=== PATIENT | female | born 1945 ===

== ENCOUNTER → 2019-11-27 09:50 | Outpatient (REF) | payer MEDICARE, SELFPAY ==
--- NOTE | 2019-11-27 09:46 | NM_ITS ---
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 COMPARISON: The previous bone scan dated 06/05/2018 is available for comparison. No recent radiographs are available for comparison. CT scan of the chest dated 10/04/2016 is available for comparison. TECHNIQUE: Multiple gamma scintillation camera images of the whole body were performed 2.75 hours following the intravenous administration of 26.0 mCi Tc-99m MDP. FINDINGS: In the head, there is somewhat heterogeneous activity with some prominence in the frontal skull bilaterally which may be due to hyperostosis frontalis interna but is not entirely typical of the latter. In the thoracic cage and upper extremities, there is mildly increased activity acromioclavicular and sternoclavicular joints bilaterally and at the costochondral junction of the left first rib. Faint foci of increased activity are present in the left anterolateral rib cage, likely involving the fifth through seventh ribs and there is also faint focus of increased activity in the anterolateral aspect of the right ninth rib, these abnormalities best visualized in the anterior oblique spot views. There is a small focus of mildly increased activity in the posterior aspect of the right sixth rib. In the spine, a mild thoracolumbar scoliosis is present with lumbar convexity to the right. There is mildly to moderately increased activity in multiple vertebra in the mid and lower thoracic spine predominantly in the costovertebral junctions on the left at T7-T9 and on the right at T10 and T11. There is also mildly increased activity in the spinous process of L4 and faintly in the lateral margins of L5. In the pelvis, there is mildly increased activity in the acetabula bilaterally there is a small faint focus of increased activity in the region of the coccyx, well visualized only on the posterior oblique views. An additional focus of increased activity is present in the superior aspect of the left ischium. In the lower extremities, there is a small focus of mildly increased activity in the lateral cortex of the midshaft of the left femur. Is also mildly increased activity in the lesser trochanteric region on the right. In addition there is a mild cortical prominence laterally in the midshaft of the right femur. There is diffusely increased activity in both knees, of moderate intensity involving the patellar and medial compartments and there are diffuse mild to moderate abnormalities in the ankles bilaterally and the proximal feet bilaterally. No other definite bony abnormalities are noted. The urinary bladder and faint visualization of both kidneys are noted. Compared to the previous bone scan dated 06/05/2018, the appearance is similar. The abnormality in the posterior aspect of the right sixth rib is new but the remainder the scan does not appear significantly changed. The CT scan dated 10/04/2016 is the most recent available tomographic imaging for comparison. This shows prominent degenerative changes in the visualized spine which would account for bone scan abnormalities present on the current and prior study. No posterior right sixth rib abnormalities present on that CT scan. IMPRESSION: 1. There is a new abnormality in the posterior aspect of the right sixth rib which is nonspecific and could be metastatic in etiology or due to a healing rib fracture. This might be better characterized with plain radiographs of this rib, if clinically indicated. 2. A small stable abnormality in the lateral cortex of the left femoral midshaft is nonspecific, and could be due to a small chronic fracture at this site, but a metastasis cannot be ruled out. This could be further characterized with radiographs, if clinically indicated. 3. Heterogeneity in the skull is nonspecific and could be due to hyperostosis, but metastatic disease cannot be ruled out. MRI of the head performed without and with intravenous contrast would better characterize these nonspecific findings. 4. Multiple additional stable abnormalities are noted as described above, and these are likely predominantly arthritic or traumatic in etiology. Bone scan abnormalities are noted as described above and these are likely predominantly degenerative or arthritic in etiology.
== END ==
LOC: HO.NUCMED 09:50
PROVIDERS: PCP Internal Medicine; Visit Provider Internal Medicine Medical Oncology
DX: C50.919 Malignant neoplasm of unspecified site of unspecified female breast (principal); C79.51 Secondary malignant neoplasm of bone; Z79.811 Long term (current) use of aromatase inhibitors
CPT/HCPCS: 78306; A9503

== ENCOUNTER → 2020-01-01 13:58 | Outpatient (BNVA) | payer MEDICARE, SELFPAY | PROVIDERS: PCP Internal Medicine; Referring Provider Internal Medicine; Visit Provider Internal Medicine | DX: G47.33 Obstructive sleep apnea (adult) (pediatric) (principal); G47.34 Idiopathic sleep related nonobstructive alveolar hypoventilation | CPT/HCPCS: 99212 ==

== ENCOUNTER → 2020-01-28 09:53 | Outpatient (BNV) | payer MEDICARE, SELFPAY | PROVIDERS: PCP Internal Medicine; Visit Provider Internal Medicine Medical Oncology | DX: C50.911 Malignant neoplasm of unspecified site of right female breast (principal); C79.51 Secondary malignant neoplasm of bone; Z79.811 Long term (current) use of aromatase inhibitors | CPT/HCPCS: 99213; 99214 ==

== ENCOUNTER 2020-01-28 13:47 | Outpatient (REF) | payer MEDICARE, SELFPAY ==
--- NOTE | 2020-01-28 13:48 | XR_ITS ---
EXAMINATION: LEFT FEMUR X-RAY CLINICAL INFORMATION: Follow-up lesion on bone scan COMPARISON: Previous bone scan most recent November 2019 TECHNIQUE: 2 views of the left femur FINDINGS: There is focal cortical thickening along the lateral mid shaft of the left femur corresponding to increased uptake on bone scan. No acute fracture or dislocation is seen. There are degenerative changes at the hip joint and knee joint. Soft tissues are unremarkable. XR/XR ribs RT min 3V w CXR1V IMPRESSION: Focal cortical thickening of the lateral mid shaft of the left femur corresponding to area of increased uptake on bone scan. No bone lesion seen. EXAMINATION: Chest and right rib x-rays CLINICAL INFORMATION: Follow-up uptake on bone scan COMPARISON: Previous bone scan most recent November 2019 and chest x-ray most recent June 2016 TECHNIQUE: One view of the chest and 3 views of the right ribs FINDINGS: The cardiac silhouette is enlarged but stable. Hilar and mediastinal contours are unremarkable. The lungs are clear. There is no pleural effusion or pneumothorax. There are surgical clips in the right axilla. There are degenerative changes of the thoracic spine and scoliosis. No rib fracture or bone lesion is seen. IMPRESSION: No evidence for acute disease in the chest. Scoliosis and degenerative changes of the thoracic spine. No right rib fracture or bone lesion is seen.
--- NOTE | 2020-01-28 13:48 | XR_ITS ---
EXAMINATION: LEFT FEMUR X-RAY CLINICAL INFORMATION: Follow-up lesion on bone scan COMPARISON: Previous bone scan most recent November 2019 TECHNIQUE: 2 views of the left femur FINDINGS: There is focal cortical thickening along the lateral mid shaft of the left femur corresponding to increased uptake on bone scan. No acute fracture or dislocation is seen. There are degenerative changes at the hip joint and knee joint. Soft tissues are unremarkable. XR/XR femur LT 2V IMPRESSION: Focal cortical thickening of the lateral mid shaft of the left femur corresponding to area of increased uptake on bone scan. No bone lesion seen. EXAMINATION: Chest and right rib x-rays CLINICAL INFORMATION: Follow-up uptake on bone scan COMPARISON: Previous bone scan most recent November 2019 and chest x-ray most recent June 2016 TECHNIQUE: One view of the chest and 3 views of the right ribs FINDINGS: The cardiac silhouette is enlarged but stable. Hilar and mediastinal contours are unremarkable. The lungs are clear. There is no pleural effusion or pneumothorax. There are surgical clips in the right axilla. There are degenerative changes of the thoracic spine and scoliosis. No rib fracture or bone lesion is seen. IMPRESSION: No evidence for acute disease in the chest. Scoliosis and degenerative changes of the thoracic spine. No right rib fracture or bone lesion is seen.
== END 2020-01-28 13:48 | disposition home or self-care (01) ==
LOC: HO.XRAY 13:47
PROVIDERS: Visit Provider Internal Medicine Medical Oncology
DX: M89.9 Disorder of bone, unspecified (principal); S22.31XA Fracture of one rib, right side, initial encounter for closed fracture; X58.XXXA Exposure to other specified factors, initial encounter; Y93.9 Activity, unspecified; Y92.9 Unspecified place or not applicable; Y99.9 Unspecified external cause status; C50.919 Malignant neoplasm of unspecified site of unspecified female breast; C79.31 Secondary malignant neoplasm of brain
CPT/HCPCS: 71101; 73552

== ENCOUNTER 2020-02-05 10:12 | Outpatient (REF) | payer MEDICARE, SELFPAY | END 2020-02-05 10:13 | disposition home or self-care (01) | LOC: HO.LAB 10:12 | PROVIDERS: Visit Provider Internal Medicine | DX: Z20.828 Contact with and (suspected) exposure to other viral communicable diseases (principal) | CPT/HCPCS: C9803; U0003 ==

== ENCOUNTER 2020-02-19 12:54 | Outpatient (REF) | payer MEDICARE, SELFPAY ==
--- NOTE | 2020-02-19 12:56 | MR_ITS ---
EXAMINATION: MRI OF THE BRAIN WITH AND WITHOUT IV CONTRAST INDICATION: Follow-up abnormal bone scan. COMPARISON: Bone scan 11/27/2019. Brain MRI 11/12/2013. TECHNIQUE: Multiplanar multisequence MR imaging of the brain was obtained without and following the administration of 7.5 mL of Gadavist without complication. FINDINGS: There is a stable well-circumscribed enhancing lesion within the left frontal bone just anterior to the left coronal suture measuring 0.8 cm when correlated with 11/12/2013 brain MRI. This lesion has chronically exhibited increased bone scan uptake. No definite additional discrete enhancing lesions are identified within the skull to correlate with the recent bone scan findings. There is mild chronic microangiopathy. There is no hydrocephalus, extra-axial surface collection, or herniation. The major flow voids at the skull base are preserved. There is no acute infarct on diffusion-weighted imaging. There is no intracranial hemorrhage on the gradient recalled echo acquisition. 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 The cerebellar tonsils are normally positioned. The cerebellum and brainstem are normal. The craniocervical junction is normal. A few ethmoid air cells are opacified bilaterally and there is mild mucosal thickening within the left frontal sinus. MR/MR head/brain wo/w con IMPRESSION: - There is a stable well-circumscribed enhancing lesion within the left frontal bone just anterior to the left coronal suture measuring 0.8 cm when correlated with 11/12/2013 brain MRI favoring a benign etiology or an inactive treated lesion. This lesion has chronically exhibited increased bone scan uptake. No definite additional discrete enhancing lesions are identified within the skull to correlate with the recent bone scan findings. - No pathologic enhancement intracranially.
== END 2020-02-19 12:55 | disposition home or self-care (01) ==
LOC: HO.MRI 12:54
PROVIDERS: Visit Provider Internal Medicine Medical Oncology
DX: C79.31 Secondary malignant neoplasm of brain (principal)
CPT/HCPCS: 70553; A9585

== ENCOUNTER → 2020-03-09 11:37 | Outpatient (BNVA) | payer MEDICARE, SELFPAY | PROVIDERS: PCP Internal Medicine; Visit Provider Internal Medicine | DX: G47.33 Obstructive sleep apnea (adult) (pediatric) (principal); J45.909 Unspecified asthma, uncomplicated | CPT/HCPCS: 99212 ==

== ENCOUNTER → 2020-03-13 11:13 | Outpatient (BNVA) | payer MEDICARE, SELFPAY | PROVIDERS: PCP Internal Medicine; Visit Provider Nurse Practitioner | DX: Z13.89 Encounter for screening for other disorder (principal) | CPT/HCPCS: Q3014 ==

== ENCOUNTER 2020-03-20 14:26 | Outpatient (REF) | payer MEDICARE, SELFPAY ==
--- NOTE | 2020-03-20 14:33 | XR_ITS ---
EXAMINATION: XR CHEST CLINICAL INFORMATION: Dorsalgia COMPARISON: Right rib radiographs from 01/28/2020 TECHNIQUE: 2 views of the chest were obtained. FINDINGS: There is no focal consolidation. There is no pneumothorax. The trachea is midline. Cardiomediastinal silhouette is enlarged. There is no pleural effusion. The aorta is tortuous. There is S-shaped curvature of the thoracolumbar spine with multilevel degenerative changes of the thoracic spine. Soft tissues are unremarkable. Radiopaque surgical clips are noted projecting over the right lateral breast. XR/XR chest 2V IMPRESSION: No acute cardiopulmonary process.
== END 2020-03-20 14:27 | disposition home or self-care (01) ==
LOC: HO.XRAY 14:26
PROVIDERS: PCP Internal Medicine; Visit Provider Nurse Practitioner Family
DX: M54.9 Dorsalgia, unspecified (principal)
CPT/HCPCS: 71046

== ENCOUNTER 2020-03-26 09:41 | Outpatient (REF) | payer MEDICARE, SELFPAY ==
[2020-03-26 10:54] LABS: MANUAL DIFF FLAG NO
[2020-03-26 11:00] LABS: Basophils Absolute Auto 0.1 X10*3/uL (0.0-0.2); Basophils Percent Auto 0.8 % (0-2); Eosinophils Absolute Auto 0.2 X10*3/uL (0.0-0.4); Eosinophils Percent Auto 3.6 % (0-4); Hematocrit 40.1 % (37-47); Hemoglobin 13.1 g/dl (12.0-16.0); Imm Gran Abs Auto 0.02 X10*3/uL (0.00-0.03); Imm Gran Pct Auto 0.3 % (0.0-0.4); Lymphocytes Absolute Auto 2.8 X10*3/uL (1.2-4.9); Lymphocytes Percent Auto 41.8 % (20-40); Mean Corpuscular HGB Conc 32.7 g/dl (31.0-35.0); Mean Corpuscular Hemoglobin 30.4 pg (27.0-33.0); Mean Platelet Volume 9.3 fL (9.4-12.3); Monocytes Absolute Auto 0.5 X10*3/uL (0.1-1.2); Monocytes Percent Auto 7.1 % (2-11); Neutrophils Absolute Auto 3.1 X10*3/uL (2.0-8.3); Neutrophils Percent Auto 46.4 % (45-73); Platelet Count 265 X10*3/uL (160-400); Red Blood Count 4.31 X10*6/uL (4.20-5.50); Red Cell Distribution Width 12.8 % (11.0-16.0); White Blood Count 6.7 X10*3/uL (4.8-10.8)
[2020-03-26 11:34] LABS: Alanine Aminotransferase 23 U/L (0-31); Albumin Level 4.2 g/dL (3.5-5.0); Alkaline Phosphatase 67 U/L (39-117); Anion Gap 12 (12-20); Aspartate Amino Transferase 22 U/L (5-31); Bilirubin Total 0.4 mg/dL (0.0-1.0); Blood Urea Nitrogen 17 mg/dL (9-16); Calcium 9.2 mg/dL (8.4-10.2); Carbon Dioxide 28 mmol/L (22-29); Chloride 103 mmol/L (96-108); Cholesterol 170 mg/dL; Estimated Glomerular Filt Rate 55; Glucose Fasting 90 mg/dL (60-99); HDL Cholesterol 46 mg/dL; LDL Cholesterol Calculated 104 mg/dl; Potassium 4.1 mmol/L (3.3-5.1); Sodium 139 mmol/L (135-145); Total Protein 7.4 g/dL (6.5-8.0); Triglycerides 102 mg/dL
== END 2020-03-26 09:42 | disposition home or self-care (01) ==
LOC: HO.LAB 09:41
PROVIDERS: Absent Provider Nurse Practitioner Family; PCP Internal Medicine; Visit Provider Internal Medicine
DX: I10 Essential (primary) hypertension (principal); E78.5 Hyperlipidemia, unspecified; M54.9 Dorsalgia, unspecified
CPT/HCPCS: 36415; 80053; 80061; 85025

== ENCOUNTER 2020-04-14 14:52 | Outpatient (REF) | payer MEDICARE, SELFPAY ==
--- NOTE | ~2020-04-14 | MM_ITS ---
EXAMINATION: MM SCREENING DIGITAL BREAST TOMOSYNTHESIS, BILATERAL CLINICAL INFORMATION: Screening. Asymptomatic. Right breast cancer 2006. COMPARISON: Mammography: 02/21/2019, 02/15/2018, 03/08/2017, 02/10/2017 TECHNIQUE: Digital breast tomosynthesis is performed in both the craniocaudal and mediolateral oblique views along with computer-aided detection (CAD). Synthesized 2D images are generated from the tomosynthesis. Additional right exaggerated CC view is provided. FINDINGS: There are scattered areas of fibroglandular density (ACR BI-RADS breast composition Category b). The left breast is unremarkable. There is no developing density or interval mass or architectural abnormality. There are no abnormal calcifications. Left axillary node stable. The right breast has post therapy changes with stable scarring and mild reduced breast size. There is no interval mass or architectural abnormality. There are vascular and round and rim calcifications again seen. Some increased calcifications are present in the central anterior right breast, possibly dystrophic or vascular on tomography. Patient will be recalled for additional imaging. MM/MM tomosynthesis screening BI IMPRESSION: 1. Right: Increased calcifications central anterior breast, possibly dystrophic or vascular tomography. 2. Left: No mammographic evidence of malignancy. ASSESSMENT: BI-RADS 0: Incomplete - Need Additional Imaging Evaluation RECOMMENDATION: 1. Additional views of the right breast (magnification CC, magnification ML). 2. Radiology department staff will contact the patient for additional imaging. This patient's information was entered into a reminder system with a target due date for their next mammogram.
== END 2020-04-14 14:53 | disposition home or self-care (01) ==
LOC: HO.MAMMO 14:52
PROVIDERS: PCP Internal Medicine; Visit Provider Internal Medicine
DX: Z12.31 Encounter for screening mammogram for malignant neoplasm of breast (principal)
CPT/HCPCS: 77063; 77067

== ENCOUNTER 2020-04-20 09:51 | Outpatient (REF) | payer MEDICARE, SELFPAY ==
--- NOTE | ~2020-04-20 | MM_ITS ---
EXAMINATION: MM DIAGNOSTIC DIGITAL MAMMOGRAPHY, RIGHT CLINICAL INFORMATION: Recall from screening for increased calcifications central anterior breast. Prior history right breast cancer 2005. COMPARISON: Mammography: 04/14/2020, 02/21/2019, 02/15/2018 TECHNIQUE: Digital mammography is performed in the following views: Magnification CC, magnification rolled CC x2, magnification ML x2. FINDINGS: There are scattered areas of fibroglandular density (ACR BI-RADS breast composition Category b). The additional views show grouped calcifications in the anterior central breast, close to calcified vasculature but not definitively related to vascular calcifications. They may be early dystrophic. Given the prior history right breast cancer, attempted stereotactic sampling is suggested. Results are discussed with the patient and her daughter at time of visit, using an intermediate manager. Attempted stereotactic sampling is discussed. It was noted that time of stereotactic sampling, calcifications could appear vascular and sampling ordered. MM/MM added views RT IMPRESSION: New indeterminate calcifications anterior central right breast, possibly early dystrophic or vascular. Given prior history right breast cancer, attempt at stereotactic sampling Is suggested. ASSESSMENT: BI-RADS 4: Suspicious (subcategory 4A: Low suspicion for malignancy) RECOMMENDATION: Stereotactic biopsy right anterior breast calcifications. This patient's information was entered into a reminder system with a target due date for their next mammogram.
== END 2020-04-20 09:52 | disposition home or self-care (01) ==
LOC: HO.MAMMO 09:51
PROVIDERS: Visit Provider Internal Medicine
DX: R92.1 Mammographic calcification found on diagnostic imaging of breast (principal)
CPT/HCPCS: 77065

== ENCOUNTER 2020-04-28 09:16 | Outpatient (REF) | payer MEDICARE, SELFPAY ==
--- NOTE | ~2020-04-28 | MM_ITS ---
EXAMINATION: STEREOTACTIC TOMOSYNTHESIS-GUIDED VACUUM-ASSISTED BREAST BIOPSY, RIGHT SPECIMEN RADIOGRAPH, RIGHT POST PROCEDURE DIGITAL MAMMOGRAM, RIGHT CLINICAL INFORMATION: New calcifications anterior central right breast, possibly early dystrophic or vascular. Remote history right breast cancer 2005. COMPARISON: Mammography 04/20/2020, 04/14/2020, 02/21/2019. TECHNIQUE/PROCEDURE: Informed consent was obtained from the patient after discussion of the benefits, risks, and alternatives to biopsy today. Patient appeared to understand. Gave opportunity for questions. Patient signed consent form. Hospital provided actuary manager assisted for consent and throughout the procedure. BIOPSY TABLE: [place] Biopsy System. LESION: Calcifications central anterior right breast. LOCAL ANESTHESIA: 5 mL 1% lidocaine; 15 mL 1% lidocaine with epinephrine. DERMATOTOMY: Single skin jessy dermatotomy performed. NEEDLE: [employer] 9-gauge vacuum assisted core biopsy device. APPROACH: lateral medial. TARGETING: Digital breast tomosynthesis used for targeting. CORES: 9. CLIP: [employer] T-shaped marker. SPECIMEN RADIOGRAPH: Specimen radiograph is taken in separate room using digital mammography. The index calcifications are in the excised cores. There are numerous punctate and some coarser calcifications in the cores. There are also some tram track vascular calcification in the cores, not segregated. POST PROCEDURE UNILATERAL DIGITAL MAMMOGRAM: The post biopsy mammogram is performed in separate room using separate digital mammography equipment from the biopsy procedure. CC and ML views are obtained. There are scattered areas of fibroglandular density (breast composition category: b). The clip marker is in position. The calcifications are decreased at the biopsy site. No significant hematoma appreciated. The patient tolerated the procedure well. No immediate complications. Home instructions reviewed with the patient. Final pathology results are pending. MM/MM stereotactic biopsy RT IMPRESSION: 1. Digital tomosynthesis-guided core biopsy right breast with clip placement. 2. Specimen radiograph taken and post procedure mammogram. There is satisfactory positioning of the biopsy clip. 3. Final pathology results pending. An addendum report will be issued.
== END 2020-04-28 09:17 | disposition home or self-care (01) ==
LOC: HO.MAMMO 09:16
PROVIDERS: Visit Provider Surgery
DX: R92.8 Other abnormal and inconclusive findings on diagnostic imaging of breast (principal); R92.0 Mammographic microcalcification found on diagnostic imaging of breast; C79.51 Secondary malignant neoplasm of bone; Z79.899 Other long term (current) drug therapy; Z85.3 Personal history of malignant neoplasm of breast; Z92.3 Personal history of irradiation; Z92.21 Personal history of antineoplastic chemotherapy
CPT/HCPCS: 19081; 88305; 88341; 88342; 99202; A4648

== ENCOUNTER 2020-04-30 10:28 | Emergency (ER) | payer MEDICARE, SELFPAY ==
--- NOTE | ~2020-04-30 | CT_ITS ---
EXAMINATION: CT HEAD WITHOUT CONTRAST CLINICAL INFORMATION: Headache. History of metastatic disease COMPARISON: MRI 02/19/2020 TECHNIQUE: Contiguous axial imaging was performed from the skull base to vertex without intravenous administration of contrast. This CT examination was performed using dose optimization techniques as appropriate, variously including the following: *Automated exposure control *Adjustment of mA and/or kV according to patient size (this includes techniques or standardized protocols for targeted exams where dose is matched to indication/reason for exam; i.e. extremities or head) *Use of iterative reconstruction technique DLP: 659 mGy-cm FINDINGS: There is no evidence of acute intracranial hemorrhage or territorial infarction. No abnormal mass effect or midline shift is seen. Rizvi to white matter differentiation is well preserved. No extra-axial fluid collections are identified. The ventricles are normal in size. There is no abnormal attenuation within the brain parenchyma. The osseous structures and soft tissues are normal. The mastoid air cells and visualized portions of the paranasal sinuses are well aerated. CT/CT head/brain wo con IMPRESSION: No acute intracranial pathology.
[2020-04-30 12:11] VITALS: BP 150/64; PULSE 68; RESP 18; TEMP 36.5; O2SAT 95; BMI 31.4
[2020-04-30 12:21] LABS: MANUAL DIFF FLAG NO
[2020-04-30 12:23] LABS: Basophils Percent Auto 0.4 % (0-2); Eosinophils Percent Auto 0.3 % (0-4); Hematocrit 39.9 % (37-47); Hemoglobin 13.3 g/dl (12.0-16.0); Imm Gran Abs Auto 0.03 X10*3/uL (0.00-0.03); Imm Gran Pct Auto 0.3 % (0.0-0.4); Lymphocytes Absolute Auto 1.3 X10*3/uL (1.2-4.9); Lymphocytes Percent Auto 11.9 % (20-40); Mean Corpuscular HGB Conc 33.3 g/dl (31.0-35.0); Mean Corpuscular Hemoglobin 30.9 pg (27.0-33.0); Mean Corpuscular Volume 92.8 fL (80-98); Mean Platelet Volume 8.9 fL (9.4-12.3); Monocytes Absolute Auto 0.4 X10*3/uL (0.1-1.2); Monocytes Percent Auto 3.7 % (2-11); Neutrophils Absolute Auto 9.1 X10*3/uL (2.0-8.3); Neutrophils Percent Auto 83.4 % (45-73); Platelet Count 252 X10*3/uL (160-400); Red Cell Distribution Width 12.6 % (11.0-16.0); White Blood Count 10.9 X10*3/uL (4.8-10.8)
[2020-04-30 12:33] LABS: Glucose Urine UA NEG (NEG); Leukocyte Esterase Urine NEG (NEG); Nitrite Urine NEG (NEG); Urine Blood NEG (NEG); Urine Ketones NEG (NEG); Urine Protein 1+ MG/DL (NEG-TRACE)
[2020-04-30 12:41] LABS: Appearance Urine CLEAR; Color Urine YELLOW
[2020-04-30 12:52] LABS: Anion Gap 11 (12-20); Blood Urea Nitrogen 19 mg/dL (9-16); Calcium 9.7 mg/dL (8.4-10.2); Carbon Dioxide 28 mmol/L (22-29); Chloride 103 mmol/L (96-108); Creatinine Clr Calc Pharmacy 58.8; Estimated Glomerular Filt Rate 60; Glucose Random 172 mg/dL (60-115); Potassium 4.4 mmol/L (3.3-5.1); Sodium 138 mmol/L (135-145)
[2020-04-30 12:53] LABS: Mucus Urine 2+ /LPF; RBC Urine 0-2 /HPF (0); Squamous Epithelial Cell Urine 1+ /LPF; WBC Urine 0-2 /HPF (0-4)
--- NOTE | 2020-04-30 15:25 | PC.NURSE ---
Patient awake and alert. Skin pwd, resp even and non labored, speaking in full, clear sentences. c/o 09/29 headache to top of head extending down to right neck since yesterday. pt w/ brain tumor per family. neuros intact. nausea earlier today, resolved at this time. NSR via tele. Neuros intact. awaiting initial provider bibi
[2020-04-30 15:31] VITALS: BP 159/77; PULSE 76; RESP 28; O2SAT 97
--- NOTE | 2020-04-30 16:48 | ED_ITS ---
HPI - Headache General Chief Complaint: Headache Stated Complaint: head pain,no inj Time Seen by Provider: 04/30/20 16:35 Source: patient, family (Daughter) and staff interpreter Mode of arrival: ambulatory Limitations: no limitations History of Present Illness HPI Narrative: 74-year-old female with history of breast cancer with metastases, presented with a right-sided headache for 2 days, no neck stiffness, no fever, n o chills, no nausea, no vomiting. Patient stated that she had this headache in the past and was relieved by given morphine in the emergency department. Patient is been treated for breast cancer, patient also just had right breast biopsy awaiting pathology results. Related Data Home Medications Medication Instructions Recorded Confirmed acetaminophen 500 mg tablet 500 mg PO Q6H 01/01/20 04/28/20 amlodipine 5 mg tablet 5 mg PO DAILY 01/01/20 04/28/20 aspirin 81 mg tablet,delayed 81 mg PO DAILY 01/01/20 04/28/20 release calcium carbonate 600 mg (1,500 1 tab PO BID 01/01/20 04/28/20 mg)-vitamin D3 400 unit tablet escitalopram oxalate 5 mg tablet 5 mg PO DAILY 01/01/20 04/28/20 zoledronic acid 4 mg/5 mL 4 mg IV 01/01/20 04/28/20 intravenous solution Previous Rx's Medication Instructions Recorded exemestane [Aromasin] 25 mg PO DAILY #90 tab 01/28/20 carbamide peroxide 6.5 % ear drops 5 drp OTIC (EARS) DAILY 4 Days #15 03/20/20 ml cyclobenzaprine 10 mg tablet 10 mg PO BEDTIME PRN 30 Days #30 03/20/20 tab pantoprazole 40 mg tablet,delayed 40 mg PO BEDTIME #30 tab 03/26/20 release metoprolol tartrate 50 mg tablet 50 mg PO BID #180 tab 04/07/20 Allergies Allergy/AdvReac Type Severity Reaction Status Date / Time No Known Allergies Allergy Verified 03/13/20 11:14 [No Known Allergies*] Review of Systems Review of Systems: All other systems are reviewed and are negative Constitutional: Reports as per HPI and Reports no additional constitutional complaints Eyes: Reports as per HPI and Reports no additional eye complaints Reports system reviewed and no additional complaints, except as documented Cardiovascular: Reports as per HPI and Reports no additional cardiovascular complaints Respiratory: Reports as per HPI and Reports no additional respiratory complaints Gastrointestinal: Reports as per HPI and Reports no additional gastrointestinal complaints Genitourinary: Reports no additional female genitourinary complaints Musculoskeletal: Reports no additional musculoskeletal complaints Skin/Breast: Reports system reviewed and no additional complaints, except as docu Psychiatric: Reports no additional psychiatric complaints Endocrine: Reports no additional endocrine complaints Hematologic/Lymphatic: Reports no additional hematologic/lymphatic complaints Allergic/Immunologic: Reports no additional allergic/immunologic complaints Reports system reviewed and no additional complaints, except as documented and Reports Abnormal speech present [facility] Past Medical History Medical History Abnormal mammogram Asthma Breast cancer metastasized to bone Brittle asthma Glaucoma HTN (hypertension) Nocturnal hypoxemia TAT[place] (obstructive sleep apnea) Osteoarthritis Osteoporosis Upper back pain on right side Surgical History H/O excision of dermoid cyst H/O excision of mass H/O lumpectomy History of tubal ligation Hx of colonoscopy Family History Family History Father Hypertension Hyperlipidemia Diabetes mellitus Mother Hypertension Hyperlipidemia Cervical cancer Sister Breast cancer Hypertension Social History Social History Alcohol intake: current Alcohol intake frequency: does not drink Smoking Status: Never smoker Advance Directives: Yes Advance Directives on File: Yes Advance Directives Date on File: 11/27/19 Physical Exam Vital Signs: Vital Signs: Last Vital Signs Temp 97.7 F 04/30/20 12:11 Pulse 78 04/30/20 18:59 Resp 16 04/30/20 18:59 BP 159/77 H 04/30/20 18:59 Pulse Ox 95 04/30/20 18:59 Body Mass Index 31.4 Vital signs have been reviewed as appeared to be correct. Blood pressure normal. Heart rate normal. Respiration rate: Tachypneic. Temperature normal. Oxygen saturation normal. Appearance: Alert. Oriented X3. No acute distress. Head: Normal external exam. Normocephalic. Atraumatic. No Chao signs noted. No raccoon eyes noted Eyes: PERRLA. EOMI. Conjunctiva and sclera normal. Eyelids normal. ENT: TM's Normal. Pharynx normal. Uvula midline. Moist mucous membranes. No trismus noted. No drooling noted. No muffled voice noted. Neck: Normal inspection. Neck supple. FROM. No adenopathy. Thyroid Normal. No meningeal signs. No neck mass noted. CVS: Normal heart rate and rhythm. Heart sound normal. No murmurs noted. Pulses normal throughout. Respiratory: No respiratory distress. Painless inspiration. Breath sounds normal. No wheezes/rales/rhonchi noted. Chest nontender. No accessory muscle usage noted or decreased air movement noted. Abdomen: Soft and nontender. Bowel sounds normal in all 4 quadrants. No distention noted. No organomegaly noted. No visible injury noted. Back: No CVA tenderness. Full range of motion noted. Skin: Skin warm and dry. Normal skin color. Normal skin turgor. No rashes/lesions/lacerations noted. Extremities: No lower extremity edema. Extremities exhibit normal range of motion. Extremities nontender. Neuro: Oriented X 3. No motor deficit. No sensory deficit. Reflexes normal. Course Course Course Narrative: Assessment and plan. 74-year-old female came in with headache for 2 days, patient had a history of metastatic breast cancer, CT showed no neoplasm growth in the brain. No bleed, patient feels better, repeat neuro exam is unremarkable. Patient has an appointment tomorrow with Dr. Seo who just preformed right breast biopsy. Patient appears stable to be discharged with family. MDM - Headache Lab Data Attestation: I reviewed the patient's lab results. Result diagrams: 04/30/20 12:16 04/30/20 12:16 Labs: Lab Results 04/30/20 04/30/20 04/30/20 Range/Units 12:16 12:16 12:25 WBC 10.9 H (4.8-10.8) X10*3/uL RBC 4.30 (4.20-5.50) X10*6/uL Hgb 13.3 (12.0-16.0) g/dl Hct 39.9 (37-47) % MCV 92.8 (80-98) fL MCH 30.9 (27.0-33.0) pg MCHC 33.3 (31.0-35.0) g/dl RDW 12.6 (11.0-16.0) % Plt Count 252 (160-400) X10*3/uL MPV 8.9 L (9.4-12.3) fL Immature Gran % (Auto) 0.3 (0.0-0.4) % Neut % (Auto) 83.4 H (45-73) % Lymph % (Auto) 11.9 L (20-40) % Sutton % (Auto) 3.7 (2-11) % Eos % (Auto) 0.3 (0-4) % Baso % (Auto) 0.4 (0-2) % Lymph # (Auto) 1.3 (1.2-4.9) X10*3/uL Sutton # (Auto) 0.4 (0.1-1.2) X10*3/uL Eos # (Auto) 0.0 (0.0-0.4) X10*3/uL Baso # (Auto) 0.0 (0.0-0.2) X10*3/uL Abs Immat Gran (auto) 0.03 (0.00-0.03) X10*3/uL Absolute Neuts (auto) 9.1 H (2.0-8.3) X10*3/uL Absolute Nucleated RBC 0.000 (0.0-0.012) X10*3/uL Nucleated RBC % (auto) 0.0 (0.0-0.2) /100WBC Sodium 138 (135-145) mmol/L Potassium 4.4 (3.3-5.1) mmol/L Chloride 103 (96-108) mmol/L Carbon Dioxide 28 (22-29) mmol/L Anion Gap 11 L (12-20) BUN 19 H (9-16) mg/dL Creatinine 0.92 (0.5-1.4) mg/dL Estim Creat Clear Calc 58.8 Estimated GFR 60 Random Glucose 172 H (60-115) mg/dL Calcium 9.7 (8.4-10.2) mg/dL Urine Color YELLOW Urine Appearance CLEAR Urine pH 6.0 (5.0-8.0) Ur Specific [place] 1.020 (1.005-1.025) Urine Protein 1+ H (NEG-TRACE) MG/DL Urine Glucose (UA) NEG (NEG) MG/DL Urine Ketones NEG (NEG) MG/DL Urine Blood NEG (NEG) Urine Nitrite NEG (NEG) Ur Leukocyte Esterase NEG (NEG) Urine RBC 0-2 (0) /HPF Urine WBC 0-2 (0-4) /HPF Ur Squamous Epith Cells 1+ /LPF Urine Bacteria NONE /LPF Urine Mucus 2+ /LPF Imaging Data CT scan - head: Radiologist's impression: No acute intracranial pathology. Discharge Plan Discharge Clinical Impression: Headache Qualifiers: Headache type: unspecified Headache chronicity pattern: chronic headache Intractability: not intractable Qualified Code(s): R51.9 - Headache, unspecified Patient Disposition: Home, Self-Care Instructions: Acute Headache (ED) Prescriptions: No Action pantoprazole 40 mg tablet,delayed release (DR/EC) 40 mg PO BEDTIME Qty: 30 RF: 6 metoprolol tartrate 50 mg tablet 50 mg PO BID Qty: 180 RF: 3 exemestane [Aromasin] 25 mg Tablet 25 mg PO DAILY Qty: 90 RF: 6 cyclobenzaprine 10 mg tablet 10 mg PO BEDTIME PRN (Reason: muscle spasm) 30 Days Qty: 30 RF: 0 carbamide peroxide [Debrox] 6.5 % drops 5 drp otic (ears) DAILY 4 Days Qty: 15 RF: 0 amlodipine 5 mg tablet 5 mg PO DAILY RF: 0 aspirin 81 mg tablet,delayed release (DR/EC) 81 mg PO DAILY RF: 0 zoledronic acid 4 mg/5 mL solution 4 mg IV RF: 0 calcium carbonate-vitamin D3 600 mg(1,500mg) -400 unit tablet 1 tab PO BID RF: 0 acetaminophen 500 mg tablet 500 mg PO Q6H RF: 0 escitalopram oxalate 5 mg tablet 5 mg PO DAILY RF: 0 Referrals: Dao Seo MD [Physician] - 1 day Magdalena Cleary MD [Primary Care Provider] - 2 days
[2020-04-30 17:04] VITALS: BP 136/67; PULSE 74; RESP 26; O2SAT 97
[2020-04-30] MEDS: 0.9 % Sodium Chloride 1,000 ML 999 ML IVCONT (17:08)
[2020-04-30] MEDS: Morphine Sulfate 2 MG/ML CARTRIDGE 1 MG IVPUSH (17:08)
[2020-04-30 18:59] VITALS: BP 159/77; PULSE 78; RESP 16; O2SAT 95
== END 2020-04-30 20:16 | disposition home or self-care (01) ==
PROVIDERS: Emergency Provider Emergency Medicine; PCP Internal Medicine
DX: R51.9 Headache, unspecified (principal); Z85.3 Personal history of malignant neoplasm of breast; Z85.830 Personal history of malignant neoplasm of bone; Z79.82 Long term (current) use of aspirin; Z79.899 Other long term (current) drug therapy; I10 Essential (primary) hypertension
CPT/HCPCS: 36415; 70450; 80048; 81001; 85025; 96361; 96374; 99284; 99285; J2270

== ENCOUNTER → 2020-05-01 11:08 | Outpatient (BNVA) | payer MEDICARE, SELFPAY | PROVIDERS: PCP Internal Medicine; Visit Provider Surgery | DX: R92.8 Other abnormal and inconclusive findings on diagnostic imaging of breast (principal) | CPT/HCPCS: 99212 ==

== ENCOUNTER → 2020-05-04 10:48 | Outpatient (BNVA) | payer MEDICARE, SELFPAY | PROVIDERS: PCP Internal Medicine; Visit Provider Internal Medicine | DX: J45.909 Unspecified asthma, uncomplicated (principal); G47.33 Obstructive sleep apnea (adult) (pediatric); Z99.89 Dependence on other enabling machines and devices | CPT/HCPCS: 99212 ==

== ENCOUNTER 2020-07-03 09:02 | Outpatient (REF) | payer MEDICARE, SELFPAY ==
[2020-07-03 10:53] LABS: Alanine Aminotransferase 24 U/L (0-31); Alkaline Phosphatase 74 U/L (39-117); Anion Gap 10 (12-20); Aspartate Amino Transferase 22 U/L (5-31); Bilirubin Total 0.5 mg/dL (0.0-1.0); Blood Urea Nitrogen 13 mg/dL (9-16); Calcium 9.8 mg/dL (8.4-10.2); Carbon Dioxide 32 mmol/L (22-29); Chloride 105 mmol/L (96-108); Estimated Glomerular Filt Rate 57; Glucose Fasting 110 mg/dL (60-99); Potassium 3.9 mmol/L (3.3-5.1); Sodium 143 mmol/L (135-145); Total Protein 7.3 g/dL (6.5-8.0)
== END 2020-07-03 09:03 | disposition home or self-care (01) ==
LOC: HO.LAB 09:02
PROVIDERS: PCP Internal Medicine; Visit Provider Internal Medicine
DX: I10 Essential (primary) hypertension (principal)
CPT/HCPCS: 36415; 80053

== ENCOUNTER → 2020-09-03 11:19 | Outpatient (BNVA) | payer MEDICARE, SELFPAY | PROVIDERS: PCP Internal Medicine; Referring Provider Internal Medicine; Visit Provider Nurse Practitioner | DX: K21.9 Gastro-esophageal reflux disease without esophagitis (principal); R14.0 Abdominal distension (gaseous); C50.919 Malignant neoplasm of unspecified site of unspecified female breast; C79.51 Secondary malignant neoplasm of bone | CPT/HCPCS: Q3014 ==

== ENCOUNTER 2020-09-22 14:45 | Outpatient (REF) | payer MEDICARE, SELFPAY ==
--- NOTE | ~2020-09-22 | MM_ITS ---
EXAMINATION: MM DIAGNOSTIC DIGITAL BREAST TOMOSYNTHESIS, RIGHT CLINICAL INFORMATION: Remote history right breast cancer 2006. Reestablish new baseline status post benign right stereotactic biopsy 04/28/2020 (benign breast parenchyma with dense fibrosis sclerosis, scattered chronic inflammation, and coarse calcifications. Negative for atypical hyperplasia and carcinoma). COMPARISON: Mammography: 04/28/2020, 04/20/2020, 04/14/2020, 02/21/2019 TECHNIQUE: Digital breast tomosynthesis is performed in both the craniocaudal and mediolateral oblique views along with computer-aided detection (CAD). Synthesized 2D images are generated from the tomosynthesis. Additional magnification CC and magnification ML views are obtained. FINDINGS: There are scattered areas of fibroglandular density (ACR BI-RADS breast composition Category b). There is old scarring consistent with the remote right breast surgery. Surgical clips again seen right axilla. The recent stereotactic biopsy clip marker is again noted with some adjacent remaining calcifications. There are other scattered vascular and ductal secretory and some round and rim calcifications in the right breast. Results are provided to the patient at time of visit by the technologist. MM/MM tomosynthesis diagnostic RT IMPRESSION: Post therapy changes right breast. No mammographic evidence of malignancy. ASSESSMENT: BI-RADS 2: Benign RECOMMENDATION: Routine annual mammography screening. This patient's information was entered into a reminder system with a target due date for their next mammogram.
== END 2020-09-22 14:46 | disposition home or self-care (01) ==
LOC: HO.MAMMO 14:45
PROVIDERS: Visit Provider Surgery
DX: R92.1 Mammographic calcification found on diagnostic imaging of breast (principal)
CPT/HCPCS: 77061; 77065

== ENCOUNTER → 2020-11-09 11:27 | Outpatient (BNVA) | payer MEDICARE, SELFPAY | PROVIDERS: PCP Internal Medicine; Visit Provider Internal Medicine | DX: J45.909 Unspecified asthma, uncomplicated (principal); G47.33 Obstructive sleep apnea (adult) (pediatric); G47.34 Idiopathic sleep related nonobstructive alveolar hypoventilation; E66.9 Obesity, unspecified; I10 Essential (primary) hypertension; M81.0 Age-related osteoporosis without current pathological fracture; Z99.89 Dependence on other enabling machines and devices; Z79.899 Other long term (current) drug therapy | CPT/HCPCS: 99212 ==

== ENCOUNTER 2021-03-04 09:32 | Outpatient (REF) | payer MEDICARE, SELFPAY ==
[2021-03-04 11:04] LABS: Alanine Aminotransferase 27 U/L (0-31); Albumin Level 4.1 g/dL (3.5-5.0); Alkaline Phosphatase 76 U/L (39-117); Anion Gap 11 (12-20); Aspartate Amino Transferase 23 U/L (5-31); Bilirubin Total 0.7 mg/dL (0.0-1.0); Blood Urea Nitrogen 13 mg/dL (9-16); Calcium 9.8 mg/dL (8.4-10.2); Carbon Dioxide 30 mmol/L (22-29); Chloride 105 mmol/L (96-108); Estimated Glomerular Filt Rate 60; Glucose Fasting 101 mg/dL (60-99); Sodium 142 mmol/L (135-145); Total Protein 7.5 g/dL (6.5-8.0)
== END 2021-03-04 09:33 | disposition home or self-care (01) ==
LOC: HO.LAB 09:32
PROVIDERS: PCP Internal Medicine; Visit Provider Internal Medicine
DX: I10 Essential (primary) hypertension (principal)
CPT/HCPCS: 36415; 80053

== ENCOUNTER → 2021-03-19 09:47 | Outpatient (BNVA) | payer MEDICARE, SELFPAY | PROVIDERS: PCP Internal Medicine; Referring Provider Internal Medicine; Visit Provider Nurse Practitioner | DX: K21.9 Gastro-esophageal reflux disease without esophagitis (principal); R14.0 Abdominal distension (gaseous) | CPT/HCPCS: 99212 ==

== ENCOUNTER 2021-03-19 10:36 | Outpatient (REF) | payer MEDICARE, SELFPAY ==
[2021-03-19 10:49] LABS: Binax Internal Control QC Valid; Binax Now Covid-19 Ag Negative (Negative)
== END 2021-03-19 10:37 | disposition home or self-care (01) ==
LOC: HO.LAB 10:36
PROVIDERS: PCP Internal Medicine; Visit Provider Internal Medicine
DX: Z13.89 Encounter for screening for other disorder (principal)

== ENCOUNTER 2021-04-20 10:05 | Outpatient (REF) | payer MEDICARE, SELFPAY ==
--- NOTE | ~2021-04-20 | MM_ITS ---
EXAMINATION: MM SCREENING DIGITAL BREAST TOMOSYNTHESIS, BILATERAL CLINICAL INFORMATION: Due for yearly. Right breast cancer status post lumpectomy, 2006. Benign right stereotactic biopsy 04/28/2020 (dense fibrosis/200 sclerosis, scattered chronic inflammation, and coarse calcifications). COMPARISON: Mammography: 09/22/2020, 04/28/2020, 04/20/2020, 04/14/2020, 02/21/2019, 02/15/2018 TECHNIQUE: Digital breast tomosynthesis is performed in both the craniocaudal and mediolateral oblique views along with computer-aided detection (CAD). Synthesized 2D images are generated from the tomosynthesis. FINDINGS: There are scattered areas of fibroglandular density (ACR BI-RADS breast composition Category b). Post therapy changes on the right is similar to prior studies. There is reduced breast size and minor scarring. There is a biopsy clip marker anterior central 9:00 right breast. Neither breast shows interval mass or developing density or architectural abnormality. There are scattered bilateral round, rim, vascular, and some ductal secretory calcifications. No significant changes from prior studies. MM/MM tomosynthesis screening BI IMPRESSION: No mammographic evidence of malignancy. ASSESSMENT: BI-RADS 2: Benign RECOMMENDATION: Routine annual mammography screening. This patient's information was entered into a reminder system with a target due date for their next mammogram.
== END 2021-04-20 10:06 | disposition home or self-care (01) ==
LOC: HO.MAMMO 10:05
PROVIDERS: PCP Internal Medicine; Visit Provider Internal Medicine
DX: Z12.31 Encounter for screening mammogram for malignant neoplasm of breast (principal)
CPT/HCPCS: 77063; 77067

== ENCOUNTER → 2021-05-12 10:53 | Outpatient (BNVA) | payer MEDICARE, SELFPAY | PROVIDERS: PCP Internal Medicine; Visit Provider Internal Medicine | DX: J45.909 Unspecified asthma, uncomplicated (principal); G47.33 Obstructive sleep apnea (adult) (pediatric) | CPT/HCPCS: Q3014 ==

== ENCOUNTER → 2021-09-07 10:47 | Outpatient (REF) | payer OTHER, SELFPAY ==
--- NOTE | ~2021-09-07 | NM_ITS ---
EXAMINATION: NM BONE SCAN OF THE WHOLE BODY CLINICAL INFORMATION: 76-year-old female with history of right-sided breast cancer diagnosed in 2006, presented with pain involving the head, neck, back, and left knee. COMPARISON: Whole-body bone scan done on 11/27/2019. TECHNIQUE: Multiple gamma scintillation camera images of the whole body were performed 2.75 hours following the intravenous administration of 26 mCi Tc-99m MDP. The radiotracer was injected through left antecubital superficial vein without complications. 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 In the thoracic cage and upper extremities, persistent stable mild linear increased radiotracer activity is noted involving the posterior medial paraspinal region of the right sixth rib, unchanged since most recent prior study dated 11/27/2019, given the long-term stability, consistent with benign pathology. In the spine, moderate thoracolumbar scoliosis and adjacent [id number] abnormal increased radiotracer activities are noted predominantly involving the lower thoracic spine, most consistent with degenerative changes, appears similar to prior study dated 11/27/2019. In the lumbar region, new focal increased radiotracer activity is present involving L4 on the left, not fully characterized. Differential diagnostic consideration would include degenerative spondylosis versus subtle evolving metastatic disease. In the pelvis, no discrete focal abnormal activity is present, unchanged. In the lower extremities, previously documented small focal moderately intense abnormal radiotracer activity along the lateral anterior aspect of the diaphysis of the left femur appear stable, most consistent with benign pathology. Mild increased radiotracer activities are present around both knees and both ankle, most consistent with degenerative changes. No other definite bony abnormalities are noted. The urinary bladder and faint visualization of both kidneys are noted. NM/NM bone scan whole body IMPRESSION: 1. Compared to most recent prior study dated 11/27/2019, interval development of small focal increased radiotracer activity is present at the L4 vertebral body level to the left of the midline, nonspecific in appearance, may represent degenerative changes or early subtle evolving metastasis. Further differentiation cannot be made based on this imaging appearance alone. Alternative imaging modality including CT scan or preferably MRI with intravenous contrast may be considered for further clarification, if clinically appropriate. 2. No other significant interval change or no new significant abnormalities since the prior whole-body bone scan dated 11/27/2019.
== END ==
LOC: HO.NUCMED 10:47
PROVIDERS: PCP Internal Medicine; Visit Provider Internal Medicine Medical Oncology
DX: C50.919 Malignant neoplasm of unspecified site of unspecified female breast (principal); C79.51 Secondary malignant neoplasm of bone
CPT/HCPCS: 78306; A9503

== ENCOUNTER → 2021-09-16 09:43 | Outpatient (BNVA) | payer OTHER, SELFPAY | PROVIDERS: PCP Internal Medicine; Referring Provider Internal Medicine; Visit Provider Nurse Practitioner | DX: K21.9 Gastro-esophageal reflux disease without esophagitis (principal); R14.0 Abdominal distension (gaseous); Z79.899 Other long term (current) drug therapy | CPT/HCPCS: 99212 ==

== ENCOUNTER → 2021-11-10 09:57 | Outpatient (BNVA) | payer OTHER, SELFPAY | PROVIDERS: PCP Internal Medicine; Visit Provider Internal Medicine | DX: G47.33 Obstructive sleep apnea (adult) (pediatric) (principal); J45.909 Unspecified asthma, uncomplicated; E66.9 Obesity, unspecified; Z68.31 Body mass index [BMI] 31.0-31.9, adult | CPT/HCPCS: 99212 ==

== ENCOUNTER 2021-11-15 09:44 | Outpatient (REF) | payer OTHER, SELFPAY ==
[2021-11-15 09:57] LABS: MANUAL DIFF FLAG NO
[2021-11-15 10:57] LABS: Basophils Absolute Auto 0.1 X10*3/uL (0.0-0.2); Basophils Percent Auto 0.8 % (0-2); Eosinophils Absolute Auto 0.3 X10*3/uL (0.0-0.4); Eosinophils Percent Auto 4.1 % (0-4); Hematocrit 42.4 % (37.0-47.0); Hemoglobin 13.6 g/dl (12.0-16.0); Imm Gran Abs Auto 0.01 X10*3/uL (0.00-0.03); Imm Gran Pct Auto 0.2 % (0.0-0.4); Lymphocytes Absolute Auto 2.7 X10*3/uL (1.2-4.9); Lymphocytes Percent Auto 41.6 % (20-40); Mean Corpuscular HGB Conc 32.1 g/dl (31.0-35.0); Mean Corpuscular Hemoglobin 29.8 pg (27.0-33.0); Mean Corpuscular Volume 92.8 fL (80.0-98.0); Mean Platelet Volume 9.7 fL (9.4-12.3); Monocytes Absolute Auto 0.4 X10*3/uL (0.1-1.2); Monocytes Percent Auto 6.1 % (2-11); Neutrophils Absolute Auto 3.1 x10*3/uL (2.0-8.3); Neutrophils Percent Auto 47.2 % (45-73); Platelet Count 230 X10*3/uL (160-400); Red Blood Count 4.57 X10*6/uL (4.20-5.50); Red Cell Distribution Width 13.2 % (11.0-16.0); White Blood Count 6.6 X10*3/uL (4.8-10.8)
[2021-11-15 11:26] LABS: Alanine Aminotransferase 28 U/L (0-31); Albumin Level 4.3 g/dL (3.5-5.0); Alkaline Phosphatase 63 U/L (39-117); Anion Gap 14 (12-20); Aspartate Amino Transferase 23 U/L (5-31); Bilirubin Total 0.6 mg/dL (0.0-1.0); Blood Urea Nitrogen 17 mg/dL (9-16); Calcium 9.8 mg/dL (8.4-10.2); Carbon Dioxide 27 mmol/L (22-29); Chloride 105 mmol/L (96-108); Cholesterol 178 mg/dL; Estimated Glomerular Filt Rate 52; Glucose Fasting 108 mg/dL (60-99); HDL Cholesterol 42 mg/dL; LDL Cholesterol Calculated 117 mg/dl; Potassium 4.4 mmol/L (3.3-5.1); Sodium 142 mmol/L (135-145); Total Protein 7.4 g/dL (6.5-8.0); Triglycerides 97 mg/dL
[2021-11-15 11:39] LABS: Thyroid Stimulating Hormone 0.96 uIU/mL (0.32-4.0)
[2021-11-15 12:01] LABS: Folate 17.9 ng/mL (> or = 4.0); Vitamin B12 428 pg/mL (200-900)
[2021-11-17 09:41] LABS: CA 27.29 26 U/mL (<38)
== END 2021-11-15 09:45 | disposition home or self-care (01) ==
LOC: HO.LAB 09:44
PROVIDERS: Internal Medicine Medical Oncology; PCP Internal Medicine; Visit Provider Internal Medicine
DX: C50.919 Malignant neoplasm of unspecified site of unspecified female breast (principal); C79.51 Secondary malignant neoplasm of bone; E66.9 Obesity, unspecified; R73.02 Impaired glucose tolerance (oral); R41.3 Other amnesia
CPT/HCPCS: 36415; 80053; 80061; 82607; 82746; 84443; 85025; 86300

== ENCOUNTER 2022-01-07 11:33 | Outpatient (REF) | payer OTHER, SELFPAY ==
[2022-01-08 15:02] LABS: BV Int Neg Control Negative (Negative); BV Int Pos Control Positive (Positive)
== END 2022-01-07 11:34 | disposition home or self-care (01) ==
LOC: HO.LNP 11:33
PROVIDERS: Visit Provider Advanced Practice Midwife
DX: N89.8 Other specified noninflammatory disorders of vagina (principal); N81.4 Uterovaginal prolapse, unspecified; N90.7 Vulvar cyst; R10.2 Pelvic and perineal pain
CPT/HCPCS: 87480; 87510; 87660; 99212

== ENCOUNTER 2022-01-19 09:49 | Outpatient (REF) | payer OTHER, SELFPAY ==
[2022-01-19 12:17] LABS: Influenza A PCR POSITIVE (Negative); Influenza B PCR NEGATIVE (Negative); Resp Syncy Virus RNA Qual PCR NEGATIVE (Negative); SARS COV2 PCR INHOUSE NEGATIVE (Negative)
== END 2022-01-19 09:50 | disposition home or self-care (01) ==
LOC: HO.LNP 09:49
PROVIDERS: Visit Provider Nurse Practitioner Family
DX: Z20.822 Contact with and (suspected) exposure to COVID-19 (principal); R05.9 Cough, unspecified; R52 Pain, unspecified
CPT/HCPCS: 0241U

== ENCOUNTER 2022-01-31 10:24 | Outpatient (REF) | payer OTHER, SELFPAY ==
--- NOTE | ~2022-01-31 | MR_ITS ---
EXAMINATION: MR LUMBAR SPINE WITHOUT AND WITH CONTRAST CLINICAL INFORMATION: Follow-up L4 lesion on bone scan. COMPARISON: Bone scan 09/07/2021. TECHNIQUE: MRI of the lumbar spine was obtained using routine sequences with and without contrast. Intravenous contrast: Gadavist 7.5 mL FINDINGS: VERTEBRAL BODIES AND PARASPINAL STRUCTURES: There is a mild dextroscoliosis in the mid lumbar spine. There is multilevel loss of intervertebral disc signal consistent with disc desiccation. There is mild narrowing of intervertebral disc height at L4-L5. There are mild degenerative endplate contour changes at multiple levels, with predominantly fatty endplate signal at T12-L1, L4-L5 and L5-S1. There are mild edematous endplate signal changes and L1-L2 and L5-S1. There is a focus of increased T1 and T2 signal in the left body of L4 which has low STIR signal, and suppresses out on the fat-suppressed images, which is consistent with a lipid rich hemangioma. This likely corresponds to the findings on the prior bone scan; there is no abnormal osseous enhancement in this region or elsewhere in. Vertebral body heights are maintained and no fractures are demonstrated. Overall, marrow signal is homogenous. The visualized retroperitoneal and pelvic structures are unremarkable. CONUS MEDULLARIS AND CAUDA EQUINA: Normal, terminating at the level of L1-L2. The lower thoracic spinal cord has normal signal with no abnormal enhancement. The cauda equina nerve roots and filum terminale are normal. SPINAL LEVELS: L1-L2: The facet joints appear normal. There is a small left-sided disc protrusion with mild narrowing of the left subarticular recess. There is no central stenosis. There are inferior foraminal disc protrusions bilaterally without definite nerve root impingement. L2-L3: There is mild bilateral facet arthropathy. There is a posterior disc protrusion extending into the neural foramina bilaterally, and far laterally on the right with impingement on the extraforaminal right L2 nerve root. There is mild narrowing of the bilateral subarticular recesses, with mild central stenosis. L3-L4: There is moderate bilateral facet arthropathy with ligamenta flava operative. There is a posterior disc protrusion which flattens the ventral thecal sac, predominantly on the left with narrowing of the subarticular recesses. There are bilateral foraminal disc protrusions more prominent on the left with impingement on the exiting left L3 nerve root. There is mild to moderate central stenosis. L4-L5: There is moderate bilateral facet arthropathy with left greater than right ligamentum flavum hypertrophy. There is posterior disc protrusion which extends into the neural foramina bilaterally, more prominent on the left but there is no definite impingement on the exiting L4 nerve roots. There is mild narrowing of the subarticular recesses and there is mild central stenosis. L5-S1: There is moderate bilateral facet arthropathy. There is a broad-based posterior disc protrusion with mild flattening of the ventral thecal sac. The protrusion extends into the neural foramina bilaterally, more prominently on the right and there is impingement on the exiting right L5 nerve root. There is also mild impingement on traversing right S1 nerve root. There is no central stenosis. MR/MR lumbar spine wo/w con IMPRESSION: 1. The findings on the bone scan are consistent with a hemangioma in the body of L4. There is no abnormal osseous enhancement. 2. At L2-L3 there is a posterior disc protrusion extending far laterally on the right with impingement on the extraforaminal right L2 nerve root. There is mild central stenosis. 3. At L3-L4 there is facet arthropathy and there is a posterior disc protrusion. There are bilateral foraminal disc protrusions, more prominent on the left with impingement on the exiting left L3 nerve root. There is mild to moderate central stenosis. 4. At L5-S1 there is facet arthropathy and there is a broad-based posterior disc protrusion extending into the neural foramina, more prominent on the right with impingement on the exiting right L5 nerve root. There is also mild impingement on the traversing right S1 nerve root. There is no central stenosis.
== END 2022-01-31 10:25 | disposition home or self-care (01) ==
LOC: HO.MRI 10:24
PROVIDERS: Visit Provider Internal Medicine Medical Oncology
DX: C50.919 Malignant neoplasm of unspecified site of unspecified female breast (principal); C79.51 Secondary malignant neoplasm of bone
CPT/HCPCS: 72158; A9585

== ENCOUNTER → 2022-03-17 10:41 | Outpatient (BNVA) | payer OTHER, SELFPAY | PROVIDERS: PCP Internal Medicine; Visit Provider Nurse Practitioner | DX: K21.9 Gastro-esophageal reflux disease without esophagitis (principal); R14.0 Abdominal distension (gaseous) | CPT/HCPCS: 99212 ==

== ENCOUNTER 2022-05-04 10:16 | Outpatient (REF) | payer OTHER, SELFPAY ==
--- NOTE | ~2022-05-04 | MM_ITS ---
EXAMINATION: MM SCREENING DIGITAL BREAST TOMOSYNTHESIS, BILATERAL CLINICAL INFORMATION: Screening. Asymptomatic. Remote right breast cancer post lumpectomy, 2005. Benign right stereotactic biopsy 2020 (dense fibrosis sclerosis, scattered chronic inflammation, and coarse calcifications. Negative for atypical hyperplasia and carcinoma). Family history breast cancer, sister. COMPARISON: Prior mammography exams, most recent 04/20/2021. TECHNIQUE: Digital breast tomosynthesis is performed in both the craniocaudal and mediolateral oblique views along with computer-aided detection (CAD). Synthesized 2D images are generated from the tomosynthesis. FINDINGS: There are scattered areas of fibroglandular density (ACR BI-RADS breast composition Category b). Parenchymal pattern is similar to prior studies. There are no significant masses, abnormal calcifications, or other abnormalities. Again, there are post therapy changes on the right with reduced breast size and stable scarring and right axillary clips. There is biopsy clip marker anterior 9:00 right breast. No significant changes in right breast calcifications. Lesser calcifications on left, unremarkable as well. No significant changes. MM/MM tomosynthesis screening BI IMPRESSION: No mammographic evidence of malignancy. ASSESSMENT: BI-RADS 2: Benign RECOMMENDATION: Routine annual mammography screening. This patient's information was entered into a reminder system with a target due date for their next mammogram.
== END 2022-05-04 10:17 | disposition home or self-care (01) ==
LOC: HO.MAMMO 10:16
PROVIDERS: Visit Provider Internal Medicine
DX: Z12.31 Encounter for screening mammogram for malignant neoplasm of breast (principal)
CPT/HCPCS: 77063; 77067

== ENCOUNTER → 2022-05-19 10:41 | Outpatient (BNVA) | payer OTHER, SELFPAY | PROVIDERS: PCP Internal Medicine; Visit Provider Internal Medicine | DX: J45.909 Unspecified asthma, uncomplicated (principal); G47.33 Obstructive sleep apnea (adult) (pediatric); E66.9 Obesity, unspecified; Z68.31 Body mass index [BMI] 31.0-31.9, adult | CPT/HCPCS: 99212 ==

== ENCOUNTER → 2022-06-29 09:33 | Outpatient (REF) | payer OTHER, SELFPAY ==
--- NOTE | ~2022-06-29 | NM_ITS ---
EXAMINATION: NM BONE SCAN OF THE WHOLE BODY CLINICAL INFORMATION: Right-sided female breast cancer diagnosed in 2006. Follow-up on bone metastases. COMPARISON: The previous bone scan dated 09/07/2021 is available for comparison. Radiographs of the left femur and right ribs dated 01/28/2020 are available for comparison. TECHNIQUE: Multiple gamma scintillation camera images of the whole body were performed 3.25 hours following the intravenous administration of 26 mCi Tc-99m MDP. FINDINGS: In the head, no significant abnormalities are present. In the thoracic cage and upper extremities, there is mildly increased activity in the glenohumeral articulation of the right shoulder. There are several foci of mildly to moderately increased activity present in the posterior ribs, most prominently in the posterior medial aspect of the right first rib less intense foci of increased activity in the posterior aspects of the left seventh and ninth ribs. New rib lesions at 3 discrete sites are noted as described above and are suspicious for metastases. There is a mild subtle increase in activity somewhat diffusely in the anterolateral aspect of the right lower rib cage. In the spine, a thoracolumbar scoliosis is present with lumbar convexity to the right. There are no suspicious foci of increased activity present in the spine. In the pelvis, no significant abnormalities are present. In the lower extremities, a moderately intense focus of increased activity is present in the midshaft of the left femur extending to the lateral cortex. There is mildly to moderately increased activity in the patellar and medial compartments of the right knee and in the patellar compartment of the left knee. Foci of mildly increased activity are present in the posterior calcanei at the insertions of the Achilles tendons and likely due to an enthesopathy. No other definite bony abnormalities are noted. The urinary bladder and faint visualization of both kidneys are noted. Compared to the previous bone scan dated 09/07/2021, all of the rib abnormalities are new. Mild abnormalities in the right side of L2 and the left side of L4 are not definitely visualized on the current study. The remainder the scan is not significantly changed. Radiographs of the left femur dated 11/28/2019 show cortical thickening laterally in the midshaft of the corresponds to the focal bone scan abnormality on the current and prior bone scans. ID/ID bone scan whole body IMPRESSION: 1. 3 new rib lesions are present and are nonspecific but are suspicious for metastatic disease. Healing fractures might also be responsible for this appearance. These may be further characterized with plain radiographs of the described ribs, but it is common for bone scan abnormalities in the ribs to not be visualized on plain radiographs. 2. A few additional mild nonspecific abnormalities are noted as described above and these are all likely arthritic or traumatic in etiology. None of these abnormalities is strongly suspicious for metastatic disease.
== END ==
LOC: HO.NUCMED 09:33
PROVIDERS: PCP Internal Medicine; Visit Provider Internal Medicine Medical Oncology
DX: C50.919 Malignant neoplasm of unspecified site of unspecified female breast (principal); C79.51 Secondary malignant neoplasm of bone
CPT/HCPCS: 78306; A9503

== ENCOUNTER 2022-07-10 17:02 | Inpatient (IN) | payer OTHER, SELFPAY ==
--- NOTE | ~2022-07-10 | XR_ITS ---
EXAMINATION: XR PELVIS AND LEFT HIP XR FEMUR, LEFT CLINICAL INDICATION: Status post fall COMPARISON: 01/28/2020 TECHNIQUE: AP pelvis and 2 views of the left hip. 2 views of the left femur. FINDINGS: Alignment across the hips is anatomic. There is slight narrowing of the joint space along the bilateral acetabular spurring. There is a predominantly transverse fracture of the mid shaft left femur with varus angulation as well as posterior displacement of the distal fragment by nearly one shaft width. Alignment across the knee appears grossly maintained though is suboptimally assessed on these views. XR/XR femur LT 2V IMPRESSION: Displaced, angulated fracture of the mid shaft of the left femur.
--- NOTE | ~2022-07-10 | XR_ITS ---
EXAMINATION: XR KNEE, LEFT CLINICAL INFORMATION: Fall COMPARISON: Left femur radiographs from the same day TECHNIQUE: Two views of the left knee. FINDINGS: Alignment across the knee appears anatomic on these views. There is moderate joint space narrowing of the medial compartment. Mild patellofemoral narrowing is also suspected. No acute fracture is seen at the knee. There is patellar spurring at the insertion of the quadriceps tendon. Possible small joint effusion. XR/XR knee LT 2V IMPRESSION: No acute findings identified. Degenerative changes of the knee.
--- NOTE | ~2022-07-10 | FL_ITS ---
EXAMINATION: XR FLUOROSCOPY WITH IMAGES CLINICAL INFORMATION: Left femur fracture COMPARISON: Previous x-ray 07/10/2022 TECHNIQUE: Fluoroscopy Supervised By: Dr. Silas Butler. Fluoroscopy Time: 2.3 minutes. Cumulative Dose: 41 mGy. DAP: 0.7 Gycm2. Images: 6. FINDINGS: Images demonstrate an intramedullary gabriela and 2 proximal and 2 distal fixating the femoral shaft fracture with improved alignment. FL/FL guidance in OR IMPRESSION: Fluoroscopy guidance for ORIF of left femoral shaft fracture.
--- NOTE | ~2022-07-10 | XR_ITS ---
EXAMINATION: XR CHEST CLINICAL INFORMATION: Preop COMPARISON: 03/20/2020 TECHNIQUE: Frontal view of the chest was obtained. FINDINGS: Somewhat limited evaluation due to lordotic positioning. Lung volumes are symmetric. No focal consolidation is seen. No evidence of pneumothorax, significant pleural effusion, or overt pulmonary edema. Cardiac silhouette is enlarged. Right axillary clips are noted. Degenerative changes are noted in the spine. XR/XR chest 1V IMPRESSION: No acute pulmonary findings. Enlarged cardiac silhouette.
--- NOTE | ~2022-07-10 | XR_ITS ---
EXAMINATION: XR PELVIS AND LEFT HIP XR FEMUR, LEFT CLINICAL INDICATION: Status post fall COMPARISON: 01/28/2020 TECHNIQUE: AP pelvis and 2 views of the left hip. 2 views of the left femur. FINDINGS: Alignment across the hips is anatomic. There is slight narrowing of the joint space along the bilateral acetabular spurring. There is a predominantly transverse fracture of the mid shaft left femur with varus angulation as well as posterior displacement of the distal fragment by nearly one shaft width. Alignment across the knee appears grossly maintained though is suboptimally assessed on these views. XR/XR hip LT w PEL1V IMPRESSION: Displaced, angulated fracture of the mid shaft of the left femur.
--- NOTE | ~2022-07-10 | CT_ITS ---
EXAMINATION: CT HEAD WITHOUT CONTRAST CLINICAL INFORMATION: Fall. COMPARISON: CT head from 04/30/2020. TECHNIQUE: Contiguous axial imaging was performed from the skull base to vertex without intravenous administration of contrast. This CT examination was performed using dose optimization techniques as appropriate, variously including the following: *Automated exposure control. *Adjustment of mA and/or kV according to patient size (this includes techniques or standardized protocols for targeted exams where dose is matched to indication/reason for exam; i.e. extremities or head). *Use of iterative reconstruction technique. DLP: 700 mGy-cm FINDINGS: There is no evidence of acute intracranial hemorrhage or edematous territorial infarction. Rizvi-white matter differentiation is preserved. A few foci of hypoattenuation in the periventricular and deep white matter are consistent with mild microangiopathy. Proportional prominence of the ventricles and sulcal spaces without evidence of obstructive hydrocephalus. No abnormal mass effect or midline shift. No extra-axial fluid collections. No acute soft tissue or osseous abnormalities. Mild mucosal thickening of the paranasal sinuses. The mastoid air cells and middle ear cavities are clear. CT/CT head/brain wo IV con IMPRESSION: 1. No evidence of acute intracranial hemorrhage or edematous territorial infarction. 2. Mild underlying microangiopathy and generalized cerebral volume loss.
[2022-07-10 17:04] VITALS: BP 152/64; BP 158/82; PULSE 62; PULSE 66; TEMP 37.1; O2SAT 92; O2SAT 96; BMI 28.3
--- NOTE | 2022-07-10 17:44 | ED.FALL ---
HPI - Fall General Chief Complaint: Fall Stated Complaint: LLE PAIN S/P TRIP/FALL PER EMS Time Seen by Provider: 07/10/22 17:38 Source: patient Mode of arrival: EMS Limitations: no limitations History of Present Illness HPI Narrative: Patient was outside doing gardening tried to get up tripped over center fell backward landed on her left hip complaining of pain in the left hip with swelling no head injury no loss of consciousness patient walks with a walker Related Data Home Medications Medication Instructions Recorded Confirmed latanoprost 0.005 % eye drops 1 drp ophthalmic-Right BEDTIME 09/16/21 05/30/22 Previous Rx's Medication Instructions Recorded cyclobenzaprine 10 mg tablet 10 mg PO BEDTIME PRN muscle spasm 03/20/20 30 days #30 tabs acetaminophen 500 mg tablet 500 mg PO Q6H 30 days #120 tabs 05/10/21 aspirin 81 mg tablet,delayed 81 mg PO DAILY 90 days #90 tabs 08/25/21 release calcium carbonate 600 mg-vitamin 1 tab PO BID 2 months #120 tabs 11/08/21 D3 10 mcg (400 unit) tablet benzonatate 100 mg capsule 100 mg PO BID PRN cough 7 days #14 01/19/22 caps simethicone 180 mg capsule 180 mg PO QID 30 days #120 caps 03/17/22 amlodipine 10 mg tablet 10 mg PO DAILY 90 days #90 tabs 03/29/22 metoprolol tartrate 50 mg tablet 50 mg PO BID #180 tabs 04/04/22 pantoprazole 40 mg tablet,delayed 40 mg PO BEDTIME #30 tabs 05/09/22 release exemestane 25 mg tablet (Aromasin) 25 mg PO DAILY #90 tabs 05/24/22 incontinence pad, liner, disp #90 ea 06/02/22 menthol 0.1 % lotion (Eucerin Itch 1 ea topical DAILY 30 days #250 mL 06/02/22 Relief) Allergies Allergy/AdvReac Type Severity Reaction Status Date / Time No Known Allergies Allergy Verified 07/10/22 23:54 [No Known Allergies*] Review of Systems Review of Systems: Yes all other systems are reviewed and are negative PMFSH Past Medical History Medical History Abnormal mammogram Asthma Breast cancer metastasized to bone COVID-19 Glaucoma Hand pain HTN (hypertension) Impaired glucose tolerance Memory loss Mild recurrent major depression Nocturnal hypoxemia Obesity (BMI 30-39.9) TATIANA (obstructive sleep apnea) Osteoarthritis Osteoporosis Upper back pain on right side Surgical History H/O excision of dermoid cyst H/O excision of mass H/O lumpectomy History of esophagogastroduodenoscopy (EGD) History of tubal ligation Hx of colonoscopy Family History Family History Father Hypertension Hyperlipidemia Diabetes mellitus Mother Hypertension Hyperlipidemia Cervical cancer Sister Breast cancer Hypertension Social History Social History Household Members: Family Housing: House Are you a primary vehicle care specialist to a significant other at home: No Do you presently have visiting nurse or other home services: No (daughter BOX PERSON) Alcohol intake: never Patient Tobacco Use Status: Never used Tobacco e-Cigarette/Vaping Use: Never Used Second Hand Smoke Exposure: No Advance Directives Date on File: 09/21/21 service: No Current occupational status: disabled Cognitive needs: Yes Hearing needs: No Vision needs: Yes Physical Exam Vital Signs: Vital Signs: Last Vital Signs Temp 97.7 F 07/10/22 23:51 Pulse 75 07/10/22 23:51 Resp 18 07/10/22 23:51 BP 139/71 07/10/22 23:51 Pulse Ox 96 07/10/22 23:51 O2 Del Method Room Air 07/10/22 23:51 BMI result Body Mass Index 28.3 Appearance: Alert. Oriented X3. No acute distress. Eyes: PERRLA, No Nystagmus ENT: Pharynx normal. Oral Mucosa moist AT NC Neck: Normal inspection. Neck supple. No midline tenderness CVS: Normal heart rate and rhythm. Pulses normal. Respiratory: No respiratory distress. Equal air entry bilateral, no wheezing/rales/rhonchi Abdomen: Soft and nontender. Bowel sounds are present, no mass palpable, no CVA tenderness Skin: Skin warm and dry. Normal skin color. Normal skin turgor. Extremities: No lower extremity edema. No calf tenderness left mid femur swelling and tenderness Neuro: Oriented X 3. No motor deficit. No sensory deficit.No cerebellar signs , cranial nerves II-XII intact Medications Administered Generic Name Dose Route Start Last Admin Trade Name Bradley PRN Reason Stop Dose Admin Sodium Chloride 3 ml 07/11/22 00:00 07/10/22 23:57 0.9 % Sodium Chloride Flush 3 Ml Syringe IVFLUSH 3 ml QSHIFT MARIAM Administration Discontinued Medications Generic Name Dose Route Start Last Admin Trade Name Bradley PRN Reason Stop Dose Admin Sodium Chloride 1,000 mls @ 999 mls/hr 07/10/22 17:45 07/10/22 19:16 Ns IV 07/10/22 18:45 Infused .Q1H1M ONE Infusion Morphine Sulfate 4 mg 07/10/22 17:45 07/10/22 17:57 Morphine Sulfate 4 Mg/Ml Cartridge IVPUSH 07/10/22 17:46 4 mg ONCE ONE Administration Protocol Morphine Sulfate 4 mg 07/10/22 18:59 07/10/22 19:47 Morphine Sulfate 4 Mg/Ml Cartridge IVPUSH 07/10/22 19:00 4 mg ONCE ONE Administration Protocol Ondansetron HCl 4 mg 07/10/22 17:46 07/10/22 17:57 Ondansetron Hcl 4 Mg/2 Ml Vial IVPUSH 07/10/22 17:47 4 mg ONCE ONE Administration Medical Decision Making Medical Decision Making [facility] Narrative: Patient status post mechanical fall left femur midshaft fracture. Case discussed with admit to medical service NPO after midnight plan for surgery in a.m. Consult Healthcare Provider Management of the patient was discussed with: Hospitalist Lab Data [facility] Lab Attestation statement: I reviewed the patient's lab results. 07/10/22 17:53 07/10/22 17:53 Labs: Lab Results 07/10/22 07/10/22 07/10/22 Range/Units 17:53 17:53 17:53 WBC 7.4 (4.8-10.8) X10*3/uL RBC 3.93 L (4.20-5.50) X10*6/uL Hgb 12.6 (12.0-16.0) g/dl Hct 36.5 L (37.0-47.0) % MCV 92.9 (80.0-98.0) fL MCH 32.1 (27.0-33.0) pg MCHC 34.5 (31.0-35.0) g/dl RDW 13.2 (11.0-16.0) % Plt Count 227 (160-400) X10*3/uL MPV 9.1 L (9.4-12.3) fL Immature Gran % (Auto) 0.3 (0.0-0.4) % Neut % (Auto) 50.3 (45-73) % Lymph % (Auto) 38.0 (20-40) % Kleberg % (Auto) 5.9 (2-11) % Eos % (Auto) 5.0 H (0-4) % Baso % (Auto) 0.5 (0-2) % Lymph # (Auto) 2.8 (1.2-4.9) X10*3/uL Kleberg # (Auto) 0.4 (0.1-1.2) X10*3/uL Eos # (Auto) 0.4 (0.0-0.4) X10*3/uL Baso # (Auto) 0.0 (0.0-0.2) X10*3/uL Abs Immat Gran (auto) 0.02 (0.00-0.03) X10*3/uL Absolute Neuts (auto) 3.7 (2.0-8.3) x10*3/uL Absolute Nucleated RBC 0.000 (0.0-0.012) X10*3/uL Nucleated RBC % (auto) 0.0 (0.0-0.2) /100WBC PT 12.7 (10.0-13.1) SEC INR 1.1 (0.9-1.1) Sodium 142 (135-145) mmol/L Potassium 3.9 D (3.3-5.1) mmol/L Chloride 108 (96-108) mmol/L Carbon Dioxide 27 (22-29) mmol/L Anion Gap 11 L (12-20) BUN 15 (9-16) mg/dL Creatinine 0.90 (0.5-1.4) mg/dL Estim Creat Clear Calc 46.8 Estimated GFR > 60 Random Glucose 145 H (60-115) mg/dL Calcium 9.5 (8.4-10.2) mg/dL Magnesium 1.9 (1.6-2.6) mg/dL Total Bilirubin 0.4 (0.0-1.0) mg/dL AST 22 (5-31) U/L ALT 25 (0-31) U/L Alkaline Phosphatase 61 (39-117) U/L Troponin I High Sens (<3.5-17.0) ng/L Total Protein 6.8 (6.5-8.0) g/dL Albumin 3.9 (3.5-5.0) g/dL Blood Type Antibody Screen 07/10/22 07/10/22 Range/Units 17:53 19:59 WBC (4.8-10.8) X10*3/uL RBC (4.20-5.50) X10*6/uL Hgb (12.0-16.0) g/dl Hct (37.0-47.0) % MCV (80.0-98.0) fL MCH (27.0-33.0) pg MCHC (31.0-35.0) g/dl RDW (11.0-16.0) % Plt Count (160-400) X10*3/uL MPV (9.4-12.3) fL Immature Gran % (Auto) (0.0-0.4) % Neut % (Auto) (45-73) % Lymph % (Auto) (20-40) % Kleberg % (Auto) (2-11) % Eos % (Auto) (0-4) % Baso % (Auto) (0-2) % Lymph # (Auto) (1.2-4.9) X10*3/uL Kleberg # (Auto) (0.1-1.2) X10*3/uL Eos # (Auto) (0.0-0.4) X10*3/uL Baso # (Auto) (0.0-0.2) X10*3/uL Abs Immat Gran (auto) (0.00-0.03) X10*3/uL Absolute Neuts (auto) (2.0-8.3) x10*3/uL Absolute Nucleated RBC (0.0-0.012) X10*3/uL Nucleated RBC % (auto) (0.0-0.2) /100WBC PT (10.0-13.1) SEC INR (0.9-1.1) Sodium (135-145) mmol/L Potassium (3.3-5.1) mmol/L Chloride (96-108) mmol/L Carbon Dioxide (22-29) mmol/L Anion Gap (12-20) BUN (9-16) mg/dL Creatinine (0.5-1.4) mg/dL Estim Creat Clear Calc Estimated GFR Random Glucose (60-115) mg/dL Calcium (8.4-10.2) mg/dL Magnesium (1.6-2.6) mg/dL Total Bilirubin (0.0-1.0) mg/dL AST (5-31) U/L ALT (0-31) U/L Alkaline Phosphatase (39-117) U/L Troponin I High Sens 3.0 (<3.5-17.0) ng/L Total Protein (6.5-8.0) g/dL Albumin (3.5-5.0) g/dL Blood Type A Positive Antibody Screen NEGATIVE Radiology Impression Discussion of test interpretation with radiology: I have reviewed the radiologist's reading. Radiologist Impression: [place] [id number] XRay Report Signed Patient: Alysia Morse V MR#: [id number] : 1945 Acct:[id number] Age/Sex: 77 / F ADM Date: 07/10/22 Loc: .ED Attending Dr: Ordering Physician: Emmanuel Murphy MD Date of Service: 07/10/22 Procedure(s): XR femur LT 2V Accession Number(s): [id number] cc: Emmanuel Murphy MD~ EXAMINATION: XR PELVIS AND LEFT HIP XR FEMUR, LEFT CLINICAL INDICATION: Status post fall COMPARISON: 01/28/2020 TECHNIQUE: AP pelvis and 2 views of the left hip. 2 views of the left femur. FINDINGS: Alignment across the hips is anatomic. There is slight narrowing of the joint space along the bilateral acetabular spurring. There is a predominantly transverse fracture of the mid shaft left femur with varus angulation as well as posterior displacement of the distal fragment by nearly one shaft width. Alignment across the knee appears grossly maintained though is suboptimally assessed on these views. XR/XR femur LT 2V IMPRESSION: Displaced, angulated fracture of the mid shaft of the left femur. ? Discharge Plan Discharge Clinical Impression: Left femoral shaft fracture Patient Disposition: Admitted As Inpatient Interventions: Admission Worksheet (ED) Last Done: 07/10/22 23:20 Discharge Date/Time: 07/10/22 23:21
--- NOTE | 2022-07-10 17:45 | ECG_ITS ---
Test Reason : FALL Blood Pressure : / mmHG Vent. Rate : 067 BPM Atrial Rate : 067 BPM P-R Int : 174 ms QRS Dur : 090 ms QT Int : 430 ms P-R-T Axes : 061 061 038 degrees QTc Int : 454 ms Normal sinus rhythm Nonspecific T wave abnormality Abnormal ECG When compared to the previous EKG of 05 oct 2016, Nonspecific ST and T wave abnormality present Referred By: Emmanuel Murphy Electronically Signed By:RICHIE URIARTE
--- NOTE | 2022-07-10 17:51 | PC.NURSE ---
iv inserted and labs drawn. pt family reports that pt left hip usually is higher than right side
[2022-07-10] MEDS: ondansetron HCL 4 MG/2 ML VIAL IVPUSH (17:57)
[2022-07-10] MEDS: Morphine Sulfate 4 MG/ML CARTRIDGE IVPUSH ×2 (17:57→19:47)
[2022-07-10] MEDS: 0.9 % Sodium Chloride 1,000 ML 999 ML IV (17:57)
[2022-07-10 17:59] LABS: MANUAL DIFF FLAG NO
[2022-07-10 18:02] LABS: Basophils Percent Auto 0.5 % (0-2); Eosinophils Absolute Auto 0.4 X10*3/uL (0.0-0.4); Hematocrit 36.5 % (37.0-47.0); Hemoglobin 12.6 g/dl (12.0-16.0); Imm Gran Abs Auto 0.02 X10*3/uL (0.00-0.03); Imm Gran Pct Auto 0.3 % (0.0-0.4); Lymphocytes Absolute Auto 2.8 X10*3/uL (1.2-4.9); Mean Corpuscular HGB Conc 34.5 g/dl (31.0-35.0); Mean Corpuscular Hemoglobin 32.1 pg (27.0-33.0); Mean Corpuscular Volume 92.9 fL (80.0-98.0); Mean Platelet Volume 9.1 fL (9.4-12.3); Monocytes Absolute Auto 0.4 X10*3/uL (0.1-1.2); Monocytes Percent Auto 5.9 % (2-11); Neutrophils Absolute Auto 3.7 x10*3/uL (2.0-8.3); Neutrophils Percent Auto 50.3 % (45-73); Platelet Count 227 X10*3/uL (160-400); Red Blood Count 3.93 X10*6/uL (4.20-5.50); Red Cell Distribution Width 13.2 % (11.0-16.0); White Blood Count 7.4 X10*3/uL (4.8-10.8)
[2022-07-10 18:08] LABS: INTERNATIONAL NORM RATIO 1.1 (0.9-1.1); Prothrombin Time 12.7 SEC (10.0-13.1)
[2022-07-10 18:26] LABS: Alanine Aminotransferase 25 U/L (0-31); Albumin Level 3.9 g/dL (3.5-5.0); Alkaline Phosphatase 61 U/L (39-117); Anion Gap 11 (12-20); Aspartate Amino Transferase 22 U/L (5-31); Bilirubin Total 0.4 mg/dL (0.0-1.0); Blood Urea Nitrogen 15 mg/dL (9-16); Calcium 9.5 mg/dL (8.4-10.2); Carbon Dioxide 27 mmol/L (22-29); Chloride 108 mmol/L (96-108); Creatinine Clr Calc Pharmacy 46.8; Estimated Glomerular Filt Rate > 60; Glucose Random 145 mg/dL (60-115); Magnesium 1.9 mg/dL (1.6-2.6); Potassium 3.9 mmol/L (3.3-5.1); Sodium 142 mmol/L (135-145); Total Protein 6.8 g/dL (6.5-8.0)
--- NOTE | 2022-07-10 18:42 | PC.NURSE ---
outside gardening, tripped over sandals, fell backward, unsure if head strike fall unwitnessed. no loc. on asprin.
[2022-07-10 18:46] VITALS: BP 138/61; PULSE 64; RESP 16; TEMP 36.9; O2SAT 95
--- NOTE | 2022-07-10 18:47 | MHC.EDTECH ---
PATIENT EKG TAKEN AND WAS READ BY PROVIDER ,VITALS SIGN TAKEN ,PT DAUGHTER AND GRAND DAUGHTER AT BEDSIDE .
[2022-07-10 19:42] VITALS: BP 127/52; PULSE 61; RESP 16; TEMP 37.1; O2SAT 95
--- NOTE | 2022-07-10 19:50 | PC.NURSE ---
pt awaiting admission assessment, family at bedside, medicated for pain per order. pt on purewik
--- NOTE | 2022-07-10 20:01 | MHC.EDTECH ---
PATIENT TYPE AND SCREEN DRAWN AND SENT TO LAB .
--- NOTE | 2022-07-10 21:04 | P.HPHOSP_ITS ---
History of Present Illness Date of Service: 07/10/22 Chief Complaint: fall 77-year-old female past medical history of breast cancer metastasized to bone, GERD, asthma, HTN, TATIANA on CPAP presents to the hospital after having a fall. Patient is Greek-speaking, history is obtained with the help of her daughter at bedside. Patient was gardening, she got up to move, tripped over her sandals, and had a fall backwards. She denies loss of consciousness, no head injury, no head trauma, no dizziness, no headache, no change in vision, denies any chest pain prior or after, denies any palpitations, reports has been well and no acute health changes. She denies any abdominal pain nausea or vomiting, no diarrhea constipation, no urinary symptoms and no lower extremity edema. On arrival to the ED patient hemodynamically stable with no significant abnormal vitals labs reviewed unremarkable Imaging showed displaced angulated fracture of the midshaft of the left femur orthopedics surgery consulted and they will see patient in a.m. for surgical intervention Review of Systems Review of Systems: Yes all other systems are reviewed and are negative PMFSH Medical History Abnormal mammogram Asthma Breast cancer metastasized to bone COVID-19 Glaucoma Hand pain HTN (hypertension) Impaired glucose tolerance Memory loss Mild recurrent major depression Nocturnal hypoxemia Obesity (BMI 30-39.9) TATIANA (obstructive sleep apnea) Osteoarthritis Osteoporosis Upper back pain on right side Family History Father Hypertension Hyperlipidemia Diabetes mellitus Mother Hypertension Hyperlipidemia Cervical cancer Sister Breast cancer Hypertension Surgical History H/O excision of dermoid cyst H/O excision of mass H/O lumpectomy History of esophagogastroduodenoscopy (EGD) History of tubal ligation Hx of colonoscopy Social History Household Members: Children Housing: House Are you a primary care analyst to a significant other at home: No Do you presently have visiting nurse or other home services: No Alcohol intake: never Patient Tobacco Use Status: Never used Tobacco e-Cigarette/Vaping Use: Never Used Second Hand Smoke Exposure: No Advance Directives: Yes Advance Directives on File: Yes Advance Directives Date on File: 09/21/21 service: No Current occupational status: disabled Cognitive needs: Yes Hearing needs: No Vision needs: Yes Meds Allergies Allergy/AdvReac Type Severity Reaction Status Date / Time No Known Allergies Allergy Verified 05/30/22 10:49 [No Known Allergies*] Active Medications: Current Medications Acetaminophen (Acetaminophen 325 Mg Tablet) 650 mg PO Q6H PRN PRN Reason: Pain, Mild (Pain Scale 1-3) Docusate Sodium (Docusate Sodium 100 Mg Capsule) 100 mg PO DAILY PRN PRN Reason: Constipation Morphine Sulfate (Morphine Sulfate 4 Mg/Ml Cartridge) 4 mg IVPUSH Q4H PRN; Protocol PRN Reason: Pain, Severe (Pain Scale 7-10) Ondansetron HCl (Ondansetron Hcl 4 Mg/2 Ml Vial) 4 mg IVPUSH Q8H PRN PRN Reason: Nausea and Vomiting Pharmacy Consult (Consult Rx Perform Med Rec) 1 each MISCELLANE ONCE PRN PRN Reason: Consult order Sodium Chloride (0.9 % Sodium Chloride Flush 3 Ml Syringe) 3 ml IVFLUSH [facility] Home Medications Medication Instructions Recorded Confirmed Last Taken Type latanoprost 0.005 % eye drops 1 drp ophthalmic-Right BEDTIME 09/16/21 05/30/22 Unknown History Physical Exam Vital Signs and Narrative: Vital Signs: Last Vital Signs Temp 98.8 F 07/10/22 19:42 Pulse 61 07/10/22 19:42 Resp 16 07/10/22 19:42 BP 127/52 L 07/10/22 19:42 Pulse Ox 95 07/10/22 19:42 O2 Del Method Room Air 07/10/22 19:42 BMI result Body Mass Index 28.3 Const: General: cooperative and no acute distress Orientation/consciousness: patient oriented x3 Eyes: General: appearance normal, both eyes and all related structures Pupils: Equal, round and reactive pupils present Resp: Effort & Inspection: normal respiratory effort Auscultation: clear to auscultation bilaterally Cardio: Rate: regular rate Rhythm: regular rhythm GI: Palpation (GI): Soft to palpation Auscultation: normal bowel sounds Skin: General skin exam: no rashes or lesions noted Neuro: General: patient oriented x3 Cranial nerves: Yes Equal, round and reactive pupils present Cognition (Neuro): normal cognition Extrem: General: Yes normal to inspection and Yes no pedal edema Results Labs 07/10/22 17:53 07/10/22 17:53 Labs: Laboratory Results - last 24 hr 07/10/22 07/10/22 07/10/22 17:53 17:53 17:53 MCV 92.9 MCH 32.1 MCHC 34.5 RDW 13.2 Plt Count 227 MPV 9.1 L Immature Gran % (Auto) 0.3 Neut % (Auto) 50.3 Lymph % (Auto) 38.0 Evangeline % (Auto) 5.9 Eos % (Auto) 5.0 H Baso % (Auto) 0.5 Lymph # (Auto) 2.8 Evangeline # (Auto) 0.4 Eos # (Auto) 0.4 Baso # (Auto) 0.0 Abs Immat Gran (auto) 0.02 Absolute Neuts (auto) 3.7 Absolute Nucleated RBC 0.000 Nucleated RBC % (auto) 0.0 PT 12.7 INR 1.1 Anion Gap 11 L Estim Creat Clear Calc 46.8 Estimated GFR > 60 Random Glucose 145 H Calcium 9.5 Magnesium 1.9 Total Bilirubin 0.4 AST 22 ALT 25 Alkaline Phosphatase 61 Troponin I High Sens Total Protein 6.8 Albumin 3.9 Blood Type Antibody Screen 07/10/22 07/10/22 17:53 19:59 MCV MCH MCHC RDW Plt Count MPV Immature Gran % (Auto) Neut % (Auto) Lymph % (Auto) Evangeline % (Auto) Eos % (Auto) Baso % (Auto) Lymph # (Auto) Evangeline # (Auto) Eos # (Auto) Baso # (Auto) Abs Immat Gran (auto) Absolute Neuts (auto) Absolute Nucleated RBC Nucleated RBC % (auto) PT INR Anion Gap Estim Creat Clear Calc Estimated GFR Random Glucose Calcium Magnesium Total Bilirubin AST ALT Alkaline Phosphatase Troponin I High Sens 3.0 Total Protein Albumin Blood Type A Positive Antibody Screen NEGATIVE Imaging Radiologist's Impressions: Impressions Chest X-Ray 07/10/22 18:30 IMPRESSION: No acute pulmonary findings. Enlarged cardiac silhouette. Femur X-Ray 07/10/22 18:30 IMPRESSION: Displaced, angulated fracture of the mid shaft of the left femur. Hip/Pelvis X-Ray 07/10/22 18:30 IMPRESSION: Displaced, angulated fracture of the mid shaft of the left femur. Head CT 07/10/22 18:34 IMPRESSION: 1. No evidence of acute intracranial hemorrhage or edematous territorial infarction. 2. Mild underlying microangiopathy and generalized cerebral volume loss. Assessment and Plan (1) Left femoral shaft fracture: Status: Acute Plan 77-year-old female with past medical history of breast cancer with metastasis to the bone presents to the hospital after having a fall and fracturing her femur # left femoral shaft fracture - secondary to mechanical fall - orthopedics consult, will keep NPO for surgical intervention in a.m. - pain control - PT OT prior to discharge # TATIANA - CPAP at bedtime # hypertension - stable - will continue home antihypertensives DVT prophylaxis: SCDs given patient's need for surgical intervention for femoral shaft fracture sofia villatoro will require minimum 2 nights inpatient hospital stay for further management and monitor Time Spent With Patient Time: Total time managing care of this patient today ____ minutes. Quality Stroke Does the patient have a stroke diagnosis?: No VTE Prior VTE?: No VTE Risk Level:: Surgical - very high VTE Device Contraindication: N/A - Device Ordered VTE Drug Contraindication: Treatment Not Indicated
[2022-07-10 21:25] VITALS: BP 129/61; PULSE 70; RESP 16; TEMP 36.6; O2SAT 95
--- NOTE | 2022-07-10 21:45 | PC.NURSE ---
pt resting, daughter at bedside.
[2022-07-10 23:51] VITALS: BP 139/71; PULSE 75; RESP 18; TEMP 36.5; O2SAT 96
--- NOTE | 2022-07-10 23:51 | PC.NURSE ---
patients daughter overnight stay approved by the nursing engineering design supervisor.
[2022-07-10] MEDS: 0.9 % Sodium Chloride Flush 3 ML SYRINGE IVFLUSH (23:57)
[2022-07-11] VITALS (11 sets, daily range): BP systolic 139–161; BP diastolic 62–77; PULSE 71–95; RESP 16–23; TEMP 36.3–37.1; O2SAT 92–98
[2022-07-11 06:24] LABS: MANUAL DIFF FLAG NO
[2022-07-11 06:27] LABS: Basophils Percent Auto 0.3 % (0-2); Eosinophils Percent Auto 0.3 % (0-4); Hematocrit 33.4 % (37.0-47.0); Hemoglobin 11.1 g/dl (12.0-16.0); Imm Gran Abs Auto 0.02 X10*3/uL (0.00-0.03); Imm Gran Pct Auto 0.2 % (0.0-0.4); Lymphocytes Absolute Auto 2.3 X10*3/uL (1.2-4.9); Lymphocytes Percent Auto 25.8 % (20-40); Mean Corpuscular HGB Conc 33.2 g/dl (31.0-35.0); Mean Corpuscular Hemoglobin 31.1 pg (27.0-33.0); Mean Corpuscular Volume 93.6 fL (80.0-98.0); Mean Platelet Volume 9.3 fL (9.4-12.3); Monocytes Absolute Auto 0.7 X10*3/uL (0.1-1.2); Monocytes Percent Auto 7.2 % (2-11); Neutrophils Absolute Auto 5.9 x10*3/uL (2.0-8.3); Neutrophils Percent Auto 66.2 % (45-73); Platelet Count 206 X10*3/uL (160-400); Red Blood Count 3.57 X10*6/uL (4.20-5.50); Red Cell Distribution Width 13.3 % (11.0-16.0)
[2022-07-11 06:39] LABS: Anion Gap 9 (12-20); Blood Urea Nitrogen 14 mg/dL (9-16); Calcium 8.8 mg/dL (8.4-10.2); Carbon Dioxide 27 mmol/L (22-29); Chloride 110 mmol/L (96-108); Creatinine Clr Calc Pharmacy 53.4; Estimated Glomerular Filt Rate > 60; Glucose Random 155 mg/dL (60-115); Potassium 3.9 mmol/L (3.3-5.1); Sodium 142 mmol/L (135-145)
--- NOTE | 2022-07-11 08:04 | PHA.MEDREC ---
Pharmacy Consult ? Medication Reconciliation Pharmacy has completed the medication reconciliation.
--- NOTE | 2022-07-11 08:20 | P.CONOP_ITS ---
History of Present Illness HPI Consult date: 07/11/22 Chief complaint: femoral fracture Narrative: 77 yo female admitted to the medical service s/p fall onto the left side resulting in a femoral shaft fracture. Her daughter, Mallory, is at bedside with her translating ( declined journeyman pipefitter). She states she was outside gardening when she fell backwards and landed on the left side. She was unable to get up and ambulate. She was brought to the ED via EMS. Xrays were significant for left femur midshaft fx. Orthopedics was consulted for further recommendations/ surgical planning. Her daughter states she lives at home with her and she occassionaly uses a cane or a walker. She does have Breast Ca with bony METS. She is on two medications, one pill form and one injection . Review of Systems Review of Systems: per hpi [facility] Past Medical History Medical History Abnormal mammogram Asthma Breast cancer metastasized to bone COVID-19 Glaucoma Hand pain HTN (hypertension) Impaired glucose tolerance Memory loss Mild recurrent major depression Nocturnal hypoxemia Obesity (BMI 30-39.9) TATIANA (obstructive sleep apnea) Osteoarthritis Osteoporosis Upper back pain on right side Family History Family History Father Hypertension Hyperlipidemia Diabetes mellitus Mother Hypertension Hyperlipidemia Cervical cancer Sister Breast cancer Hypertension Surgical History Surgical History H/O excision of dermoid cyst H/O excision of mass H/O lumpectomy History of esophagogastroduodenoscopy (EGD) History of tubal ligation Hx of colonoscopy Social History Social History Household Members: Family Housing: House Are you a primary pharmacy customer care specialist to a significant other at home: No Do you presently have visiting nurse or other home services: No (daughter BUSINESS SYSTEMS ANALYST) Alcohol intake: never Patient Tobacco Use Status: Never used Tobacco e-Cigarette/Vaping Use: Never Used Second Hand Smoke Exposure: No Advance Directives Date on File: 09/21/21 service: No Current occupational status: disabled Cognitive needs: Yes Hearing needs: No Vision needs: Yes Meds Allergies Allergy/AdvReac Type Severity Reaction Status Date / Time No Known Allergies Allergy Verified 07/10/22 23:54 [No Known Allergies*] Active Medications: Current Medications Acetaminophen (Acetaminophen 325 Mg Tablet) 650 mg PO Q6H PRN PRN Reason: Pain, Mild (Pain Scale 1-3) Docusate Sodium (Docusate Sodium 100 Mg Capsule) 100 mg PO DAILY PRN PRN Reason: Constipation Morphine Sulfate (Morphine Sulfate 4 Mg/Ml Cartridge) 4 mg IVPUSH Q4H PRN; Protocol PRN Reason: Pain, Severe (Pain Scale 7-10) Ondansetron HCl (Ondansetron Hcl 4 Mg/2 Ml Vial) 4 mg IVPUSH Q8H PRN PRN Reason: Nausea and Vomiting Pharmacy Consult (Consult Rx Perform Med Rec) 1 each MISCELLANE ONCE PRN PRN Reason: Consult order Sodium Chloride (0.9 % Sodium Chloride Flush 3 Ml Syringe) [facility] Last Admin: 07/10/22 23:57 Dose: 3 ml Home Medications Medication Instructions Recorded Confirmed Last Taken Type latanoprost 0.005 % eye drops 1 drp ophthalmic-Right BEDTIME 09/16/21 07/11/22 Unknown History Physical Exam Vital Signs: Vital Signs: Last Vital Signs Temp 98.8 F 07/11/22 07:45 Pulse 75 07/11/22 07:45 Resp 20 07/11/22 07:45 BP 161/77 H 07/11/22 07:45 Pulse Ox 92 07/11/22 07:45 O2 Del Method Room Air 07/11/22 07:45 BMI result Body Mass Index 28.3 Const: General: cooperative, healthy appearing, comfortable, no acute distress, well developed and alert Orientation/consciousness: patient oriented x3 HEENT: Head: Yes normal to inspection, Yes normocephalic and Yes atraumatic Eyes: General: appearance normal, both eyes and all related structures Neck: Neck: Yes normal visual inspection and Yes no lymphadenopathy Resp: Effort & Inspection: normal respiratory effort and able to speak in complete sentences Cardio: Rate: regular rate Peripheral pulses: Peripheral pulses 2+ throughout GI: Inspection: Yes normal to inspection Palpation (GI): Soft to palpation Skin: General skin exam: no rashes or lesions noted Neuro: General: patient oriented x3 Extrem: Other: Left hip normal to inspection. No open wounds. Tenderness along the mid thigh. She is resting with her left leg externally rotated and knee flexed. She is able to plantar and dorsi flex. NVI. Psych: Appearance: grossly normal Mental Status: mental status grossly normal Results Labs 07/11/22 05:43 07/11/22 05:43 Labs: Abnormal lab results 07/10/22 07/10/22 07/11/22 Range/Units 17:53 17:53 05:43 RBC 3.93 L 3.57 L (4.20-5.50) X10*6/uL Hgb 11.1 L (12.0-16.0) g/dl Hct 36.5 L 33.4 L (37.0-47.0) % MPV 9.1 L 9.3 L (9.4-12.3) fL Eos % (Auto) 5.0 H (0-4) % Chloride (96-108) mmol/L Anion Gap 11 L (12-20) Random Glucose 145 H (60-115) mg/dL 07/11/22 Range/Units 05:43 RBC (4.20-5.50) X10*6/uL Hgb (12.0-16.0) g/dl Hct (37.0-47.0) % MPV (9.4-12.3) fL Eos % (Auto) (0-4) % Chloride 110 H (96-108) mmol/L Anion Gap 9 L (12-20) Random Glucose 155 H (60-115) mg/dL H & H 07/10/22 07/11/22 Range/Units 17:53 05:43 Hgb 12.6 11.1 L (12.0-16.0) g/dl Hct 36.5 L 33.4 L (37.0-47.0) % Coagulation 07/10/22 Range/Units 17:53 INR 1.1 (0.9-1.1) All other labs normal. Assessment and Plan (1) Left femoral shaft fracture: Status: Acute Plan I discussed the case with Dr Butler and explained the extent of the injury to the patient and her daughter and options available which include surgical intervention. I explained the procedure in detail along with the length of recovery and rehab course. I explained the risk, benefits and alternatives. Risk including, but not limited to infection, blood clots, bleeding, non union or malunion and nerve/tissue damage to surrounding areas. I answered all their questions and with their understanding they have consented to move forward with Operative Fixation of the left femur. The patient will be T&S, med clearance obtained and NPO after midnight. Time Spent With Patient Time: Total time managing care of this patient today ____ minutes. Procedures Date of Service Date of Service: 07/11/22
[2022-07-11] MEDS: ceFAZolin Sodium/Dextrose,Iso 2 GM/50 ML PIGGYBACK IV (08:30)
[2022-07-11] MEDS: 0.9 % Sodium Chloride Flush 3 ML SYRINGE IVFLUSH ×2 (10:15→20:08)
--- NOTE | 2022-07-11 10:42 | P.PNIM_ITS ---
Subjective Subjective Date of Service: 07/11/22 Review of Systems Follow-up fall, femoral neck fracture Resting comfortably in bed, mild pain Physical Exam Vital Signs: Vital Signs: Last Vital Signs Temp 98.8 F 07/11/22 07:45 Pulse 75 07/11/22 07:45 Resp 20 07/11/22 07:45 BP 161/77 H 07/11/22 07:45 Pulse Ox 92 07/11/22 07:45 O2 Del Method Room Air 07/11/22 07:45 BMI result Body Mass Index 28.3 Appearing in no acute distress lung sounds are clear to auscultation heart regular rate rhythm, clear S1, S2 positive bowel sounds, abdomen is soft, nontender neuro patient is alert x3, no focal deficits Objective Data Active Medications Acetaminophen (Acetaminophen 325 Mg Tablet) 650 mg PO Q6H PRN PRN Reason: Pain, Mild (Pain Scale 1-3) Docusate Sodium (Docusate Sodium 100 Mg Capsule) 100 mg PO DAILY PRN PRN Reason: Constipation Morphine Sulfate (Morphine Sulfate 4 Mg/Ml Cartridge) 4 mg IVPUSH Q4H PRN; Protocol PRN Reason: Pain, Severe (Pain Scale 7-10) Ondansetron HCl (Ondansetron Hcl 4 Mg/2 Ml Vial) 4 mg IVPUSH Q8H PRN PRN Reason: Nausea and Vomiting Pharmacy Consult (Consult Rx Perform Med Rec) 1 each MISCELLANE ONCE PRN PRN Reason: Consult order Sodium Chloride (0.9 % Sodium Chloride Flush 3 Ml Syringe) [facility] Last Admin: 07/11/22 10:15 Dose: 3 ml Documented By: BARB Labs 07/11/22 05:43 07/11/22 05:43 Labs: Laboratory Results - last 24 hr 07/10/22 07/10/22 07/10/22 17:53 17:53 17:53 MCV 92.9 MCH 32.1 MCHC 34.5 RDW 13.2 Plt Count 227 MPV 9.1 L Immature Gran % (Auto) 0.3 Neut % (Auto) 50.3 Lymph % (Auto) 38.0 [place] % (Auto) 5.9 Eos % (Auto) 5.0 H Baso % (Auto) 0.5 Lymph # (Auto) 2.8 [place] # (Auto) 0.4 Eos # (Auto) 0.4 Baso # (Auto) 0.0 Abs Immat Gran (auto) 0.02 Absolute Neuts (auto) 3.7 Absolute Nucleated RBC 0.000 Nucleated RBC % (auto) 0.0 PT 12.7 INR 1.1 Anion Gap 11 L Estim Creat Clear Calc 46.8 Estimated GFR > 60 Random Glucose 145 H Calcium 9.5 Magnesium 1.9 Total Bilirubin 0.4 AST 22 ALT 25 Alkaline Phosphatase 61 Troponin I High Sens Total Protein 6.8 Albumin 3.9 Blood Type Antibody Screen 07/10/22 07/10/22 07/11/22 17:53 19:59 05:43 MCV 93.6 MCH 31.1 MCHC 33.2 RDW 13.3 Plt Count 206 MPV 9.3 L Immature Gran % (Auto) 0.2 Neut % (Auto) 66.2 Lymph % (Auto) 25.8 [place] % (Auto) 7.2 Eos % (Auto) 0.3 Baso % (Auto) 0.3 Lymph # (Auto) 2.3 [place] # (Auto) 0.7 Eos # (Auto) 0.0 Baso # (Auto) 0.0 Abs Immat Gran (auto) 0.02 Absolute Neuts (auto) 5.9 Absolute Nucleated RBC 0.000 Nucleated RBC % (auto) 0.0 PT INR Anion Gap Estim Creat Clear Calc Estimated GFR Random Glucose Calcium Magnesium Total Bilirubin AST ALT Alkaline Phosphatase Troponin I High Sens 3.0 Total Protein Albumin Blood Type A Positive Antibody Screen NEGATIVE 07/11/22 05:43 MCV MCH MCHC RDW Plt Count MPV Immature Gran % (Auto) Neut % (Auto) Lymph % (Auto) [place] % (Auto) Eos % (Auto) Baso % (Auto) Lymph # (Auto) [place] # (Auto) Eos # (Auto) Baso # (Auto) Abs Immat Gran (auto) Absolute Neuts (auto) Absolute Nucleated RBC Nucleated RBC % (auto) PT INR Anion Gap 9 L Estim Creat Clear Calc 53.4 Estimated GFR > 60 Random Glucose 155 H Calcium 8.8 D Magnesium Total Bilirubin AST ALT Alkaline Phosphatase Troponin I High Sens Total Protein Albumin Blood Type Antibody Screen Assessment and Plan (1) Left femoral shaft fracture: Status: Acute Plan 77-year-old female with past medical history of breast cancer with metastasis to the bone presents to the hospital after having a fall and fracturing her femur Left femoral shaft fracture secondary to mechanical fall orthopedics consult >plan for surgical repair pain control PT/OT prior to discharge TATIANA CPAP at bedtime hypertension stable will continue home antihypertensives Attending Dr. Selby DVT prophylaxis: SCDs ? continued hospital stay for further management and tx of femoral neck fx Time Spent With Patient Time: Total time managing care of this patient today ____ minutes. Quality Stroke Does the patient have a stroke diagnosis?: No VTE Prior VTE?: No VTE Risk Level:: Surgical - very high VTE Device Contraindication: N/A - Device Ordered VTE Drug Contraindication: Treatment Not Indicated
[2022-07-11] MEDS: Acetaminophen 325 MG TABLET 650 MG PO ×2 (10:53→20:06)
--- NOTE | 2022-07-11 13:15 | MHC.CM.PN ---
Addendum entered by Sklyar Aviles RN 07/11/22 13:24: [facility] DOES NOT HAVE A [facility] SPEAKING THERAPIST, BUT THEY DO HAVE GROUP WORK PROGRAM DIRECTOR. FAMILY REQUESTED THAT P.T. BE ABLE TO SPEAK [facility] REFERRAL PLACED TO [facility] GIVERS TO REQUEST Original Note: PATIENT LIVES WITH DAUGHTERS/HCP AGENT. DAUGHTER, SIMONE, IS PATIENT'S CARTON CATCHER CURRICULUM AND INSTRUCTION DIRECTOR. PATIENT USES CPAP @ NIGHT, CANE, AND A WALKER FAMILY IS INVOLVED IN DAILY LIFE FAMILY (IN ROOM AND SPOKEN WITH PER PATIENT AGREEMENT), WANTS TO TAKE PATIENT HOMNE AT DISCHARGE AND IS AGREEABLE TO [facility] REFERRAL FOR SERVICES. REFERRAL PLACED. CASE MANAGEMENT FOLLOWING. IMM 07/12 NOT IN CHART YET. T/W UNABLE TO LOCATE CHART PLAN IS TO PLACE IMM IN MEDICAL RECORDS BIN ON UNIT. PLAN IS FOR O.R. TODAY
--- NOTE | 2022-07-11 13:41 | P.CONAN_ITS ---
[facility] Active Problems Active Problems: All Active Problems (Updated 07/10/22 @ 22:51 by Emmanuel Murphy MD) Left femoral shaft fracture (Acute) Urinary incontinence (Acute) Eczema (Acute) Edema of both feet (Acute) Pelvic pain in female (Acute) Sebaceous cyst of labia (Acute) Cystocele with prolapse (Acute) Vaginal pruritus (Acute) Bone metastases (Acute) Breast cancer metastasized to bone (Acute) Breast cancer metastasized to bone (Acute) Memory loss (Acute) COVID-19 (Acute) Mild recurrent major depression (Acute) Hand pain (Acute) Obesity (BMI 30-39.9) (Acute) Impaired glucose tolerance (Acute) Tubular adenoma of colon (Acute) Breast cancer metastasized to bone (Acute) Abnormal mammogram of right breast (Acute) Abnormal mammogram (Acute) Upper back pain on right side (Acute) Abdominal bloating (Acute) GERD (gastroesophageal reflux disease) (Acute) Asthma (Acute) HTN (hypertension) (Acute) Nocturnal hypoxemia (Acute) TATIANA (obstructive sleep apnea) (Acute) Past Medical History Medical History Abnormal mammogram Asthma Breast cancer metastasized to bone COVID-19 Glaucoma Hand pain HTN (hypertension) Impaired glucose tolerance Memory loss Mild recurrent major depression Nocturnal hypoxemia Obesity (BMI 30-39.9) TATIANA (obstructive sleep apnea) Osteoarthritis Osteoporosis Upper back pain on right side Family History Family History Father Hypertension Hyperlipidemia Diabetes mellitus Mother Hypertension Hyperlipidemia Cervical cancer Sister Breast cancer Hypertension Surgical History Surgical History H/O excision of dermoid cyst H/O excision of mass H/O lumpectomy History of esophagogastroduodenoscopy (EGD) History of tubal ligation Hx of colonoscopy History of Problems with Anesthesia: No Social History Social History Household Members: Family Housing: House Are you a primary adult daycare coordinator to a significant other at home: No Do you presently have visiting nurse or other home services: No (daughter NAIL POLISH BRUSH MACHINE FEEDER) Alcohol intake: never Patient Tobacco Use Status: Never used Tobacco e-Cigarette/Vaping Use: Never Used Second Hand Smoke Exposure: No Advance Directives Date on File: 09/21/21 service: No Current occupational status: disabled Cognitive needs: Yes Hearing needs: No Vision needs: Yes Meds Allergies Allergy/AdvReac Type Severity Reaction Status Date / Time No Known Allergies Allergy Verified 07/10/22 23:54 [No Known Allergies*] Active Medications: Current Medications Acetaminophen (Acetaminophen 325 Mg Tablet) 650 mg PO Q6H PRN PRN Reason: Pain, Mild (Pain Scale 1-3) Last Admin: 07/11/22 10:53 Dose: 650 mg Amlodipine Besylate (Amlodipine Besylate 10 Mg Tablet) 10 mg PO DAILY [facility]; Protocol Docusate Sodium (Docusate Sodium 100 Mg Capsule) 100 mg PO DAILY PRN PRN Reason: Constipation Latanoprost (Latanoprost 0.005 % Ophth Gisele 2.5 Ml Drops) 1 drop EYE-RIGHT BEDTIME [facility] Metoprolol Tartrate (Metoprolol Tartrate 50 Mg Tablet) 50 mg PO BID MARIAM; Protocol Morphine Sulfate (Morphine Sulfate 4 Mg/Ml Cartridge) 4 mg IVPUSH Q4H PRN; Protocol PRN Reason: Pain, Severe (Pain Scale 7-10) Omeprazole (Omeprazole 20 Mg Capsule.Dr) 20 mg PO BEDTIME MARIAM Ondansetron HCl (Ondansetron Hcl 4 Mg/2 Ml Vial) 4 mg IVPUSH Q8H PRN PRN Reason: Nausea and Vomiting Pharmacy Consult (Consult Rx Perform Med Rec) 1 each MISCELLANE ONCE PRN PRN Reason: Consult order Simethicone (Simethicone 80 Mg Tab.Chew) 160 mg PO QID PRN PRN Reason: bloating Sodium Chloride (0.9 % Sodium Chloride Flush 3 Ml Syringe) 3 ml IVFLUSH QSHIFT [facility] Last Admin: 07/11/22 10:15 Dose: 3 ml Home Medications Medication Instructions Recorded Confirmed Last Taken Type latanoprost 0.005 % eye drops 1 drp ophthalmic-Right BEDTIME 09/16/21 07/11/22 Unknown History Exam Exam Date and Time: July 11, 2022 1341 Height,Weight and Vital Signs: Height 5 ft 1 in Weight 68 kg Last Vital Signs Temp 98.7 F 07/11/22 12:00 Pulse 73 07/11/22 12:00 Resp 20 07/11/22 12:00 BP 156/74 H 07/11/22 12:00 Pulse Ox 96 07/11/22 12:00 O2 Del Method Room Air 07/11/22 12:00 Pertinent Lab Results Pertinent Lab Results: Laboratory Tests 07/10/22 07/10/22 07/10/22 17:53 17:53 17:53 WBC 7.4 RBC 3.93 L Hgb 12.6 Hct 36.5 L MCV 92.9 MCH 32.1 MCHC 34.5 RDW 13.2 Plt Count 227 MPV 9.1 L Immature Gran % (Auto) 0.3 Neut % (Auto) 50.3 Lymph % (Auto) 38.0 [place] % (Auto) 5.9 Eos % (Auto) 5.0 H Baso % (Auto) 0.5 Lymph # (Auto) 2.8 [place] # (Auto) 0.4 Eos # (Auto) 0.4 Baso # (Auto) 0.0 Abs Immat Gran (auto) 0.02 Absolute Neuts (auto) 3.7 Absolute Nucleated RBC 0.000 Nucleated RBC % (auto) 0.0 PT 12.7 INR 1.1 Sodium 142 Potassium 3.9 D Chloride 108 Carbon Dioxide 27 Anion Gap 11 L BUN 15 Creatinine 0.90 Estim Creat Clear Calc 46.8 Estimated GFR > 60 Random Glucose 145 H Calcium 9.5 Magnesium 1.9 Total Bilirubin 0.4 AST 22 ALT 25 Alkaline Phosphatase 61 Troponin I High Sens Total Protein 6.8 Albumin 3.9 Blood Type Antibody Screen 07/10/22 07/10/22 07/11/22 17:53 19:59 05:43 WBC 9.0 RBC 3.57 L Hgb 11.1 L Hct 33.4 L MCV 93.6 MCH 31.1 MCHC 33.2 RDW 13.3 Plt Count 206 MPV 9.3 L Immature Gran % (Auto) 0.2 Neut % (Auto) 66.2 Lymph % (Auto) 25.8 [place] % (Auto) 7.2 Eos % (Auto) 0.3 Baso % (Auto) 0.3 Lymph # (Auto) 2.3 [place] # (Auto) 0.7 Eos # (Auto) 0.0 Baso # (Auto) 0.0 Abs Immat Gran (auto) 0.02 Absolute Neuts (auto) 5.9 Absolute Nucleated RBC 0.000 Nucleated RBC % (auto) 0.0 PT INR Sodium Potassium Chloride Carbon Dioxide Anion Gap BUN Creatinine Estim Creat Clear Calc Estimated GFR Random Glucose Calcium Magnesium Total Bilirubin AST ALT Alkaline Phosphatase Troponin I High Sens 3.0 Total Protein Albumin Blood Type A Positive Antibody Screen NEGATIVE 07/11/22 05:43 WBC RBC Hgb Hct MCV MCH MCHC RDW Plt Count MPV Immature Gran % (Auto) Neut % (Auto) Lymph % (Auto) [place] % (Auto) Eos % (Auto) Baso % (Auto) Lymph # (Auto) [place] # (Auto) Eos # (Auto) Baso # (Auto) Abs Immat Gran (auto) Absolute Neuts (auto) Absolute Nucleated RBC Nucleated RBC % (auto) PT INR Sodium 142 Potassium 3.9 Chloride 110 H Carbon Dioxide 27 Anion Gap 9 L BUN 14 Creatinine 0.79 Estim Creat Clear Calc 53.4 Estimated GFR > 60 Random Glucose 155 H Calcium 8.8 D Magnesium Total Bilirubin AST ALT Alkaline Phosphatase Troponin I High Sens Total Protein Albumin Blood Type Antibody Screen Airway Mallampati Class: II TM Dist: >3cm Neck ROM: Full Denture: Upper and Lower Loose/Missing/Broken Teeth: Yes, Upper and Lower Heart: RRR Lungs: CTA Assessment and Plan Assessment Anesthesia Assessment: Anesthesia Plan Discussed and Chart Reviewed Final Anesthetic Review History of Problems with Anesthesia: No NPO: Yes ASA Class: III Final Preanesthetic Review: Meds/Allgs Chart Reviewed, Consent Obtained/Reviewed and Anes Risks/Benef Reviewed Patient Risk: Intermediate Procedure Risk: Low Anesthetic Plan Anesthetic Plan: GA Disposition: Standard PACU
--- NOTE | 2022-07-11 14:24 | PC.NURSE ---
Dr. Butler gave author verbal order for Cefazolin 2 gm IV into OR. aware that Cefazolin 2 gm preop given on floor at 0904.
--- NOTE | 2022-07-11 14:26 | PC.NURSE ---
cheri was at bedside to ask questions of dr. wahl.
--- NOTE | 2022-07-11 16:06 | PM.OP ---
Brief Operative Note Date of Service: 07/11/22 Pre-op diagnosis: left femur fracture Post-op diagnosis: same Procedure: Left femoral nail Implants: [id number] femoral nail with 2 proximal and 2 distal interlocking screws Surgeon: Silas Butler MD Anesthesia: GETA and local Was an Pupil Personnel Services Director used for this Procedure?: No Estimated blood loss (mL): 75 IV fluids (mL): 800 Pathology: none sent Condition: stable Disposition: PACU
[2022-07-11] MEDS: Metoprolol Tartrate 50 MG TABLET PO (20:06)
[2022-07-11] MEDS: Omeprazole 20 MG CAPSULE.DR PO (20:06)
[2022-07-11] MEDS: Latanoprost 0.005 % Ophth Sol 2.5 ML DROPS 1 DROP EYE-RIGHT (20:22)
[2022-07-12 06:34] LABS: Anion Gap 10 (12-20); Blood Urea Nitrogen 18 mg/dL (9-16); Calcium 8.2 mg/dL (8.4-10.2); Carbon Dioxide 25 mmol/L (22-29); Chloride 111 mmol/L (96-108); Estimated Glomerular Filt Rate 55; Glucose Random 160 mg/dL (60-115); Potassium 4.5 mmol/L (3.3-5.1); Sodium 141 mmol/L (135-145)
--- NOTE | 2022-07-12 07:42 | PM.PNORT ---
Subjective Subjective Date of Service: 07/12/22 Interval history: POD 1 s/p IMN Left femur no overnght events resting in bed no concerns Physical Exam Vital Signs: Vital Signs: Last Vital Signs Temp 98.3 F 07/11/22 20:04 Pulse 95 07/11/22 20:04 Resp 16 07/11/22 22:50 BP 143/68 H 07/11/22 20:04 Pulse Ox 95 07/11/22 20:04 O2 Del Method Nasal Cannula 07/11/22 20:04 O2 Flow Rate 2 07/11/22 20:04 BMI result Body Mass Index 28.3 Const: General: cooperative, healthy appearing and no acute distress Resp: Effort & Inspection: normal respiratory effort and able to speak in complete sentences Cardio: Rate: regular rate Peripheral pulses: Peripheral pulses 2+ throughout GI: Palpation (GI): Soft to palpation Skin: General skin exam: no rashes or lesions noted Extrem: Other: left femur incision c/d/i, slight blood staining. No erythema. Mild swelling, NVI. Procedures Date of Service Date of Service: 07/12/22 Progress Note: A&P Assessment and plan (1) Left femoral shaft fracture: Status: Acute Assessment and Plan: pain mgmnt begin PT/OT wbat lovenox bid for dvt ppx dispo pending PT and med clearance Time Spent With Patient Time: Total time managing care of this patient today ____ minutes. Quality Stroke Does the patient have a stroke diagnosis?: No VTE Prior VTE?: No VTE Risk Level:: Surgical - very high VTE Device Contraindication: N/A - Device Ordered VTE Drug Contraindication: Treatment Not Indicated
[2022-07-12 08:11] VITALS: BP 139/67; PULSE 70; RESP 18; TEMP 36.4; O2SAT 95
[2022-07-12] MEDS: Enoxaparin Sodium 30 MG/0.3 ML SYRINGE SUBCUT ×2 (08:24→20:22)
[2022-07-12] MEDS: Docusate Sodium 100 MG CAPSULE PO (08:25)
[2022-07-12] MEDS: amLODIPine Besylate 10 MG TABLET PO (08:25)
[2022-07-12] MEDS: Acetaminophen 325 MG TABLET 650 MG PO ×2 (08:25→21:26)
[2022-07-12] MEDS: 0.9 % Sodium Chloride Flush 3 ML SYRINGE IVFLUSH ×3 (08:25→20:22)
[2022-07-12] MEDS: Metoprolol Tartrate 50 MG TABLET PO ×2 (08:25→20:22)
--- NOTE | 2022-07-12 10:21 | HO.PM.IMPN ---
Subjective Subjective Date of Service: 07/12/22 Review of Systems Follow-up fall, femoral neck fracture Resting comfortably in bed, mild pain Physical Exam Vital Signs: Vital Signs: Last Vital Signs Temp 97.5 F 07/12/22 08:11 Pulse 70 07/12/22 08:11 Resp 18 07/12/22 08:11 BP 139/67 07/12/22 08:11 Pulse Ox 95 07/12/22 08:11 O2 Del Method Room Air 07/12/22 08:11 O2 Flow Rate 2 07/11/22 20:04 BMI result Body Mass Index 28.3 Appearing in no acute distress lung sounds are clear to auscultation heart regular rate rhythm, clear S1, S2 positive bowel sounds, abdomen is soft, nontender neuro patient is alert x3, no focal deficits Left hip dressing with some blood staining Objective Data Active Medications Acetaminophen (Acetaminophen 325 Mg Tablet) 650 mg PO Q6H PRN PRN Reason: Pain, Mild (Pain Scale 1-3) Last Admin: 07/12/22 08:25 Dose: 650 mg Documented By: COTEMA Amlodipine Besylate (Amlodipine Besylate 10 Mg Tablet) 10 mg PO DAILY [facility]; Protocol Last Admin: 07/12/22 08:25 Dose: 10 mg Documented By: COTEMA Docusate Sodium (Docusate Sodium 100 Mg Capsule) 100 mg PO DAILY PRN PRN Reason: Constipation Last Admin: 07/12/22 08:25 Dose: 100 mg Documented By: COTEMA Enoxaparin Sodium (Enoxaparin Sodium 30 Mg/0.3 Ml Syringe) 30 mg SUBCUT Q12H [facility] Last Admin: 07/12/22 08:24 Dose: 30 mg Documented By: COTEMA Latanoprost (Latanoprost 0.005 % Ophth Gisele 2.5 Ml Drops) 1 drop EYE-RIGHT BEDTIME [facility] Last Admin: 07/11/22 20:22 Dose: 1 drop Documented By: PRAVEEN Metoprolol Tartrate (Metoprolol Tartrate 50 Mg Tablet) 50 mg PO BID [facility]; Protocol Last Admin: 07/12/22 08:25 Dose: 50 mg Documented By: COTEMA Morphine Sulfate (Morphine Sulfate 4 Mg/Ml Cartridge) 4 mg IVPUSH Q4H PRN; Protocol PRN Reason: Pain, Severe (Pain Scale 7-10) Non-Formulary Medication (Exemestane [Aromasin]) 25 mg PO DAILY [facility] Omeprazole (Omeprazole 20 Mg Dereje.) 20 mg PO BEDTIME [facility] Last Admin: 07/11/22 20:06 Dose: 20 mg Documented By: PRAVEEN Ondansetron HCl (Ondansetron Hcl 4 Mg/2 Ml Vial) 4 mg IVPUSH Q8H PRN PRN Reason: Nausea and Vomiting Pharmacy Consult (Consult Rx Perform Med Rec) 1 each MISCELLANE ONCE PRN PRN Reason: Consult order Simethicone (Simethicone 80 Mg Tab.Chew) 160 mg PO QID PRN PRN Reason: bloating Sodium Chloride (0.9 % Sodium Chloride Flush 3 Ml Syringe) 3 ml IVFLUSH QSHIFT [facility] Last Admin: 07/12/22 08:25 Dose: 3 ml Documented By: DELMEREMA Labs 07/11/22 05:43 07/12/22 05:52 Labs: Laboratory Results - last 24 hr 07/12/22 05:52 Anion Gap 10 L Estim Creat Clear Calc 43.0 Estimated GFR 55 Random Glucose 160 H Calcium 8.2 L D Assessment and Plan (1) Left femoral shaft fracture: Status: Acute Plan 77-year-old female with past medical history of breast cancer with metastasis to the bone presents to the hospital after having a fall and fracturing her femur Left femoral shaft fracture secondary to mechanical fall s/p Left hip nailing orthopedics following pain control PT/OT, plan for home with family when medically cleared TATIANA CPAP at bedtime hypertension stable will continue home antihypertensives Attending Dr. Selby DVT prophylaxis: SCDs ? continued hospital stay for further management and tx of femoral neck fx Time Spent With Patient Time: Total time managing care of this patient today ____ minutes. Quality Stroke Does the patient have a stroke diagnosis?: No VTE Prior VTE?: No VTE Risk Level:: Surgical - very high VTE Device Contraindication: N/A - Device Ordered VTE Drug Contraindication: Treatment Not Indicated
--- NOTE | 2022-07-12 10:39 | PC.NURSE ---
pt silva removed 07/12/21 at 0830. pt tolerated well. Pt due to void at 1430. pt voided at 0930 in the bathroom. will continue to monitor urine output.
--- NOTE | 2022-07-12 12:20 | MHC.CM.PN ---
PLAN IS HOME MONDAY WITH NEW [facility] ([facility] [employer] [facility] AVAILABLE)
[2022-07-12 15:56] VITALS: BP 131/63; PULSE 72; RESP 18; TEMP 37.1; O2SAT 95
--- NOTE | 2022-07-12 16:38 | HO.POSTANES ---
Post Anesthesia Evaluation Post Anesthesia Evaluation Date of Service: 07/12/22 Vital Signs: Vital Signs Temp Pulse Resp BP Pulse Ox O2 Del Method 07/12/22 15:56 98.7 F 72 18 131/63 95 Room Air 07/12/22 08:11 97.5 F 70 18 139/67 95 Room Air Anesthesia: General Mental Status: Awake Pain Control: Satisfactory Nausea/Vomiting: None Hydration: Adequate Anesthesia-Related Issues: No Anes. Related Issues
[2022-07-12 20:00] VITALS: BP 131/63; PULSE 72; RESP 18; TEMP 37.1; O2SAT 95
[2022-07-12] MEDS: Omeprazole 20 MG CAPSULE.DR PO (20:21)
[2022-07-12] MEDS: Latanoprost 0.005 % Ophth Sol 2.5 ML DROPS 1 DROP EYE-RIGHT (20:30)
[2022-07-12 22:37] VITALS: RESP 18
[2022-07-13 04:00] VITALS: BP 144/66; PULSE 74; RESP 16; TEMP 37.4; O2SAT 92
[2022-07-13] MEDS: Acetaminophen 325 MG TABLET 650 MG PO ×2 (04:53→22:04)
[2022-07-13 07:17] VITALS: BP 130/60; PULSE 71; RESP 16; TEMP 36.9; O2SAT 95
--- NOTE | 2022-07-13 07:48 | PM.PNORT ---
Subjective Subjective Date of Service: 07/13/22 Interval history: POD 2 s/p Lt hip IM Nail. No overnight events. Pain is managed. No additional complaints. Resting in bed comfortably. Physical Exam Vital Signs: Vital Signs: Last Vital Signs Temp 98.5 F 07/13/22 07:17 Pulse 71 07/13/22 07:17 Resp 16 07/13/22 07:17 BP 130/60 07/13/22 07:17 Pulse Ox 95 07/13/22 07:17 O2 Del Method Room Air 07/13/22 07:17 O2 Flow Rate 2 07/11/22 20:04 BMI result Body Mass Index 28.3 Const: General: cooperative, healthy appearing and no acute distress Resp: Effort & Inspection: normal respiratory effort and able to speak in complete sentences Cardio: Rate: regular rate Peripheral pulses: Peripheral pulses 2+ throughout GI: Palpation (GI): Soft to palpation Skin: Lesions: no lesions Rashes: no rashes Extrem: Other: Left hip dressings c/d/i. NVI. Procedures Date of Service Date of Service: 07/13/22 Progress Note: A&P Assessment and plan (1) Left femoral shaft fracture: Status: Acute Plan Continue pain mgmnt Continue Lovenox BID for dvt ppx hx of breast cancer with mets Continue PT for Lt hip IM Nail - WBAT Dispo planning-Pending PT eval, pain mgmnt Time Spent With Patient Time: Total time managing care of this patient today ____ minutes. Quality Stroke Does the patient have a stroke diagnosis?: No VTE Prior VTE?: No VTE Risk Level:: Surgical - very high VTE Device Contraindication: N/A - Device Ordered VTE Drug Contraindication: Treatment Not Indicated
[2022-07-13 08:07] LABS: Hematocrit 30.8 % (37.0-47.0)
[2022-07-13] MEDS: Enoxaparin Sodium 30 MG/0.3 ML SYRINGE SUBCUT ×2 (09:22→22:03)
[2022-07-13] MEDS: amLODIPine Besylate 10 MG TABLET PO (09:22)
[2022-07-13] MEDS: Metoprolol Tartrate 50 MG TABLET PO ×2 (09:23→22:04)
[2022-07-13] MEDS: 0.9 % Sodium Chloride Flush 3 ML SYRINGE IVFLUSH ×3 (09:23→23:57)
--- NOTE | 2022-07-13 12:49 | MHC.CM.PN ---
PAIN STILL BEING MONITORED AND MANAGED. POTENTIAL PLAN IS MONDAY HOME WITH NEW [facility] FAMILY TO TRANSPORT
[2022-07-13 15:27] VITALS: BP 144/65; PULSE 81; RESP 18; TEMP 36; O2SAT 97
[2022-07-13 19:05] VITALS: BP 149/67; PULSE 83; RESP 18; TEMP 37.2; O2SAT 93
[2022-07-13] MEDS: Omeprazole 20 MG CAPSULE.DR PO (22:03)
[2022-07-13] MEDS: Latanoprost 0.005 % Ophth Sol 2.5 ML DROPS 1 DROP EYE-RIGHT (22:03)
[2022-07-13 22:30] VITALS: PULSE 83; RESP 28; O2SAT 93
[2022-07-14 00:04] VITALS: RESP 24
[2022-07-14 04:00] VITALS: BP 125/58; PULSE 70; RESP 17; TEMP 36.4; O2SAT 92
[2022-07-14 07:07] VITALS: BP 127/60; PULSE 78; RESP 16; TEMP 37.1; O2SAT 96
--- NOTE | 2022-07-14 08:51 | PM.PNORT ---
Subjective Subjective Date of Service: 07/14/22 Interval history: POD 3 s/p Lt hip IM Nail. No overnight events. Pain is managed. No additional complaints. Resting in bed comfortably. Physical Exam Vital Signs: Vital Signs: Last Vital Signs Temp 98.8 F 07/14/22 07:07 Pulse 78 07/14/22 07:07 Resp 16 07/14/22 07:07 BP 127/60 07/14/22 07:07 Pulse Ox 96 07/14/22 07:07 O2 Del Method Room Air 07/14/22 07:07 O2 Flow Rate 2 07/11/22 20:04 BMI result Body Mass Index 28.3 Const: General: cooperative, healthy appearing and no acute distress Resp: Effort & Inspection: normal respiratory effort and able to speak in complete sentences Cardio: Rate: regular rate Peripheral pulses: Peripheral pulses 2+ throughout GI: Palpation (GI): Soft to palpation Skin: Lesions: no lesions Rashes: no rashes Extrem: Other: incision clean dry and intact. Cynthia intact. No erythema or effusion. Calf supple nontender. Neurovascularly intact. Procedures Date of Service Date of Service: 07/14/22 Progress Note: A&P Assessment and plan (1) Left femoral shaft fracture: Status: Acute Plan Continue pain mgmnt Continue Lovenox BID for dvt ppx hx of breast cancer with mets Continue PT for Lt hip IM Nail - WBAT Dispo planning-cleared from ortho stand point f/u with ortho in 2 weeks Time Spent With Patient Time: Total time managing care of this patient today ____ minutes. Quality Stroke Does the patient have a stroke diagnosis?: No VTE Prior VTE?: No VTE Risk Level:: Surgical - very high VTE Device Contraindication: N/A - Device Ordered VTE Drug Contraindication: Treatment Not Indicated
[2022-07-14] MEDS: amLODIPine Besylate 10 MG TABLET PO (08:52)
[2022-07-14] MEDS: Metoprolol Tartrate 50 MG TABLET PO (08:53)
[2022-07-14] MEDS: Enoxaparin Sodium 30 MG/0.3 ML SYRINGE SUBCUT (08:55)
[2022-07-14] MEDS: 0.9 % Sodium Chloride Flush 3 ML SYRINGE IVFLUSH (09:03)
--- NOTE | 2022-07-14 09:43 | MHC.CM.PN ---
Addendum entered by Skylar Aviles RN 07/14/22 12:01: PATIENT IS DC HOME THIS AFTERNOON. FAMILY AGREES WITH DC PLAN. [facility] MADE AWARE AND REMINDED THAT IF THERE ARE NO [facility] SPEAKING P.T., THEN [facility] WILL BE NEEDED. IMM 07/14 IN CHART Original Note: PLAN IS DC HOME TODAY WITH NEW [facility] FAMILY IN ROOM TO TRANSPORT. IMM TO BE COMPLETED AND PLACED IN CHART OR IN MEDICAL RECORD BIN ON UNIT CM TO UPDATE THIS NOTE WITH FINAL PLAN
--- NOTE | 2022-07-14 11:24 | P.DS_ITS ---
DS: Providers Provider Date of Service: 07/14/22 Date of admission: 07/10/22 20:56 Date of discharge: 07/14/22 Primary care physician: Magdalena Braxton MD Consults: 07/10/22 20:58 Consult to Orthopedics Routine Consulting Provider: [facility] Reason for consultation: fem fracture Has provider been notified: Yes DS: Diagnosis Discharge Diagnosis (1) Left femoral shaft fracture: Status: Acute (2) Breast cancer metastasized to bone: Status: Acute (3) HTN (hypertension): Status: Acute (4) TATIANA (obstructive sleep apnea): Status: Acute DS: Summary Hospital Course Hospital Course: 77-year-old female past medical history of breast cancer? metastasized to bone, GERD, asthma, HTN, TATIANA on CPAP presents to the hospital after having a fall.? Patient is [place]-speaking,? history is obtained with the help of her daughter at bedside.? Patient was gardening, she got up to move,? tripped over her sandals, and had a fall backwards. ? She denies loss of consciousness, no head injury, no head trauma, no dizziness, no headache, no change in vision, denies any chest pain prior or after, denies any palpitations, reports has been well and no acute health changes.? She denies any abdominal pain nausea or vomiting, no diarrhea constipa tion, no urinary symptoms and no lower extremity edema.? On arrival to the ED patient hemodynamically stable with? no significant abnormal vitals:?labs reviewed unremarkable Imaging showed displaced angulated fracture of the midshaft of the left femur Hospital Course Patient admitted to general medical floor and pain control was managed with opiates. She was seen in consultation by Orthopedics and on 07/11/2022 underwent ORIF of left hip. Her postoperative period was unremarkable. Given her history of metastatic breast cancer she will need Lovenox q.12 hours for 6 weeks. Her granddaughter who is a [employer] has been instructed and is comfortable with the procedure. She will be discharged to home with home PT and follow-up with Orthopedics in 2 weeks Time Spent with Patient Time attestation: Total time managing care of this patient today ____ minutes. Discharge coordination time: Greater than 30 minutes Quality: Safe Use of Opioids Does Pt have an Active Cancer Diagnosis on the Problem List?: No Quality: Stroke Does the patient have a stroke diagnosis?: No Physical Exam Vital Signs: Vital Signs: Last Vital Signs Temp 98.8 F 07/14/22 07:07 Pulse 78 07/14/22 07:07 Resp 16 07/14/22 07:07 BP 127/60 07/14/22 07:07 Pulse Ox 96 07/14/22 07:07 O2 Del Method Room Air 07/14/22 07:07 O2 Flow Rate 2 07/11/22 20:04 BMI result Body Mass Index 28.3 Const: Other: Awake alert oriented x3 no acute distress Resp: Other: Clear to auscultation bilaterally no rales rhonchi or wheezes Cardio: Other: No S4; positive S1-S2; no S3 murmurs rubs or gallops Extrem: Other: No edema bilateral Discharge Plan Discharge Anticipated Discharge Date/Time: 07/14/22 11:14 Patient Disposition: Home Health Service Discharge Diagnosis: Left femoral neck fracture Referrals: Rodrick DO [Outside] - 1 Week Kandace Roach PA-C [Physician Safety Instruction Police Officer] - 2 Weeks (07/25/22 09:45 [facility] Kandace Roach PA-C) Magdalena Cleary MD [Primary Care Provider] - 1 Week Discharge Medications: New enoxaparin [Lovenox] 30 mg/0.3 mL syringe 30 mg subcut Q12H Qty: 25.2 0RF Continued acetaminophen 500 mg tablet 500 mg PO Q6H 30 Days Qty: 120 5RF Hold Instructions: Doctor's Order aspirin 81 mg tablet,delayed release (DR/EC) 81 mg PO DAILY 90 Days Qty: 90 3RF calcium carbonate-vitamin D3 600 mg-10 mcg (400 unit) tablet 1 tab PO BID 60 Days Qty: 120 6RF metoprolol tartrate 50 mg tablet 50 mg PO BID Qty: 180 3RF pantoprazole 40 mg tablet,delayed release (DR/EC) 40 mg PO BEDTIME Qty: 30 6RF exemestane [Aromasin] 25 mg Tablet 25 mg PO DAILY Qty: 90 6RF Rx Instructions: must administer after a meal amlodipine 10 mg tablet 10 mg PO DAILY 90 Days Qty: 90 1RF latanoprost 0.005 % drops 1 drp ophthalmic-Right BEDTIME simethicone 180 mg capsule 180 mg PO QID 30 Days Qty: 120 6RF Rx Instructions: after meals No Action (DME) incontinence pad, liner, disp Pad See Rx Instructions .Route Qty: 90 2RF Rx Instructions: use 3 times a day Discharge Orders: Discharge Order (Routine); Ordered 07/14/22 Ordered By: Malik Ellison Diet: Advance to usual diet Activity on Discharge: As tolerated Stand Alone Forms: Patient Portal Discharge page Activity Restrictions/Additional Instructions: Gait training, strengthening, ADLs Continue Lovenox for dvt ppx x6 weeks Keep dressing clean,dry and intact-no showering or tub baths Follow up with Orthopedics in 2 weeks Care Plan Goals: Lovenox 30 mg (1 syringe) subcutaneous every 12 hours for 6 weeks Health Concerns: Resume all other pre-hospital meds Plan of Treatment: Follow-up with orthopedics in 2 weeks and primary care within the month Assessment: See discharge summary
--- NOTE | 2022-07-14 11:49 | P.F2F_ITS ---
Service Date Service Date: 07/14/22 Encounter Date of encounter: 07/14/22 Encounter: inpatient admission Reasons for Services Signs and symptoms assessed: S/P ORIF left hip.Painful ambulation Reason for physical therapy: home safety and mobility, therapeutic exercises and gait/transfer training Homebound: Leaving the home is medically contraindicated at this time without the asist of a device and/or another person due th the listed conditions above and below. Reason homebound: unsteady gait / fall risk, leg weakness and unable to drive Certification: Based on the above findings, I certify that this patient is confined to the home and needs intermittent shelter care, physical therapy and/or speech therapy, or continues to need occupational therapy. The patient is under my care, and I have initiated the establishment of the plan of care. The patient will be followed by a physician who will periodically review the plan of care. Time Spent With Patient Time: Total time managing care of this patient today ____ minutes.
--- NOTE | 2022-07-20 12:22 | P.OP_ITS ---
Operative Note Operative Note Date of Service: 07/11/22 Narrative: Date of Service: 07/11/22 Pre-op diagnosis: left femur fracture Post-op diagnosis: same Procedure: Left femoral nail Implants: [id number] femoral nail with 2 proximal and 2 distal interlocking screws Surgeon: Silas Butler MD Anesthesia: GETA and local Was an Company Dancer used for this Procedure?: No Estimated blood loss (mL): 75 IV fluids (mL): 800 Pathology: none sent Condition: stable Disposition: PACU Procedure in detail: Patient was brought to the operating room and prepped and draped in standard sterile fashion. Time-out was called to identify proper site procedure proper surgeon and IV antibiotics per weight were administered. She was positioned on the fracture table and a traction and slight internal rotation were performed and biplanar fluoroscopy confirmed initial fracture reduction. I then made a stab incision proximal to the greater trochanter in using a guidewire made a entry point in the piriformis and placed a guidewire into the femoral metadiaphysis. I was able to span the fracture and reduce the fracture with a combination of traction and rotation. I over-reamed with 15 mm reamer prior to placing my ball-tip guidewire down distally in the femur and measured my length. I selected a 18x834 nail and reamed up to a 15. I then placed a the nail. I then turned my attention to the distal aspect and , using perfect pilot station technique, placed 2 distal interlocking screws using standard AO technique. Once I was satisfied with these I turned my attention to the proximal aspect of the nail. I placed a trachaneteric screw from proximal to distal and lateral to medial. I then placed a lateral to medial screw using the guide. I selected a locking screw and drilled and measured and placed the screw. the screw was difficult to insert and when I tried to remove it the head stripped. This left ~ 5 mm excess screw laterally. THis was below the ITB and cutting the screw head would have required an extensive dissection and significant morbidity. I could not palpate the screw through the skin. I felt that it was not warranted to try to use a bias cutter helper to remove the screw. the construct was stable. I then removed all extraneous instrumentation.Final biplanar radiographs were taken. I was satisfied with the position of the hardware and the fracture reduction. I think copiously irrigated closed with absorbable sutures jennie and injected 30 mL of into the area of the incisions. Traction was let down patient was placed in sterile dressing awakened from anesthesia brought to recovery room stable condition there were no known complications.
== END 2022-07-14 14:37 | disposition home health service (06) | DRG 481 ==
LOC: HO.ED 17:38 → HO.EDOVER 21:17 → HO.S3 22:22
PROVIDERS: Nurse Practitioner Acute Care; Orthopaedic Surgery; Physician Assistant; Admitting Provider Internal Medicine; Emergency Provider Internal Medicine; PCP Internal Medicine; Visit Provider Hospitalist
PROC: 0QS734Z Reposition Left Upper Femur with Internal Fixation Device, Percutaneous Approach (ICD-10-PCS; principal; 2022-07-11 14:30)
DX: S72.322A Displaced transverse fracture of shaft of left femur, initial encounter for closed fracture (principal); C79.51 Secondary malignant neoplasm of bone; F33.9 Major depressive disorder, recurrent, unspecified; C50.919 Malignant neoplasm of unspecified site of unspecified female breast; I10 Essential (primary) hypertension; W19.XXXA Unspecified fall, initial encounter; G47.33 Obstructive sleep apnea (adult) (pediatric); Z79.82 Long term (current) use of aspirin; Z79.899 Other long term (current) drug therapy
CPT/HCPCS: 36415; 70450; 71045; 73502; 73552; 73560; 80048; 80053; 83735; 84484; 85014; 85018; 85025; 85610; 86850; 86900; 86901; 93005; 94660; 97116; 97162; 97166; 97530; 99285; C1713; C1758; C1769; J0690; J1100; J1650; J1885; J2270; J2405; J2795; J3010

== ENCOUNTER 2022-07-19 09:06 | Outpatient (REF) | payer OTHER, SELFPAY ==
[2022-07-19 10:40] LABS: Alanine Aminotransferase 93 U/L (0-31); Albumin Level 3.4 g/dL (3.5-5.0); Alkaline Phosphatase 79 U/L (39-117); Anion Gap 14 (12-20); Aspartate Amino Transferase 48 U/L (5-31); Blood Urea Nitrogen 18 mg/dL (9-16); Calcium 9.4 mg/dL (8.4-10.2); Carbon Dioxide 28 mmol/L (22-29); Chloride 103 mmol/L (96-108); Cholesterol 166 mg/dL; Estimated Glomerular Filt Rate > 60; Glucose Fasting 113 mg/dL (60-99); HDL Cholesterol 36 mg/dL; LDL Cholesterol Calculated 107 mg/dl; Potassium 4.8 mmol/L (3.3-5.1); Sodium 140 mmol/L (135-145); Total Protein 6.4 g/dL (6.5-8.0); Triglycerides 118 mg/dL
[2022-07-19 10:59] LABS: Vitamin D 25-OH Total 35.7 ng/mL (>30)
== END 2022-07-19 09:07 | disposition home or self-care (01) ==
LOC: HO.LAB 09:06
PROVIDERS: PCP Internal Medicine; Visit Provider Internal Medicine
DX: E55.9 Vitamin D deficiency, unspecified (principal); I10 Essential (primary) hypertension; E78.5 Hyperlipidemia, unspecified
CPT/HCPCS: 36415; 80053; 80061; 82306

== ENCOUNTER 2022-07-25 07:10 | Outpatient (REF) | payer OTHER, SELFPAY ==
--- NOTE | ~2022-07-25 | XR_ITS ---
EXAMINATION: XR HIP, LEFT XR FEMUR, LEFT CLINICAL INFORMATION: Pain. COMPARISON: 07/10/2022 TECHNIQUE: AP and lateral views of the left femur and AP pelvis with 2 views of the left hip. FINDINGS: AP film of the pelvis does not demonstrate any evidence of acute fracture or diastasis. Hip joint spaces are maintained with collar spurring being present. There is some spurring and sclerosis of the inferior thirds of the sacroiliac joints. There is degenerative disc disease present at the L4-L5 and L5-S1 levels. There is a region of diminished density seen without bony destruction about the inferior pubic ramus adjacent to the ischium but which is stable compared to study of 02/27/2017. There is again noted to be stable prominent medial cortex thickening about the proximal right femur. AP and lateral views of the left femur again demonstrate a long medullary gabriela transfixing a mid femoral transverse fracture with 2 fixation screws proximally and 2 fixation screws distally. There is mild medial angulation of the distal fracture fragment without change. Some periosteal new bone formation is seen about the fracture site with fracture line still being evident. There is no evidence of acute fracture or dislocation of the left hip. Left hip joint space is maintained. Collar spurring is present. XR/XR hip LT w PEL1V IMPRESSION: Stable appearance of long left femoral intramedullary gabriela for fixation of mid femoral transverse fracture. Mild periosteal new bone formation. No evidence of acute fracture or dislocation of the left hip. Stable bony cortical thickening about the medial aspect of the proximal right femur.
--- NOTE | ~2022-07-25 | XR_ITS ---
EXAMINATION: XR HIP, LEFT XR FEMUR, LEFT CLINICAL INFORMATION: Pain. COMPARISON: 07/10/2022 TECHNIQUE: AP and lateral views of the left femur and AP pelvis with 2 views of the left hip. FINDINGS: AP film of the pelvis does not demonstrate any evidence of acute fracture or diastasis. Hip joint spaces are maintained with collar spurring being present. There is some spurring and sclerosis of the inferior thirds of the sacroiliac joints. There is degenerative disc disease present at the L4-L5 and L5-S1 levels. There is a region of diminished density seen without bony destruction about the inferior pubic ramus adjacent to the ischium but which is stable compared to study of 02/27/2017. There is again noted to be stable prominent medial cortex thickening about the proximal right femur. AP and lateral views of the left femur again demonstrate a long medullary gabriela transfixing a mid femoral transverse fracture with 2 fixation screws proximally and 2 fixation screws distally. There is mild medial angulation of the distal fracture fragment without change. Some periosteal new bone formation is seen about the fracture site with fracture line still being evident. There is no evidence of acute fracture or dislocation of the left hip. Left hip joint space is maintained. Collar spurring is present. XR/XR femur LT 2V IMPRESSION: Stable appearance of long left femoral intramedullary gabriela for fixation of mid femoral transverse fracture. Mild periosteal new bone formation. No evidence of acute fracture or dislocation of the left hip. Stable bony cortical thickening about the medial aspect of the proximal right femur.
== END 2022-07-25 07:11 | disposition home or self-care (01) ==
LOC: HO.HOSX 07:10
PROVIDERS: Visit Provider Physician Assistant
DX: S72.302D Unspecified fracture of shaft of left femur, subsequent encounter for closed fracture with routine healing (principal); M25.552 Pain in left hip
CPT/HCPCS: 73502; 73552; 99212

== ENCOUNTER 2022-08-25 10:56 | Outpatient (REF) | payer OTHER, SELFPAY ==
--- NOTE | ~2022-08-25 | XR_ITS ---
EXAMINATION: XR FEMUR, LEFT CLINICAL INFORMATION: Leg pain. COMPARISON: Radiographs of the left femur done on 07/25/2022. TECHNIQUE: AP and lateral views of the left femur were obtained. FINDINGS: Interval healing callus formation is noted at the site of the minimally displaced transverse fracture at the midshaft of the left femur. Intramedullary gabriela and the cortical screws are intact. Moderate osteoarthrosis and periarticular osteopenia at the left knee. Soft tissues are unremarkable. Moderate diffuse osteopenia. XR/XR femur LT 2V IMPRESSION: Interval healing callus formation at the site of the previously documented transverse fracture involving the mid shaft of the left femur with intact hardware. Moderate degenerative osteoarthrosis of the left knee.
== END 2022-08-25 10:57 | disposition home or self-care (01) ==
LOC: HO.HOSX 10:56
PROVIDERS: Visit Provider Physician Assistant
DX: S72.302D Unspecified fracture of shaft of left femur, subsequent encounter for closed fracture with routine healing (principal)
CPT/HCPCS: 20610; 73552; J1040

== ENCOUNTER 2022-09-05 12:00 | Outpatient (REF) | payer OTHER, SELFPAY ==
--- NOTE | ~2022-09-05 | XR_ITS ---
EXAMINATION: XR RIBS, BILATERAL CLINICAL INFORMATION: Pain status post fall COMPARISON: None available. TECHNIQUE: 3 views of the bilateral ribs were obtained. FINDINGS: Lungs are clear. No consolidation, pneumothorax, or pleural effusion. The cardiomediastinal silhouette and pulmonary vasculature are normal. Clips right axilla. S-shaped scoliosis of moderate severity. Changes of chronic rotator cuff tear left shoulder suspected. Osseous structures are unremarkable. Ribs are intact. No fractures are identified. XR/XR ribs BI min 4V w CXR1V IMPRESSION: No definite displaced rib fracture. Clips right axilla noted incidentally. S-shaped scoliosis.
== END 2022-09-05 12:01 | disposition home or self-care (01) ==
LOC: HO.XRAY 12:00
PROVIDERS: Visit Provider Internal Medicine Medical Oncology
DX: M89.9 Disorder of bone, unspecified (principal)
CPT/HCPCS: 71111

== ENCOUNTER 2022-09-13 09:51 | Outpatient (AMB) | payer OTHER, SELFPAY ==
[2022-09-13 09:54] VITALS: BP 128/59; PULSE 56; BMI 30.3
--- NOTE | 2022-09-13 09:54 | MHC.OFFVIS ---
Intake Vital Signs 09/13/22 09:54 Height 5 ft 1 in Weight 160 lb 7.944 oz BMI 30.3 BP 128/59 L Blood Pressure Location Lt brachial Position Sitting Pulse 56 Intake Visit Reasons: 6 month Fu Intake Note: Alysia presents in the office as a 6 month follow up for GERD. CC: Patient reports occasional gas. She states medications has been helping and she is doing good now. Denies any new GI symptoms today. 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 Qualified Code(s):?K21.9 - Gastro-esophageal reflux disease without esophagitis ?Plan: Lebanese # Dtr translates per pt request She continues to do extremely well on her pantoprazole and her simethicone.? She is not having any trouble with her bowels and remains satisfied with her GI regimen.? She has no other new medical problems to report at this time.? Again, she will be due to reconsider colonoscopy next year we will discuss this (especially considering her age) when it becomes closer to the actual time it is due.? Return office visit in 6 months (2) Abdominal bloating: ?Code(s): R14.0 - Abdominal distension (gaseous) ? ? ? Medications: Refilled pantoprazole 40 mg? PO BEDTIME 30 tabs 6RF ? ? simethicone ?? aft er meals 180 mg? PO QID 30 days 120 caps 6RF A TODAY'S VISIT Lebanese # Zahra, G[place] She appears to be due for colonoscopy screening this year her last was in [address] Stuart. We discuss colonoscopy vx Cologuard as she is reluctant to drink the laxative. She opts for Cologuard She continues to do well on her pantoprazole and simethicone. ROV 6 weeks. PFS Medical History Abnormal mammogram Asthma Breast cancer metastasized to bone COVID-19 Glaucoma Hand pain HTN (hypertension) Impaired glucose tolerance Memory loss Mild recurrent major depression Nocturnal hypoxemia Obesity (BMI 30-39.9) TATIANA (obstructive sleep apnea) Osteoarthritis Osteoporosis Upper back pain on right side Surgical History H/O excision of dermoid cyst H/O excision of mass H/O lumpectomy History of esophagogastroduodenoscopy (EGD) History of tubal ligation Hx of colonoscopy S/P ORIF (open reduction internal fixation) fracture Family History Father Hypertension Hyperlipidemia Diabetes mellitus Mother Hypertension Hyperlipidemia Cervical cancer Sister Breast cancer Hypertension Social History Household Members: Family Housing: House Are you a primary youth care specialist to a significant other at home: No Do you presently have visiting nurse or other home services: No (daughter COGNOS LEAD) Alcohol intake: never Patient Tobacco Use Status: Never used Tobacco e-Cigarette/Vaping Use: Never Used Second Hand Smoke Exposure: No Advance Directives Date on File: 09/21/21 service: No Current occupational status: disabled Cognitive needs: Yes Hearing needs: No Vision needs: Yes Review of Systems Const Denies fatigue, Denies fever(s), Denies night sweats, Denies poor appetite and Denies weight loss ENT Reports Normal hearing present, Denies dental pain, Denies dysphagia, Denies hearing loss, Denies mouth pain, Denies odynophagia, Denies throat swelling, Denies tongue swelling and Reports other (Dentition adequate) Card Reports no additional complaints Resp Reports no additional complaints GI Denies abdominal pain, Denies melena, Reports bloating, Denies hematochezia, Denies constipation, Denies GI cramping, Denies dysphagia, Denies excessive flatus, Denies early satiety, Reports heartburn, Denies diarrhea, Denies nausea, Denies odynophagia, Denies vomiting and Denies hematemesis Musc Reports abnormal gait and Reports myalgias Skin/Breast Denies pruritus, Denies lesions, Denies rash and Denies jaundice Neuro Reports Normal hearing present, Denies Abnormal speech present and Reports abnormal gait Endo Denies fatigue Aller/Immun Denies throat swelling and Denies tongue swelling Physical Exam Vital Signs: Last Vital Signs Pulse 56 09/13/22 09:54 BP 128/59 L 09/13/22 09:54 BMI result Body Mass Index 30.3 Const General: cooperative, no acute distress, well developed and well groomed Nutritional Appearance: well nourished and overweight Orientation/consciousness: oriented to person, oriented to place and oriented to time Limitations: language barrier and ambulation with walker HEENT Head: Yes normocephalic and Yes atraumatic Eyes General: appearance normal, both eyes and all related structures Pupils: Equal, round and reactive pupils present Neck Neck: Yes normal visual inspection and Yes no lymphadenopathy Thyroid: Thyroid normal Resp Effort & Inspection: normal respiratory effort and able to speak in complete sentences Auscultation: clear to auscultation bilaterally Cardio Rate: regular rate Rhythm: regular rhythm Heart sounds: Normal, physiologic split S2 sound present Peripheral pulses: radial pulses present and posterior tibial pulses present GI Inspection: No distended, No Abdominal panniculus present and Yes obesity Palpation (GI): Soft to palpation, nontender, no guarding, not rigid and No hepatosplenomegaly present Percussion: Yes normal to percussion Auscultation: normal bowel sounds Rectal Exam - Female: deferred Skin General skin exam: no rashes or lesions noted, turgor normal, skin not dry, no jaundice, No spider nevi and no striae Rashes: no rashes Nails: normal Neuro General: oriented to person, oriented to place and oriented to time Cranial nerves: Yes Equal, round and reactive pupils present and Yes Normal hearing present Speech: No Abnormal speech present Extrem General: Yes normal to inspection, No clubbing, No cyanosis and No edema Psych Appearance: grossly normal and well kempt Mental Status: mental status grossly normal Speech and movement: Normal speech and movement present Affect: normal affect Attitude: cooperative Thought process: Normal thought process present and not confabulating Thought content: Normal thought content present Insight: Limited insight present (Psych) Judgement: Limited judgement present (Psych) Assessment & Plan Assessment & Plan (1) GERD (gastroesophageal reflux disease): Code(s): K21.9 - Gastro-esophageal reflux disease without esophagitis Qualifiers: Esophagitis presence: esophagitis presence not specified Qualified Code(s): K21.9 - Gastro-esophageal reflux disease without esophagitis Plan: Lebanese # Zahra, Gorge She appears to be due for colonoscopy screening this year her last was in [address] Stuart. We discuss colonoscopy vx Cologuard as she is reluctant to drink the laxative. She opts for Cologuard She continues to do well on her pantoprazole and simethicone. ROV 6 weeks. (2) Abdominal bloating: Code(s): R14.0 - Abdominal distension (gaseous) (3) Upper back pain on right side: Code(s): M54.9 - Dorsalgia, unspecified Medications: Discontinued exemestane must administer after a meal 25 mg PO DAILY 90 tabs 6RF Coding Level of Care Code Est Pt Level 3 (26985) Diagnoses GERD (gastroesophageal reflux disease) K21.9 Esophagitis presence: esophagitis presence not specified Abdominal bloating R14.0 Upper back pain on right side M54.9
== END 2022-09-13 10:20 | disposition home or self-care (01) ==
PROVIDERS: Visit Provider Nurse Practitioner
DX: K21.9 Gastro-esophageal reflux disease without esophagitis (principal); R14.0 Abdominal distension (gaseous); M54.9 Dorsalgia, unspecified
CPT/HCPCS: 99213

== ENCOUNTER → 2022-09-13 09:51 | Outpatient (BNVA) | payer OTHER, SELFPAY | PROVIDERS: Visit Provider Nurse Practitioner | DX: K21.9 Gastro-esophageal reflux disease without esophagitis (principal); R14.0 Abdominal distension (gaseous); M54.9 Dorsalgia, unspecified | CPT/HCPCS: 99212 ==

== ENCOUNTER 2022-09-14 09:32 | Outpatient (REF) | payer OTHER, SELFPAY ==
--- NOTE | ~2022-09-14 | US_ITS ---
EXAMINATION: US COMPLETE ABDOMEN WITH LIVER ELASTOGRAPHY CLINICAL INFORMATION: Elevated liver enzymes COMPARISON: None available. TECHNIQUE: Real-time imaging of the abdominal viscera. Noninvasive ultrasound liver fibrosis assessment is performed using Rogelio ElastPQ point quantification shear wave elastography (2D-SWE) with a C5-2 MHz transducer. Multiple elastography samples are obtained. FINDINGS: PANCREAS: Normal. ABDOMINAL AORTA: The proximal, and mid aortic segments are normal in caliber. Distal abdominal aorta not well visualized. INFERIOR VENA CAVA: Visualized portions are normal. LIVER: The liver demonstrates normal size, and contour. No focal lesion or intrahepatic biliary duct dilatation. The right lobe measures 11 cm in length. The left lobe measures 10 cm in length. Portal flow is normal/hepatopedal Shear wave liver elastography median stiffness is 1.6 m/s (reference: normal median stiffness is 1.3 m/s or less). IQR/median stiffness to assess sampling precision is 0.05 (reference: good quality data set is IQR/median stiffness of 0.15 or less). GALLBLADDER: Normal. The gallbladder is physiologically distended without evidence of stones, sludge, polyps, wall thickening or pericholecystic fluid. COMMON BILE DUCT: Normal in caliber measuring 0.3 cm in diameter. RIGHT KIDNEY: Normal. No hydronephrosis. No renal calculi or focal parenchymal lesions. The kidney measures 9 cm in maximum dimension. LEFT KIDNEY: Normal. No hydronephrosis. No renal calculi or focal parenchymal lesions. The kidney measures 10.5 cm in maximum dimension. SPLEEN: Normal. The spleen measures 6.5 cm in maximum dimension. FREE FLUID: None. US/US abdomen comp w elastography IMPRESSION: 1. Impression: Limited visualization of the distal abdominal aorta otherwise unremarkable exam. 2. Liver elastography: Adequate liver sampling. In the absence of other known clinical signs, rules out compensated advanced chronic liver disease. REFERENCE: Society of Radiologists in Ultrasound Liver Stiffness Thresholds (2020): LIVER STIFFNESS THRESHOLDS: *Liver Stiffness equal or less than 1.3 m/s: High probability of being normal. *Liver Stiffness less than 1.7 m/s: In the absence of other known clinical signs, rules out compensated advanced chronic liver disease. *Liver Stiffness 1.7-2.1 m/s: Suggestive of compensated advanced chronic liver disease but need further test for confirmation. *Liver Stiffness over 2.1 m/s: Rules in compensated advanced chronic liver disease. *Liver Stiffness over 2.4 m/s: Suggestive of clinically significant portal hypertension. QUALITY OF DATA SET: *IQR/Median value equal or less than 0.15 implies a quality data set. *IQR/Median value over 0.15 implies a poor quality data set. SIGNIFICANT CHANGE FROM PRIOR EXAM: Significant change if liver stiffness measurement is 10% or greater from prior exam. OTHER CONSIDERATIONS: The stage of liver fibrosis may be overestimated in the setting of acute hepatitis, liver inflammation, elevated liver function tests, hepatic vascular congestion, obstructive cholestasis, non-fasting state, and infiltrative diseases such as amyloidosis and lymphoma. In some patients with NAFLD, the liver stiffness thresholds for compensated advanced chronic liver disease may be lower. In causes other than viral hepatitis and NAFLD, liver stiffness thresholds are not well established.
[2022-09-14 10:18] LABS: MANUAL DIFF FLAG NO
[2022-09-14 10:25] LABS: Basophils Absolute Auto 0.1 X10*3/uL (0.0-0.2); Basophils Percent Auto 0.9 % (0-2); Eosinophils Absolute Auto 0.3 X10*3/uL (0.0-0.4); Eosinophils Percent Auto 3.3 % (0-4); Hematocrit 40.4 % (37.0-47.0); Hemoglobin 12.7 g/dl (12.0-16.0); Imm Gran Abs Auto 0.02 X10*3/uL (0.00-0.03); Imm Gran Pct Auto 0.2 % (0.0-0.4); Lymphocytes Absolute Auto 2.5 X10*3/uL (1.2-4.9); Lymphocytes Percent Auto 30.8 % (20-40); Mean Corpuscular HGB Conc 31.4 g/dl (31.0-35.0); Mean Corpuscular Hemoglobin 28.9 pg (27.0-33.0); Mean Corpuscular Volume 91.8 fL (80.0-98.0); Mean Platelet Volume 8.9 fL (9.4-12.3); Monocytes Absolute Auto 0.5 X10*3/uL (0.1-1.2); Monocytes Percent Auto 5.7 % (2-11); Neutrophils Absolute Auto 4.8 x10*3/uL (2.0-8.3); Neutrophils Percent Auto 59.1 % (45-73); Platelet Count 250 X10*3/uL (160-400); Red Cell Distribution Width 14.6 % (11.0-16.0); White Blood Count 8.2 X10*3/uL (4.8-10.8)
[2022-09-14 11:23] LABS: Alanine Aminotransferase 26 U/L (0-31); Albumin Level 4.1 g/dL (3.5-5.0); Alkaline Phosphatase 89 U/L (39-117); Anion Gap 7 (12-20); Aspartate Amino Transferase 17 U/L (5-31); Bilirubin Total 0.4 mg/dL (0.0-1.0); Blood Urea Nitrogen 13 mg/dL (9-16); Calcium 9.2 mg/dL (8.4-10.2); Carbon Dioxide 31 mmol/L (22-29); Chloride 105 mmol/L (96-108); Estimated Glomerular Filt Rate > 60; Glucose Fasting 85 mg/dL (60-99); Glucose Random 85 mg/dL (60-115); Sodium 139 mmol/L (135-145); Total Protein 7.5 g/dL (6.5-8.0)
[2022-09-16 09:08] LABS: CA 27.29 34 U/mL (<38)
== END 2022-09-14 09:33 | disposition home or self-care (01) ==
LOC: HO.US 09:32
PROVIDERS: Internal Medicine Medical Oncology; PCP Internal Medicine; Visit Provider Internal Medicine
DX: R74.01 Elevation of levels of liver transaminase levels (principal); C50.919 Malignant neoplasm of unspecified site of unspecified female breast; C79.51 Secondary malignant neoplasm of bone; I10 Essential (primary) hypertension
CPT/HCPCS: 36415; 76705; 76981; 80053; 85025; 86300

== ENCOUNTER 2022-09-20 11:33 | Outpatient (REF) | payer OTHER, SELFPAY ==
--- NOTE | ~2022-09-20 | PE_ITS ---
EXAMINATION: Fluorine-18 FDG PET/CT Scan CLINICAL INDICATION: Subsequent treatment management. 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 PROCEDURE: 70 minutes following the intravenous administration of 16.3 mCi of fluorine 18 FDG, images from the base of the skull to the mid thighs were obtained using a combined PET/CT scanner with CT scan based attenuation correction. No intravenous contrast was administered. Transverse, coronal, sagittal, and volume reconstruction projections were obtained. The patient's blood glucose as determined by a finger stick, was 84 mg/dl immediately prior to injection. The radiotracer was injected intravenously through the left antecubital superficial vein, without any complications. Total CT exam dose-length product 484.64 mGy-cm * These CT images were obtained using dose optimization techniques as appropriate, variously including the following: Automated exposure control * Adjustment of mA and/or kV according to patient size (this includes techniques or standardized protocols for targeted exams where dose is matched to indication/reason for exam; i.e. extremities or head) * Use of iterative reconstruction technique COMPARISON: Whole-body bone scan done on 06/29/2022. FINDINGS: NECK AND VISUALIZED HEAD: Remarkable for focal areas of hypermetabolism on either side of the midline near the floor of the anterior nares without any CT correlate with SUV max of 11.7 on the right and 11.0 on the left (32/267). Mild FDG avidity is noted in the region of the tonsillar fossa bilaterally with SUV max of 4.9 on the right and 5.2 on the left (33/267). There are no hypermetabolic, FDG avid cervical lymphadenopathy present. The thyroid gland appears to be enlarged and slightly heterogeneous without evidence of any focal FDG avid lesion or nodule. THORAX: There are no suspicious FDG avid lung nodule and/or mass. Localized cystic change is noted at left upper lobe of the lung (202/698), may represent bullous disease. There are no FDG avid mediastinal, hilar, axillary or internal mammary lymphadenopathy or pleural or pericardial effusion. Postsurgical changes are noted within the right breast and right axilla. There are no FDG avid disease identified on either breast. ABDOMEN AND PELVIS: No FDG avid focal liver, splenic or adrenal disease. The gallbladder, biliary tree and the pancreas appear unremarkable. Note is however made of subtle nonspecific stranding around the tail of the pancreas, evaluation is limited on this noncontrast nondiagnostic images. Please correlate clinically. Small focal FDG avidity is noted within the pylorus along the lesser curvature of the stomach with SUV max of 5.2 (137/267), for which direct visualization/endoscopy is recommended. Focal FDG avidity involving the proximal ascending colon with SUV max of 5.5 (153/267) is also noted. Direct visualization/colonoscopy is recommended as well, if not recently performed for further clarification. Moderate size sliding hiatal hernia is present. The small and large bowel loops are decompressed. Note is made of at least one subcentimeter non-FDG avid left common iliac lymph node within the retroperitoneum (398/698), of indeterminate etiology. MUSCULOSKELETAL: Postsurgical changes of intramedullary gabriela is noted at the site of the fracture involving the mid diaphysis of the left femur with increase FDG avidity at the site of the cortical screw and overlying the greater trochanter of the left femur, all of them are most consistent with postsurgical changes. Note is made of extensive callus formation at the fracture site associated with increased FDG avidity, consistent with healing fracture. No other additional sites of FDG avid osseous disease to suspect metastasis. Specifically, no FDG avid disease to suspect metastasis is identified involving bilateral ribs as was suspected on prior bone scan. Multilevel degenerative spondylosis related changes are present. Subtle focal area of sclerosis along the superior endplate of L4 without any FDG avidity (384/698) may represent a bone island or healed sclerotic metastasis. 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 Mild calcific atherosclerotic disease of the abdominal aorta and both common iliac arteries without evidence of any aneurysm formation. SUV max OF MEDIASTINAL BLOOD POOL: 2.9 SUV max OF LIVER: 3.3 THE SITE(S) OF MOST INTENSE FDG AVIDITY AND SUV MAX: At the floor of the anterior nares on either side of the midline without any CT correlate with SUV max of 11.7 on the right and 11.0 on the left. PET/PET CT fusion skull to thigh IMPRESSION: 1. Healing fracture and postsurgical changes are present involving the left femur. 2. No other definite FDG avid osseous disease identified. Specifically, previous bone scan detected bilateral rib abnormalities do not show any concordant FDG avidity. 3. No evidence of any focal FDG abnormality to suspect soft tissue metastasis. 4. Incidental note is however made of focal abnormal increased FDG avidity involving the pylorus of the stomach and proximal ascending colon, for which direct visualization/endoscopy is recommended, if not recently performed for further clarification. In addition, intense focal FDG avidity is noted at the floor of the anterior nasal either side of the midline without any CT correlate, for which clinical correlation and direct visualization is recommended as well. 5. 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
== END 2022-09-20 11:34 | disposition home or self-care (01) ==
LOC: HO.PET 11:33
PROVIDERS: PCP Internal Medicine; Visit Provider Internal Medicine Medical Oncology
DX: Z13.89 Encounter for screening for other disorder (principal)

== ENCOUNTER 2022-09-26 15:00 | Outpatient (RCR) | payer OTHER, SELFPAY ==
--- NOTE | 2022-09-07 14:57 | MHC.PT.EP ---
[facility] [place] Office [place] [facility] [place] Office [address] Genaro Zhu [address] [phone] F: [phone] F: [phone] F: [phone] F: [phone] Physical Therapy Plan of Care Date of Evaluation: Date of Surgery: 07/11/22 Diagnosis: s/p L femur IMN 07/11 (RL) Assessment: pt is a 77 y/o female presenting to physical therapy w/ referring diagnosis of S72,302A unspecified fracture of shaft of left femur, initial encounter for closed fracture; M17.12 unilateral primary osteoarthritis, left knee; w/ special instructions s/p IMN left femur 07/11/22--wbat, strengthening. Impairments include pain, decreased range of motion, decreased strength, impaired functional mobility, impaired postural awareness, and altered ambulation mechanics. pt is a good candidate for skilled PT due to age, potential remediation of impairments, typical disease/condition progression and prognosis, comorbidities, and motivation. pt would benefit from skilled PT intervention to provide a tailored strengthening and stretching exercise program, functional training, gait training, postural re-training, neuromuscular re-education, modalities as needed for pain, equipment safety demonstration. Frequency and Duration: The patient will be seen 2x/wk for 3 wks Short Term Goals: pt will be I w/ HEP to promote self-management of post-operative status. pt will improve L hip flexion to 5/5 to promote ease in stair navigation. Senior Product Consultant Goals: pt will report a statistically significant improvement in self-reported outcome measure, LEFI, to promote return to PLOF. Treatment Plan: Modalities to reduce pain, spasms and effusion. Manual therapy to restore motion and function. Therapeutic exercise to improve strength and flexibility. Neuromuscular re-education for posture and balance. Therapeutic activities to return to functional activities of daily living. Electronically signed by: Giselle Redmond PT, DPT Please sign and return to therapist. Thank you for your referral.
--- NOTE | 2022-10-05 13:53 | MHC.PT.DC ---
[facility] [place] Office [place] Office [place] Office [address] Genaro Zhu [address] [phone] F: [phone] F: [phone] F: [phone] F: [phone] Physical Therapy Discharge Report Diagnosis: s/p L femur IMN 07/11 (RL) Date of Surgery: 07/11/22 Date of Evaluation: 09/07/22 Date of Discharge: 10/05/22 Treatments to Date: 5 Cancellations to Date: 2 No Shows to Date: 0 Discharge Status: Improved Function Discharge Summary: The patient cancelled her last scheduled appointment and has not called to reschedule in a week. She overall has minimal pain and is able to function within her home. She has nearly constant supervision between her two daughters. She is discharged from this physical therapy plan of care at this time. Electronically signed by: Giselle Redmond PT, DPT Please sign and return to therapist. Thank you for your referral.
== END 2022-10-05 13:53 | disposition home or self-care (01) ==
LOC: HO.PT 15:00
PROVIDERS: PCP Internal Medicine; Visit Provider Physician Assistant
DX: S72.302D Unspecified fracture of shaft of left femur, subsequent encounter for closed fracture with routine healing (principal); M17.12 Unilateral primary osteoarthritis, left knee
CPT/HCPCS: 97110; 97112; 97116; 97162

== ENCOUNTER 2022-10-06 06:41 | Outpatient (REF) | payer OTHER, SELFPAY ==
--- NOTE | ~2022-10-06 | XR_ITS ---
EXAMINATION: XR FEMUR, LEFT CLINICAL INFORMATION: Fracture COMPARISON: Previous x-ray most recent August 2022 TECHNIQUE: AP and lateral views of the left femur were obtained. FINDINGS: Intramedullary gabriela and screws transfixing the left mid femoral shaft fracture. Orthopedic hardware is intact. Fracture line still seen. There is periosteal reaction adjacent to the fracture suggestive of evidence of healing. This is slightly increased from August. Alignment is unchanged. Arthritis at the left hip and knee joints. Soft tissues are unremarkable. XR/XR femur LT 2V IMPRESSION: ORIF of left femoral shaft fracture. Fracture line still seen. Periosteal reaction suggestive of evidence of healing.
== END 2022-10-06 06:42 | disposition home or self-care (01) ==
LOC: HO.HOSX 06:41
PROVIDERS: Visit Provider Physician Assistant
DX: S72.302D Unspecified fracture of shaft of left femur, subsequent encounter for closed fracture with routine healing (principal)
CPT/HCPCS: 73552

== ENCOUNTER 2022-10-06 14:14 | Outpatient (AMB) | payer OTHER, SELFPAY ==
--- NOTE | 2022-10-06 15:13 | MHC.OFFVIS ---
Intake Vital Signs 10/06/22 15:18 Height 5 ft 1 in Weight 160 lb BMI 30.2 Intake Visit Reasons: Postop-IMN left femur-w/Xrays dos 07/11/22 Intake Note: Alysia is a 77 year old female who presents today using a walker for a post operative left femur IMN, 07/11/22. States she is doing well and has completed P.T. Allergies No Known Allergies [No Known Allergies*] Allergy (Verified 10/06/22 15:17) HPI Postop-IMN left femur-w/Xrays dos 07/11/22 HPI Details 77-year-old female who returns to the office today in a walker for post-op left femur IMN, 07/11/22. She denies any pain and is doing well overall. She states she is completed with her physical therapy. She has no concerns today. [facility] Medical History Abnormal mammogram Asthma Breast cancer metastasized to bone COVID-19 Glaucoma Hand pain HTN (hypertension) Impaired glucose tolerance Memory loss Mild recurrent major depression Nocturnal hypoxemia Obesity (BMI 30-39.9) TATIANA (obstructive sleep apnea) Osteoarthritis Osteoporosis Upper back pain on right side Surgical History H/O excision of dermoid cyst H/O excision of mass H/O lumpectomy History of esophagogastroduodenoscopy (EGD) History of tubal ligation Hx of colonoscopy S/P ORIF (open reduction internal fixation) fracture Family History Father Hypertension Hyperlipidemia Diabetes mellitus Mother Hypertension Hyperlipidemia Cervical cancer Sister Breast cancer Hypertension Social History Household Members: Family Housing: House Are you a primary care navigator to a significant other at home: No Do you presently have visiting nurse or other home services: No (daughter CONCRETE BOOM OPERATOR) Alcohol intake: never Patient Tobacco Use Status: Never used Tobacco e-Cigarette/Vaping Use: Never Used Second Hand Smoke Exposure: No Advance Directives Date on File: 09/21/21 service: No Current occupational status: disabled Cognitive needs: Yes Hearing needs: No Vision needs: Yes Review of Systems Const All systems reviewed & are unremarkable except as noted in HPI and below Physical Exam Vital Signs: BMI result Body Mass Index 30.2 Extrem Other: Left femur: Incision well healed. No redness or ecchymosis. She does have good ROM of hip without pain.No pain with ROM of left knee, mild tenderness to palpation along medial and lateral joint line. Calf supple, nontender. NVI. Results Reviewed Results Reviewed: Xrays were obtained in the office today and personally reviewed by me of the left femur show intact IMN with callus formation and stable fracture Assessment & Plan Assessment & Plan (1) Left femoral shaft fracture: Code(s): S72.302A - Unspecified fracture of shaft of left femur, initial encounter for closed fracture Plan She will continue working with physical therapy and she can increase activity as tolerated. I would like to see her back in 8 weeks for a final check and we can also inject her left knee at that point if she continues to have discomfort, otherwise she will see me back as needed for the left knee. Orders: Orders XR femur LT 2V Today M79.606 - Pain in leg, unspecified Medications: Discontinued exemestane must administer after a meal 25 mg PO DAILY 90 tabs 6RF Patient Instructions: Scribed for Kandace Roach PA-C, by Corona Stewart medical collector, on 10/06/2022 at 2:45 PM EST. Kandace Sanchez PA-C, have personally reviewed and agree with the information entered by the scribe. Coding Level of Care Code Global (17252) Diagnoses Left femoral shaft fracture S72.302A
[2022-10-06 15:18] VITALS: BMI 30.2
== END 2022-10-06 15:37 | disposition home or self-care (01) ==
PROVIDERS: PCP Internal Medicine; Visit Provider Physician Assistant
DX: S72.302A Unspecified fracture of shaft of left femur, initial encounter for closed fracture (principal)
CPT/HCPCS: 99024

== ENCOUNTER 2022-10-11 10:36 | Outpatient (AMB) | payer OTHER, SELFPAY ==
[2022-10-11 10:55] VITALS: BP 136/60; PULSE 58; TEMP 35.8; O2SAT 95; BMI 30.3
--- NOTE | 2022-10-11 10:55 | AM.OFFWIN_ITS ---
Intake Vital Signs 10/11/22 10:55 Height 5 ft 1 in Weight 160 lb 8 oz BMI 30.3 BP 136/60 Blood Pressure Location Lt brachial Position Sitting Pulse 58 Pulse Source Pulse Oximeter Temp 96.5 F L Temp Source Temporal Artery Scan Pulse Oximetry (%) 95 Oxygen Delivery Method Room Air Intake Visit Reasons: EP, Left eye stye Intake Note: Pt is here c/o having a stye in her left eye for the past three days. Pt states it is very painful and itchy. Patient Tobacco Use Status: Never used Tobacco Allergies No Known Allergies [No Known Allergies*] Allergy (Verified 10/11/22 10:56) HPI EP, Left eye stye HPI Details Patient presents today with a stye on her left lower lid which started about 3 days ago. It has become increasingly red and itchy over the last few days. No vision changes or eye pain. PENDING SALE TO [facility] Medical History Abnormal mammogram Asthma Breast cancer metastasized to bone COVID-19 Glaucoma Hand pain HTN (hypertension) Impaired glucose tolerance Memory loss Mild recurrent major depression Nocturnal hypoxemia Obesity (BMI 30-39.9) TATIANA (obstructive sleep apnea) Osteoarthritis Osteoporosis Upper back pain on right side Surgical History H/O excision of dermoid cyst H/O excision of mass H/O lumpectomy History of esophagogastroduodenoscopy (EGD) History of tubal ligation Hx of colonoscopy S/P ORIF (open reduction internal fixation) fracture Family History Father Hypertension Hyperlipidemia Diabetes mellitus Mother Hypertension Hyperlipidemia Cervical cancer Sister Breast cancer Hypertension Social History Household Members: Family Housing: House Are you a primary home health care worker to a significant other at home: No Do you presently have visiting nurse or other home services: No (daughter MONITORING SPECIALIST) Alcohol intake: never Patient Tobacco Use Status: Never used Tobacco e-Cigarette/Vaping Use: Never Used Second Hand Smoke Exposure: No Advance Directives Date on File: 09/21/21 service: No Current occupational status: disabled Cognitive needs: Yes Hearing needs: No Vision needs: Yes Review of Systems Const All systems reviewed & are unremarkable except as noted in HPI and below Physical Exam Vital Signs: Last Vital Signs Temp 96.5 F L 10/11/22 10:55 Pulse 58 10/11/22 10:55 BP 136/60 10/11/22 10:55 Pulse Ox 95 10/11/22 10:55 Oxygen Delivery Method Room Air 10/11/22 10:55 BMI result Body Mass Index 30.3 Const General: cooperative, healthy appearing and no acute distress Eyes Eyelids: Yes eyelid abnormality (stye left lower lid, erythematous) Conjunctivae: conjunctivae normal Sclerae: sclerae normal Corneas: corneas normal Pupils: Equal, round and reactive pupils present Direct Ophthalmoscopy: normal light reflex and no photophobia Neck Neck: Yes no lymphadenopathy Resp Effort & Inspection: normal respiratory effort and able to speak in complete sentences Neuro Cranial nerves: Yes Equal, round and reactive pupils present Psych Appearance: grossly normal Mental Status: mental status grossly normal Speech and movement: Normal speech and movement present Assessment & Plan Assessment & Plan (1) Hordeolum externum of left lower eyelid: Code(s): H00.015 - Hordeolum externum left lower eyelid Plan: Advised she apply warm compresses multiple times a day, and keep area clean, reviewed adequate hand hygiene. Due to pain and erythema, I will start patient on an antibiotic ointment to apply to area. Discussed that if symptoms worsen, or do not improve with conservative measures, she should return to the clinic for further evaluation. She and daughter present at visit agree to plan. Medications: New erythromycin Apply 0.5 inch to lower lid of left eye twice a day for 5 days 1 appl ophthalmic (eye) BID 3.5 grams 1RF 5 days H00.015 - Hordeolum externum left lower eyelid Discontinued exemestane must administer after a meal 25 mg PO DAILY 90 tabs 6RF Coding Level of Care Code Est Pt Level 3 (99769) Diagnoses Hordeolum externum of left lower eyelid H00.015
== END 2022-10-11 11:32 | disposition home or self-care (01) ==
PROVIDERS: PCP Internal Medicine; Visit Provider Nurse Practitioner Family
DX: H00.015 Hordeolum externum left lower eyelid (principal)
CPT/HCPCS: 99213

== ENCOUNTER 2022-10-13 09:03 | Outpatient (AMB) | payer OTHER, SELFPAY ==
--- NOTE | 2022-10-13 09:06 | MHC.OFFVIS ---
Intake Vital Signs 10/13/22 09:12 Height 5 ft 1 in Weight 160 lb 0.889 oz BMI 30.2 BP 142/68 H Blood Pressure Location Lt brachial Position Sitting Pulse 54 Intake Visit Reasons: 6 week follow up Intake Note: Alysia presents in the office as a 6 month follow up for GERD and to discuss colonoscopy. CC: Patient reports that Dr. Cormier advised patient to have EGD/colonoscopy. Patient states that she never received the cologuard kit but per Dr. Cormier Pt should have colonoscopy and EGD instead. Patient reports occasional abdominal pain. Denies any new GI symptoms today. 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 Qualified Code(s):?K21.9 - Gastro-esophageal reflux disease without esophagitis ?Plan: [place] # [place], [place] She appears to be due for colonoscopy screening this year her last was in [address] Stuart. We discuss colonoscopy vx Cologuard as she is reluctant to drink the laxative. She opts for Cologuard She continues to do well on her pantoprazole and simethicone. ROV 6 weeks. (2) Abdominal bloating: ?Code(s): R14.0 - Abdominal distension (gaseous) (3) Upper back pain on right side: ?Code(s): M54.9 - Dorsalgia, unspecified ? ? ? Medications: Discontinued exemestane ?? must administer after a meal 25 mg? PO DAILY 90 tabs 6RF ? ? CORRESPONDENCE On 10/05/22 @ 10:49 Lia Fisher Wrote To Lai,May Patient will be coming 10/13/22, she never received the cologuard kit so it was not done. Also, I spoke w/her daughter and she stated that the patient recently saw Dr. Cormier who suggested her to have EGD/[facility] done. t On 10/04/22 @ 14:01 MingMay Wrote To Lia Fisher I want to see her sooner if possible, r/t a PET scan, but I also need you to get me her Cologuard results. On 10/03/22 @ 15:58 Skylar Nath Wrote To Ming patient called to discuss her cologaurd testing, she can be reached at home number rhonda On 09/22/22 @ 09:58 Lia Fisher Wrote To Ming Pt scheduled for 11/01/22, would you like to see Pt before 10/21? Please advise. On 09/22/22 @ 09:46 Gay Salvador Wrote To [facility] patient had PET scan one 09/20/22. seen Dr May 09/13, Dr cormier would like patient to follow up for endoscopy due to pet scan results? pet scan 09/22/22? IMPRESSION: 1. Healing fracture and postsurgical changes are present involving the left femur. 2. No other definite FDG avid osseous disease identified. Specifically, previous bone scan detected bilateral rib abnormalities do not show any concordant FDG avidity. 3. No evidence of any focal FDG abnormality to suspect soft tissue metastasis. 4. Incidental note is however made of focal abnormal increased FDG avidity involving the pylorus of the stomach and proximal ascending colon, for which direct visualization/endoscopy is recommended, if not recently performed for further clarification. In addition, intense focal FDG avidity is noted at the floor of the anterior nasal either side of the midline without any CT correlate, for which clinical TODAY'S VISIT [place] #[place]alia Live She is here with her dtr who is supportive. She continues to do well on her GI medications. She continues on her pantoprazole and simethicone with good control of her GERD. I advise them of Dr. Cormier's concern regarding the PET findings and her recommendation that we do an EGD/colonoscopy. They are agreeable to this, despite that we were trying to spare her additional stresses with her age. There are no prior problems with anesthesia or sedation. Mild asthma, TATIANA no cardiac problems. No ID problems. Had a TA in 2019. Return office visit after her colonoscopy and in 6 months for her chronic care. [facility] Medical History Abnormal mammogram Asthma Breast cancer metastasized to bone COVID-19 Glaucoma Hand pain HTN (hypertension) Impaired glucose tolerance Memory loss Mild recurrent major depression Nocturnal hypoxemia Obesity (BMI 30-39.9) TATIANA (obstructive sleep apnea) Osteoarthritis Osteoporosis Upper back pain on right side Surgical History H/O excision of dermoid cyst H/O excision of mass H/O lumpectomy History of esophagogastroduodenoscopy (EGD) History of tubal ligation Hx of colonoscopy S/P ORIF (open reduction internal fixation) fracture Family History Father Hypertension Hyperlipidemia Diabetes mellitus Mother Hypertension Hyperlipidemia Cervical cancer Sister Breast cancer Hypertension Social History Household Members: Family Housing: House Are you a primary medicare biller to a significant other at home: No Do you presently have visiting nurse or other home services: No (daughter BIOCHEMICAL ENGINEER) Alcohol intake: never Patient Tobacco Use Status: Never used Tobacco e-Cigarette/Vaping Use: Never Used Second Hand Smoke Exposure: No Advance Directives Date on File: 09/21/21 service: No Current occupational status: disabled Cognitive needs: Yes Hearing needs: No Vision needs: Yes Review of Systems Const Denies fatigue, Denies fever(s), Denies night sweats, Denies poor appetite and Denies weight loss Eyes Details: glasses Reports requires corrective lenses ENT Reports Normal hearing present, Denies dental pain, Denies dysphagia, Denies hearing loss, Denies mouth pain, Denies odynophagia, Denies throat swelling, Denies tongue swelling and Reports other (Dentition adequate) Card Reports no additional complaints Resp Reports no additional complaints GI Denies abdominal pain, Denies melena, Denies bloating, Denies hematochezia, Denies constipation, Denies GI cramping, Denies dysphagia, Denies excessive flatus, Denies early satiety, Reports heartburn, Denies diarrhea, Denies nausea, Denies odynophagia, Denies vomiting and Denies hematemesis Musc Reports abnormal gait Skin/Breast Denies pruritus, Denies lesions, Denies rash and Denies jaundice Neuro Reports Normal hearing present, Denies Abnormal speech present, Reports abnormal gait and Reports memory loss Psych Reports memory loss Endo Denies fatigue Aller/Immun Denies throat swelling and Denies tongue swelling Physical Exam Vital Signs: Last Vital Signs Pulse 54 10/13/22 09:12 BP 142/68 H 10/13/22 09:12 BMI result Body Mass Index 30.2 Const General: cooperative, no acute distress, well developed and well groomed Nutritional Appearance: well nourished and obese Orientation/consciousness: oriented to person, oriented to place and oriented to time Limitations: language barrier and ambulation with walker HEENT Head: Yes normocephalic and Yes atraumatic Eyes General: appearance normal, both eyes and all related structures Pupils: Equal, round and reactive pupils present Neck Neck: Yes normal visual inspection and Yes no lymphadenopathy Thyroid: Thyroid normal Resp Effort & Inspection: normal respiratory effort and able to speak in complete sentences Auscultation: clear to auscultation bilaterally Cardio Rate: regular rate Rhythm: regular rhythm Heart sounds: Normal, physiologic split S2 sound present Peripheral pulses: radial pulses present and posterior tibial pulses present GI Inspection: No distended, Yes Abdominal panniculus present, Yes obesity and Yes striae Palpation (GI): Soft to palpation, nontender, no guarding, not rigid and No hepatosplenomegaly present Percussion: Yes normal to percussion Auscultation: normal bowel sounds Rectal Exam - Female: deferred Skin General skin exam: no rashes or lesions noted, turgor normal, skin not dry, no jaundice, No spider nevi and no striae Rashes: no rashes Nails: normal Neuro General: oriented to person, oriented to place and oriented to time Cranial nerves: Yes Equal, round and reactive pupils present and Yes Normal hearing present Speech: No Abnormal speech present Extrem General: Yes normal to inspection, No clubbing, No cyanosis and No edema Psych Appearance: grossly normal and well kempt Mental Status: mental status grossly normal Speech and movement: Normal speech and movement present Affect: normal affect Attitude: cooperative Thought process: Normal thought process present and not confabulating Thought content: Normal thought content present Insight: Limited insight present (Psych) Judgement: Limited judgement present (Psych) Assessment & Plan Assessment & Plan (1) Abnormal gastrointestinal positron emission tomography (PET) scan: Code(s): R94.8 - Abnormal results of function studies of other organs and systems Plan: [place] #[place] Live She is here with her dtr who is supportive. She continues to do well on her GI medications. She continues on her pantoprazole and simethicone with good control of her GERD. I advise them of Dr. Cormier's concern regarding the PET findings and her recommendation that we do an EGD/colonoscopy. They are agreeable to this, despite that we were trying to spare her additional stresses with her age. There are no prior problems with anesthesia or sedation. Mild asthma, TATIANA no cardiac problems. No ID problems. Had a TA in 2019. Return office visit after her colonoscopy and in 6 months for her chronic care. (2) Tubular adenoma of colon: Comment: 2010- Dr. Stuart, 2019 [place] =TA repeat 5 year Code(s): D12.6 - Benign neoplasm of colon, unspecified (3) GERD (gastroesophageal reflux disease): Code(s): K21.9 - Gastro-esophageal reflux disease without esophagitis Qualifiers: Esophagitis presence: esophagitis presence not specified Qualified Code(s): K21.9 - Gastro-esophageal reflux disease without esophagitis (4) Abdominal bloating: Code(s): R14.0 - Abdominal distension (gaseous) (5) Pre-op examination: Code(s): Z01.818 - Encounter for other preprocedural examination Orders: Orders EGD/[facility] Combo - GI Use Only Today D12.6 - Benign neoplasm of colon, unspecified, R94.8 - Abnormal results of function studies of other organs and systems Medications: New sodium,potassium,mag sulfates 17.5-3.13-1.6 gram (Suprep Bowel Prep Kit) 480 mL orally; 354 mL 0RF D12.6 - Benign neoplasm of colon, unspecified Discontinued exemestane must administer after a meal 25 mg PO DAILY 90 tabs 6RF Coding Level of Care Code Est Pt Level 4 (98175) Diagnoses Abnormal gastrointestinal positron emission tomography (PET) scan R94.8 Tubular adenoma of colon D12.6 GERD (gastroesophageal reflux disease) K21.9 Esophagitis presence: esophagitis presence not specified Abdominal bloating R14.0 Pre-op examination Z01.818
[2022-10-13 09:12] VITALS: BP 142/68; PULSE 54; BMI 30.2
== END 2022-10-13 09:43 | disposition home or self-care (01) ==
PROVIDERS: PCP Internal Medicine; Visit Provider Nurse Practitioner
DX: R94.8 Abnormal results of function studies of other organs and systems (principal); D12.6 Benign neoplasm of colon, unspecified; K21.9 Gastro-esophageal reflux disease without esophagitis; R14.0 Abdominal distension (gaseous); Z01.818 Encounter for other preprocedural examination
CPT/HCPCS: 99214

== ENCOUNTER → 2022-10-13 09:03 | Outpatient (BNVA) | payer OTHER, SELFPAY | PROVIDERS: PCP Internal Medicine; Visit Provider Nurse Practitioner | DX: Z01.818 Encounter for other preprocedural examination (principal); R94.8 Abnormal results of function studies of other organs and systems; K21.9 Gastro-esophageal reflux disease without esophagitis; R14.0 Abdominal distension (gaseous); Z86.010 Personal history of colon polyps | CPT/HCPCS: 99212 ==

== ENCOUNTER 2022-10-25 13:10 | Day surgery (SDC) | payer OTHER, SELFPAY ==
--- NOTE | 2022-10-21 13:44 | P.CONAN_ITS ---
Documented by User: Maira Rahman NP 10/21/22 13:51 HPI - Anesthesia Eval Consult details Narrative: 77yo F for Upper Endoscopy and Colonoscopy PMF Active Problems Active Problems: All Active Problems (Updated 10/13/22 @ 16:43 by HOWARD Villagoemz) Pre-op examination (Acute) Abnormal gastrointestinal positron emission tomography (PET) scan (Acute) Osteoarthritis of left knee (Acute) Transaminitis (Acute) Urinary incontinence (Acute) Eczema (Acute) Edema of both feet (Acute) Pelvic pain in female (Acute) Sebaceous cyst of labia (Acute) Cystocele with prolapse (Acute) Vaginal pruritus (Acute) Bone metastases (Acute) Breast cancer metastasized to bone (Acute) Breast cancer metastasized to bone (Acute) Memory loss (Acute) COVID-19 (Acute) Mild recurrent major depression (Acute) Hand pain (Acute) Obesity (BMI 30-39.9) (Acute) Impaired glucose tolerance (Acute) Tubular adenoma of colon (Acute) Breast cancer metastasized to bone (Acute) Abnormal mammogram of right breast (Acute) Abnormal mammogram (Acute) Upper back pain on right side (Acute) Abdominal bloating (Acute) GERD (gastroesophageal reflux disease) (Acute) Asthma (Acute) HTN (hypertension) (Acute) Nocturnal hypoxemia (Acute) TATIANA (obstructive sleep apnea) (Acute) Past Medical History Medical History Abnormal mammogram Asthma Breast cancer metastasized to bone COVID-19 Glaucoma Hand pain HTN (hypertension) Impaired glucose tolerance Memory loss Mild recurrent major depression Nocturnal hypoxemia Obesity (BMI 30-39.9) TATIANA (obstructive sleep apnea) Osteoarthritis Osteoporosis Upper back pain on right side Family History Family History Father Hypertension Hyperlipidemia Diabetes mellitus Mother Hypertension Hyperlipidemia Cervical cancer Sister Breast cancer Hypertension Surgical History Surgical History H/O excision of dermoid cyst H/O excision of mass H/O lumpectomy History of esophagogastroduodenoscopy (EGD) History of tubal ligation Hx of colonoscopy S/P ORIF (open reduction internal fixation) fracture History of Problems with Anesthesia: No Social History Social History Household Members: Family Housing: House Are you a primary healthcare technician to a significant other at home: No Do you presently have visiting nurse or other home services: No (daughter TELECOMMUNICATIONS LINE INSTALLER) Alcohol intake: never Patient Tobacco Use Status: Never used Tobacco e-Cigarette/Vaping Use: Never Used Second Hand Smoke Exposure: No Advance Directives: No Advance Directives Information Provided: Yes Advance Directives Date on File: 09/21/21 service: No Current occupational status: disabled Cognitive needs: Yes Hearing needs: No Vision needs: Yes Meds Allergies Allergy/AdvReac Type Severity Reaction Status Date / Time No Known Allergies Allergy Verified 10/25/22 13:37 [No Known Allergies*] Home Medications Medication Instructions Recorded Confirmed Last Taken Type latanoprost 0.005 % eye drops 1 drp ophthalmic-Right BEDTIME 09/16/21 10/03/22 Unknown History acetaminophen 500 mg tablet 500 mg PO Q6H PRN Pain 09/13/22 10/03/22 Unknown History exemestane 25 mg tablet (Aromasin) 25 mg PO DAILY 09/13/22 10/03/22 Unknown History Exam Exam Date and Time: October 21, 2022 1344 Pertinent Lab Results Pertinent Lab Results: Laboratory Tests 10/03/22 10/03/22 13:57 13:57 WBC 8.4 Hgb 12.9 Hct 39.9 Plt Count 299 Sodium 143 Potassium 4.4 Chloride 107 Carbon Dioxide 28 BUN 17 H Creatinine 0.91 Narrative Narrative: EKG 06/2022 Vent. Rate : 067 BPM ? ? Atrial Rate : 067 BPM ?? P-R Int : 174 ms? QRS Dur : 090 ms ? ? QT Int : 430 ms ? ? ? P-R-T Axes : 061 061 038 degrees ?? QTc Int : 454 ms ? Normal sinus rhythm Nonspecific T wave abnormality Abnormal ECG When compared to the previous EKG of 05 oct 2016, Nonspecific ST and T wave abnormality present Assessment and Plan Assessment Anesthesia Assessment: Chart Reviewed Final Anesthetic Review History of Problems with Anesthesia: No Documented by User: Anni Bolton MD 10/25/22 14:25 PMFSH Active Problems Active Problems: All Active Problems (Updated 10/25/22 @ 13:45 by Anni Bolton MD) Pre-op examination (Acute) Abnormal gastrointestinal positron emission tomography (PET) scan (Acute) Osteoarthritis of left knee (Acute) Transaminitis (Acute) Urinary incontinence (Acute) Eczema (Acute) Edema of both feet (Acute) Pelvic pain in female (Acute) Sebaceous cyst of labia (Acute) Cystocele with prolapse (Acute) Vaginal pruritus (Acute) Breast cancer metastasized to bone (Acute) Memory loss (Acute) COVID-19 (Acute) Mild recurrent major depression (Acute) Hand pain (Acute) Obesity (BMI 30-39.9) (Acute) Impaired glucose tolerance (Acute) Tubular adenoma of colon (Acute) Abnormal mammogram of right breast (Acute) Abnormal mammogram (Acute) Upper back pain on right side (Acute) Abdominal bloating (Acute) GERD (gastroesophageal reflux disease) (Acute) Asthma (Acute) HTN (hypertension) (Acute) Nocturnal hypoxemia (Acute) TATIANA (obstructive sleep apnea) (Acute) External hordoleum left lower lid - being treated Past Medical History Medical History Abnormal mammogram Asthma Breast cancer metastasized to bone COVID-19 Glaucoma Hand pain HTN (hypertension) Impaired glucose tolerance Memory loss Mild recurrent major depression Nocturnal hypoxemia Obesity (BMI 30-39.9) TATIANA (obstructive sleep apnea) Osteoarthritis Osteoporosis Upper back pain on right side Family History Family History Father Hypertension Hyperlipidemia Diabetes mellitus Mother Hypertension Hyperlipidemia Cervical cancer Sister Breast cancer Hypertension Family history of problems with anesthesia: Yes (Unclear- 'daughter has to get anesthesia by mouth, not IV') Surgical History Surgical History H/O excision of dermoid cyst H/O excision of mass H/O lumpectomy History of esophagogastroduodenoscopy (EGD) History of tubal ligation Hx of colonoscopy S/P ORIF (open reduction internal fixation) fracture Social History Social History Household Members: Family Housing: House Are you a primary healthcare technician to a significant other at home: No Do you presently have visiting nurse or other home services: No (daughter TELECOMMUNICATIONS LINE INSTALLER) Alcohol intake: never Patient Tobacco Use Status: Never used Tobacco e-Cigarette/Vaping Use: Never Used Second Hand Smoke Exposure: No Advance Directives: No Advance Directives Information Provided: Yes Advance Directives Date on File: 09/21/21 service: No Current occupational status: disabled Cognitive needs: Yes Hearing needs: No Vision needs: Yes Meds Allergies Allergy/AdvReac Type Severity Reaction Status Date / Time No Known Allergies Allergy Verified 10/25/22 13:37 [No Known Allergies*] Home Medications Medication Instructions Recorded Confirmed Last Taken Type latanoprost 0.005 % eye drops 1 drp ophthalmic-Right BEDTIME 09/16/21 10/03/22 Unknown History acetaminophen 500 mg tablet 500 mg PO Q6H PRN Pain 09/13/22 10/03/22 Unknown History exemestane 25 mg tablet (Aromasin) 25 mg PO DAILY 09/13/22 10/03/22 Unknown History Exam Height,Weight and Vital Signs: Height 5 ft 1 in Weight 73.028 kg Vital Signs Temp Pulse Resp BP Pulse Ox O2 Del Method 10/25/22 13:46 97.1 F 59 16 131/62 96 Room Air Airway Mallampati Class: II TM Dist: >3cm Neck ROM: Full Denture: Upper and Lower Loose/Missing/Broken Teeth: Yes Heart: RRR Lungs: CTAB Assessment and Plan Assessment Anesthesia Assessment: Anesthesia Plan Discussed Final Anesthetic Review Family History of Problems with Anesthesia: Yes (Unclear- 'daughter has to get anesthesia by mouth, not IV') NPO: Yes ASA Class: III Final Preanesthetic Review: No Changes in Pt Med Stat, Meds/Allgs Chart Reviewed, Consent Obtained/Reviewed and Anes Risks/Benef Reviewed Patient Risk: Intermediate Procedure Risk: Low Assessment/Block/Sedation in SS: Assess/Block/Sedation-SS Anesthetic Plan Anesthetic Plan: MAC: Disposition: Standard PACU
[2022-10-25 13:43] VITALS: BMI 30.4
[2022-10-25 13:46] VITALS: BP 131/62; PULSE 59; RESP 16; TEMP 36.2; O2SAT 96
--- NOTE | 2022-10-25 13:47 | MHC.SHP ---
Pre-Procedural Eval Section A Date of Service: 10/25/22 Section B Chief Complaint: GERD, Abdominal distension (gaseous) Details of Present Illness: abn imaging Relevant Family History (Specify if Yes): No Relevant Social History: None Present Medications: see Short Stay Collaborative assessment Medical History: Significant History (Abnormal mammogram Asthma Breast cancer metastasized to bone COVID-19 Glaucoma Hand pain HTN (hypertension) Impaired glucose tolerance Memory loss Mild recurrent major depression Nocturnal hypoxemia Obesity (BMI 30-39.9) TATIANA (obstructive sleep apnea) Osteoarthritis Osteoporosis Upper back pain on ri) History of Previous Operations: Relevant previous surgery/procedure and date(s) (H/O excision of dermoid cyst H/O excision of mass H/O lumpectomy History of esophagogastroduodenoscopy (EGD) History of tubal ligation Hx of colonoscopy S/P ORIF (open reduction internal fixation) fracture) Allergies: Allergies Allergy/AdvReac Type Severity Reaction Status Date / Time No Known Allergies Allergy Verified 10/25/22 13:37 [No Known Allergies*] Review of Systems Sugical H&P ROS: Negative: Constitution, Cardiovascular, Respiratory, Neurological, Psychiatric, Hem-Onc, Allergic/Immunologic, Gastrointestinal, Genitourinary, Musculoskeletal, Integumentary, Endocrine and Eyes/Ears/Nose/Throat Exam Surgical H&P Exam: Normal: HEENT, Normal: Heart, Normal: Lungs, Normal: Extremities, Normal: Abdomen, Normal: Skin and Normal: Neurological Plan Diagnosis/Plan: Unchanged I have reviewed the history and physical and performed a pertinent physical examination on my patient. No changes have occurred unless specified. Time Spent With Patient Time: Total time managing care of this patient today ____ minutes.
[2022-10-25] MEDS: Lactated Ringers 1,000 ML 100 ML IVCONT (13:53)
--- NOTE | 2022-10-25 14:05 | P.OP_ITS ---
Operative Note Operative Note Date of Service: 10/25/22 Narrative: Operative Information Procedure Description: EGD, Colonoscopy Indication: abn imaging Anesthesia: MAC FLEXIBLE TRANSORAL UPPER GASTROINTESTINAL ENDOSCOPY AND COLONOSCOPY PROCEDURE NOTE UPPER ENDOSCOPY Consent: Indications for the procedure and potential complications of bleeding, perforation, reaction to medications and missed diagnosis were discussed with the patient and informed consent was obtained. Instrument: Olympus GIF H 190 J mid size upper endoscope Monitoring: Vital signs and clinical assessment, continuous EKG monitoring, Pulse oximetry, Carbon Dioxide monitoring and blood pressure monitoring were done throughout the procedure. Procedure: The patient was placed in the left lateral decubitis position and pre-procedure medications were administered and a bite block was placed. The endoscope was inserted into the mouth and advanced under direct vision to the third part of duodenum. A careful inspection was made as the upper endoscope was withdrawn including a retroflexed examination of the proximal stomach; Findings and interventions are described below. Findings: Larynx:normal Esophagus: GE junction at 34 cm, diaphragm hiatus at 36 cm, consistent with 2 cm sliding hiatal hernia, possible barretts, short segment, bx taken Stomach: Mild patchy erythema around pylorus. Biopsies were obtained. Grade 2 flap valve on retroflexed examination of the cardia. Duodenum: Normal bulb and descending duodenum, bx taken from bulb Intervention: Biopsies as noted above COLONOSCOPY Instrument: Olympus variable stiffness pediatric scope 190L Colonoscopy Monitoring: Vital signs and clinical assessment, continuous EKG monitoring, Pulse oximetry, Carbon Dioxide monitoring and blood pressure monitoring were done throughout the procedure. Colon withdrawal time was 13 minutes. Procedure: The patient was placed in the left lateral decubitis position and pre-procedure medications were administered. After a digital rectal examination of the ano-rectum, the video colonoscope was inserted into the rectum and advanced through the colon to the cecum/TI. The colonoscope was slowly withdrawn in a retrograde panoramic fashion and the colon mucosa was carefully examined including a retroflexed view of the rectum. Findings and interventions are described below. Procedure Difficulty:moderate due to looping and tortuous colon Findings: Terminal Ileum- superficially intubated and appeared normal Cecum:normal Ascending Colon: normal, random bx taken Transverse Colon -normal Descending Colon:normal Sigmoid Colon: normal Rectum: Retroflexion with small internal hemorrhoids, grade I Anorectum - normal Colon preparation: [place] Bowel Preparation Scale Right colon; 2 Transverse colon: 2 Left colon; 2 (0 = Unprepared colon segment with mucosa not seen due to solid stool that cannot be cleared. 1 = Portion of mucosa of the colon segment seen, but other areas of the colon segment not well seen due to staining, residual stool and/or opaque liquid. 2 = Minor amount of residual staining, small fragments of stool and/or opaque liquid, but mucosa of colon segment seen well. 3 = Entire mucosa of colon segment seen well with no residual staining, small fragments of stool or opaque liquid) Impression and Post Procedure Diagnosis: Endoscopy Findings: gastritis hiatal hernia possible barretts Colonoscopy Findings: internal hemorrhoids Plan: Await Pathology results Repeat Colonoscopy in 10 years if health allows and patient wishes it or earlier if clinically indicated High fiber diet leaflet avoid straining at stool, epsom salts and sitz bath, anusol supps or cream if h pylori pos treat Above findings were reviewed with the patient and relevant handouts were provided if indicated.
[2022-10-25 14:53] VITALS: BP 148/64; PULSE 62; RESP 16; TEMP 36.4; O2SAT 98
[2022-10-25 15:08] VITALS: BP 169/76; PULSE 61; RESP 16; TEMP 36.4; O2SAT 97
== END 2022-10-25 15:40 | disposition home or self-care (01) ==
PROVIDERS: PCP Internal Medicine; Visit Provider Internal Medicine Gastroenterology
PROC: (CPT 45380; principal; 2022-10-25 15:10)
DX: Z12.11 Encounter for screening for malignant neoplasm of colon (principal); K64.0 First degree hemorrhoids; K56.2 Volvulus; Z86.010 Personal history of colon polyps; K29.60 Other gastritis without bleeding; K44.9 Diaphragmatic hernia without obstruction or gangrene; R94.8 Abnormal results of function studies of other organs and systems; K21.9 Gastro-esophageal reflux disease without esophagitis; R14.0 Abdominal distension (gaseous); M54.9 Dorsalgia, unspecified; C50.919 Malignant neoplasm of unspecified site of unspecified female breast; C79.51 Secondary malignant neoplasm of bone; I10 Essential (primary) hypertension; G47.33 Obstructive sleep apnea (adult) (pediatric); Z98.51 Tubal ligation status
CPT/HCPCS: 45380; 43239; 88305; 88342

== ENCOUNTER → 2022-10-25 13:10 | Outpatient (BNV) | payer OTHER, SELFPAY | PROVIDERS: PCP Internal Medicine; Visit Provider Internal Medicine Gastroenterology | DX: R93.3 Abnormal findings on diagnostic imaging of other parts of digestive tract (principal); K29.70 Gastritis, unspecified, without bleeding; K64.0 First degree hemorrhoids | CPT/HCPCS: 43239; 45380 ==

== ENCOUNTER 2022-11-08 10:18 | Outpatient (AMB) | payer OTHER, SELFPAY ==
--- NOTE | 2022-11-08 10:21 | MHC.OFFVIS ---
Intake Vital Signs 11/08/22 10:23 Height 5 ft 1 in Weight 164 lb 0.383 oz BMI 31.0 BP 128/60 Blood Pressure Location Lt brachial Position Sitting Pulse 57 Intake Visit Reasons: S/P double; Dr. Wayne Intake Note: Patient presents to in office visit today in follow up of EGD/colonoscopy. Patient underwent EGD and endoscopy with Dr. Wayne 10/25/22. CC: Patient reports doing today and denies having any new GI concerns today. Allergies No Known Allergies [No Known Allergies*] Allergy (Verified 11/17/22 11:24) HPI S/P double; Dr. Wayne HPI Details Assessment & Plan (1) Abnormal gastrointestinal positron emission tomography (PET) scan: Code(s): R94.8 - Abnormal results of function studies of other organs and systems Plan: [place] #[place] Live She is here with her dtr who is supportive. She continues to do well on her GI medications. She continues on her pantoprazole and simethicone with good control of her GERD. I advise them of Dr. Dacosta's concern regarding the PET findings and her recommendation that we do an EGD/colonoscopy. They are agreeable to this, despite that we were trying to spare her additional stresses with her age. There are no prior problems with anesthesia or sedation. Mild asthma, TATIANA no cardiac problems. No ID problems. Had a TA in 2019. Return office visit after her colonoscopy and in 6 months for her chronic care. (2) Tubular adenoma of colon: Comment: 2010- Dr. Stuart, 2019 [place] =TA repeat 5 year Code(s): D12.6 - Benign neoplasm of colon, unspecified (3) GERD (gastroesophageal reflux disease): Code(s): K21.9 - Gastro-esophageal reflux disease without esophagitis Qualifiers: Esophagitis presence: esophagitis presence not specified Qualified Code(s): K21.9 - Gastro-esophageal reflux disease without esophagitis (4) Abdominal bloating: Code(s): R14.0 - Abdominal distension (gaseous) (5) Pre-op examination: Code(s): Z01.818 - Encounter for other preprocedural examination Orders: Orders EGD/[place] Combo - G I Use Only Today D12.6 - Benign jesse plasm of colon, un specified, R94.8 - Abnormal results of function studie s of other organs and systems Medications: New sodium,potassium,m ag sulfates 17.5-3 .13-1.6 gram (Supr ep Bowel Prep Kit) 480 mL orally; 3 54 mL 0RF D12.6 - Benign jesse plasm of colon, un specified Discontinued exemestane must administer after a meal 25 mg PO DAILY 90 tabs 6RF EGD/COLONOSCOPY 10/26/22 Findings: Larynx:normal Esophagus: GE junction at 34 cm, diaphragm hiatus at 36 cm, consistent with 2 cm sliding hiatal hernia, possible barretts, short segment, bx taken Stomach: Mild patchy erythema around pylorus. Biopsies were obtained. Grade 2 flap valve on retroflexed examination of the cardia. Duodenum: Normal bulb and descending duodenum, bx taken from bulb Findings: Terminal Ileum- superficially intubated and appeared normal Cecum:normal Ascending Colon: normal, random bx taken Transverse Colon -normal Descending Colon:normal Sigmoid Colon: normal Rectum: Retroflexion with small internal hemorrhoids, grade I Anorectum - normal Impression and Post Procedure Diagnosis: Endoscopy Findings: gastritis hiatal hernia possible barretts Colonoscopy Findings: internal hemorrhoids Plan: Await Pathology results Repeat Colonoscopy in 10 years if health allows and patient wishes it or earlier if clinically indicated High fiber diet leaflet avoid straining at stool, epsom salts and sitz bath, anusol supps or cream if h pylori pos treat BIOPSY Received: 10/26/22 Diagnosis A. Duodenum, bulb, biopsy: Duodenal mucosa with mildly increased intraepithelial lymphocytes and preserved villous architecture. See comment. B. Stomach, antrum, biopsy: Antral-type mucosa with mild chronic inactive inflammation; no Helicobacter organisms seen. C. GE junction, biopsy: - Cardiofundic-type mucosa with moderate chronic inactive inflammation; no intestinal metaplasia seen. - Squamous mucosa within normal limits.. D. Colon, ascending, biopsy: Colonic mucosa within normal limits. COMMENT: The findings in the duodenum are non-specific. The differential diagnosis is broad and includes infection (e.g. viral or H. pylori), medication/drugs (e.g. NSAIDs), gluten sensitivity/celiac disease, bacterial overgrowth, tropical sprue, immunodeficiency syndromes (e.g. IgA deficiency, CVID), autoimmune enteropathy, Crohns and collagen vascular disease, among others. Please correlate with clinical and other laboratory findings CORRESPONDENCE On 10/18/22 @ 10:49 MingBelinda Wrote To MingBelinda Scheduled for 10/25 On 10/13/22 @ 09:43 MingBelinda Wrote To MingBelinda check to be sure this is scheduled rhonda, abn PET TODAY'S VISIT [place] # [place] We reviewed the results of the EGD and it does not seem to show any concerning findings that correlate with the PET scan. She is quite happy to hear this. She continues to do well on her pantoprazole and simethicone with regards to her GERD. Return office visit in 6 months. [facility] Medical History Memory loss COVID-19 Mild recurrent major depression Hand pain Obesity (BMI 30-39.9) Impaired glucose tolerance Abnormal mammogram Upper back pain on right side Asthma Breast cancer metastasized to bone Glaucoma HTN (hypertension) Osteoarthritis Osteoporosis Nocturnal hypoxemia TATIANA (obstructive sleep apnea) Surgical History S/P ORIF (open reduction internal fixation) fracture History of esophagogastroduodenoscopy (EGD) Hx of colonoscopy History of tubal ligation H/O excision of dermoid cyst H/O excision of mass H/O lumpectomy Family History Father Hypertension Hyperlipidemia Diabetes mellitus Mother Hypertension Hyperlipidemia Cervical cancer Sister Breast cancer Hypertension Social History Household Members: Family Housing: House Are you a primary life care planner to a significant other at home: No Do you presently have visiting nurse or other home services: No (daughter CLEANING STAFF SUPERVISOR) Alcohol intake: never Patient Tobacco Use Status: Never used Tobacco e-Cigarette/Vaping Use: Never Used Second Hand Smoke Exposure: No Advance Directives Date on File: 09/21/21 service: No Current occupational status: disabled Cognitive needs: Yes Hearing needs: No Vision needs: Yes Review of Systems Const Denies fatigue, Denies fever(s), Denies night sweats, Denies poor appetite and Denies weight loss ENT Reports Normal hearing present, Denies dental pain, Denies dysphagia, Denies hearing loss, Denies mouth pain, Denies odynophagia, Denies throat swelling, Denies tongue swelling and Reports other (Dentition adequate) Card Reports no additional complaints Resp Reports no additional complaints GI Denies abdominal pain, Denies melena, Denies bloating, Denies hematochezia, Denies constipation, Denies GI cramping, Denies dysphagia, Denies excessive flatus, Denies early satiety, Reports heartburn, Denies diarrhea, Denies nausea, Denies odynophagia, Denies vomiting and Denies hematemesis Skin/Breast Denies pruritus, Denies lesions, Denies rash and Denies jaundice Neuro Reports Normal hearing present and Denies Abnormal speech present Endo Denies fatigue Aller/Immun Denies throat swelling and Denies tongue swelling Physical Exam Vital Signs: Last Vital Signs Pulse 57 11/08/22 10:23 BP 128/60 11/08/22 10:23 BMI result Body Mass Index 31.0 Const General: cooperative, no acute distress, well developed and well groomed Nutritional Appearance: well nourished and obese Orientation/consciousness: oriented to person, oriented to place and oriented to time Limitations: language barrier HEENT Head: Yes normocephalic and Yes atraumatic Eyes General: appearance normal, both eyes and all related structures Pupils: Equal, round and reactive pupils present Neck Neck: Yes normal visual inspection and Yes no lymphadenopathy Thyroid: Thyroid normal Resp Effort & Inspection: normal respiratory effort and able to speak in complete sentences Auscultation: clear to auscultation bilaterally Cardio Rate: regular rate Rhythm: regular rhythm Heart sounds: Normal, physiologic split S2 sound present Peripheral pulses: radial pulses present and posterior tibial pulses present GI Inspection: No distended, No Abdominal panniculus present and Yes obesity Palpation (GI): Soft to palpation, nontender, no guarding, not rigid and No hepatosplenomegaly present Percussion: Yes normal to percussion Auscultation: normal bowel sounds Rectal Exam - Female: deferred Skin General skin exam: no rashes or lesions noted, turgor normal, skin not dry, no jaundice, No spider nevi and no striae Rashes: no rashes Nails: normal Neuro General: oriented to person, oriented to place and oriented to time Cranial nerves: Yes Equal, round and reactive pupils present and Yes Normal hearing present Speech: No Abnormal speech present Extrem General: Yes normal to inspection, No clubbing, No cyanosis and No edema Psych Appearance: grossly normal and well kempt Mental Status: mental status grossly normal Speech and movement: Normal speech and movement present Affect: normal affect Attitude: cooperative Thought process: Normal thought process present and not confabulating Thought content: Normal thought content present Insight: Limited insight present (Psych) Judgement: Limited judgement present (Psych) Results Reviewed Results Reviewed: EGD/COLONOSCOPY 10/26/22 Findings: Larynx:normal Esophagus: GE junction at 34 cm, diaphragm hiatus at 36 cm, consistent with 2 cm sliding hiatal hernia, possible barretts, short segment, bx taken Stomach: Mild patchy erythema around pylorus. Biopsies were obtained. Grade 2 flap valve on retroflexed examination of the cardia. Duodenum: Normal bulb and descending duodenum, bx taken from bulb Findings: Terminal Ileum- superficially intubated and appeared normal Cecum:normal Ascending Colon: normal, random bx taken Transverse Colon -normal Descending Colon:normal Sigmoid Colon: normal Rectum: Retroflexion with small internal hemorrhoids, grade I Anorectum - normal Impression and Post Procedure Diagnosis: Endoscopy Findings: gastritis hiatal hernia possible barretts Colonoscopy Findings: internal hemorrhoids Plan: Await Pathology results Repeat Colonoscopy in 10 years if health allows and patient wishes it or earlier if clinically indicated High fiber diet leaflet avoid straining at stool, epsom salts and sitz bath, anusol supps or cream if h pylori pos treat BIOPSY Received: 10/26/22 Diagnosis A. Duodenum, bulb, biopsy: Duodenal mucosa with mildly increased intraepithelial lymphocytes and preserved villous architecture. See comment. B. Stomach, antrum, biopsy: Antral-type mucosa with mild chronic inactive inflammation; no Helicobacter organisms seen. C. GE junction, biopsy: - Cardiofundic-type mucosa with moderate chronic inactive inflammation; no intestinal metaplasia seen. - Squamous mucosa within normal limits. D. Colon, ascending, biopsy: Colonic mucosa within normal limits. COMMENT: The findings in the duodenum are non-specific. The differential diagnosis is broad and includes infection (e.g. viral or H. pylori), medication/drugs (e.g. NSAIDs), gluten sensitivity/celiac disease, bacterial overgrowth, tropical sprue, immunodeficiency syndromes (e.g. IgA deficiency, CVID), autoimmune enteropathy, Crohns and collagen vascular disease, among others. Please correlate with clinical and other laboratory findings Assessment & Plan Assessment & Plan (1) Abnormal gastrointestinal positron emission tomography (PET) scan: Code(s): R94.8 - Abnormal results of function studies of other organs and systems Plan: [place] # [place] Live We reviewed the results of the EGD and it does not seem to show any concerning findings that correlate with the PET scan. She is quite happy to hear this.. The colonoscopy will be considered for repeat in 5 years depending on her state of health despite the fact that it was negative because she has a past history of a tubular adenoma. The procedure was well tolerated. The results were explained and the patient is agreeable to the follow-up interval as stated. The bowel pattern has returned to normal. Education was provided to tell any 1st degree relatives about their findings to be sure that they are screened by age 45. Educated that they will be put on a recall list when it is time for their repeat scope but should they move out of state or away from the hospital they will need to remember along with their primary to repeat the procedure in a timely fashion to avoid any adverse complications. She continues to do well on her pantoprazole and simethicone with regards to her GERD. Return office visit in 6 months. (2) Tubular adenoma of colon: Comment: 2009- Dr. Stuart, 2019 [place] =MELODY repeat 5 year Code(s): D12.6 - Benign neoplasm of colon, unspecified (3) GERD (gastroesophageal reflux disease): Code(s): K21.9 - Gastro-esophageal reflux disease without esophagitis Qualifiers: Esophagitis presence: esophagitis presence not specified Qualified Code(s): K21.9 - Gastro-esophageal reflux disease without esophagitis Medications: Refilled simethicone after meals 180 mg PO QID 120 caps 6RF 30 days pantoprazole 40 mg PO BEDTIME 30 tabs 6RF Coding Level of Care Code Est Pt Level 3 (78155) Diagnoses Abnormal gastrointestinal positron emission tomography (PET) scan R94.8 Tubular adenoma of colon D12.6 Gastroesophageal reflux disease, unspecified whether esophagitis present K21.9 Esophagitis presence: esophagitis presence not specified
[2022-11-08 10:23] VITALS: BP 128/60; PULSE 57; BMI 31.0
== END 2022-11-08 10:43 | disposition home or self-care (01) ==
PROVIDERS: PCP Internal Medicine; Visit Provider Nurse Practitioner
DX: R94.8 Abnormal results of function studies of other organs and systems (principal); D12.6 Benign neoplasm of colon, unspecified; K21.9 Gastro-esophageal reflux disease without esophagitis
CPT/HCPCS: 99213

== ENCOUNTER → 2022-11-08 10:18 | Outpatient (BNVA) | payer OTHER, SELFPAY | PROVIDERS: PCP Internal Medicine; Visit Provider Nurse Practitioner | DX: R94.8 Abnormal results of function studies of other organs and systems (principal); K21.9 Gastro-esophageal reflux disease without esophagitis; D12.6 Benign neoplasm of colon, unspecified | CPT/HCPCS: 99212 ==

== ENCOUNTER 2022-11-17 10:34 | Outpatient (AMB) | payer OTHER, SELFPAY ==
[2022-11-17 11:12] VITALS: BP 130/54; PULSE 59; O2SAT 95; BMI 31.2
--- NOTE | 2022-11-17 11:12 | A.OFFVIS_ITS ---
Intake Vital Signs 11/17/22 11:12 Height 5 ft 1 in Weight 165 lb BMI 31.2 BP 130/54 L Blood Pressure Location Lt brachial Position Sitting Pulse 59 Pulse Source Pulse Oximeter Pulse Oximetry (%) 95 Oxygen Delivery Method Room Air Intake Visit Reasons: Asthma follow-up Intake Note: pt is here for follow up and states she is feeling okay, using cpap. Transcript Clerk Required: Yes Transcript Clerk Name: sher Allergies No Known Allergies [No Known Allergies*] Allergy (Verified 11/17/22 11:24) Medication List - Last Reconciled 11/17/22 by Ad Traore MD acetaminophen 500 mg PO Q6H PRN amlodipine 10 mg PO DAILY 90 days aspirin 81 mg PO DAILY 90 days calcium carbonate-vitamin D3 600 mg-10 mcg (400 unit) 1 tab PO BID 2 months exemestane (Aromasin) 25 mg PO DAILY [hand held showerhead As directed] incontinence pad, liner, disp use 3 to 4 times a day as needed latanoprost 0.005% 1 drp ophthalmic-Right BEDTIME metoprolol tartrate 50 mg PO BID pantoprazole 40 mg PO BEDTIME simethicone 180 mg PO QID 30 days Do you need a note to return to daycare/school/sports/work: No HPI Asthma follow-up HPI Details Alysia is 77 years old very pleasant, Thai-speaking female. She is a case of obstructive sleep apnea. She uses CPAP with a nasal mask every night. and sleeps good She denies any issues with the CPAP. Gets her supplies regularly. Sleeps at least 5-6 hours every night. Denies any daytime sleepiness. [facility] Medical History Memory loss COVID-19 Mild recurrent major depression Hand pain Obesity (BMI 30-39.9) Impaired glucose tolerance Abnormal mammogram Upper back pain on right side Asthma Breast cancer metastasized to bone Glaucoma HTN (hypertension) Osteoarthritis Osteoporosis Nocturnal hypoxemia TATIANA (obstructive sleep apnea) Surgical History S/P ORIF (open reduction internal fixation) fracture History of esophagogastroduodenoscopy (EGD) Hx of colonoscopy History of tubal ligation H/O excision of dermoid cyst H/O excision of mass H/O lumpectomy Family History Father Hypertension Hyperlipidemia Diabetes mellitus Mother Hypertension Hyperlipidemia Cervical cancer Sister Breast cancer Hypertension Social History Household Members: Family Housing: House Are you a primary medicare nurse to a significant other at home: No Do you presently have visiting nurse or other home services: No (daughter VICE PRESIDENT OF SOFTWARE ENGINEERING) Alcohol intake: never Patient Tobacco Use Status: Never used Tobacco e-Cigarette/Vaping Use: Never Used Second Hand Smoke Exposure: No Advance Directives Date on File: 09/21/21 service: No Current occupational status: disabled Cognitive needs: Yes Hearing needs: No Vision needs: Yes Review of Systems Const All systems reviewed & are unremarkable except as noted in HPI and below Eyes Reports no additional complaints ENT Reports no additional complaints Card Reports no additional complaints Resp Reports as per HPI GI Reports heartburn (Controlled with the Protonix) Musc Reports no additional complaints Skin/Breast Reports system reviewed and no additional complaints, except as documented Neuro Reports no additional complaints Psych Reports depression (Mild, controlled) Endo Reports no additional complaints Edwin/Lymph Reports no additional complaints Physical Exam Vital Signs: Last Vital Signs Pulse 59 11/17/22 11:12 BP 130/54 L 11/17/22 11:12 Pulse Ox 95 11/17/22 11:12 Oxygen Delivery Method Room Air 11/17/22 11:12 BMI result Body Mass Index 31.2 Const General: comfortable, no acute distress, alert and awake Orientation/consciousness: patient oriented x3 HEENT Head: Yes normal to inspection General nose exam: No nasal polyps present and No nasal discharge present Face and sinus: Yes sinuses nontender Mouth: oropharynx normal Throat: Yes posterior oropharynx normal Eyes General: appearance normal, both eyes and all related structures Neck Neck: Yes normal visual inspection, Yes no lymphadenopathy, Yes trachea midline and Yes no JVD Thyroid: Thyroid normal Chest Chest palpation & inspection: normal inspection of the chest, normal palpation of entire chest wall and no tenderness Resp Other: PERCUSSION NOTE IS RESONANT, BREATH SOUNDS ARE EQUAL ON BOTH SIDES WITH GOOD AERATION. NO AUDIBLE WHEEZES RHONCHI OR CREPITATIONS. Cardio Palpation: normal PMI Rate: regular rate Rhythm: regular rhythm Heart sounds: no gallops and no murmurs Peripheral pulses: Peripheral pulses 2+ throughout GI Palpation (GI): Soft to palpation, nontender, No hepatosplenomegaly present and no masses Auscultation: normal bowel sounds Back/Spine/Pelvis Thoracic/Lumbar Spine: thoracic and lumbar spine normal to inspection Skin General skin exam: no rashes or lesions noted Neuro General: patient oriented x3 and no focal motor deficits Cranial nerves: Yes CN's II-XII intact bilaterally Extrem General: Yes normal to inspection, Yes no clubbing, cyanosis or edema and Yes no calf tenderness Psych Appearance: grossly normal and well kempt Speech and movement: Normal speech and movement present Results Reviewed Results Reviewed: COMPLIANCE REPORT FOR THE LAST 30 NIGHTS IS REVIEWED. SHE HAS USED 26/30 NIGHTS, 87%. AVERAGE USE PER NIGHT 5 HOURS 13 MINUTES. MEDIAN PRESSURE 10 AND 95TH PERCENTILE 13.6. THERE IS MODERATE AIR LEAK, MAXIMUM 96.8 L/MINUTE RESIDUAL AHI 1.4 Assessment & Plan Assessment & Plan (1) TATIANA (obstructive sleep apnea): Comment: MILD TO MODERTAE , WELL TREATED WITH USE OF CPAP. COMPLIANCE IS MUCH BETTER .THERE IS SOME AIR LEAK ISSUE. I EXPLAINED TO HER THROUGH THE GROUP SUPERVISOR YARD, ABOUT THESE FINDINGS. STRESSED THAT SHE SHOULD USE CPAP EVERY NIGHT, FOR AT LEAST 5-6 HOURS PER NIGHT. ALSO INSTRUCTED TO TIGHTEN THE STRAPS SO THAT THE AIR LEAK WILL BE MINIMIZED . RE-CHECK IN 6 MONTHS Code(s): G47.33 - Obstructive sleep apnea (adult) (pediatric) (2) Asthma: Comment: VERY MILD ,WELL CONTROLLED AND REMAINS ASYMPTOMATIC . TX : DOES NOT NEED TO USE ANY BRONCHODILATORS. Code(s): J45.909 - Unspecified asthma, uncomplicated Coding Level of Care Code Est Pt Level 3 (06104) Diagnoses TATIANA (obstructive sleep apnea) G47.33 Asthma J45.909
== END 2022-11-17 11:25 | disposition home or self-care (01) ==
PROVIDERS: PCP Internal Medicine; Visit Provider Internal Medicine
DX: G47.33 Obstructive sleep apnea (adult) (pediatric) (principal); J45.909 Unspecified asthma, uncomplicated
CPT/HCPCS: 99213

== ENCOUNTER → 2022-11-17 10:34 | Outpatient (BNVA) | payer OTHER, SELFPAY | PROVIDERS: Visit Provider Internal Medicine | DX: J45.909 Unspecified asthma, uncomplicated (principal); G47.33 Obstructive sleep apnea (adult) (pediatric) | CPT/HCPCS: 99212 ==

== ENCOUNTER 2023-01-27 11:39 | Outpatient (AMB) | payer OTHER, SELFPAY ==
[2023-01-27 13:24] VITALS: BP 120/60; PULSE 64; TEMP 36.2; O2SAT 96; BMI 31.9
--- NOTE | 2023-01-27 13:24 | MHC.OFFWIV ---
Intake Vital Signs 01/27/23 13:24 Height 5 ft 1 in Weight 76.657 kg BMI 31.9 BP 120/60 Blood Pressure Location Rt brachial Position Sitting Pulse 64 Pulse Source Pulse Oximeter Temp 97.2 F Temp Source Temporal Artery Scan Pulse Oximetry (%) 96 Oxygen Delivery Method Room Air Intake Visit Reasons: EP, bilateral leg swelling Intake Note: pt is here today for bilateral leg swelling started 2 weeks ago Patient Tobacco Use Status: Never used Tobacco Allergies No Known Allergies [No Known Allergies*] Allergy (Verified 01/27/23 13:24) Do you need a note to return to daycare/school/sports/work: No HPI HPI Comments History of Present Illness Details This is a 77-year-old female history of hypertension, GERD presenting to the clinic for sick visit patient reports she is having bilateral lower extremity swelling worsening over the past few weeks patient reports swelling is below the knees bilaterally not associated with pain or cramping. Patient tells me this has happened to her intermittently in the past however seems to be worsening. Improved when she puts her legs up. Physical exam with 2+ nonpitting edema to bilateral lower extremities from the knee down. Negative Carlene bilaterally. Palpable pulses 2+ dorsalis pedis, anterior tibialis, popliteal pulses normal sensation distally ambulating with steady gait. This is likely dependent edema or medication induced edema. Unlikely arterial or venous occlusion. No signs of compartment syndrome. Will obtain basic labs in case at some point Lasix needs to be initiated will not initiate from an urgent care setting at this time, explained this to patient and family member. In Educated patient on diagnosis and treatment plan, answered all question, patient verbalizes understanding. At this time patient will be discharged home, advised to return with new or worsening symptoms. Educated on worrisome signs and symptoms and when to return. At this time I feel comfortable discharge home. [facility] Medical History Memory loss COVID-19 Mild recurrent major depression Hand pain Obesity (BMI 30-39.9) Impaired glucose tolerance Abnormal mammogram Upper back pain on right side Asthma Breast cancer metastasized to bone Glaucoma HTN (hypertension) Osteoarthritis Osteoporosis Nocturnal hypoxemia TATIANA (obstructive sleep apnea) Surgical History S/P ORIF (open reduction internal fixation) fracture History of esophagogastroduodenoscopy (EGD) Hx of colonoscopy History of tubal ligation H/O excision of dermoid cyst H/O excision of mass H/O lumpectomy Family History Father Hypertension Hyperlipidemia Diabetes mellitus Mother Hypertension Hyperlipidemia Cervical cancer Sister Breast cancer Hypertension Social History Household Members: Family Housing: House Are you a primary child care group leader to a significant other at home: No Do you presently have visiting nurse or other home services: No (daughter DEVELOPMENTAL EDUCATION INSTRUCTOR) Alcohol intake: never Comment: pt's daughter at the bedside Patient Tobacco Use Status: Never used Tobacco e-Cigarette/Vaping Use: Never Used Second Hand Smoke Exposure: No Advance Directives Date on File: 09/21/21 service: No Current occupational status: disabled Cognitive needs: Yes Hearing needs: No Vision needs: Yes Review of Systems Const All systems reviewed & are unremarkable except as noted in HPI and below Reports no additional complaints Eyes Reports no additional complaints ENT Reports no additional complaints Card Reports no additional complaints Resp Reports no additional complaints GI Reports no additional complaints Reports no additional complaints Musc Reports no additional complaints Skin/Breast Reports system reviewed and no additional complaints, except as documented Neuro Reports no additional complaints Psych Reports no additional complaints Endo Reports no additional complaints Edwin/Lymph Reports no additional complaints Aller/Immun Reports no additional complaints Physical Exam Vital Signs: Last Vital Signs Temp 97.2 F 01/27/23 13:24 Pulse 64 01/27/23 13:24 BP 120/60 01/27/23 13:24 Pulse Ox 96 01/27/23 13:24 Oxygen Delivery Method Room Air 01/27/23 13:24 BMI result Body Mass Index 31.9 vss Appearance: Alert.? Oriented X3.? No acute distress.? Head: Normocephalic, atraumatic, no step-offs or deformities Eyes: Pupils equal, round and reactive to light.? ENT: Pharynx normal.? Neck: Normal inspection.? Neck supple.? CVS: Normal heart rate and rhythm.? Pulses normal.? Respiratory: No respiratory distress.? Breath sounds normal.? Abdomen: Soft and nontender.? Skin: Skin warm and dry.? Normal skin color.? Normal skin turgor.? Extremities: 2+ nonpitting edema to bilateral lower extremities from the knee down. Negative Carlene bilaterally. Palpable pulses 2+ dorsalis pedis, anterior tibialis, popliteal pulses normal sensation distally ambulating with steady gait. 5/5 strength to bilateral upper and lower extremities Neuro: Oriented X 3.? No motor deficit.? No sensory deficit. CN 2-12 intact Const Other: Vital signs reviewed. Constitutional: Non-toxic appearing. No acute distress. Well-developed and well-nourished. HEENT: Normocephalic and atraumatic. Tympanic membranes without erythema, edema, or bulging bilaterally. External auditory canals without erythema or edema bilaterally. Moist mucous membranes. No pharyngeal erythema or exudates. Skin: Warm and dry. No rashes or lesions noted. Neck: Full and painless range of motion. No cervical lymphadenopathy. Cardio: Regular rate and rhythm. No murmurs, gallops, or rubs. No lower extremity edema. No JVD. Pulmonary: No respiratory distress. No accessory muscle usage. Clear to auscultation bilaterally without wheezing, crackles, or rhonchi. Gastrointestinal: Soft, nontender, and nondistended in all 4 quadrants. Normoactive bowel sounds in all 4 quadrants. Genitourinary: No CVA tenderness. Musculoskeletal: Normal range of motion in joints throughout the body. No deformity or other signs of injury. Neuro: Alert and oriented x4. Cranial nerves 2-12 grossly intact. No focal deficits appreciated. Psych: Normal mood and affect. Assessment & Plan Assessment & Plan (1) Bilateral lower extremity edema: Code(s): R60.0 - Localized edema Plan Take your medications as prescribed. If you were prescribed antibiotics today, it is important that you take your medication to their entirety, do not skip any doses, do not finish them early. Follow-up with your primary care provider this week. Return to the emergency department with new or worsening symptoms. Such as fevers, chills, chest pain, shortness of breath, nausea, vomiting, dizziness, headache, vision changes, lethargy In case of emergency call 911 Orders: Orders B Type Natriuretic Peptide Today R60.0 - Localized edema Complete Blood Count Auto Diff Today R60.0 - Localized edema Basic Metabolic Panel Today R60.0 - Localized edema Coding Level of Care Code Est Pt Level 3 (38530) Diagnoses Bilateral lower extremity edema R60.0
== END 2023-01-27 13:51 | disposition home or self-care (01) ==
PROVIDERS: PCP Internal Medicine; Visit Provider Physician Assistant
DX: R60.0 Localized edema (principal)
CPT/HCPCS: 99213

== ENCOUNTER 2023-01-27 13:54 | Outpatient (REF) | payer OTHER, SELFPAY ==
[2023-01-27 16:06] LABS: MANUAL DIFF FLAG NO
[2023-01-27 16:13] LABS: Basophils Absolute Auto 0.1 X10*3/uL (0.0-0.2); Basophils Percent Auto 0.9 % (0-2); Eosinophils Absolute Auto 0.3 X10*3/uL (0.0-0.4); Hematocrit 40.8 % (37.0-47.0); Hemoglobin 13.3 g/dl (12.0-16.0); Imm Gran Abs Auto 0.02 X10*3/uL (0.00-0.03); Imm Gran Pct Auto 0.2 % (0.0-0.4); Lymphocytes Absolute Auto 2.6 X10*3/uL (1.2-4.9); Lymphocytes Percent Auto 30.8 % (20-40); Mean Corpuscular HGB Conc 32.6 g/dl (31.0-35.0); Mean Corpuscular Hemoglobin 30.1 pg (27.0-33.0); Mean Corpuscular Volume 92.3 fL (80.0-98.0); Mean Platelet Volume 9.5 fL (9.4-12.3); Monocytes Absolute Auto 0.6 X10*3/uL (0.1-1.2); Monocytes Percent Auto 7.2 % (2-11); Neutrophils Absolute Auto 4.8 x10*3/uL (2.0-8.3); Neutrophils Percent Auto 56.9 % (45-73); Platelet Count 314 X10*3/uL (160-400); Red Blood Count 4.42 X10*6/uL (4.20-5.50); Red Cell Distribution Width 13.3 % (11.0-16.0); White Blood Count 8.5 X10*3/uL (4.8-10.8)
[2023-01-27 16:28] LABS: Anion Gap 11 (12-20); Blood Urea Nitrogen 16 mg/dL (9-16); Carbon Dioxide 30 mmol/L (22-29); Chloride 107 mmol/L (96-108); Estimated Glomerular Filt Rate > 60; Glucose Random 76 mg/dL (60-115); Potassium 3.6 mmol/L (3.3-5.1); Sodium 144 mmol/L (135-145)
[2023-01-27 17:02] LABS: B Type Natriuretic Peptide 22 pg/mL (<100)
== END 2023-01-27 13:55 | disposition home or self-care (01) ==
LOC: HO.HMGCLDS 13:54
PROVIDERS: PCP Internal Medicine; Visit Provider Physician Assistant
DX: R60.0 Localized edema (principal)
CPT/HCPCS: 36415; 80048; 83880; 85025

== ENCOUNTER 2023-04-05 13:32 | Outpatient (AMB) | payer OTHER, SELFPAY ==
[2023-04-05 13:35] VITALS: BP 158/72; BMI 31.7
--- NOTE | 2023-04-05 13:35 | A.OFFPC_ITS ---
Vital Signs 04/05/23 13:35 04/05/23 20:32 Height 5 ft 1 in Weight 168 lb BMI 31.7 BP 158/72 H 150/70 H Blood Pressure Location Lt brachial Lt brachial Position Sitting Sitting Intake Visit Reasons: follow up Intake Note: Patient here for a follow up Manager Of Financial Reporting Required: No Accompanied by: Daughter Allergies No Known Allergies [No Known Allergies*] Allergy (Verified 04/05/23 13:56) Medication List - Last Reconciled 04/05/23 by Magdalena Braxton MD acetaminophen 500 mg PO Q6H PRN 30 days amlodipine 10 mg PO DAILY 90 days aspirin 81 mg PO DAILY 90 days calcium carbonate-vitamin D3 600 mg-10 mcg (400 unit) 1 tab PO BID 2 months exemestane (Aromasin) 25 mg PO DAILY [hand held showerhead As directed] incontinence pad, liner, disp use 3 to 4 times a day as needed latanoprost 0.005% 1 drp ophthalmic-Right BEDTIME metoprolol tartrate 50 mg PO BID pantoprazole 40 mg PO BEDTIME simethicone 180 mg PO QID 30 days Tobacco use date assessed: 04/05/23 Fall risk assessment: No Falls in past year Last assessed Fall Risk: 04/05/23 Dental Screening Dental Screen Date: 04/05/23 Did you have a dental visit in the last 12 months?: No Did you have a dental problem in the last 6 months where you did not have access to dental care?: No Was dental information given to patient?: Patient has dentist HPI HPI Comments History of Present Illness Details This is a 77-year-old female with hypertension, breast cancer with metastasis to bone, mild recurrent major depression and GERD that comes today accompanied by daughter complaining of bilateral leg edema that has been bothering her for awhile. Blood pressure mildly elevated and because of the leg edema I will decrease amlodipine to 5 mg and start losartan. Blood pressure will be recheck in 3 weeks by nurse navigator. Breast cancer with metastasis to bone is follow by Hematology-Oncology and has been on Aromasin for few years. Depression has been in remission. GERD stable with PPIs. [facility] Medical History Memory loss COVID-19 Mild recurrent major depression Hand pain Obesity (BMI 30-39.9) Impaired glucose tolerance Abnormal mammogram Upper back pain on right side Asthma Breast cancer metastasized to bone Glaucoma HTN (hypertension) Osteoarthritis Osteoporosis Nocturnal hypoxemia TATIANA (obstructive sleep apnea) Surgical History S/P ORIF (open reduction internal fixation) fracture History of esophagogastroduodenoscopy (EGD) Hx of colonoscopy History of tubal ligation H/O excision of dermoid cyst H/O excision of mass H/O lumpectomy Family History Father Hypertension Hyperlipidemia Diabetes mellitus Mother Hypertension Hyperlipidemia Cervical cancer Sister Breast cancer Hypertension Social History Household Members: Family Housing: House Are you a primary rn urgent care to a significant other at home: No Do you presently have visiting nurse or other home services: No (daughter GROUT MACHINE OPERATOR) Alcohol intake: never Comment: pt's daughter at the bedside Patient Tobacco Use Status: Never used Tobacco e-Cigarette/Vaping Use: Never Used Second Hand Smoke Exposure: No Advance Directives Date on File: 09/21/21 service: No Current occupational status: disabled Cognitive needs: Yes Hearing needs: No Vision needs: Yes Questionnaire PHQ-9 Over the last 2 weeks, how often have you been bothered by any of the following problems? 1. Little interest or pleasure in doing things: not at all 2. Feeling down, depressed, or hopeless: not at all 3. Trouble falling or staying asleep, or sleeping too much: not at all 4. Feeling tired or having little energy: not at all 5. Poor appetite or overeating: not at all 6. Feeling bad about yourself - or that you are a failure or have let yourself or your family down: not at all 7. Trouble concentrating on things, such as reading the newspaper or watching television: not at all 8. Moving or speaking so slowly that other people could have noticed. Or the opposite - being so fidgety or restless that you have been moving around a lot more than usual: not at all 9. Thoughts that you would be better off or of hurting yourself in some way: not at all Total score: 0 Depression Screening Interpretation: Negative Depression Screening Done: Yes 95643 - PHQ-9 Billing: Yes Source: Developed by Drs. Raf Wolf, Dominic Kong and colleagues, with an educational miguel angel from [employer]. Thrive Questionnaire Date Thrive assessed: 04/05/23 I am a: Patient What is your living situation today?: I have a steady place to live Within the past 12 months, did the food you bought not last and you didn't have the money to get more?: Never true Within the past 12 months, did you worry whether your food would run out before you got money to buy more?: Never true Do you have trouble paying for medicines?: No Do you have trouble getting transportation to medical appointments?: No Do you have trouble paying your heating and electricity bill?: No Do you have trouble taking care of your child, family member or friend?: No Do you have trouble with day-to-day activities such as bathing, preparing meals, shopping, managing finances, etc.?: No Are you currently unemployed and looking for a job?: No Are you interested in more education?: No Please select the resources that you would like help with: None Currently or been in a relationship where the following occur: no concerns reported THRIVE Score: 0 AUDIT C Alcohol Use Questionnaire (AUDIT-C) 1. How often do you have a drink containing alcohol?: Never Total Score: 0 SALUD-7 AMB Questionnaire SALUD-7 Date SALUD - 7 assessed: 04/05/23 Feeling nervous, anxious, or on edge: 0 = Not at all Not being able to stop or control worryin = Not at all Worrying too much about different things: 0 = Not at all Trouble relaxin = Not at all Being so restless that it is hard to sit still: 0 = Not at all Becoming easily annoyed or irritable: 0 = Not at all Feeling afraid as if something awful might happen: 0 = Not at all Total SALUD-7 score (0-4 normal; 5-9 mild; 10-14 moderate; 15-21 severe): 0 Source: Developed by Jacquelyn Asif Kurt Kroenke and colleagues, with an educational miguel angel from [employer]. SALUD-7 Assessment Billing SALUD-7 Assessment Tool: SALUD-7 Assessment 79065 Review of Systems Const All systems reviewed & are unremarkable except as noted in HPI and below Eyes Reports no additional complaints, Denies change in vision and Denies other visual disturbances Card Denies chest pain at rest, Denies chest pain with activity, Denies edema, Denies irregular heart rhythm, Denies claudication, Denies dyspnea, Denies dyspnea on exertion, Denies orthopnea, Denies paroxysmal nocturnal dyspnea and Denies slow heart rate Resp Denies cough, Denies dyspnea and Denies dyspnea on exertion GI Denies abdominal pain, Denies change in bowel habits, Denies excessive flatus, Denies nausea and Denies vomiting Denies urinary incontinence, Denies urinary hesitancy and Denies urinary urgency Musc Denies abnormal gait, Denies atrophy, Denies deformity and Denies limited range of motion Skin/Breast Denies bleeding lesions, Denies changing lesions and Denies rash Neuro Denies abnormal gait, Denies behavioral changes and Denies lack of coordination Psych Denies behavioral changes Physical exam (Primary Care) Vital Signs: Last Vital Signs BP 158/72 H 04/05/23 13:35 BMI result Body Mass Index 31.7 Tobacco/Smoking Status: Tobacco use Status Tobacco use date assessed 04/05/23 04/05/23 13:45 Patient Tobacco Use Status Never used Tobacco 04/05/23 13:45 e-Cigarette/Vaping Use Never Used 04/05/23 13:45 PHQ-9: PHQ-9 Score PHQ-9: Total score 0 04/05/23 13:59 Depression Screening Interpretation: Negative Thrive Assessment: Date of Thrive Assessment Date Thrive assessed 04/05/23 04/05/23 13:45 Currently or been in a relationship where the following occur: no concerns reported Eyes General: appearance normal, both eyes and all related structures Eyelids: Yes eyelids normal Conjunctivae: conjunctivae normal Neck Neck: Yes normal visual inspection and Yes supple Resp Effort & Inspection: normal respiratory effort Auscultation: clear to auscultation bilaterally Cardio Jugular venous distension: no JVD Rate: regular rate Rhythm: regular rhythm Heart sounds: S1 normal heart sound present and S2 normal heart sound present Extrem General: Yes full ROM Assessment and Plan Assessment & Plan (1) Breast cancer metastasized to bone: Code(s): C50.919 - Malignant neoplasm of unspecified site of unspecified female breast; C79.51 - Secondary malignant neoplasm of bone Plan: Continue Aromasin. Follow-up with Hematology-Oncology. (2) HTN (hypertension): Code(s): I10 - Essential (primary) hypertension Qualifiers: Hypertension type: essential hypertension Qualified Code(s): I10 - Essential (primary) hypertension Plan: Decrease amlodipine due to leg edema. Start losartan. Blood pressure goal is equal or less than 130/80. Recheck blood pressure with nurse navigator in 3 weeks. (3) Mild recurrent major depression: Code(s): F33.0 - Major depressive disorder, recurrent, mild Plan: In remission. Advise for counseling if depression restart. (4) GERD (gastroesophageal reflux disease): Code(s): K21.9 - Gastro-esophageal reflux disease without esophagitis Qualifiers: Esophagitis presence: esophagitis presence not specified Qualified Code(s): K21.9 - Gastro-esophageal reflux disease without esophagitis Plan: Continue PPIs. Orders: Orders Lipid Panel 4 Months E78.5 - Hyperlipidemia, unspecified Comprehensive [place]. Panel Fast 4 Months R73.02 - Impaired glucose tolerance (oral) Medications: New amlodipine 5 mg PO DAILY 90 days 90 tabs 0RF I10 - Essential (primary) hypertension losartan 25 mg PO DAILY 90 days 90 tabs 1RF I10 - Essential (primary) hypertension Refilled metoprolol tartrate 50 mg PO BID 180 tabs 3RF Discontinued amlodipine Discontinued Reason: Patient Completed Course 10 mg PO DAILY 90 days 90 tabs 1RF Coding Level of Care Code Est Pt Level 4 (56972) Diagnoses Breast cancer metastasized to bone C50.919; C79.51 Essential hypertension I10 Hypertension type: essential hypertension Mild recurrent major depression F33.0 Gastroesophageal reflux disease, unspecified whether esophagitis present K21.9 Esophagitis presence: esophagitis presence not specified Additional Codes SALUD-7 Assessment Billing - SALUD-7 Assessment Tool: SALUD-7 Assessment 82919 ([id number]) Time Spent (min) 22
[2023-04-05 20:32] VITALS: BP 150/70
== END 2023-04-05 14:03 | disposition home or self-care (01) ==
PROVIDERS: PCP Internal Medicine; Visit Provider Internal Medicine
DX: I10 Essential (primary) hypertension (principal); C50.919 Malignant neoplasm of unspecified site of unspecified female breast; C79.51 Secondary malignant neoplasm of bone; F33.0 Major depressive disorder, recurrent, mild; K21.9 Gastro-esophageal reflux disease without esophagitis
CPT/HCPCS: 99214

== ENCOUNTER 2023-04-12 09:35 | Outpatient (AMB) | payer OTHER, SELFPAY ==
[2023-04-12 09:38] VITALS: BP 138/67; PULSE 60; BMI 31.2
--- NOTE | 2023-04-12 09:38 | A.OFFVIS_ITS ---
Intake Vital Signs 04/12/23 09:38 Height 5 ft 1 in Weight 165 lb BMI 31.2 BP 138/67 Blood Pressure Location Lt brachial Position Sitting Pulse 60 Intake Visit Reasons: 6 month follow up Intake Note: Patient presents to in office visit today in follow up of GERD. CC: Patient reports doing well and denies having any new GI concerns. Finish Painter Required: Yes Accompanied by: Daughter Allergies No Known Allergies [No Known Allergies*] Allergy (Verified 04/12/23 09:49) HPI 6 month follow up HPI Details Assessment & Plan (1) Abnormal gastrointestinal positron e mission tomography (PET) scan: Code(s): R94.8 - Abnormal results of function studies of other organs and systems Plan: [place] # Idalia Live We reviewed the results of the EGD and it does not seem to show any concerning findings that correlate with the PET scan. She is quite happy to hear this.. The colonoscopy will be considered for repeat in 5 years depending on her state of health despite the fact that it was negative because she has a past history of a tubular adenoma. The procedure was well tolerated. The results were explained and the patient is agreeable to the follow-up interval as stated. The bowel pattern has returned to normal. Education was provided to tell any 1st degree relatives about their findings to be sure that they are screened by age 45. Educated that they will be put on a recall list when it is time for their repeat scope but should they move out of state or away from the hospital they will need to remember along with their primary to repeat the procedure in a timely fashion to avoid any adverse complications. She continues to do well on her pantoprazole and simethicone with regards to her GERD. Return office visit in 6 months. (2) Tubular adenoma of colon: Comment: 2010- Dr. Stuart, 2019 Narciso =MELODY [place] at 6 year Code(s): D12.6 - Benign neoplasm of colon, unspecified (3) GERD (gastroesophageal reflux diseas e): Code(s): K21.9 - Gastro-esophageal reflux disease without esophagitis Qualifiers: Esophagitis presence: esophagitis presence not specified Qualified Code(s): K21.9 - Gastro-esophageal reflux disease without esophagitis Medications: Refilled simethicone aft er meals 180 mg PO QID 120 caps 6RF 30 days pantoprazole 40 mg PO BEDTIME 3 0 tabs 6RF TODAY'S VISIT [place] # Bessy Live She is doing well on the pantoprazole, but is not needing to take the simethicone. She had a change in her BP meds, lowering of the amlodipine r/t leg edema and adding an ARB. ? if this also helped the bloating. ROV 6 mos. PFSH Medical History (Updated 04/12/23 @ 10:07 by HOWARD Villagomez) Memory loss COVID-19 Mild recurrent major depression Hand pain Obesity (BMI 30-39.9) Impaired glucose tolerance Abnormal mammogram Upper back pain on right side Asthma Breast cancer metastasized to bone Glaucoma HTN (hypertension) Osteoarthritis Osteoporosis Nocturnal hypoxemia TATIANA (obstructive sleep apnea) Surgical History (Updated 04/12/23 @ 10:07 by HOWARD Villagomez) S/P ORIF (open reduction internal fixation) fracture History of esophagogastroduodenoscopy (EGD) Hx of colonoscopy History of tubal ligation H/O excision of dermoid cyst H/O excision of mass H/O lumpectomy Family History Father Hypertension Hyperlipidemia Diabetes mellitus Mother Hypertension Hyperlipidemia Cervical cancer Sister Breast cancer Hypertension Social History Household Members: Family Housing: House Are you a primary childcare center administrator to a significant other at home: No Do you presently have visiting nurse or other home services: No (daughter BIOSOLIDS MANAGEMENT TECHNICIAN) Alcohol intake: never Comment: pt's daughter at the bedside Patient Tobacco Use Status: Never used Tobacco e-Cigarette/Vaping Use: Never Used Second Hand Smoke Exposure: No Advance Directives Date on File: 09/21/21 service: No Current occupational status: disabled Cognitive needs: Yes Hearing needs: No Vision needs: Yes Review of Systems Const Denies fatigue, Denies fever(s), Denies night sweats, Denies poor appetite and Denies weight loss Eyes Details: glasses Reports requires corrective lenses ENT Reports Normal hearing present, Denies dental pain, Denies dysphagia, Denies hearing loss, Denies mouth pain, Denies odynophagia, Denies throat swelling, Denies tongue swelling and Reports other (Dentition adequate) Card Reports no additional complaints Resp Reports no additional complaints GI Details: Denies abdominal pain, Denies melena, Denies bloating, Denies hematochezia, Denies constipation, Denies GI cramping, Denies dysphagia, Denies excessive flatus, Denies early satiety, Reports heartburn, Denies diarrhea, Denies nausea, Denies odynophagia, Denies vomiting and Denies hematemesis Skin/Breast Denies pruritus, Denies lesions, Denies rash and Denies jaundice Neuro Reports Normal hearing present and Denies Abnormal speech present Endo Denies fatigue Aller/Immun Denies throat swelling and Denies tongue swelling Physical Exam Vital Signs: Last Vital Signs Pulse 60 04/12/23 09:38 BP 138/67 04/12/23 09:38 BMI result Body Mass Index 31.2 Const General: cooperative, no acute distress, well developed and well groomed Nutritional Appearance: well nourished and obese Orientation/consciousness: oriented to person, oriented to place and oriented to time Limitations: language barrier HEENT Head: Yes normocephalic and Yes atraumatic Eyes General: appearance normal, both eyes and all related structures Pupils: Equal, round and reactive pupils present Neck Neck: Yes normal visual inspection and Yes no lymphadenopathy Thyroid: Thyroid normal Resp Effort & Inspection: normal respiratory effort and able to speak in complete sentences Auscultation: clear to auscultation bilaterally Cardio Rate: regular rate Rhythm: regular rhythm Heart sounds: Normal, physiologic split S2 sound present Peripheral pulses: radial pulses present and posterior tibial pulses present GI Inspection: No distended, No Abdominal panniculus present and Yes obesity Palpation (GI): Soft to palpation, nontender, no guarding, not rigid and No hepatosplenomegaly present Percussion: Yes normal to percussion Auscultation: normal bowel sounds Rectal Exam - Female: deferred Skin General skin exam: no rashes or lesions noted, turgor normal, skin not dry, no jaundice, No spider nevi and no striae Rashes: no rashes Nails: normal Neuro General: oriented to person, oriented to place and oriented to time Cranial nerves: Yes Equal, round and reactive pupils present and Yes Normal hearing present Speech: No Abnormal speech present Extrem General: Yes normal to inspection, No clubbing, No cyanosis and No edema Psych Appearance: grossly normal and well kempt Mental Status: mental status grossly normal Speech and movement: Normal speech and movement present Affect: normal affect Attitude: cooperative Thought process: Normal thought process present and not confabulating Thought content: Normal thought content present Insight: Limited insight present (Psych) Judgement: Limited judgement present (Psych) Assessment & Plan Assessment & Plan (1) Abnormal gastrointestinal positron emission tomography (PET) scan: Code(s): R94.8 - Abnormal results of function studies of other organs and systems (2) GERD (gastroesophageal reflux disease): Code(s): K21.9 - Gastro-esophageal reflux disease without esophagitis Qualifiers: Esophagitis presence: esophagitis presence not specified Qualified Code(s): K21.9 - Gastro-esophageal reflux disease without esophagitis (3) Tubular adenoma of colon: Comment: 2022=neg study repeat 5 years, 2009- Dr. Stuart, 2018 Narciso =MELODY [place] Code(s): D12.6 - Benign neoplasm of colon, unspecified Plan [place] # Bessy Live She is doing well on the pantoprazole, but is not needing to take the simethicone. She had a change in her BP meds, lowering of the amlodipine r/t leg edema and adding an ARB. ? if this also helped the bloating. ROV 6 mos. Medications: Changed From simethicone after meals 180 mg PO QID 30 days 120 caps 6RF To simethicone after meals 180 mg PO QID 30 days PRN 120 caps 6RF abdominal distention Refilled pantoprazole 40 mg PO BEDTIME 30 tabs 6RF Coding Level of Care Code Est Pt Level 3 (32442) Diagnoses Abnormal gastrointestinal positron emission tomography (PET) scan R94.8 Gastroesophageal reflux disease, unspecified whether esophagitis present K21.9 Esophagitis presence: esophagitis presence not specified Tubular adenoma of colon D12.6
== END 2023-04-12 10:15 | disposition home or self-care (01) ==
PROVIDERS: PCP Internal Medicine; Visit Provider Nurse Practitioner
DX: R94.8 Abnormal results of function studies of other organs and systems (principal); K21.9 Gastro-esophageal reflux disease without esophagitis; D12.6 Benign neoplasm of colon, unspecified
CPT/HCPCS: 99213

== ENCOUNTER → 2023-04-12 09:35 | Outpatient (BNVA) | payer OTHER, SELFPAY | PROVIDERS: PCP Internal Medicine; Visit Provider Nurse Practitioner | DX: R94.8 Abnormal results of function studies of other organs and systems (principal); K21.9 Gastro-esophageal reflux disease without esophagitis; D12.6 Benign neoplasm of colon, unspecified | CPT/HCPCS: 99212 ==

== ENCOUNTER → 2023-05-01 09:43 | Outpatient (REF) | payer OTHER, SELFPAY ==
--- NOTE | ~2023-05-01 | NM_ITS ---
EXAMINATION: NM BONE SCAN OF THE WHOLE BODY CLINICAL INFORMATION: Breast cancer with bone metastasis. COMPARISON: Whole body PET 09/20/2022. Bone scan 06/29/2022 TECHNIQUE: Multiple gamma scintillation camera images of the whole body were performed 3 hours following the intravenous administration of 20 mCi Tc-99m MDP. FINDINGS: In the head, no In the thoracic cage and upper extremities, there is focal activity left posterior ninth and minimal focal activity posterior seventh rib most likely healing fracture. No additional activity seen. The upper extremity appears unremarkable. In the spine, there is mild scoliosis of dorsal spine with mild reactive changes along the mid thoracic spine where there is scoliosis. No metastatic disease seen. In the pelvis, no abnormal activity seen. In the lower extremities, there is moderate increased activity seen in the left proximal, mid and minimal in the distal femur related to previous surgery. On the previous bone 06/29/2022 scan was punctate metabolic activity seen in left mid femur. Mild increase activity seen in the medial compartment of right femur likely degenerative arthritic changes. No other definite bony abnormalities are noted. The urinary bladder and faint visualization of both kidneys are noted. NM/NM bone scan whole body IMPRESSION: Healing left rib fractures and left femur postsurgical changes. Mild degenerative changes in the right medial knee joint. It is stable to last bone scan No abnormal whole-body bone activity seen to suspect any metastatic disease at this time.
== END ==
LOC: HO.NUCMED 09:43
PROVIDERS: PCP Internal Medicine; Visit Provider Internal Medicine Medical Oncology
DX: C50.919 Malignant neoplasm of unspecified site of unspecified female breast (principal); C79.51 Secondary malignant neoplasm of bone
CPT/HCPCS: 78306; A9503

== ENCOUNTER 2023-05-16 08:48 | Outpatient (REF) | payer OTHER, SELFPAY ==
--- NOTE | ~2023-05-16 | MM_ITS ---
EXAMINATION: MM SCREENING DIGITAL BREAST TOMOSYNTHESIS, BILATERAL CLINICAL INFORMATION: Bilateral screening. Remote right breast cancer post lumpectomy, 2006. Metastasis to bone. Benign right stereotactic biopsy. Family history breast cancer, sister. COMPARISON: Mammography: 05/04/2022, 04/20/2021, 09/22/2020, 04/14/2020, 02/21/2019, and dating back to 2013. TECHNIQUE: Digital breast tomosynthesis is performed in both the craniocaudal and mediolateral oblique views along with computer-aided detection (CAD). Synthesized 2D images are generated from the tomosynthesis. FINDINGS: There are scattered areas of fibroglandular density (ACR BI-RADS breast composition Category b). Redemonstration of post therapy changes to the right breast with reduced breast size, stable scarring, right axillary surgical clips and scarring, and extensive dystrophic calcifications near the lumpectomy site. Lesser calcifications on the left. No developing mass, developing region of architectural distortion, or developing suspicious grouped pleomorphic calcifications. The overall parenchymal pattern is unchanged from prior exams. MM/MM tomosynthesis screening BI IMPRESSION: -No mammographic evidence of malignancy. -Stable post treatment related changes right breast. ASSESSMENT: BI-RADS BI-RADS 2 - Benign Findings RECOMMENDATION: Routine annual mammography screening. 1 year F/U This examination should not preclude the clinical evaluation of a suspicious palpable abnormality. This patient's information was entered into a reminder system with a target due date for their next mammogram.
== END 2023-05-16 08:49 | disposition home or self-care (01) ==
LOC: HO.MAMMO 08:48
PROVIDERS: PCP Internal Medicine; Visit Provider Internal Medicine
DX: Z12.31 Encounter for screening mammogram for malignant neoplasm of breast (principal)
CPT/HCPCS: 77063; 77067

== ENCOUNTER → 2023-05-16 09:00 | Outpatient (BNV) | payer OTHER, SELFPAY | PROVIDERS: PCP Internal Medicine; Visit Provider Radiology Diagnostic Radiology | DX: Z12.31 Encounter for screening mammogram for malignant neoplasm of breast (principal) | CPT/HCPCS: 77063; 77067 ==

== ENCOUNTER 2023-05-17 10:36 | Outpatient (AMB) | payer OTHER, SELFPAY ==
[2023-05-17 11:15] VITALS: BP 152/60; PULSE 58; O2SAT 94; BMI 32.1
--- NOTE | 2023-05-17 11:15 | A.OFFVIS_ITS ---
Intake Vital Signs 05/17/23 11:15 Height 5 ft 1 in Weight 169 lb 12.095 oz BMI 32.1 BP 152/60 H Blood Pressure Location Lt brachial Position Sitting Pulse 58 Pulse Source Pulse Oximeter Pulse Oximetry (%) 94 Oxygen Delivery Method Room Air Intake Visit Reasons: Asthma follow-up Intake Note: pt is here for follow up and states she is feeling good, Water Ski Assembler Required: Yes Water Ski Assembler Name: [id number] Allergies No Known Allergies [No Known Allergies*] Allergy (Verified 05/17/23 11:31) Medication List - Last Reconciled 05/17/23 by Ad Traore MD acetaminophen 500 mg PO Q6H PRN 30 days amlodipine 5 mg PO DAILY 90 days aspirin 81 mg PO DAILY 90 days calcium carbonate-vitamin D3 600 mg-10 mcg (400 unit) 1 tab PO BID 2 months exemestane (Aromasin) 25 mg PO DAILY [hand held showerhead As directed] incontinence pad, liner, disp use 3 to 4 times a day as needed latanoprost 0.005% 1 drp ophthalmic-Right BEDTIME losartan 25 mg PO DAILY 90 days metoprolol tartrate 50 mg PO BID pantoprazole 40 mg PO BEDTIME simethicone 180 mg PO QID PRN 30 days Do you need a note to return to daycare/school/sports/work: No HPI Asthma follow-up HPI Details 77 years old very pleasant Cam[place]onian-speak ing female, is here for 6 months follow-up for her sleep apnea and bronchial asthma. She uses CPAP very regularly every night and sleeps well. She uses nasal pillows and tolerates well. Has missed using the CPAP only once or twice a month due to having nasal congestion. Bronchial asthma remains under good control and she hardly needs to use the albuterol. [facility] Medical History Memory loss COVID-19 Mild recurrent major depression Hand pain Obesity (BMI 30-39.9) Impaired glucose tolerance Abnormal mammogram Upper back pain on right side Asthma Breast cancer metastasized to bone Glaucoma HTN (hypertension) Osteoarthritis Osteoporosis Nocturnal hypoxemia TATIANA (obstructive sleep apnea) Surgical History S/P ORIF (open reduction internal fixation) fracture History of esophagogastroduodenoscopy (EGD) Hx of colonoscopy History of tubal ligation H/O excision of dermoid cyst H/O excision of mass H/O lumpectomy Family History Father Hypertension Hyperlipidemia Diabetes mellitus Mother Hypertension Hyperlipidemia Cervical cancer Sister Breast cancer Hypertension Social History Household Members: Family Housing: House Are you a primary career development counselor to a significant other at home: No Do you presently have visiting nurse or other home services: No (daughter MUD JACK NOZZLE WORKER) Alcohol intake: never Comment: pt's daughter at the bedside Patient Tobacco Use Status: Never used Tobacco e-Cigarette/Vaping Use: Never Used Second Hand Smoke Exposure: No Advance Directives Date on File: 09/21/21 service: No Current occupational status: disabled Cognitive needs: Yes Hearing needs: No Vision needs: Yes Review of Systems Const All systems reviewed & are unremarkable except as noted in HPI and below Eyes Reports no additional complaints ENT Reports no additional complaints Card Reports no additional complaints Resp Reports as per HPI GI Reports heartburn (Controlled with the Protonix) Musc Reports no additional complaints Skin/Breast Reports system reviewed and no additional complaints, except as documented Neuro Reports no additional complaints Psych Reports depression (Mild, controlled) Endo Reports no additional complaints Edwin/Lymph Reports no additional complaints Physical Exam Vital Signs: Last Vital Signs Pulse 58 05/17/23 11:15 BP 152/60 H 05/17/23 11:15 Pulse Ox 94 05/17/23 11:15 Oxygen Delivery Method Room Air 05/17/23 11:15 BMI result Body Mass Index 32.1 Const General: comfortable, no acute distress, alert and awake Orientation/consciousness: patient oriented x3 HEENT Head: Yes normal to inspection General nose exam: No nasal polyps present and No nasal discharge present Face and sinus: Yes sinuses nontender Mouth: oropharynx normal Throat: Yes posterior oropharynx normal Eyes General: appearance normal, both eyes and all related structures Neck Neck: Yes normal visual inspection, Yes no lymphadenopathy, Yes trachea midline and Yes no JVD Thyroid: Thyroid normal Chest Chest palpation & inspection: normal inspection of the chest, normal palpation of entire chest wall and no tenderness Resp Other: PERCUSSION NOTE IS RESONANT, BREATH SOUNDS ARE EQUAL ON BOTH SIDES WITH GOOD AERATION. NO AUDIBLE WHEEZES RHONCHI OR CREPITATIONS. Cardio Palpation: normal PMI Rate: regular rate Rhythm: regular rhythm Heart sounds: no gallops and no murmurs Peripheral pulses: Peripheral pulses 2+ throughout GI Palpation (GI): Soft to palpation, nontender, No hepatosplenomegaly present and no masses Auscultation: normal bowel sounds Back/Spine/Pelvis Thoracic/Lumbar Spine: thoracic and lumbar spine normal to inspection Skin General skin exam: no rashes or lesions noted Neuro General: patient oriented x3 and no focal motor deficits Cranial nerves: Yes CN's II-XII intact bilaterally Extrem General: Yes normal to inspection, Yes no clubbing, cyanosis or edema and Yes no calf tenderness Psych Appearance: grossly normal and well kempt Speech and movement: Normal speech and movement present Results Reviewed Results Reviewed: Compliance report for the last 30 nights is reviewed. She has used 28/30 nights, Average use it per night. 6 hours 40 minutes There is some air leak. Residual AHI only 1.1 Assessment & Plan Assessment & Plan (1) TATIANA (obstructive sleep apnea): Comment: MILD TO MODERTAE , WELL TREATED WITH USE OF CPAP. COMPLIANCE IS GOOD .THERE IS SOME AIR LEAK ISSUE. Code(s): G47.33 - Obstructive sleep apnea (adult) (pediatric) Plan: I EXPLAINED TO HER THROUGH THE DRAW FRAME OPERATOR, ABOUT THESE FINDINGS. STRESSED THAT SHE SHOULD USE CPAP EVERY NIGHT, FOR AT LEAST 5-6 HOURS PER NIGHT. ALSO INSTRUCTED TO TIGHTEN THE STRAPS SO THAT THE AIR LEAK WILL BE MINIMIZED . (2) Nocturnal hypoxemia: Comment: It was mild , and should be resolved with the use of CPAP. Code(s): G47.34 - Idiopathic sleep related nonobstructive alveolar hypoventilation Plan: NO FURTHER TREATMENT (3) Asthma: Comment: VERY MILD ,WELL CONTROLLED AND REMAINS ASYMPTOMATIC . Code(s): J45.909 - Unspecified asthma, uncomplicated Plan: [place] : DOES NOT NEED TO USE ANY BRONCHODILATORS. Coding Level of Care Code Est Pt Level 3 (95139) Diagnoses TATIANA (obstructive sleep apnea) G47.33 Nocturnal hypoxemia G47.34 Asthma J45.909
== END 2023-05-17 11:31 | disposition home or self-care (01) ==
PROVIDERS: PCP Internal Medicine; Visit Provider Internal Medicine
DX: G47.33 Obstructive sleep apnea (adult) (pediatric) (principal); G47.34 Idiopathic sleep related nonobstructive alveolar hypoventilation; J45.909 Unspecified asthma, uncomplicated
CPT/HCPCS: 99213

== ENCOUNTER → 2023-05-17 10:36 | Outpatient (BNVA) | payer OTHER, SELFPAY | PROVIDERS: PCP Internal Medicine; Visit Provider Internal Medicine | DX: J45.909 Unspecified asthma, uncomplicated (principal); G47.33 Obstructive sleep apnea (adult) (pediatric); G47.34 Idiopathic sleep related nonobstructive alveolar hypoventilation; Z99.89 Dependence on other enabling machines and devices | CPT/HCPCS: 99212 ==

== ENCOUNTER 2023-07-27 10:26 | Outpatient (AMB) | payer OTHER, SELFPAY ==
[2023-07-27 10:28] VITALS: BP 128/70; PULSE 59; TEMP 36.2; O2SAT 95; BMI 31.6
--- NOTE | 2023-07-27 10:28 | AM.OFFWIN_ITS ---
Intake Vital Signs 07/27/23 10:28 Height 5 ft 1 in Weight 167 lb BMI 31.6 BP 128/70 Blood Pressure Location Lt brachial Position Sitting Pulse 59 Pulse Source Pulse Oximeter Temp 97.2 F Temp Source Temporal Artery Scan Pulse Oximetry (%) 95 Oxygen Delivery Method Room Air Intake Visit Reasons: EP RT Top of Foot pain Intake Note: pt is here today for rt foot pain started 2 days ago Patient Tobacco Use Status: Never used Tobacco Allergies No Known Allergies [No Known Allergies*] Allergy (Verified 07/27/23 10:32) Do you need a note to return to daycare/school/sports/work: No HPI HPI Comments History of Present Illness Details 78 y/o female patient who presents to [facility] in clinic with c/o right lower extremity swelling x 2 days. Denies CP, or SOB. H/o Breast CA with Metastasized to the bones. [facility] Medical History Memory loss COVID-19 Mild recurrent major depression Hand pain Obesity (BMI 30-39.9) Impaired glucose tolerance Abnormal mammogram Upper back pain on right side Asthma Breast cancer metastasized to bone Glaucoma HTN (hypertension) Osteoarthritis Osteoporosis Nocturnal hypoxemia TATIANA (obstructive sleep apnea) Surgical History S/P ORIF (open reduction internal fixation) fracture History of esophagogastroduodenoscopy (EGD) Hx of colonoscopy History of tubal ligation H/O excision of dermoid cyst H/O excision of mass H/O lumpectomy Family History Father Hypertension Hyperlipidemia Diabetes mellitus Mother Hypertension Hyperlipidemia Cervical cancer Sister Breast cancer Hypertension Social History Household Members: Family Housing: House Are you a primary career portals teacher to a significant other at home: No Do you presently have visiting nurse or other home services: No (daughter NETWORK OPERATIONS SPECIALIST) Alcohol intake: never Comment: pt's daughter at the bedside Patient Tobacco Use Status: Never used Tobacco e-Cigarette/Vaping Use: Never Used Second Hand Smoke Exposure: No Advance Directives Date on File: 09/21/21 service: No Current occupational status: disabled Cognitive needs: Yes Hearing needs: No Vision needs: Yes Review of Systems Const All systems reviewed & are unremarkable except as noted in HPI and below Physical Exam Vital Signs: Last Vital Signs Temp 97.2 F 07/27/23 10:28 Pulse 59 07/27/23 10:28 BP 128/70 07/27/23 10:28 Pulse Ox 95 07/27/23 10:28 Oxygen Delivery Method Room Air 07/27/23 10:28 BMI result Body Mass Index 31.6 Const General: comfortable and no acute distress Orientation/consciousness: patient oriented x3 Limitations: language barrier Resp Effort & Inspection: normal respiratory effort and able to speak in complete sentences Auscultation: clear to auscultation bilaterally Cardio Rate: regular rate Rhythm: regular rhythm Neuro General: patient oriented x3, gait normal and moves all extremities Extrem Right lower extremity: normal to inspection, full ROM and lower leg Details: tenderness and pitting edema Details: 3+; no erythema Left lower extremity: normal to inspection, full ROM and lower leg Details: pitting edema Details: 1+; no erythema and no tenderness Psych Speech and movement: Normal speech and movement present Results AMB Rapid Strep AMB Rapid Strep Cancelled Last Edit by Shakira Singletray NP on 07/27/23 11:11 AMB Rapid Strep previously reported as Negative Shakira Singletary 07/27/23 11:11 CANCELLED error Results Reviewed Results Reviewed: Laboratory Last Values Strep Scn Rapid Clinic Cancelled 07/27/23 10:44 Assessment & Plan Assessment & Plan (1) Right leg swelling: Code(s): M79.89 - Other specified soft tissue disorders Plan: - Ordered STAT Venous U/S to r/o DVT Orders: Orders US venous duplex LE RT Today M79.89 - Other specified soft tissue disorders Coding Level of Care Code Est Pt Level 3 (41961) Diagnoses Right leg swelling M79.89 Time Spent (min) 15
== END 2023-07-27 12:24 | disposition home or self-care (01) ==
PROVIDERS: PCP Internal Medicine; Visit Provider Nurse Practitioner Family
DX: M79.89 Other specified soft tissue disorders (principal)
CPT/HCPCS: 99213

== ENCOUNTER 2023-07-27 11:19 | Outpatient (REF) | payer OTHER, SELFPAY ==
--- NOTE | ~2023-07-27 | US_ITS ---
EXAMINATION: US VENOUS ULTRASOUND WITH DOPPLER LOWER EXTREMITY, RIGHT CLINICAL INFORMATION: Other specified soft tissue disorders 78-year-old female with complaint of right lower extremity swelling for 2 days. History of breast cancer with metastases metastasis to bone. COMPARISON: Venous ultrasound of the left lower extremity 06/20/2017-no DVT Venous ultrasound the right lower extremity 07/21/2015-no DVT TECHNIQUE: Ultrasound of the deep veins is performed from the hip to the calf with compression sonography and color and pulse Doppler assessment. Spectral analysis with color-flow imaging is performed. FINDINGS: There is normal venous compression and respiratory variation. The visualized common femoral vein, superficial femoral vein, profunda femoral vein, popliteal vein, and the posterior tibial and peroneal veins show no evidence of deep venous thrombosis. The contralateral common femoral vein demonstrates normal vascular flow and respiratory variation. US/US venous duplex LE RT IMPRESSION: No DVT demonstrated in the right lower extremity.
== END 2023-07-27 11:20 | disposition home or self-care (01) ==
LOC: HO.HMGCX 11:19
PROVIDERS: PCP Internal Medicine; Visit Provider Nurse Practitioner Family
DX: M79.89 Other specified soft tissue disorders (principal)
CPT/HCPCS: 93971

== ENCOUNTER 2023-07-31 07:35 | Emergency (ER) | payer OTHER, SELFPAY ==
--- NOTE | ~2023-07-31 | XR_ITS ---
EXAMINATION: XR ANKLE, RIGHT CLINICAL INFORMATION: Pain and swelling after sprain COMPARISON: Right ankle x-ray June 2015 and right foot x-ray from earlier the same day TECHNIQUE: AP, lateral, and mortise views of the right ankle. FINDINGS: Bone alignment is normal. No fracture or dislocation. Mild degenerative changes at the talar fibular joint. Ankle mortise otherwise normal. Degenerative changes of the midfoot at the first metatarsal cuneiform and cuneiform navicular joint. Large plantar calcaneal spurring soft tissue swelling over the distal Achilles tendon. XR/XR ankle RT min 3V IMPRESSION: No fracture or dislocation. Degenerative changes. Large plantar calcaneal spurring and soft tissue swelling over the distal Achilles tendon.
--- NOTE | ~2023-07-31 | XR_ITS ---
EXAMINATION: XR FOOT, RIGHT CLINICAL INFORMATION: Pain and swelling COMPARISON: Right ankle 07/21/2015 TECHNIQUE: AP, lateral, and oblique views of the right foot. FINDINGS: No acute fractures are seen. Mild to moderate degenerative changes are present at the CMC joints most marked in the first and second digits. On the lateral foot radiograph, some osteophytes are seen arising from the first metatarsal cuneiform joint which have increased when compared with 2016. XR/XR foot RT 2V IMPRESSION: Degenerative changes as described above. No acute finding.
[2023-07-31 07:38] VITALS: BP 117/57; PULSE 52; RESP 16; TEMP 35.7; O2SAT 97; BMI 28.3
--- NOTE | 2023-07-31 10:13 | ED_ITS ---
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 She reports stepping out of bed to get ready for yarsani when she felt her right ankle twist. She did not fall to the ground or strike her head. She was seen at urgent care on Monday (3 days ago) for same. She did not inform them that it was a twisting injury and was worked up for DVT with negative venous duplex scan. She was referred by her primary care physician today for x-rays to rule out fracture. She reports pain to the dorsum of her right foot and lateral right ankle. She has been taking Tylenol if some improvement. She ambulates with cane at baseline. She has been able to ambulate with cane however this induces some pain to the ankle. Admits to chronic LE edema. No hx of CHF or afib. Denies recent tick insect bites. Denies any other injury to the extremity. Denies fever, chills, N/V, numbness/tingling/weakness of the RLE, rashes. Related Data Home Medications ?Medication ?Instructions ?Recorded ?Confirmed latanoprost 0.005 % eye drops 1 drp ophthalmic-Right BEDTIME 09/16/21 07/06/23 exemestane 25 mg tablet (Aromasin) 25 mg PO DAILY 09/13/22 07/06/23 Previous Rx's ?Medication ?Instructions ?Recorded hand held showerhead #1 ea 07/14/22 incontinence pad, liner, disp #120 ea 07/14/22 aspirin 81 mg tablet,delayed 81 mg PO DAILY 90 days #90 tabs 08/09/22 release calcium carbonate 600 mg-vitamin 1 tab PO BID 2 months #120 tabs 12/31/22 D3 10 mcg (400 unit) tablet acetaminophen 500 mg tablet 500 mg PO Q6H PRN Pain 30 days 03/07/23 #120 tabs losartan 25 mg tablet 25 mg PO DAILY 90 days #90 tabs 04/05/23 metoprolol tartrate 50 mg tablet 50 mg PO BID #180 tabs 04/05/23 pantoprazole 40 mg tablet,delayed 40 mg PO BEDTIME #30 tabs 04/12/23 release simethicone 180 mg capsule 180 mg PO QID PRN abdominal 04/12/23 distention 30 days #120 caps amlodipine 5 mg tablet 5 mg PO DAILY 90 days #90 tabs 07/03/23 exemestane 25 mg tablet 25 mg PO DAILY #90 tabs 07/06/23 Allergies Allergy/AdvReac Type Severity Reaction Status Date / Time No Known Allergies Allergy Verified 07/31/23 07:43 [No Known Allergies*] Review of Systems Review of Systems: Constitutional: No fever, chills, fatigue, night sweats, weight changes ENT/Mouth: No ear pain, hearing loss, nasal congestion, sinus pain, rhinorrhea, sore throat Eyes: No eye pain, swelling, redness, vision changes, discharge Cardio: No chest pain, palpitations, SAMUELS, orthopnea, peripheral edema Pulm: No SOB, cough, sputum, wheezing, dyspnea, hemoptysis GI: No nausea, vomiting, hematemesis, abdominal pain, diarrhea, constipation, hematochezia, melena : No irregular bleeding, dysuria, frequency, urgency, hesitancy, hematuria, flank pain, urinary flow changes, urinary incontinence or retention MSK: No back pain, neck pain, joint pain, myalgias, +right ankle pain Skin: No lesions, rashes Neuro: No weakness, numbness, paresthesias, LOC, dizziness, headache Psych: No anxiety/panic, depression, SI/HI, AH/VH All other systems reviewed and are negative. [facility] Past Medical History Attestation statement: The following information was validated with the patient. Source: old records reviewed and nursing notes reviewed Medical History Memory loss COVID-19 Mild recurrent major depression Hand pain Obesity (BMI 30-39.9) Impaired glucose tolerance Abnormal mammogram Upper back pain on right side Asthma Breast cancer metastasized to bone Glaucoma HTN (hypertension) Osteoarthritis Osteoporosis Nocturnal hypoxemia TATIANA (obstructive sleep apnea) Surgical History S/P ORIF (open reduction internal fixation) fracture History of esophagogastroduodenoscopy (EGD) Hx of colonoscopy History of tubal ligation H/O excision of dermoid cyst H/O excision of mass H/O lumpectomy Family History Family History Father Hypertension Hyperlipidemia Diabetes mellitus Mother Hypertension Hyperlipidemia Cervical cancer Sister Breast cancer Hypertension Social History Social History Household Members: Family Housing: House Are you a primary managed care liaison to a significant other at home: No Do you presently have visiting nurse or other home services: No (daughter INDUSTRIAL LOCOMOTIVE OPERATOR) Alcohol intake: never Comment: pt's daughter at the bedside Patient Tobacco Use Status: Never used Tobacco e-Cigarette/Vaping Use: Never Used Second Hand Smoke Exposure: No Advance Directives: Yes Advance Directives on File: Yes Advance Directives Date on File: 09/21/21 Do you have a plan to hurt others: No Plan service: No Current occupational status: disabled Cognitive needs: Yes Hearing needs: No Vision needs: Yes Physical Exam Vital Signs: Vital Signs: Last Vital Signs Temp 98.4 F 07/31/23 11:28 Pulse 50 07/31/23 11:28 Resp 16 07/31/23 11:28 BP 167/66 H 07/31/23 11:28 Pulse Ox 97 07/31/23 11:28 O2 Del Method Room Air 07/31/23 11:28 BMI result Body Mass Index 28.3 Vital signs stable Const: General: cooperative, healthy appearing, comfortable and no acute distress Orientation/consciousness: patient oriented x3 Limitations: no limitations HEENT: Head: Yes normal to inspection, Yes normocephalic and Yes atraumatic Eyes: General: appearance normal, both eyes and all related structures Conjunctivae: conjunctivae normal Sclerae: sclerae normal Pupils: Equal, round and reactive pupils present Neck: Neck: Yes normal visual inspection and Yes full ROM Resp: Effort & Inspection: normal respiratory effort Auscultation: clear to auscultation bilaterally Cardio: Rate: regular rate Rhythm: regular rhythm Skin: General skin exam: no rashes or lesions noted Neuro: Other: Strength 5/5 intact throughout.?Sensation intact to light touch.? Neurovascular intact distally.? General: patient oriented x3, gait normal and moves all extremities Cranial nerves: Yes Equal, round and reactive pupils present Extrem: Other: + right ankle with noted swelling over l ateral malleolus. no overlying cellulitic changes. slightly ttp without palpable fluctuance, crepitus, warmth, deformity. Full ROM intact to all toes on right foot. Full ROM intact to right ankle with slight discomfort with dorsi and plantar flexion. sensation intact to light touch. strength 5/5 intact. no pitting edema noted to RLE. no calf tenderness. no tenderness along plantar fascia or achilles tendon. negative patricia test. ambulating with steady gait assisted with cane. General: Yes normal to inspection Course Course Course Narrative: 1041-- x-rays of right ankle and foot do not exhibit acute fracture or dislocation. There are chronic degenerative changes along with a large plantar calcaneal spur. There is soft tissue swelling over the distal Achilles tendon. On my examination, there is no tenderness noted over the Achilles tendon at all. Achilles tendon intact with negative Patricia test. Patient likely sprained her ankle. Skyler wrap applied. Patient requesting postop shoe for comfort. This has been given. She is ambulating with steady gait using her cane in ED. I advised her to follow-up with her primary care provider. Patient has remained stable throughout ED visit today. Discussed worrisome signs and symptoms and when to return to the ED. All questions answered at this time. Patient is agreeable with disposition and stable for discharge. Medications Administered Discontinued Medications Generic Name Dose Route Start Last Admin Trade Name Freq PRN Reason Stop Dose Admin Acetaminophen 975 mg 07/31/23 10:47 07/31/23 10:57 Acetaminophen 325 Mg Tablet PO 07/31/23 10:48 975 mg ONCE ONE Administration Medical Decision Making Medical Decision Making [facility] Narrative: 78 year old Maltese speaking female with pmhx significant for MDD, TATIANA, asthma, OA, osteoporosis, and breast cancer with metastasis to bones presents to the ED with daughter for evaluation of right ankle/ foot pain s/p twisting injury occurring on Monday (7 days ago). Patient is slightly hypertensive, vitals otherwise WNL. She is afebrile. She is nontoxic-appearing and in no acute distress. Initially presented to ED with steady ambulation assisted by cane. She was then transferred to wheelchair at patient's request. She was able to transport herself from wheelchair to exam bed for further examination. On exam, right ankle with noted swelling over lateral malleolus. no overlying cellulitic changes. slightly ttp without palpable fluctuance, crepitus, warmth, deformity. Full ROM intact to all toes on right foot. Full ROM intact to right ankle with slight discomfort with dorsi and plantar flexion. sensation intact to light touch. strength 5/5 intact. no pitting edema noted to RLE. no calf tenderness. no tenderness along plantar fascia or achilles tendon. negative patricia test. ambulating with steady gait assisted with cane. Differential diagnosis includes MSK sprain, MSK strain, fracture, contusion. Unlikely dislocation, gout/pseudogout, Lyme arthritis Plan for imaging, pain control and re-evaluation. Differential Diagnosis Differential Diagnoses: The differential diagnosis associated with the presentation includes as above. Independent Interpretation I performed an independent interpretation of an: Plain X-Ray and Ultrasound Interpretation: XR right ankle/ foot does not demonstrate acute fracture, agree with radiologist's interpretation. Venous duplex of right lower extremity obtained on 07/27/2023 without obvious clot, agree with radiologist's interpretation. Radiology Impression Discussion of test interpretation with radiology: I have reviewed the radiologist's reading. Radiologist Impression: EXAMINATION: XR FOOT, RIGHT CLINICAL INFORMATION: Pain and swelling COMPARISON: Right ankle 07/21/2015 TECHNIQUE: AP, lateral, and oblique views of the right foot. FINDINGS: No acute fractures are seen. Mild to moderate degenerative changes are present at the CMC joints most marked in the first and second digits. On the lateral foot radiograph, some osteophytes are seen arising from the first metatarsal cuneiform joint which have increased when compared with 2016. XR/XR foot RT 2V IMPRESSION: Degenerative changes as described above. No acute finding. EXAMINATION: XR ANKLE, RIGHT CLINICAL INFORMATION: Pain and swelling after sprain COMPARISON: Right ankle x-ray June 2015 and right foot x-ray from earlier the same day TECHNIQUE: AP, lateral, and mortise views of the right ankle. FINDINGS: Bone alignment is normal. No fracture or dislocation. Mild degenerative changes at the talar fibular joint. Ankle mortise otherwise normal. Degenerative changes of the midfoot at the first metatarsal cuneiform and cuneiform navicular joint. Large plantar calcaneal spurring soft tissue swelling over the distal Achilles tendon. XR/XR ankle RT min 3V IMPRESSION: No fracture or dislocation. Degenerative changes. Large plantar calcaneal spurring and soft tissue swelling over the distal Achilles tendon. EXAMINATION: US VENOUS ULTRASOUND WITH DOPPLER LOWER EXTREMITY, RIGHT CLINICAL INFORMATION: Other specified soft tissue disorders 78-year-old female with complaint of right lower extremity swelling for 2 days. History of breast cancer with metastases metastasis to bone. COMPARISON: Venous ultrasound of the left lower extremity 06/20/2017-no DVT Venous ultrasound the right lower extremity 07/21/2015-no DVT TECHNIQUE: Ultrasound of the deep veins is performed from the hip to the calf with compression sonography and color and pulse Doppler assessment. Spectral analysis with color-flow imaging is performed. FINDINGS: There is normal venous compression and respiratory variation. The visualized common femoral vein, superficial femoral vein, profunda femoral vein, popliteal vein, and the posterior tibial and peroneal veins show no evidence of deep venous thrombosis. The contralateral common femoral vein demonstrates normal vascular flow and respiratory variation. US/US venous duplex LE RT IMPRESSION: No DVT demonstrated in the right lower extremity. Independent Historian Clinical information obtained from an independent historian. History obtained from or confirmed by: Other (daughter) External Record Review External record reviewed: Inpatient record, Office record, Outpatient record, Prior outpatient labs, Prior outpatient radiology, Primary care record and Outside ED record Social Determinants Patient?s care significantly limited by Social Determinants of Health including: Other Social Determinant of Health Procedures Orthopedic Splinting/Casting Injury #1: Side: right Lower Extremity Injury Location: ankle and foot Lower Extremity Immobilizer: boot orthosis and Skyler wrap Critical Care Time Critical Care Time Critical Care Time: No Discharge Plan Discharge Clinical Impression: Right ankle sprain, Calcaneal spur of right foot Patient Disposition: Home, Self-Care Instructions: Ankle Sprain (ED), How to Use an Elastic Bandage (ED), R.I.C.E. Treatment (ED), Ice Pack Application (ED), Heel Spur (ED) Additional Instructions: Your xrays today do not demonstrate fracture. You were provided with skyler wrap and walking boot for comfort. Continue taking tylenol as needed at home for pain/ discomfort. Utilize RICE therapy - Rest, ice, compression, elevation (above heart level) to help with swelling. Follow up with PCP as scheduled. Return with new or worsening symptoms. In the case of an emergency call 911. Prescriptions: No Action (DME) hand held showerhead See Rx Instructions .Route .MEDSUPPLY Qty: 1 0RF Rx Instructions: As directed (DME) incontinence pad, liner, disp Pad See Rx Instructions .Route Qty: 120 6RF Rx Instructions: use 3 to 4 times a day as needed aspirin 81 mg tablet,delayed release (DR/EC) 81 mg PO DAILY 90 Days Qty: 90 3RF calcium carbonate-vitamin D3 600 mg-10 mcg (400 unit) tablet 1 tab PO BID 60 Days Qty: 120 6RF acetaminophen 500 mg tablet 500 mg PO Q6H PRN (Reason: Pain) 30 Days Qty: 120 3RF Hold Instructions: Doctor's Order amlodipine 5 mg tablet 5 mg PO DAILY 90 Days Qty: 90 0RF exemestane 25 mg Tablet 25 mg PO DAILY Qty: 90 4RF Rx Instructions: must administer after a meal metoprolol tartrate 50 mg tablet 50 mg PO BID Qty: 180 3RF losartan 25 mg tablet 25 mg PO DAILY 90 Days Qty: 90 1RF latanoprost 0.005 % drops 1 drp ophthalmic-Right BEDTIME exemestane [Aromasin] 25 mg tablet 25 mg PO DAILY Rx Instructions: must administer after a meal pantoprazole 40 mg tablet,delayed release (DR/EC) 40 mg PO BEDTIME Qty: 30 6RF simethicone 180 mg capsule 180 mg PO QID PRN (Reason: abdominal distention) 30 Days Qty: 120 6RF Rx Instructions: after meals Referrals: Magdalena Cleary MD [Primary Care Provider] - Stand Alone Forms: Work/School Release Interventions: ED Discharge Assessment Last Done: 07/31/23 11:28 Discharge Date/Time: 07/31/23 11:29 Print Language: Maltese
[2023-07-31] MEDS: Acetaminophen 325 MG TABLET 975 MG PO (10:57)
--- NOTE | 2023-07-31 10:58 | PC.NURSE ---
rle anant wrap and post op shoe applied for pt comfort- ok'd by provider. pt medicated for 6/10 pain
[2023-07-31 11:13] VITALS: BP 167/66; PULSE 50; TEMP 36.9; O2SAT 97
[2023-07-31 11:28] VITALS: BP 167/66; PULSE 50; RESP 16; TEMP 36.9; O2SAT 97
== END 2023-07-31 11:29 | disposition home or self-care (01) ==
PROVIDERS: Emergency Provider Emergency Medicine; PCP Internal Medicine
DX: S93.401A Sprain of unspecified ligament of right ankle, initial encounter (principal); M77.31 Calcaneal spur, right foot; I10 Essential (primary) hypertension; J45.909 Unspecified asthma, uncomplicated; X50.1XXA Overexertion from prolonged static or awkward postures, initial encounter; Y93.9 Activity, unspecified; Y92.9 Unspecified place or not applicable; Y99.9 Unspecified external cause status
CPT/HCPCS: 73610; 73620; 99283; 99284

== ENCOUNTER 2023-08-10 13:27 | Outpatient (AMB) | payer OTHER, SELFPAY ==
[2023-08-10 13:34] VITALS: BP 116/80; BMI 31.2
--- NOTE | 2023-08-10 13:34 | A.OFFPC_ITS ---
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 Required: No Accompanied by: Daughter Allergies No Known Allergies [No Known Allergies*] Allergy (Verified 08/10/23 13:43) Medication List - Last Reconciled 08/10/23 by Magdalena Braxton MD acetaminophen 500 mg PO Q6H PRN 30 days amlodipine 5 mg PO DAILY 90 days aspirin 81 mg PO DAILY 90 days calcium carbonate-vitamin D3 600 mg-10 mcg (400 unit) 1 tab PO BID 2 months exemestane 25 mg PO DAILY exemestane (Aromasin) 25 mg PO DAILY [hand held showerhead As directed] incontinence pad, liner, disp use 3 to 4 times a day as needed latanoprost 0.005% 1 drp ophthalmic-Right BEDTIME losartan 25 mg PO DAILY 90 days metoprolol tartrate 50 mg PO BID pantoprazole 40 mg PO BEDTIME simethicone 180 mg PO QID PRN 30 days Tobacco use date assessed: 04/05/23 Fall risk assessment: No Falls in past year Last assessed Fall Risk: 08/10/23 Dental Screening Dental Screen Date: 04/05/23 HPI HPI Comments History of Present Illness Details This is a 78-year-old female with hypertension, GERD, breast cancer metastasized to bone and mild recurrent major depression in remission that comes accompanied by daughter for follow-up on her conditions. Blood pressure stable. GERD well controlled with PPIs. On Aromasin for breast cancer Mets to bone and follow by Hematology-Oncology. Depression has been in remission. Walks with a cane for gait stability. PENDING SALE TO [facility] Medical History (Updated 08/10/23 @ 13:53 by Magdalena Braxton MD) Bone metastases Memory loss COVID-19 Mild recurrent major depression Hand pain Obesity (BMI 30-39.9) Impaired glucose tolerance Abnormal mammogram Upper back pain on right side Asthma Breast cancer metastasized to bone Glaucoma HTN (hypertension) Osteoarthritis Osteoporosis Nocturnal hypoxemia TATIANA (obstructive sleep apnea) Surgical History S/P ORIF (open reduction internal fixation) fracture History of esophagogastroduodenoscopy (EGD) Hx of colonoscopy History of tubal ligation H/O excision of dermoid cyst H/O excision of mass H/O lumpectomy Family History Father Hypertension Hyperlipidemia Diabetes mellitus Mother Hypertension Hyperlipidemia Cervical cancer Sister Breast cancer Hypertension Social History Household Members: Family Housing: House Are you a primary wound care nurse to a significant other at home: No Do you presently have visiting nurse or other home services: No (daughter SERVICE ORDER DISPATCHER) Alcohol intake: never Comment: pt's daughter at the bedside Patient Tobacco Use Status: Never used Tobacco e-Cigarette/Vaping Use: Never Used Second Hand Smoke Exposure: No Advance Directives Date on File: 09/21/21 service: No Current occupational status: disabled Cognitive needs: Yes Hearing needs: No Vision needs: Yes Questionnaire Thrive Questionnaire Date Thrive assessed: 04/05/23 SALUD-7 AMB Questionnaire SALUD-7 Date SALUD - 7 assessed: 04/05/23 Source: Developed by Drs. Raf Wolf, Jacquelyn Perez, Dominic Witt and colleagues, with an educational miguel angel from [employer]. Review of Systems Const All systems reviewed & are unremarkable except as noted in HPI and below Card Denies chest pain at rest, Denies chest pain with activity, Denies edema, Denies irregular heart rhythm, Denies claudication, Denies dyspnea, Denies dyspnea on exertion, Denies orthopnea, Denies paroxysmal nocturnal dyspnea and Denies slow heart rate Resp Denies cough, Denies dyspnea and Denies dyspnea on exertion Physical exam (Primary Care) Vital Signs: Last Vital Signs BP 116/80 08/10/23 13:34 BMI result Body Mass Index 31.2 BMI Assessment/Plan discussion: High BMI High, discussed plan: lifestyle, weight reduction, dietary and physical activity Tobacco/Smoking Status: Tobacco use Status Tobacco use date assessed 04/05/23 08/10/23 13:39 Patient Tobacco Use Status Never used Tobacco 08/10/23 13:39 e-Cigarette/Vaping Use Never Used 08/10/23 13:39 Thrive Assessment: Date of Thrive Assessment Date Thrive assessed 04/05/23 08/10/23 13:39 Const General: cooperative Limitations: ambulation with cane Resp Effort & Inspection: normal respiratory effort Auscultation: clear to auscultation bilaterally Cardio Jugular venous distension: no JVD Rate: regular rate Rhythm: regular rhythm Heart sounds: S1 normal heart sound present and S2 normal heart sound present Extrem General: Yes full ROM Assessment and Plan Assessment & Plan (1) Breast cancer metastasized to bone: Code(s): C50.919 - Malignant neoplasm of unspecified site of unspecified female breast; C79.51 - Secondary malignant neoplasm of bone Qualifiers: Laterality: unspecified laterality Qualified Code(s): C50.919 - Malignant neoplasm of unspecified site of unspecified female breast; C79.51 - Secondary malignant neoplasm of bone Plan: Continue Aromasin. Follow-up with Hematology-Oncology. (2) GERD (gastroesophageal reflux disease): Code(s): K21.9 - Gastro-esophageal reflux disease without esophagitis Qualifiers: Esophagitis presence: esophagitis presence not specified Qualified Code(s): K21.9 - Gastro-esophageal reflux disease without esophagitis Plan: Continue PPIs. (3) Mild recurrent major depression: Code(s): F33.0 - Major depressive disorder, recurrent, mild Plan: In remission (4) HTN (hypertension): Code(s): I10 - Essential (primary) hypertension Qualifiers: Hypertension type: essential hypertension Qualified Code(s): I10 - Essential (primary) hypertension Plan: Continue losartan and amlodipine. Blood pressure goal is equal or less than 130/80. Medications: Refilled pantoprazole 40 mg PO BEDTIME 30 tabs 6RF amlodipine 5 mg PO DAILY 90 days 90 tabs 0RF I10 - Essential (primary) hypertension losartan 25 mg PO DAILY 90 days 90 tabs 1RF I10 - Essential (primary) hyper tension Coding Level of Care Code Est Pt Level 4 (88795) Complex EM visit Add On G2211 Diagnoses Carcinoma of breast metastatic to bone, unspecified laterality C50.919; C79.51 Laterality: unspecified laterality Gastroesophageal reflux disease, unspecified whether esophagitis present K21.9 Esophagitis presence: esophagitis presence not specified Mild recurrent major depression F33.0 Essential hypertension I10 Hypertension type: essential hypertension Time Spent (min) 22
== END 2023-08-10 13:55 | disposition home or self-care (01) ==
PROVIDERS: PCP Internal Medicine; Visit Provider Internal Medicine
DX: C50.919 Malignant neoplasm of unspecified site of unspecified female breast (principal); C79.51 Secondary malignant neoplasm of bone; K21.9 Gastro-esophageal reflux disease without esophagitis; F33.0 Major depressive disorder, recurrent, mild; I10 Essential (primary) hypertension
CPT/HCPCS: 99214; G2211

== ENCOUNTER 2023-10-13 10:07 | Outpatient (AMB) | payer OTHER, SELFPAY ==
--- NOTE | 2023-10-13 10:18 | A.OFFVIS_ITS ---
Vital Signs 10/13/23 10:27 Height 5 ft 1 in Weight 166 lb 2.273 oz BMI 31.4 BP 147/65 H Blood Pressure Location Lt brachial Position Sitting Pulse 52 Intake Visit Reasons: 6 month follow up Intake Note: Patient presents to in office visit today in follow up of GERD. CC: Patient reports feeling something around her rectum that she things it might be hemorrhoids. She denies constipation or seeing blood in stool. Accounts Receivable Clerk Required: Yes Accompanied by: Daughter Allergies No Known Allergies [No Known Allergies*] Allergy (Verified 10/13/23 10:35) HPI HPI 6 month follow up: Details: Assessment & Plan (1) Abnormal gastrointestinal positron emission tomography (PET) scan: Code(s): R94.8 - Abnormal results of function studies of other organs and systems (2) GERD (gastroesophageal reflux disease): Code(s): K21.9 - Gastro-esophageal reflux disease without esophagitis Qualifiers: Esophagitis presence: esophagitis presence not specified Qualified Code(s): K21.9 - Gastro-esophageal reflux disease without esophagitis (3) Tubular adenoma of colon: Comment: 2022=neg study repeat 5 years, 2009- Dr. Stuart, 2018 Narciso =MELODY aeb Code(s): D12.6 - Benign neoplasm of colon, unspecified Plan [place] [facility] She is doing well on the pantoprazole, but is not needing to take the simethicone. She had a change in her BP meds, lowering of the amlodipine r/t leg edema and adding an ARB. ? if this also helped the bloating. ROV 6 mos. Medications: Changed From simethicone after meals 180 mg PO QID 30 days 120 caps 6RF To simethicone after meals 180 mg PO QID 30 days PRN 120 caps 6RF abdominal distention Refilled pantoprazole 40 mg PO BEDTIME 30 tabs 6RF TODAY'S VISIT [place] [facility] She continues to do well on her pantoprazole and simethicone. However, she is bothered by bumps around the anus and is worried that they are polyps. She just had a colonoscopy in 2022, so not polyps. Rectal exam reveals roid sacks mixon circular to the anus. Will rx proctosol cream. She has frequent soft daily BM's. Apparently she eats a lot of rice and pasta. She is probably having incomplete evacuation relative to her age and decreased motility of her colon. We discussed a possible trial of a mild laxative like senna to promote complete evacuation but she is fearful of this relates diarrhea. We also discussed adding a fiber supplement to bulk up the stools. She does not seem keen on either of these and for now would like to go forward just with the hemorrhoid cream. She has had no rectal bleeding and no severe pain. ROV 3 mos. [facility] Medical History (Updated 10/13/23 @ 10:54 by HOWARD Villagomez) Breast cancer metastasized to bone Breast cancer metastasized to bone Abnormal mammogram of right breast Abnormal mammogram COVID-19 Bone metastases Memory loss Mild recurrent major depression Hand pain Obesity (BMI 30-39.9) Impaired glucose tolerance Upper back pain on right side Asthma Glaucoma HTN (hypertension) Osteoarthritis Osteoporosis Nocturnal hypoxemia TATIANA (obstructive sleep apnea) Surgical History S/P ORIF (open reduction internal fixation) fracture History of esophagogastroduodenoscopy (EGD) Hx of colonoscopy History of tubal ligation H/O excision of dermoid cyst H/O excision of mass H/O lumpectomy Family History Father Hypertension Hyperlipidemia Diabetes mellitus Mother Hypertension Hyperlipidemia Cervical cancer Sister Breast cancer Hypertension Social History Household Members: Family Housing: House Are you a primary medicare contact specialist to a significant other at home: No Do you presently have visiting nurse or other home services: No (daughter SAND MIXER) Alcohol intake: never Comment: pt's daughter at the bedside Patient Tobacco Use Status: Never used Tobacco e-Cigarette/Vaping Use: Never Used Second Hand Smoke Exposure: No Advance Directives Date on File: 09/21/21 service: No Current occupational status: disabled Cognitive needs: Yes Hearing needs: No Vision needs: Yes Review of Systems Const Denies fatigue, Denies fever(s), Denies night sweats, Denies poor appetite and Denies weight loss Eyes Details: glasses Reports requires corrective lenses ENT Reports Normal hearing present, Denies dental pain, Denies dysphagia, Denies hearing loss, Denies mouth pain, Denies odynophagia, Denies throat swelling, Denies tongue swelling and Reports other (Dentition adequate) Card Reports no additional complaints Resp Reports no additional complaints GI Details: Bumps around the rectum Denies abdominal pain, Denies melena, Reports bloating, Denies hematochezia, Denies constipation, Denies GI cramping, Denies dysphagia, Denies excessive flatus, Denies early satiety, Reports heartburn, Denies diarrhea, Denies nausea, Denies odynophagia, Denies vomiting and Denies hematemesis Skin/Breast Denies pruritus, Denies lesions, Denies rash and Denies jaundice Neuro Reports Normal hearing present and Denies Abnormal speech present Endo Denies fatigue Aller/Immun Denies throat swelling and Denies tongue swelling Physical Exam Const General: cooperative, no acute distress, well developed and well groomed Nutritional Appearance: well nourished and obese Orientation/consciousness: oriented to person, oriented to place and oriented to time Limitations: language barrier HEENT Head: Yes normocephalic and Yes atraumatic Eyes General: appearance normal, both eyes and all related structures Pupils: Equal, round and reactive pupils present Neck Neck: Yes normal visual inspection and Yes no lymphadenopathy Thyroid: Thyroid normal Resp Effort & Inspection: normal respiratory effort and able to speak in complete sentences Auscultation: clear to auscultation bilaterally Cardio Rate: regular rate Rhythm: regular rhythm Heart sounds: Normal, physiologic split S2 sound present Peripheral pulses: radial pulses present and posterior tibial pulses present GI Inspection: No distended, Yes Abdominal panniculus present and Yes obesity Palpation (GI): Soft to palpation, nontender, no guarding, not rigid and No hepatosplenomegaly present Percussion: Yes normal to percussion Auscultation: normal bowel sounds Rectal Exam - Female: abnormal sphincter tone, External hemorrhoid(s) present, No Anal fissure(s) present, No Excoriation present (GI) and No tenderness Skin General skin exam: no rashes or lesions noted, turgor normal, skin not dry, no jaundice, No spider nevi and no striae Rashes: no rashes Nails: normal Neuro General: oriented to person, oriented to place and oriented to time Cranial nerves: Yes Equal, round and reactive pupils present and Yes Normal hearing present Speech: No Abnormal speech present Extrem General: Yes normal to inspection, No clubbing, No cyanosis and No edema Psych Appearance: grossly normal and well kempt Mental Status: mental status grossly normal Speech and movement: Normal speech and movement present Affect: normal affect Attitude: cooperative Thought process: Normal thought process present and not confabulating Thought content: Normal thought content present Insight: Limited insight present (Psych) Judgement: Limited judgement present (Psych) Assessment & Plan Assessment & Plan (1) GERD (gastroesophageal reflux disease): Code(s): K21.9 - Gastro-esophageal reflux disease without esophagitis Category: Medical Qualifiers: Esophagitis presence: esophagitis presence not specified Qualified Code(s): K21.9 - Gastro-esophageal reflux disease without esophagitis (2) External hemorrhoids: Code(s): K64.4 - Residual hemorrhoidal skin tags Category: Medical (3) Abdominal bloating: Code(s): R14.0 - Abdominal distension (gaseous) Category: Medical Plan [place] [facility] She continues to do well on her pantoprazole and simethicone. However, she is bothered by bumps around the anus and is worried that they are polyps. She just had a colonoscopy in 2022, so not polyps. Rectal exam reveals roid sacks mixon circular to the anus. Will rx proctosol cream. She has frequent soft daily BM's. Apparently she eats a lot of rice and pasta. She is probably having incomplete evacuation relative to her age and decreased motility of her colon. We discussed a possible trial of a mild laxative like senna to promote complete evacuation but she is fearful of this relates diarrhea. We also discussed adding a fiber supplement to bulk up the stools. She does not seem keen on either of these and for now would like to go forward just with the hemorrhoid cream. She has had no rectal bleeding and no severe pain. ROV 3 mos. Medications: New hydrocortisone 2.5% (Proctosol HC) BE SURE TO INCLUDE RECTAL APPICATOR!! 1 appl RI BID 30 grams 6RF hemorrhoids K64.9 - Unspecified hemorrhoids Refilled simethicone after meals 180 mg PO QID 30 days PRN 120 caps 6RF abdominal distention pantoprazole 40 mg PO BEDTIME 30 tabs 6RF pantoprazole 40 mg PO BEDTIME 30 tabs 6RF simethicone after meals 180 mg PO QID 30 days PRN 120 caps 6RF abdominal distention Coding Level of Care Code Est Pt Level 3 (34276) Diagnoses Gastroesophageal reflux disease, unspecified whether esophagitis present K21.9 Esophagitis presence: esophagitis presence not specified External hemorrhoids K64.4 Abdominal bloating R14.0
[2023-10-13 10:27] VITALS: BP 147/65; PULSE 52; BMI 31.4
== END 2023-10-13 10:53 | disposition home or self-care (01) ==
PROVIDERS: PCP Internal Medicine; Visit Provider Nurse Practitioner
DX: K21.9 Gastro-esophageal reflux disease without esophagitis (principal); K64.4 Residual hemorrhoidal skin tags; R14.0 Abdominal distension (gaseous)
CPT/HCPCS: 99213

== ENCOUNTER → 2023-10-13 10:07 | Outpatient (BNVA) | payer OTHER, SELFPAY | PROVIDERS: PCP Internal Medicine; Visit Provider Nurse Practitioner | DX: K21.9 Gastro-esophageal reflux disease without esophagitis (principal); K64.4 Residual hemorrhoidal skin tags; R14.0 Abdominal distension (gaseous) | CPT/HCPCS: 99212 ==

== ENCOUNTER 2023-11-20 10:40 | Outpatient (AMB) | payer OTHER, SELFPAY ==
[2023-11-20 11:03] VITALS: BP 130/62; PULSE 52; O2SAT 95; BMI 31.6
--- NOTE | 2023-11-20 11:03 | A.OFFVIS_ITS ---
Vital Signs 11/20/23 11:03 Height 5 ft 1 in Weight 167 lb BMI 31.6 BP 130/62 Blood Pressure Location Lt brachial Position Sitting Pulse 52 Pulse Source Pulse Oximeter Pulse Oximetry (%) 95 Oxygen Delivery Method Room Air Intake Visit Reasons: Asthma Intake Note: pt is here for follow up and breathing is well and cpap usage is well also System Validation Engineer Required: Yes System Validation Engineer Services: System Validation Engineer Present System Validation Engineer Name: Tabitha Allergies No Known Allergies [No Known Allergies*] Allergy (Verified 11/20/23 11:47) Medication List - Last Reconciled 11/20/23 by Ad Troare MD acetaminophen 500 mg PO Q6H PRN 30 days amlodipine 5 mg PO DAILY 90 days aspirin 81 mg PO DAILY 90 days calcium carbonate-vitamin D3 600 mg-10 mcg (400 unit) 1 tab PO BID 2 months exemestane 25 mg PO DAILY [hand held showerhead As directed] hydrocortisone 2.5% (Proctosol HC) 1 appl OH BID incontinence pad, liner, disp use 3 to 4 times a day as needed latanoprost 0.005% 1 drp ophthalmic-Right BEDTIME losartan 25 mg PO DAILY 90 days metoprolol tartrate 50 mg PO BID pantoprazole 40 mg PO BEDTIME simethicone 180 mg PO QID PRN 30 days Do you need a note to return to daycare/school/sports/work: No HPI HPI Asthma: Details: THIS 78 YEARS OLD, FILIPINO-SPEAKING FEMALE IS A CASE OF OBSTRUCTIVE SLEEP APNEA. SHE IS HERE FOR FOLLOW-UP AFTER 6 MONTHS. SHE USES CPAP REGULARLY EVERY NIGHT WITH A NASAL MASK, COMPLAINS OF MILD DISCOMFORT OVER THE NASAL BRIDGE AND SHE HAS TO LOSE IN THE STRAP. HOWEVER WHEN THE STRAP IS LOOSENED SHE HEARS SOME AIR LEAK. SHE HAS TRIED TO SLEEP WITHOUT THE CPAP AND SLEEPS WELL. BREATHING HAS BEEN GOOD AND SHE DOES NOT NEED TO USE ANY RESCUE INHALER. [facility] Medical History Breast cancer metastasized to bone Breast cancer metastasized to bone Abnormal mammogram of right breast Abnormal mammogram COVID-19 Bone metastases Memory loss Mild recurrent major depression Hand pain Obesity (BMI 30-39.9) Impaired glucose tolerance Upper back pain on right side Asthma Glaucoma HTN (hypertension) Osteoarthritis Osteoporosis Nocturnal hypoxemia TATIANA (obstructive sleep apnea) Surgical History S/P ORIF (open reduction internal fixation) fracture History of esophagogastroduodenoscopy (EGD) Hx of colonoscopy History of tubal ligation H/O excision of dermoid cyst H/O excision of mass H/O lumpectomy Family History Father Hypertension Hyperlipidemia Diabetes mellitus Mother Hypertension Hyperlipidemia Cervical cancer Sister Breast cancer Hypertension Social History Household Members: Family Housing: House Are you a primary health care manager to a significant other at home: No Do you presently have visiting nurse or other home services: No (daughter DYE FEEDER) Alcohol intake: never Comment: pt's daughter at the bedside Patient Tobacco Use Status: Never used Tobacco e-Cigarette/Vaping Use: Never Used Second Hand Smoke Exposure: No Advance Directives Date on File: 09/21/21 service: No Current occupational status: disabled Cognitive needs: Yes Hearing needs: No Vision needs: Yes Review of Systems Const All systems reviewed & are unremarkable except as noted in HPI and below Eyes Reports no additional complaints ENT Reports no additional complaints Card Reports no additional complaints Resp Reports as per HPI GI Reports heartburn (Controlled with the Protonix) Musc Reports no additional complaints Skin/Breast Reports system reviewed and no additional complaints, except as documented Neuro Reports no additional complaints Psych Reports depression (Mild, controlled) Endo Reports no additional complaints Edwin/Lymph Reports no additional complaints Physical Exam Vital Signs: Last Vital Signs Pulse 52 11/20/23 11:03 BP 130/62 11/20/23 11:03 Pulse Ox 95 11/20/23 11:03 Oxygen Delivery Method Room Air 11/20/23 11:03 BMI result Body Mass Index 31.6 Const General: comfortable, no acute distress, alert and awake Orientation/consciousness: patient oriented x3 HEENT Head: Yes normal to inspection General nose exam: No nasal polyps present and No nasal discharge present Face and sinus: Yes sinuses nontender Mouth: oropharynx normal Throat: Yes posterior oropharynx normal Eyes General: appearance normal, both eyes and all related structures Neck Neck: Yes normal visual inspection, Yes no lymphadenopathy, Yes trachea midline and Yes no JVD Thyroid: Thyroid normal Chest Chest palpation & inspection: normal inspection of the chest, normal palpation of entire chest wall and no tenderness Resp Other: PERCUSSION NOTE IS RESONANT, BREATH SOUNDS ARE EQUAL ON BOTH SIDES WITH GOOD AERATION. NO AUDIBLE WHEEZES RHONCHI OR CREPITATIONS. Cardio Palpation: normal PMI Rate: regular rate Rhythm: regular rhythm Heart sounds: no gallops and no murmurs Peripheral pulses: Peripheral pulses 2+ throughout GI Palpation (GI): Soft to palpation, nontender, No hepatosplenomegaly present and no masses Auscultation: normal bowel sounds Back/Spine/Pelvis Thoracic/Lumbar Spine: thoracic and lumbar spine normal to inspection Skin General skin exam: no rashes or lesions noted Neuro General: patient oriented x3 and no focal motor deficits Cranial nerves: Yes CN's II-XII intact bilaterally Extrem General: Yes normal to inspection, Yes no clubbing, cyanosis or edema and Yes no calf tenderness Psych Appearance: grossly normal and well kempt Speech and movement: Normal speech and movement present Results Reviewed Results Reviewed: COMPLIANCE REPORT IS REVIEWED SHE USED 25/30 NIGHTS, 83% OF THE NIGHTS. AVERAGE USAGE PER NIGHT 6 HOURS 52 MINUTES WHICH IS GOOD. PRESSURE USED IS 14-15 CM. THERE IS AIR LEAK MAXIMUM 68 L/MINUTE. RESIDUAL AHI IS 1.2 Assessment & Plan Assessment & Plan (1) Obesity (BMI 30-39.9): Comment: She remains moderately obese, but at least has not put on any extra weight, It remains stable. Code(s): E66.9 - Obesity, unspecified Category: Medical Plan: AGAIN ADVISED TO CUT DOWN THE INTAKE OF CALORIES/CARBOHYDRATES. SHE IS NOT ABLE TO DO MUCH WALKING OR EXERCISE. (2) TATIANA (obstructive sleep apnea): Comment: MILD TO MODERTAE , WELL TREATED WITH USE OF CPAP. COMPLIANCE IS GOOD .THERE IS SOME AIR LEAK ISSUE. SHE USES NASAL MASK WHICH BECOMES UNCOMFORTABLE IF SHE TIGHTEN THE STRAPS. SO THE LEAK ISSUE IS EXPECTED TO PERSIST. BUT HER SLEEP APNEA IS WELL TREATED WITH THE CURRENT SETTING. Code(s): G47.33 - Obstructive sleep apnea (adult) (pediatric) Category: Medical Plan: ADVISED TO CONTINUE USING CPAP EVERY NIGHT AT LEAST FOR 4 HOURS. IF ONCE OR TWICE A MONTH SHE WANTS TO TAKE A BREAK FROM USING THE CPAP THAT IS OKAY. (3) Asthma: Comment: VERY MILD ,WELL CONTROLLED AND REMAINS ASYMPTOMATIC . Code(s): J45.909 - Unspecified asthma, uncomplicated Category: Medical Plan: AT PRESENT SHE IS NOT REQUIRING TO USE THE RESCUE INHALER. BUT MAY USE ALBUTEROL HFA 2 PUFFS Q 6 HOURS P.R.N.. Coding Level of Care Code Est Pt Level 3 (16132) Diagnoses Obesity (BMI 30-39.9) E66.9 TATIANA (obstructive sleep apnea) G47.33 Asthma J45.909
== END 2023-11-20 11:17 | disposition home or self-care (01) ==
PROVIDERS: PCP Internal Medicine; Visit Provider Internal Medicine
DX: E66.9 Obesity, unspecified (principal); G47.33 Obstructive sleep apnea (adult) (pediatric); J45.909 Unspecified asthma, uncomplicated
CPT/HCPCS: 99213

== ENCOUNTER → 2023-11-20 10:40 | Outpatient (BNVA) | payer OTHER, SELFPAY | PROVIDERS: PCP Internal Medicine; Visit Provider Internal Medicine | DX: J45.909 Unspecified asthma, uncomplicated (principal); G47.33 Obstructive sleep apnea (adult) (pediatric); E66.9 Obesity, unspecified; Z68.31 Body mass index [BMI] 31.0-31.9, adult | CPT/HCPCS: 99212 ==

== ENCOUNTER 2023-11-30 09:07 | Outpatient (REF) | payer OTHER, SELFPAY ==
--- NOTE | ~2023-11-30 | XR_ITS ---
EXAMINATION: XR SKULL CLINICAL INFORMATION: HEADACHE, BREAST CANCER WITH BONE METS. COMPARISON: None available. TECHNIQUE: 5 views of the skull were obtained. FINDINGS: The paranasal sinuses are well-pneumatized and aerated. No air-fluid levels. No lytic or blastic lesions. The mastoid air cells are aerated. The bony calvarium is intact. Edentulous. XR/XR skull min 4V IMPRESSION: No lytic or blastic lesions. Electronically signed by: Thony Parnell MD 01/25/2024 08:39 AM EST
== END 2023-11-30 09:08 | disposition home or self-care (01) ==
LOC: HO.XRAY 09:07
PROVIDERS: PCP Internal Medicine; Visit Provider Internal Medicine Medical Oncology
DX: R51.9 Headache, unspecified (principal)
CPT/HCPCS: 70260

== ENCOUNTER → 2023-11-30 09:12 | Outpatient (BNV) | payer OTHER, SELFPAY | PROVIDERS: PCP Internal Medicine; Visit Provider Radiology Diagnostic Radiology | DX: R51.9 Headache, unspecified (principal) | CPT/HCPCS: 70260 ==

== ENCOUNTER 2023-12-01 09:05 | Emergency (ER) | payer OTHER, SELFPAY ==
--- NOTE | ~2023-12-01 | CT_ITS ---
EXAMINATION: CT HEAD WITH CONTRAST CLINICAL INFORMATION: Metastatic breast cancer. Headache. COMPARISON: CT head from 07/10/2022. TECHNIQUE: Contiguous axial imaging was performed from the skull base to vertex following the administration of 85 mL of Omnipaque [address] examination was performed using dose optimization techniques as appropriate, variously including the following: *Automated exposure control. *Adjustment of mA and/or kV according to patient size (this includes techniques or standardized protocols for targeted exams where dose is matched to indication/reason for exam; i.e. extremities or head). *Use of iterative reconstruction technique. DLP: 655 mGy-cm FINDINGS: There is no evidence of acute intracranial hemorrhage or edematous territorial infarction. Rizvi-white matter differentiation is preserved. A few foci of hypoattenuation in the periventricular and deep white matter are consistent with mild microangiopathy. The ventricles are normal in morphology and size. No evidence for obstructive hydrocephalus. No abnormal mass effect or midline shift. No extra-axial fluid collections. Mild heterogeneous enhancement of the pituitary gland, similar in morphology compared to exam from 2019. No additional demonstrated abnormal intracranial enhancement or regions of oligemia. No acute soft tissue or osseous abnormalities. Chronic 1.1 cm lesion in the left aspect of the frontal bone with sclerotic margins. Mild mucosal thickening of the paranasal sinuses. The mastoid air cells and middle ear cavities are clear. CT/CT head/brain w IV con IMPRESSION: 1. No evidence of acute intracranial hemorrhage or edematous territorial infarction. 2. Mild heterogeneous enhancement of the pituitary gland, similar in morphology and 2020. 3. Chronic lesion with sclerotic margins of the left lateral aspect of the frontal bone. 4. No additional demonstrated abnormal intracranial enhancement. 5. Mild underlying microangiopathy. Electronically signed by: Antony Jiang DO 12/01/2023 03:32 PM EDT
[2023-12-01 09:08] VITALS: BP 147/63; PULSE 56; RESP 16; TEMP 36.2; O2SAT 97; BMI 28.8
[2023-12-01] MEDS: Acetaminophen 325 MG TABLET 975 MG PO (11:36)
[2023-12-01 11:37] VITALS: BP 153/67; PULSE 54; RESP 18; TEMP 36.6; O2SAT 97
[2023-12-01 12:03] LABS: MANUAL DIFF FLAG NO
[2023-12-01 12:04] LABS: Basophils Absolute Auto 0.1 X10*3/uL (0.0-0.2); Basophils Percent Auto 0.7 % (0-2); Eosinophils Absolute Auto 0.3 X10*3/uL (0.0-0.4); Eosinophils Percent Auto 3.2 % (0-4); Hematocrit 39.1 % (37.0-47.0); Imm Gran Abs Auto 0.01 X10*3/uL (0.00-0.03); Imm Gran Pct Auto 0.1 % (0.0-0.4); Lymphocytes Absolute Auto 2.8 X10*3/uL (1.2-4.9); Lymphocytes Percent Auto 32.9 % (20-40); Mean Corpuscular HGB Conc 33.2 g/dl (31.0-35.0); Mean Corpuscular Hemoglobin 30.7 pg (27.0-33.0); Mean Corpuscular Volume 92.4 fL (80.0-98.0); Mean Platelet Volume 8.6 fL (9.4-12.3); Monocytes Absolute Auto 0.6 X10*3/uL (0.1-1.2); Monocytes Percent Auto 7.2 % (2-11); Neutrophils Absolute Auto 4.7 x10*3/uL (2.0-8.3); Neutrophils Percent Auto 55.9 % (45-73); Platelet Count 236 X10*3/uL (160-400); Red Blood Count 4.23 X10*6/uL (4.20-5.50); Red Cell Distribution Width 13.4 % (11.0-16.0); White Blood Count 8.4 X10*3/uL (4.8-10.8)
[2023-12-01 12:22] LABS: Anion Gap 9 (12-20); Blood Urea Nitrogen 15 mg/dL (9-16); Calcium 9.6 mg/dL (8.4-10.2); Carbon Dioxide 33 mmol/L (22-29); Chloride 105 mmol/L (96-108); Creatinine Clr Calc Pharmacy 49.6; Estimated Glomerular Filt Rate > 60; Glucose Random 101 mg/dL (60-115); Potassium 5.2 mmol/L (3.3-5.1); Sodium 142 mmol/L (135-145)
[2023-12-01] MEDS: iohexoL 350 MG/ML 100 ML INFUS..BTL IV (14:01)
[2023-12-01 14:19] VITALS: BP 163/86; PULSE 78; RESP 18; TEMP 36.8; O2SAT 95
--- NOTE | 2023-12-01 15:39 | ED_ITS ---
HPI - Headache General Chief Complaint: Headache Stated Complaint: Headache Time Seen by Provider: 12/01/23 10:17 Source: patient and family Mode of arrival: ambulatory Limitations: no limitations History of Present Illness ED Provider: Dr. 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 Patient states that her headache is right sided which is where her prior tumor was. She denies on focal neurologic issues. Related Data Home Medications ?Medication ?Instructions ?Recorded ?Confirmed latanoprost 0.005 % eye drops 1 drp ophthalmic-Right BEDTIME 09/16/21 11/20/23 Previous Rx's ?Medication ?Instructions ?Recorded hand held showerhead #1 ea 07/14/22 incontinence pad, liner, disp #120 ea 07/14/22 calcium carbonate 600 mg-vitamin 1 tab PO BID 2 months #120 tabs 12/31/22 D3 10 mcg (400 unit) tablet acetaminophen 500 mg tablet 500 mg PO Q6H PRN Pain 30 days 03/07/23 #120 tabs metoprolol tartrate 50 mg tablet 50 mg PO BID #180 tabs 04/05/23 aspirin 81 mg tablet,delayed 81 mg PO DAILY 90 days #90 tabs 09/04/23 release exemestane 25 mg tablet 25 mg PO DAILY #90 tabs 09/12/23 amlodipine 5 mg tablet 5 mg PO DAILY 90 days #90 tabs 10/05/23 losartan 25 mg tablet 25 mg PO DAILY 90 days #90 tabs 10/05/23 hydrocortisone 2.5 % topical cream 1 appl UT BID hemorrhoids #30 grams 10/13/23 with perineal applicator (Proctosol HC) simethicone 180 mg capsule 180 mg PO QID PRN abdominal 10/13/23 distention 30 days #120 caps pantoprazole 40 mg tablet,delayed 40 mg PO BEDTIME #30 tabs 11/21/23 release Allergies Allergy/AdvReac Type Severity Reaction Status Date / Time No Known Allergies Allergy Verified 12/01/23 09:10 [No Known Allergies*] Review of Systems 2 Review of Systems: Yes all other systems are reviewed and are negative Neurologic: Denies Sensory deficit (Neuro) PMFSH Past Medical History Medical History Breast cancer metastasized to bone Breast cancer metastasized to bone Abnormal mammogram of right breast Abnormal mammogram COVID-19 Bone metastases Memory loss Mild recurrent major depression Hand pain Obesity (BMI 30-39.9) Impaired glucose tolerance Upper back pain on right side Asthma Glaucoma HTN (hypertension) Osteoarthritis Osteoporosis Nocturnal hypoxemia TATIANA (obstructive sleep apnea) Surgical History S/P ORIF (open reduction internal fixation) fracture History of esophagogastroduodenoscopy (EGD) Hx of colonoscopy History of tubal ligation H/O excision of dermoid cyst H/O excision of mass H/O lumpectomy Family History Family History Father Hypertension Hyperlipidemia Diabetes mellitus Mother Hypertension Hyperlipidemia Cervical cancer Sister Breast cancer Hypertension Social History Social History Household Members: Family Housing: House Are you a primary critical care paramedic to a significant other at home: No Do you presently have visiting nurse or other home services: No (daughter CORRECTIONS SPECIALIST) Alcohol intake: never Comment: pt's daughter at the bedside Patient Tobacco Use Status: Never used Tobacco e-Cigarette/Vaping Use: Never Used Second Hand Smoke Exposure: No Advance Directives: Yes Advance Directives on File: Yes Advance Directives Date on File: 09/21/21 service: No Current occupational status: disabled Cognitive needs: Yes Hearing needs: No Vision needs: Yes Physical Exam 2 Vital Signs: Vital Signs: Last Vital Signs Temp 98.2 F 12/01/23 14:19 Pulse 78 12/01/23 14:19 Resp 18 12/01/23 14:19 BP 163/86 H 12/01/23 14:19 Pulse Ox 95 12/01/23 14:19 O2 Del Method Room Air 12/01/23 14:19 BMI result Body Mass Index 28.8 Const: General: healthy appearing Nutritional Appearance: average body habitus Orientation/consciousness: oriented to person and patient oriented x3 Limitations: no limitations HEENT: Head: Yes normal to inspection Ears: external ears normal General nose exam: Normal external nose present Mouth: Normal oral and palatal mucosa present and oropharynx normal Throat: Yes posterior oropharynx normal Eyes: General: appearance normal, both eyes and all related structures Neck: Other: supple Neck: Yes normal visual inspection Chest: Chest palpation & inspection: normal inspection of the chest Resp: Auscultation: clear to auscultation bilaterally Cardio: Jugular venous distension: no JVD Rate: regular rate Rhythm: r egular rhythm Heart sounds: S1 normal heart sound present and S2 normal heart sound present GI: Inspection: Yes normal to inspection Palpation (GI): Soft to palpation, nontender and No hepatosplenomegaly present Auscultation: normal bowel sounds : General: Yes no CVA tenderness Back/Spine/Pelvis: Back: no CVA tenderness Skin: General skin exam: no rashes or lesions noted Neuro: General: oriented to person and patient oriented x3 Cranial nerves: Yes CN's II-XII intact bilaterally Motor exam (neuro): 5/5 motor strength present throughout Sensory Exam: No Sensory deficit (Neuro) Extrem: General: Yes normal to inspection Psych: Appearance: grossly normal Course Reevaluation(s) Reevaluation #1: no evidence of metastatic brain lesion, patient feeling better will dc home Time: 15:42 Medications Administered Discontinued Medications Generic Name Dose Route Start Last Admin Trade Name Freq PRN Reason Stop Dose Admin Acetaminophen 975 mg 12/01/23 11:00 12/01/23 11:36 Acetaminophen 325 Mg Tablet PO 12/01/23 11:01 975 mg ONCE ONE Administration Iohexol 100 ml 12/01/23 14:01 12/01/23 14:01 Iohexol 350 Mg/Ml 100 Ml Infus..Btl IV 12/01/23 14:02 85 ml ONCE ONE Administration Medical Decision Making Differential Diagnosis Differential Diagnoses: The differential diagnosis associated with the presentation includes (metastatic breast cancer, brain tumor, cerebral bleed or edema) Admission/Observation Consideration of admission/observation: Escalation of care including admission/observation considered (Upon arrival patient was considered for admission) Consult Healthcare Provider Management of the patient was discussed with: Commercial Real Estate Underwriter (Dr. Dacosta) Lab Data 12/01/23 11:58 12/01/23 11:58 Labs: Lab Results 12/01/23 Range/Units 11:58 WBC 8.4 (4.8-10.8) X10*3/uL RBC 4.23 (4.20-5.50) X10*6/uL Hgb 13.0 (12.0-16.0) g/dl Hct 39.1 (37.0-47.0) % MCV 92.4 (80.0-98.0) fL MCH 30.7 (27.0-33.0) pg MCHC 33.2 (31.0-35.0) g/dl RDW 13.4 (11.0-16.0) % Plt Count 236 (160-400) X10*3/uL MPV 8.6 L (9.4-12.3) fL Immature Gran % (Auto) 0.1 (0.0-0.4) % Neut % (Auto) 55.9 (45-73) % Lymph % (Auto) 32.9 (20-40) % Valencia % (Auto) 7.2 (2-11) % Eos % (Auto) 3.2 (0-4) % Baso % (Auto) 0.7 (0-2) % Lymph # (Auto) 2.8 (1.2-4.9) X10*3/uL Valencia # (Auto) 0.6 (0.1-1.2) X10*3/uL Eos # (Auto) 0.3 (0.0-0.4) X10*3/uL Baso # (Auto) 0.1 (0.0-0.2) X10*3/uL Abs Immat Gran (auto) 0.01 (0.00-0.03) X10*3/uL Absolute Neuts (auto) 4.7 (2.0-8.3) x10*3/uL Absolute Nucleated RBC 0.000 (0.0-0.012) X10*3/uL Nucleated RBC % (auto) 0.0 (0.0-0.2) /100WBC Sodium 142 (135-145) mmol/L Potassium 5.2 H D (3.3-5.1) mmol/L Chloride 105 (96-108) mmol/L Carbon Dioxide 33 H (22-29) mmol/L Anion Gap 9 L (12-20) BUN 15 (9-16) mg/dL Creatinine 0.81 (0.5-1.4) mg/dL Estim Creat Clear Calc 49.6 Estimated GFR > 60 Random Glucose 101 (60-115) mg/dL Calcium 9.6 (8.4-10.2) mg/dL Independent Interpretation I performed an independent interpretation of an: CT Scan (brain: no mass, no shift, no blood) Radiology Impression Discussion of test interpretation with radiology: I have reviewed the radiologist's reading. Independent Historian Clinical information obtained from an independent historian. History obtained from or confirmed by: Other (family) External Record Review External record reviewed: Outpatient record Chronic Conditions Patient?s care impacted by: Cancer Discharge Plan Discharge Clinical Impression: Headache Patient Disposition: Home, Self-Care Instructions: General Headache (ED) Prescriptions: No Action (DME) hand held showerhead See Rx Instructions .Route .MEDSUPPLY Qty: 1 0RF Rx Instructions: As directed (DME) incontinence pad, liner, disp Pad See Rx Instructions .Route Qty: 120 6RF Rx Instructions: use 3 to 4 times a day as needed calcium carbonate-vitamin D3 600 mg-10 mcg (400 unit) tablet 1 tab PO BID 60 Days Qty: 120 6RF acetaminophen 500 mg tablet 500 mg PO Q6H PRN (Reason: Pain) 30 Days Qty: 120 3RF aspirin 81 mg tablet,delayed release (DR/EC) 81 mg PO DAILY 90 Days Qty: 90 3RF amlodipine 5 mg tablet 5 mg PO DAILY 90 Days Qty: 90 0RF losartan 25 mg tablet 25 mg PO DAILY 90 Days Qty: 90 1RF pantoprazole 40 mg tablet,delayed release (DR/EC) 40 mg PO BEDTIME Qty: 30 0RF exemestane 25 mg Tablet 25 mg PO DAILY Qty: 90 4RF Rx Instructions: must administer after a meal metoprolol tartrate 50 mg tablet 50 mg PO BID Qty: 180 3RF latanoprost 0.005 % drops 1 drp ophthalmic-Right BEDTIME hydrocortisone [Proctosol HC] 2.5 % cream with perineal applicator 1 appl UT BID Qty: 30 6RF Rx Instructions: BE SURE TO INCLUDE RECTAL APPICATOR!! simethicone 180 mg capsule 180 mg PO QID PRN (Reason: abdominal distention) 30 Days Qty: 120 6RF Rx Instructions: after meals Referrals: Magdalena Cleary MD [Primary Care Provider] - 5 days Print Language: Syriac
[2023-12-01 16:01] VITALS: BP 160/82; PULSE 78; RESP 18; TEMP 36.8; O2SAT 95
== END 2023-12-01 16:03 | disposition home or self-care (01) ==
PROVIDERS: Emergency Provider Emergency Medicine; PCP Internal Medicine
DX: R51.9 Headache, unspecified (principal); C50.919 Malignant neoplasm of unspecified site of unspecified female breast; C79.31 Secondary malignant neoplasm of brain; C78.7 Secondary malignant neoplasm of liver and intrahepatic bile duct; C79.51 Secondary malignant neoplasm of bone; C79.81 Secondary malignant neoplasm of breast; Z79.82 Long term (current) use of aspirin; Z79.899 Other long term (current) drug therapy
CPT/HCPCS: 36415; 70460; 80048; 85025; 99284; Q9967

== ENCOUNTER 2023-12-07 09:37 | Outpatient (AMB) | payer OTHER, SELFPAY ==
--- NOTE | 2023-12-07 09:44 | MHC.OFFWIV ---
Intake Vital Signs 12/07/23 09:47 Height 5 ft Weight 148 lb BMI 28.9 BP 160/78 H Blood Pressure Location Lt brachial Position Sitting Pulse 59 Pulse Source Pulse Oximeter Pulse Oximetry (%) 98 Oxygen Delivery Method Room Air Intake Visit Reasons: EP-palpitation, headaches, high blood pressure Intake Note: Patient here for headache that radiates down the left arm and has some chest pain which comes and goes Patient Tobacco Use Status: Never used Tobacco Allergies No Known Allergies [No Known Allergies*] Allergy (Verified 12/07/23 09:48) Do you need a note to return to daycare/school/sports/work: No HPI HPI Comments History of Present Illness Details Patient is a 78-year-old [place]-speaking female with past medical history of hypertension, GERD, breast cancer metastasized to bone and depression who comes accompanied by [place] speaking daughter complaining of continued right-sided headache and new onset this morning of chest pain and chest pressure which radiates to her back, left-sided jaw pain that radiates to her left arm. She tells me she had some sweating this morning but denies any nausea or vomiting. She denies any numbness, tingling or weakness in her left arm or her other extremities. She denies any shortness of breath or dizziness. Patient tells me she was evaluated in the [facility] emergency department 6 days ago for her headache, according to our records, her blood pressure was noted to be in the 160s and 170s systolic in the emergency department. While in the ED, she had a head CT which was negative for any acute issues. Her blood pressure was not lowered and she was not told to adjust any of her home medications. She tells me she has been taking her 5 mg of amlodipine daily, 25 mg of losartan daily and 50 mg of metoprolol twice daily. Also been taking her 40 mg of pantoprazole daily. She tells me it has been elevated since then (between 150-170s systolic) and she has now developed the chest pain and pressure radiating to her back, jaw pain and arm pain. She is on Aromasin for breast cancer Mets to bone and follow by Hematology-Oncology. JEFFREY Gooden is in the room interpreting/clarifying. [facility] Medical History Breast cancer metastasized to bone Breast cancer metastasized to bone Abnormal mammogram of right breast Abnormal mammogram COVID-19 Bone metastases Memory loss Mild recurrent major depression Hand pain Obesity (BMI 30-39.9) Impaired glucose tolerance Upper back pain on right side Asthma Glaucoma HTN (hypertension) Osteoarthritis Osteoporosis Nocturnal hypoxemia TATIANA (obstructive sleep apnea) Surgical History S/P ORIF (open reduction internal fixation) fracture History of esophagogastroduodenoscopy (EGD) Hx of colonoscopy History of tubal ligation H/O excision of dermoid cyst H/O excision of mass H/O lumpectomy Family History Father Hypertension Hyperlipidemia Diabetes mellitus Mother Hypertension Hyperlipidemia Cervical cancer Sister Breast cancer Hypertension Social History Household Members: Family Housing: House Are you a primary palliative care physician to a significant other at home: No Do you presently have visiting nurse or other home services: No (daughter MACHINE VENEER REPAIRER) Alcohol intake: never Comment: pt's daughter at the bedside Patient Tobacco Use Status: Never used Tobacco e-Cigarette/Vaping Use: Never Used Second Hand Smoke Exposure: No Advance Directives Date on File: 09/21/21 service: No Current occupational status: disabled Cognitive needs: Yes Hearing needs: No Vision needs: Yes Review of Systems Const All systems reviewed & are unremarkable except as noted in HPI and below Neuro Denies Abnormal speech present Physical Exam Vital Signs: Last Vital Signs Pulse 59 12/07/23 09:47 BP 160/78 H 12/07/23 09:47 Pulse Ox 98 12/07/23 09:47 Oxygen Delivery Method Room Air 12/07/23 09:47 BMI result Body Mass Index 28.9 Const General: cooperative, comfortable, no acute distress and well developed Nutritional Appearance: overweight Orientation/consciousness: patient oriented x3 Limitations: language barrier ([place]-speaking) and ambulation with cane HEENT Head: Yes normal to inspection Ears: hearing grossly normal bilaterally General nose exam: Normal external nose present Face and sinus: Yes normal facial exam Eyes General: appearance normal, both eyes and all related structures Neck Neck: Yes normal visual inspection and Yes full ROM Resp Effort & Inspection: normal respiratory effort and able to speak in complete sentences Auscultation: clear to auscultation bilaterally Cardio Rate: regular rate Rhythm: regular rhythm Heart sounds: normal S1 and S2 GI Inspection: Yes normal to inspection Palpation (GI): Soft to palpation and nontender Skin General skin exam: no rashes or lesions noted Neuro General: patient oriented x3 Cranial nerves: Yes CN's II-XII intact bilaterally Cognition (Neuro): normal cognition Speech: No Abnormal speech present Gait exam (Neuro): Normal gait present (with baseline walker) Motor exam (neuro): 5/5 motor strength present throughout Extrem General: Yes normal to inspection Office Procedures EKG Details: Sinus bradycardia with possible left atrial enlargement, nonspecific ST and T-wave abnormality. However my read does not show any acute ST or T-wave changes [id number], Complete Assessment & Plan Assessment & Plan (1) Chest pain: Code(s): R07.9 - Chest pain, unspecified Qualifiers: Chest pain type: unspecified Qualified Code(s): R07.9 - Chest pain, unspecified Plan: Blood pressure noted to be 160/78, EKG noted to be sinus bradycardia at 55BPM, nonspecific ST and T-wave abnormal. Physical exam unremarkable, cranial nerves intact, steady gait with her cane. Blood pressure being elevated consistently for at least the last week or 2 with no medication changes is likely contributing to her headache. With the new symptoms this morning of diaphoresis, left-sided jaw pain that radiates to her left shoulder and left arm, and chest pain and pressure which radiates to her back, I did recommend patient be transported via ambulance to a hospital. Patient's daughter prefers to drive her and did decline the ambulance, patient's daughter would like to bring her at [facility]. I called [facility] ED with expect. Plan See above Coding Level of Care Code Est Pt Level 5 (42847) Diagnoses Chest pain, unspecified type R07.9 Chest pain type: unspecified CPT Codes EKG - CPT: 08921-[id number], Complete ([id number])
[2023-12-07 09:47] VITALS: BP 160/78; PULSE 59; O2SAT 98; BMI 28.9
== END 2023-12-07 10:32 | disposition home or self-care (01) ==
PROVIDERS: PCP Internal Medicine; Visit Provider Physician Assistant
DX: R07.9 Chest pain, unspecified (principal)

== ENCOUNTER → 2023-12-07 09:37 | Outpatient (BNVA) | payer OTHER, SELFPAY | PROVIDERS: PCP Internal Medicine; Visit Provider Physician Assistant | DX: R07.9 Chest pain, unspecified (principal); R51.9 Headache, unspecified | CPT/HCPCS: 93005; 99212 ==

== ENCOUNTER 2023-12-07 10:37 | Emergency (ER) | payer OTHER, SELFPAY ==
--- NOTE | ~2023-12-07 | CT_ITS ---
EXAMINATION: CT HEAD WITHOUT CONTRAST CLINICAL INFORMATION: History of breast cancer. Headache. COMPARISON: December 01, 2023 TECHNIQUE: Contiguous axial imaging was performed from the skull base to vertex without intravenous administration of contrast. This CT examination was performed using dose optimization techniques as appropriate, variously including the following: *Automated exposure control *Adjustment of mA and/or kV according to patient size (this includes techniques or standardized protocols for targeted exams where dose is matched to indication/reason for exam; i.e. extremities or head) *Use of iterative reconstruction technique DLP: 652 mGy-cm FINDINGS: There is no evidence of acute intracranial hemorrhage or large edematous territorial infarction. No mass effect or midline shift is seen. Rizvi to white matter differentiation is preserved. No extra-axial fluid collections are identified. No hydrocephalus. No significant volume loss. The osseous structures and soft tissues are intact. The mastoid air cells are clear. There is mucosal thickening of the right maxillary sinus. CT/CT head/brain wo IV con IMPRESSION: No acute intracranial abnormality. Electronically signed by: Harley Yun MD 12/07/2023 04:18 PM EDT
--- NOTE | ~2023-12-07 | CT_ITS ---
EXAMINATION: CT ANGIOGRAM CHEST CLINICAL INFORMATION: 65 pulmonary emboli COMPARISON: CT PE STUDY 10/04/2016 TECHNIQUE: Multiple axial images were obtained through the chest after the administration of 65 mL of Omnipaque 350 intravenous contrast. A second bolus of 65 mL had to be injected due to insufficient opacification for a total of 130 mL. Extensive vascular post-processing including two-dimensional and three-dimensional reformatted images were created and reviewed on an independent workstation. This CT examination was performed using dose optimization techniques as appropriate, variously including the following: *Automated exposure control *Adjustment of mA and/or kV according to patient size (this includes techniques or standardized protocols for targeted exams where dose is matched to indication/reason for exam; i.e. extremities or head) *Use of iterative reconstruction technique DLP: 627 mGy-cm FINDINGS: QUALITY OF STUDY/CONTRAST BOLUS: Satisfactory. PULMONARY ARTERIES: No central or segmental pulmonary emboli. CORONARY ARTERY CALCIUM: None seen THORACIC AORTA: No aneurysm or dissection. LUNG: There is minimal emphysema and mild bronchial thickening. No focal consolidation, concerning nodules or masses. There is a small left lower lobe perifissural lymph node again (16:179 and a few punctate micronodules (for example left lower lobe 2 mm 16:238). PLEURA: No pleural effusion or pneumothorax. MEDIASTINUM: There is mild thyromegaly. There is an an aberrant right subcutaneous clavian artery. Mild cardiac enlargement. No pericardial effusion. No hilar or mediastinal lymphadenopathy. No evidence of septal bowing or right heart strain. CHEST WALL/AXILLA: No axillary or internal mammary lymphadenopathy. OSSEOUS STRUCTURES: No acute or suspicious osseous abnormality. VISUALIZED ABDOMEN: No significant findings in the upper abdomen. The adrenal glands are slightly nodular. CT/CT angio chest PE protocol IMPRESSION: 1. No evidence of pulmonary emboli. 2. Incidental note made of mild thyromegaly, aberrant right subclavian artery, mild cardiomegaly and minimal emphysema. 3. VTE: Negative. Fleischner guidelines were followed. Electronically signed by: Ricardo Carey MD 12/07/2023 04:26 PM EDT
--- NOTE | 2023-12-07 10:40 | ECG_ITS ---
Test Reason : CP Blood Pressure : / mmHG Vent. Rate : 051 BPM Atrial Rate : 051 BPM P-R Int : 176 ms QRS Dur : 088 ms QT Int : 402 ms P-R-T Axes : 052 045 032 degrees QTc Int : 370 ms Sinus bradycardia Nonspecific ST and T wave abnormality Abnormal ECG When compared with ECG of 10-JUL-2022 18:40, QT has shortened Referred By: Generic ED Physician Electronically Signed By:RICHIE URIARTE
[2023-12-07 11:17] VITALS: BP 149/66; PULSE 52; RESP 16; TEMP 36.5; O2SAT 97; BMI 28.8
--- NOTE | 2023-12-07 11:18 | ED_ITS ---
HPI - Headache General Chief Complaint: Chest Pain Stated Complaint: headache-cp Time Seen by Provider: 12/07/23 12:18 Source: patient Mode of arrival: ambulatory Limitations: no limitations History of Present Illness ED Provider: Venu Serrano PA-C HPI Narrative: 78-year-old female with history of breast cancer Mets the bone, GERD, Depression, osteoartritis, presents to the ED for left-sided chest pain with shortness of breath, left sided neck pain, chronic back papin, also with headache. Patient denies any recent long travel or recent surgery. Patient denies any history of blood clots or pleurisy. Patient denies any leg swelling or calf pain. Patient sent from urgent care for evaluation Related Data Home Medications ?Medication ?Instructions ?Recorded ?Confirmed latanoprost 0.005 % eye drops 1 drp ophthalmic-Right BEDTIME 09/16/21 11/20/23 Previous Rx's ?Medication ?Instructions ?Recorded hand held showerhead #1 ea 07/14/22 incontinence pad, liner, disp #120 ea 07/14/22 calcium carbonate 600 mg-vitamin 1 tab PO BID 2 months #120 tabs 12/31/22 D3 10 mcg (400 unit) tablet acetaminophen 500 mg tablet 500 mg PO Q6H PRN Pain 30 days 03/07/23 #120 tabs metoprolol tartrate 50 mg tablet 50 mg PO BID #180 tabs 04/05/23 aspirin 81 mg tablet,delayed 81 mg PO DAILY 90 days #90 tabs 09/04/23 release exemestane 25 mg tablet 25 mg PO DAILY #90 tabs 09/12/23 amlodipine 5 mg tablet 5 mg PO DAILY 90 days #90 tabs 10/05/23 losartan 25 mg tablet 25 mg PO DAILY 90 days #90 tabs 10/05/23 hydrocortisone 2.5 % topical cream 1 appl LA BID hemorrhoids #30 grams 10/13/23 with perineal applicator (Proctosol HC) simethicone 180 mg capsule 180 mg PO QID PRN abdominal 10/13/23 distention 30 days #120 caps pantoprazole 40 mg tablet,delayed 40 mg PO BEDTIME #30 tabs 11/21/23 release Allergies Allergy/AdvReac Type Severity Reaction Status Date / Time No Known Allergies Allergy Verified 12/07/23 11:35 [No Known Allergies*] Review of Systems 2 Review of Systems: Chest pain and headache Yes all other systems are reviewed and are negative [facility] Past Medical History Medical History Breast cancer metastasized to bone Breast cancer metastasized to bone Abnormal mammogram of right breast Abnormal mammogram COVID-19 Bone metastases Memory loss Mild recurrent major depression Hand pain Obesity (BMI 30-39.9) Impaired glucose tolerance Upper back pain on right side Asthma Glaucoma HTN (hypertension) Osteoarthritis Osteoporosis Nocturnal hypoxemia TATIANA (obstructive sleep apnea) Surgical History S/P ORIF (open reduction internal fixation) fracture History of esophagogastroduodenoscopy (EGD) Hx of colonoscopy History of tubal ligation H/O excision of dermoid cyst H/O excision of mass H/O lumpectomy Family History Family History Father Hypertension Hyperlipidemia Diabetes mellitus Mother Hypertension Hyperlipidemia Cervical cancer Sister Breast cancer Hypertension Social History Social History Household Members: Family Housing: House Are you a primary physician locums urgent care to a significant other at home: No Do you presently have visiting nurse or other home services: No (daughter PRINCIPAL CLERK TYPIST) Alcohol intake: never Comment: pt's daughter at the bedside Patient Tobacco Use Status: Never used Tobacco Smoked in Last 30 Days: No e-Cigarette/Vaping Use: Never Used Second Hand Smoke Exposure: No Use of substances other than those prescribed or required for medical reasons: No Advance Directives: Yes Advance Directives on File: Yes Advance Directives Date on File: 09/21/21 Do you have a plan to hurt others: No Plan service: No Current occupational status: disabled Cognitive needs: Yes Hearing needs: No Vision needs: Yes Physical Exam 2 Vital Signs: Vital Signs: Last Vital Signs Temp 98.5 F 12/07/23 17:23 Pulse 65 12/07/23 17:23 Resp 18 12/07/23 17:23 BP 151/61 H 12/07/23 17:23 Pulse Ox 98 12/07/23 17:23 O2 Del Method Room Air 12/07/23 17:23 BMI result Body Mass Index 28.8 Const: General: cooperative, healthy appearing, comfortable, no acute distress, well developed, alert, awake and Physically active O rientation/consciousness: patient oriented x3 HEENT: Head: Yes normal to inspection, Yes No palpable skull fracture present, Yes normocephalic, Yes atraumatic and No abrasion Eyes: General: appearance normal, both eyes and all related structures Neck: Neck: Yes normal visual inspection, Yes full ROM, Yes no lymphadenopathy, Yes no meningeal signs, Yes trachea midline, Yes supple, No anterior neck swelling and No tender Chest: Chest palpation & inspection: normal inspection of the chest and normal palpation of entire chest wall Resp: Effort & Inspection: normal respiratory effort and able to speak in complete sentences Auscultation: clear to auscultation bilaterally Cardio: Jugular venous distension: no JVD Heart sounds: S1 normal heart sound present and S2 normal heart sound present GI: Inspection: Yes normal to inspection Palpation (GI): Soft to palpation, not firm, nontender, no guarding and not rigid : General: Yes no CVA tenderness Back/Spine/Pelvis: Back: no CVA tenderness and No back tenderness Skin: General skin exam: no rashes or lesions noted, elasticity normal and turgor normal Neuro: General: patient oriented x3, gait normal, tone normal, moves all extremities, Normal light touch and pain sensation, no meningeal signs, no focal motor deficits, CN's II-XI intact bilaterally and normal sensation to monofilament Extrem: Other: Bilateral lower extremity negative for swelling, pitting edema, or calf tenderness. General: Yes normal to inspection, Yes full ROM and Yes capillary refill normal Psych: Appearance: grossly normal, well kempt and not disheveled Course Course Course Narrative: This is a Rapid Medical Examination (RME) performed by Lakhwinder Uribe PA-C in triage. Full HPI, ROS, assessment and treatment plan per primary provider in the Main ED. 78 yo Citizen Of [place] speaking female with history of metastatic breast cancer (mets to brain, bone and liver) who presents to the ER from the Urgent Care clinic for evaluation of left sided neck pain that radiates down into her chest that started yesterday. she reports chest pressure and SOB. The pain also radiates to her back. Plan: labs, EKG, imaging per primary provider - will likely need CT scans w/ contrast Medications Administered Discontinued Medications Generic Name Dose Route Start Last Admin Trade Name Freq PRN Reason Stop Dose Admin Sodium Chloride 1,000 mls @ 999 mls/hr 12/07/23 15:02 12/07/23 16:22 Ns IV 12/07/23 16:02 Infused .Q1H1M STA Infusion Iohexol 130 ml 12/07/23 14:57 12/07/23 14:58 Iohexol 350 Mg/Ml 75 Ml Infus..Btl IV 12/07/23 14:58 130 ml ONCE ONE Administration Medical Decision Making Medical Decision Making [facility] Narrative: History of breast cancer metastasized to the bone presents to the ED for left- sided chest pain, and headache, shortness of breath. Patient denies any recent trauma or pleurisy. Patient denies any leg swelling, calf pain or coughing up blood. Patient is not toxic appearing. Initial troponin and BNP negative. Was sent for brain CT. Not suspecting Aortic dissection. 5:07pm: Patient has 2 troponins negative. Patient is sleeping comfortably in the bed and not in any distress. Head CT negative for any brain mass. Chest CTA negative for any PE or dissection. NIH score is 0. NOt suspecting any carotid dissection, vertebral dissection, or carotid stenosis. Patient and family explained worrisome signs and informed to follow up with primary care provider and oncologist. Not Suspecting pneumothorax or hemothorax. Not suspecting myocarditis or pericarditis Differential Diagnosis Differential Diagnoses: The differential diagnosis associated with the presentation includes (PE, MO, CHF, pneumonia) Admission/Observation Consideration of admission/observation: Escalation of care including admission/observation considered Lab Data [facility] Lab Attestation statement: I reviewed the patient's lab results. 12/07/23 11:44 12/07/23 11:44 Labs: Lab Results 12/07/23 12/07/23 Range/Units 11:44 15:19 WBC 7.6 (4.8-10.8) X10*3/uL RBC 4.46 (4.20-5.50) X10*6/uL Hgb 13.7 (12.0-16.0) g/dl Hct 41.7 (37.0-47.0) % MCV 93.5 (80.0-98.0) fL MCH 30.7 (27.0-33.0) pg MCHC 32.9 (31.0-35.0) g/dl RDW 13.3 (11.0-16.0) % Plt Count 269 (160-400) X10*3/uL MPV 8.7 L (9.4-12.3) fL Immature Gran % (Auto) 0.1 (0.0-0.4) % Neut % (Auto) 55.0 (45-73) % Lymph % (Auto) 33.7 (20-40) % Andrews % (Auto) 6.2 (2-11) % Eos % (Auto) 4.3 H (0-4) % Baso % (Auto) 0.7 (0-2) % Lymph # (Auto) 2.6 (1.2-4.9) X10*3/uL Andrews # (Auto) 0.5 (0.1-1.2) X10*3/uL Eos # (Auto) 0.3 (0.0-0.4) X10*3/uL Baso # (Auto) 0.1 (0.0-0.2) X10*3/uL Abs Immat Gran (auto) 0.01 (0.00-0.03) X10*3/uL Absolute Neuts (auto) 4.2 (2.0-8.3) x10*3/uL Absolute Nucleated RBC 0.000 (0.0-0.012) X10*3/uL Nucleated RBC % (auto) 0.0 (0.0-0.2) /100WBC PT 11.9 (10.9-12.4) SEC INR 1.0 (0.9-1.1) APTT 32.3 (26.0-36.8) SEC Sodium 142 (135-145) mmol/L Potassium 4.3 (3.3-5.1) mmol/L Chloride 106 (96-108) mmol/L Carbon Dioxide 31 H (22-29) mmol/L Anion Gap 9 L (12-20) BUN 19 H (9-16) mg/dL Creatinine 0.91 (0.5-1.4) mg/dL Estim Creat Clear Calc 44.2 Estimated GFR 60 Random Glucose 128 H (60-115) mg/dL Calcium 9.5 (8.4-10.2) mg/dL Magnesium 2.1 (1.6-2.6) mg/dL Total Bilirubin 0.4 (0.0-1.0) mg/dL Direct Bilirubin 0.1 (0.0-0.5) mg/dL AST 25 (5-31) U/L ALT 34 H (0-31) U/L Alkaline Phosphatase 60 (39-117) U/L Troponin I High Sens 5.1 D 4.9 (<3.5-17.0) ng/L B-Natriuretic Peptide 47 (<100) pg/mL Total Protein 7.4 (6.5-8.0) g/dL Albumin 4.1 (3.5-5.0) g/dL Independent Interpretation I performed an independent interpretation of an: EKG (Sinus bradycardia) Radiology Impression Discussion of test interpretation with radiology: I have reviewed the radiologist's reading. Independent Historian Clinical information obtained from an independent historian. History obtained from or confirmed by: Other (Patient) External Record Review External record reviewed: Other (Prior visits) Discharge Plan Discharge Clinical Impression: Chest pain Patient Disposition: Home, Self-Care Instructions: Chest Pain (ED) Additional Instructions: You will need follow-up with your oncologist and primary care provider. Return to ED for any coughing up blood, leg swelling, pitting edema, chest pain/shortness of breath on inspiration, fever, chills, slurred speech, facial droop, paralysis of extremities, loss of vision, severe headache, neck pain, or any other concerning symptoms. CT/CT angio chest PE protocol IMPRESSION: 1. No evidence of pulmonary emboli. 2. Incidental note made of mild thyromegaly, aberrant right subclavian artery, mild cardiomegaly and minimal emphysema. 3. VTE: Negative. Fleischner guidelines were followed. Electronically signed by: Ricardo Carey MD 12/07/2023 04:26 PM EDT RP Prescriptions: No Action (DME) hand held showerhead See Rx Instructions .Route .MEDSUPPLY Qty: 1 0RF Rx Instructions: As directed (DME) incontinence pad, liner, disp Pad See Rx Instructions .Route Qty: 120 6RF Rx Instructions: use 3 to 4 times a day as needed calcium carbonate-vitamin D3 600 mg-10 mcg (400 unit) tablet 1 tab PO BID 60 Days Qty: 120 6RF acetaminophen 500 mg tablet 500 mg PO Q6H PRN (Reason: Pain) 30 Days Qty: 120 3RF aspirin 81 mg tablet,delayed release (DR/EC) 81 mg PO DAILY 90 Days Qty: 90 3RF amlodipine 5 mg tablet 5 mg PO DAILY 90 Days Qty: 90 0RF losartan 25 mg tablet 25 mg PO DAILY 90 Days Qty: 90 1RF pantoprazole 40 mg tablet,delayed release (DR/EC) 40 mg PO BEDTIME Qty: 30 0RF exemestane 25 mg Tablet 25 mg PO DAILY Qty: 90 4RF Rx Instructions: must administer after a meal metoprolol tartrate 50 mg tablet 50 mg PO BID Qty: 180 3RF latanoprost 0.005 % drops 1 drp ophthalmic-Right BEDTIME hydrocortisone [Proctosol HC] 2.5 % cream with perineal applicator 1 appl LA BID Qty: 30 6RF Rx Instructions: BE SURE TO INCLUDE RECTAL APPICATOR!! simethicone 180 mg capsule 180 mg PO QID PRN (Reason: abdominal distention) 30 Days Qty: 120 6RF Rx Instructions: after meals Interventions: ED Discharge Assessment Last Done: 12/07/23 17:23 Discharge Date/Time: 12/07/23 17:30 Print Language: Citizen Of [place]
[2023-12-07 11:53] LABS: Basophils Absolute Auto 0.1 X10*3/uL (0.0-0.2); Basophils Percent Auto 0.7 % (0-2); Eosinophils Absolute Auto 0.3 X10*3/uL (0.0-0.4); Eosinophils Percent Auto 4.3 % (0-4); Hematocrit 41.7 % (37.0-47.0); Hemoglobin 13.7 g/dl (12.0-16.0); Imm Gran Abs Auto 0.01 X10*3/uL (0.00-0.03); Imm Gran Pct Auto 0.1 % (0.0-0.4); Lymphocytes Absolute Auto 2.6 X10*3/uL (1.2-4.9); Lymphocytes Percent Auto 33.7 % (20-40); MANUAL DIFF FLAG NO; Mean Corpuscular HGB Conc 32.9 g/dl (31.0-35.0); Mean Corpuscular Hemoglobin 30.7 pg (27.0-33.0); Mean Corpuscular Volume 93.5 fL (80.0-98.0); Mean Platelet Volume 8.7 fL (9.4-12.3); Monocytes Absolute Auto 0.5 X10*3/uL (0.1-1.2); Monocytes Percent Auto 6.2 % (2-11); Neutrophils Absolute Auto 4.2 x10*3/uL (2.0-8.3); Platelet Count 269 X10*3/uL (160-400); Red Blood Count 4.46 X10*6/uL (4.20-5.50); Red Cell Distribution Width 13.3 % (11.0-16.0); White Blood Count 7.6 X10*3/uL (4.8-10.8)
[2023-12-07 11:58] LABS: Prothrombin Time 11.9 SEC (10.9-12.4)
[2023-12-07 12:01] LABS: Partial Thromboplastin Time 32.3 SEC (26.0-36.8)
[2023-12-07 12:07] LABS: Alanine Aminotransferase 34 U/L (0-31); Albumin Level 4.1 g/dL (3.5-5.0); Alkaline Phosphatase 60 U/L (39-117); Anion Gap 9 (12-20); Aspartate Amino Transferase 25 U/L (5-31); Bilirubin Direct 0.1 mg/dL (0.0-0.5); Bilirubin Total 0.4 mg/dL (0.0-1.0); Blood Urea Nitrogen 19 mg/dL (9-16); Calcium 9.5 mg/dL (8.4-10.2); Carbon Dioxide 31 mmol/L (22-29); Chloride 106 mmol/L (96-108); Creatinine Clr Calc Pharmacy 44.2; Estimated Glomerular Filt Rate 60; Glucose Random 128 mg/dL (60-115); Magnesium 2.1 mg/dL (1.6-2.6); Potassium 4.3 mmol/L (3.3-5.1); Sodium 142 mmol/L (135-145); Total Protein 7.4 g/dL (6.5-8.0)
[2023-12-07 12:12] LABS: B Type Natriuretic Peptide 47 pg/mL (<100)
[2023-12-07 12:14] LABS: Troponin-I High Sensitivity 5.1 ng/L (<3.5-17.0)
--- NOTE | 2023-12-07 13:33 | PC.NURSE ---
geronimo from home via external triage, arrives with MEDIA LIBRARIAN, states she has a hx of cancer, and has been seen recently in our ED as well as at the clinic for left sided headache that radiates down her left side of her neck and today came in because the pain radiated to her chest. patient states pain is reproducible to palpation, denies dizziness or blurred vision, states she has gotten these headaches in the past, power press supervisor used for patient, speech is clear and appropriate, Neuros intact and PERRLA. patient denies other symptoms or sick contacts. 18g PIV placed by this RN in LAC. patient remains on monitoring analyst at this time. VS WNL, plan of care remains ongoing
[2023-12-07] MEDS: iohexoL 350 MG/ML 75 ML INFUS..BTL 130 ML IV (14:58)
[2023-12-07] MEDS: 0.9 % Sodium Chloride 1,000 ML 999 ML IV (15:21)
[2023-12-07 15:45] LABS: Troponin-I High Sensitivity 4.9 ng/L (<3.5-17.0)
[2023-12-07 17:00] VITALS: BP 154/60; PULSE 56; RESP 16; TEMP 36.6; O2SAT 96
[2023-12-07 17:23] VITALS: BP 151/61; PULSE 65; RESP 18; TEMP 36.9; O2SAT 98
== END 2023-12-07 17:30 | disposition home or self-care (01) ==
PROVIDERS: Physician Assistant; Emergency Provider Emergency Medicine; PCP Internal Medicine
DX: R07.89 Other chest pain (principal); R51.9 Headache, unspecified; R06.02 Shortness of breath; M54.2 Cervicalgia; R11.2 Nausea with vomiting, unspecified; Z79.899 Other long term (current) drug therapy
CPT/HCPCS: 36415; 70450; 71275; 80048; 80076; 83735; 83880; 84484; 85025; 85610; 85730; 93005; 96360; 99285; Q9967

== ENCOUNTER → 2023-12-07 10:40 | Outpatient (BNV) | payer OTHER, SELFPAY | PROVIDERS: Emergency Provider Emergency Medicine; PCP Internal Medicine; Visit Provider Internal Medicine | DX: R00.1 Bradycardia, unspecified (principal) | CPT/HCPCS: 93010 ==

== ENCOUNTER 2023-12-09 05:08 | Emergency (ER) | payer OTHER, SELFPAY ==
--- NOTE | 2023-12-09 | ECG_ITS ---
Test Reason : SOB Blood Pressure : / mmHG Vent. Rate : 047 BPM Atrial Rate : 047 BPM P-R Int : 170 ms QRS Dur : 088 ms QT Int : 446 ms P-R-T Axes : 045 046 036 degrees QTc Int : 394 ms Sinus bradycardia Nonspecific ST and T wave abnormality Abnormal ECG When compared with ECG of 07-DEC-2023 10:38, No significant change was found Referred By: Generic ED Physician Electronically Signed By:RICHIE URIARTE
--- NOTE | ~2023-12-09 | CT_ITS ---
EXAMINATION: CT HEAD WITHOUT CONTRAST CLINICAL INFORMATION: Headache, high blood pressure. COMPARISON: CT head 12/07/2023. TECHNIQUE: Contiguous axial imaging was performed from the skull base to vertex without intravenous administration of contrast. This CT examination was performed using dose optimization techniques as appropriate, variously including the following: *Automated exposure control *Adjustment of mA and/or kV according to patient size (this includes techniques or standardized protocols for targeted exams where dose is matched to indication/reason for exam; i.e. extremities or head) *Use of iterative reconstruction technique DLP: 602 mGy-cm FINDINGS: There is no evidence of acute intracranial hemorrhage or edematous territorial infarction. A few foci of hypoattenuation in the periventricular and deep white matter are consistent with mild microangiopathy. Rizvi-white matter differentiation is preserved. Proportional prominence of the ventricles and sulcal spaces. No evidence for obstructive hydrocephalus. No abnormal mass effect or midline shift. No extra-axial fluid collections. No acute soft tissue or osseous abnormalities. Mild mucosal thickening of the right maxillary sinus. Small amount of inspissated mucous secretions in the left sphenoidal sinus. Partial opacification of left anterior ethmoid air cells. Otherwise paranasal sinuses, mastoids and middle ear cavities are clear. CT/CT head/brain wo IV con IMPRESSION: No evidence of acute intracranial hemorrhage or edematous territorial infarction. Electronically signed by: Keri Kaye MD 12/09/2023 10:23 AM EDT
[2023-12-09 05:22] VITALS: BP 128/66; PULSE 50; RESP 16; TEMP 37; O2SAT 99; BMI 32.0
[2023-12-09 05:54] LABS: Basophils Absolute Auto 0.1 X10*3/uL (0.0-0.2); Basophils Percent Auto 0.9 % (0-2); Eosinophils Absolute Auto 0.3 X10*3/uL (0.0-0.4); Hematocrit 41.9 % (37.0-47.0); Hemoglobin 14.1 g/dl (12.0-16.0); Imm Gran Abs Auto 0.02 X10*3/uL (0.00-0.03); Imm Gran Pct Auto 0.3 % (0.0-0.4); Lymphocytes Absolute Auto 2.8 X10*3/uL (1.2-4.9); Lymphocytes Percent Auto 35.5 % (20-40); MANUAL DIFF FLAG NO; Mean Corpuscular HGB Conc 33.7 g/dl (31.0-35.0); Mean Corpuscular Volume 92.1 fL (80.0-98.0); Mean Platelet Volume 8.4 fL (9.4-12.3); Monocytes Absolute Auto 0.5 X10*3/uL (0.1-1.2); Monocytes Percent Auto 5.8 % (2-11); Neutrophils Absolute Auto 4.2 x10*3/uL (2.0-8.3); Neutrophils Percent Auto 53.5 % (45-73); Platelet Count 276 X10*3/uL (160-400); Red Blood Count 4.55 X10*6/uL (4.20-5.50); Red Cell Distribution Width 13.4 % (11.0-16.0); White Blood Count 7.8 X10*3/uL (4.8-10.8)
[2023-12-09 06:06] LABS: Anion Gap 12 (12-20); Blood Urea Nitrogen 14 mg/dL (9-16); Calcium 9.9 mg/dL (8.4-10.2); Carbon Dioxide 29 mmol/L (22-29); Chloride 106 mmol/L (96-108); Creatinine Clr Calc Pharmacy 45.6; Estimated Glomerular Filt Rate 58; Glucose Random 140 mg/dL (60-115); Potassium 5.2 mmol/L (3.3-5.1); Sodium 142 mmol/L (135-145)
[2023-12-09 06:30] LABS: Influenza A PCR NEGATIVE (Negative); Influenza B PCR NEGATIVE (Negative); Resp Syncy Virus RNA Qual PCR NEGATIVE (Negative); SARS COV2 PCR INHOUSE NEGATIVE (Negative)
[2023-12-09 07:44] LABS: Appearance Urine Clear; Color Urine Dark Yellow; Glucose Urine UA Negative (Negative); Leukocyte Esterase Urine Moderate (2+) (Negative); Nitrite Urine Negative (Negative); PH 6.5 (5.0-9.0); Specific Gravity - Urine 1.025 (1.005-1.025); UMIC TRIGGER UACC YES; Urine Blood Negative (Negative); Urine Ketones Trace mg/dL (Negative); Urine Protein 300 (3+) mg/dL (Neg-Trace)
[2023-12-09 07:48] LABS: Bacteria Urine None Seen (None Seen); Hyaline Casts Urine 0-2 /LPF (0-2); RBC Urine 0-2 /HPF (0-2); UACC Culture Trigger YES
--- NOTE | 2023-12-09 08:01 | ED.GENADULT ---
HPI - General Adult General Chief complaint: General Medical Stated complaint: left side face pain/feels agitated Time Seen by Provider: 12/09/23 07:36 Source: patient, family ( daughter) and paraffin plant operator Mode of arrival: ambulatory Limitations: no limitations History of Present Illness ED Provider: DR. Rai HPI narrative: 78-year-old female history breast cancer, GERD, depression, osteoarthritis, essential hypertension patient is taking losartan, metoprolol, and amlodipine for her blood pressure, as per daughter patient recently seen and evaluated by her PCP and her blood pressure medication was increased since yesterday, family is concerned because her blood pressure fluctuate yesterday was in 180's, in the emergency department patient has a normal blood pressure, patient is been complaining of intermittent frontal headache, left-sided neck pain and chest pain. Patient had 2 recent ED visits for similar symptoms. Patient has no neurological symptoms, no blurry vision, no weakness, no numbness. Related Data Home Medications ?Medication ?Instructions ?Recorded ?Confirmed latanoprost 0.005 % eye drops 1 drp ophthalmic-Right BEDTIME 09/16/21 11/20/23 Previous Rx's ?Medication ?Instructions ?Recorded hand held showerhead #1 ea 07/14/22 incontinence pad, liner, disp #120 ea 07/14/22 calcium carbonate 600 mg-vitamin 1 tab PO BID 2 months #120 tabs 12/31/22 D3 10 mcg (400 unit) tablet acetaminophen 500 mg tablet 500 mg PO Q6H PRN Pain 30 days 03/07/23 #120 tabs metoprolol tartrate 50 mg tablet 50 mg PO BID #180 tabs 04/05/23 aspirin 81 mg tablet,delayed 81 mg PO DAILY 90 days #90 tabs 09/04/23 release exemestane 25 mg tablet 25 mg PO DAILY #90 tabs 09/12/23 losartan 25 mg tablet 25 mg PO DAILY 90 days #90 tabs 10/05/23 hydrocortisone 2.5 % topical cream 1 appl MS BID hemorrhoids #30 grams 10/13/23 with perineal applicator (Proctosol HC) simethicone 180 mg capsule 180 mg PO QID PRN abdominal 10/13/23 distention 30 days #120 caps pantoprazole 40 mg tablet,delayed 40 mg PO BEDTIME #30 tabs 11/21/23 release amlodipine 10 mg tablet 10 mg PO DAILY 90 days #90 tabs 12/08/23 cefuroxime axetil 500 mg tablet 500 mg PO BID #14 tabs 12/09/23 Allergies Allergy/AdvReac Type Severity Reaction Status Date / Time No Known Allergies Allergy Verified 12/09/23 05:30 [No Known Allergies*] Review of Systems Review of Systems: All other systems are reviewed and are negative Constitutional: Reports as per HPI and Reports no additional constitutional complaints Eyes: Reports as per HPI and Reports no additional eye complaints Reports system reviewed and no additional complaints, except as documented Cardiovascular: Reports as per HPI and Reports no additional cardiovascular complaints Respiratory: Reports as per HPI and Reports no additional respiratory complaints Gastrointestinal: Reports as per HPI and Reports no additional gastrointestinal complaints Genitourinary: Reports no additional female genitourinary complaints Musculoskeletal: Reports no additional musculoskeletal complaints Skin/Breast: Reports system reviewed and no additional complaints, except as docu Psychiatric: Reports no additional psychiatric complaints Endocrine: Reports no additional endocrine complaints Hematologic/Lymphatic: Reports no additional hematologic/lymphatic complaints Allergic/Immunologic: Reports no additional allergic/immunologic complaints Reports system reviewed and no additional complaints, except as documented and Reports Abnormal speech present [facility] Past Medical History Medical History Breast cancer metastasized to bone Breast cancer metastasized to bone Abnormal mammogram of right breast Abnormal mammogram COVID-19 Bone metastases Memory loss Mild recurrent major depression Hand pain Obesity (BMI 30-39.9) Impaired glucose tolerance Upper back pain on right side Asthma Glaucoma HTN (hypertension) Osteoarthritis Osteoporosis Nocturnal hypoxemia TATIANA (obstructive sleep apnea) Surgical History S/P ORIF (open reduction internal fixation) fracture History of esophagogastroduodenoscopy (EGD) Hx of colonoscopy History of tubal ligation H/O excision of dermoid cyst H/O excision of mass H/O lumpectomy Family History Family History Father Hypertension Hyperlipidemia Diabetes mellitus Mother Hypertension Hyperlipidemia Cervical cancer Sister Breast cancer Hypertension Social History Social History Household Members: Family Housing: House Are you a primary pet care assistant to a significant other at home: No Do you presently have visiting nurse or other home services: No (daughter TICKET ATTENDANT) Alcohol intake: never Comment: pt's daughter at the bedside Patient Tobacco Use Status: Never used Tobacco Smoked in Last 30 Days: No e-Cigarette/Vaping Use: Never Used Second Hand Smoke Exposure: No Advance Directives: Yes Advance Directives on File: Yes Advance Directives Date on File: 09/21/21 Do you have a plan to hurt others: No Plan service: No Current occupational status: disabled Cognitive needs: Yes Hearing needs: No Vision needs: Yes Physical Exam ED Vital Signs: Vital Signs - 24 hr 12/09/23 05:22 12/09/23 08:30 Temperature 98.6 F Pulse Rate 50 53 Respiratory Rate 16 17 Blood Pressure 128/66 144/64 H Pulse Oximetry 99 97 Oxygen Delivery Method Room Air Room Air BMI result Body Mass Index 32.0 Vital signs have been reviewed and appear to be correct. Blood pressure elevated. Heart rate normal. Respiratory rate normal. Temperature normal. Oxygen saturation normal. Appearance: Alert. Oriented X3. No acute distress. Head: Normal external exam. Normocephalic. Atraumatic. No Chao signs noted. No raccoon eyes noted Eyes: PERRLA. EOMI. Conjunctiva and sclera normal. Eyelids normal. ENT: TM's Normal. Pharynx normal. Uvula midline. Moist mucous membranes. No trismus noted. No drooling noted. No muffled voice noted. Neck: Normal inspection. Neck supple. FROM. No adenopathy. Thyroid Normal. No meningeal signs. No neck mass noted. CVS: Normal heart rate and rhythm. Heart sound normal. No murmurs noted. Pulses normal throughout. Respiratory: No respiratory distress. Painless inspiration. Breath sounds normal. No wheezes/rales/rhonchi noted. Chest nontender. No accessory muscle usage noted or decreased air movement noted. Abdomen: Soft and nontender. Bowel sounds normal in all 4 quadrants. No distention noted. No organomegaly noted. No visible injury noted. Back: No CVA tenderness. Full range of motion noted. Skin: Skin warm and dry. Normal skin color. Normal skin turgor. No rashes/lesions/lacerations noted. Extremities: No lower extremity edema. Extremities exhibit normal range of motion. Extremities nontender. Neuro: Oriented X 3. Cranial nerve exam: II-XII are grossly intact No motor deficit. No sensory deficit. Reflexes normal. Course Reevaluation(s) Reevaluation #1: 78-year-old female came in with a headache, normal neuro exam, normal head CT, recently blood pressure medication was adjusted by her PCP, family reported fluctuation of blood pressure normal values in the ED today. Labs and unremarkable, normal neuro exam. UTI will start the patient on cefuroxime was encouraged to drink plenty of fluids. Time: 11:11 Medications Administered Discontinued Medications Generic Name Dose Route Start Last Admin Trade Name Freq PRN Reason Stop Dose Admin Cefuroxime Axetil 500 mg 12/09/23 09:00 12/09/23 09:32 Cefuroxime Axetil 500 Mg Tablet PO 12/09/23 09:01 500 mg ONCE ONE Administration Medical Decision Making Differential Diagnosis Differential Diagnoses: The differential diagnosis associated with the presentation includes ( Essential hypertension, intracranial bleed, stroke, electrolyte derangement, severe anemia, ACS.) Admission/Observation Consideration of admission/observation: Escalation of care including admission/observation considered Lab Data MDM Lab Attestation statement: I reviewed the patient's lab results. 12/09/23 05:48 12/09/23 09:15 Labs: Lab Results 12/09/23 12/09/23 12/09/23 Range/Units 05:48 07:34 09:15 WBC 7.8 (4.8-10.8) X10*3/uL RBC 4.55 (4.20-5.50) X10*6/uL Hgb 14.1 (12.0-16.0) g/dl Hct 41.9 (37.0-47.0) % MCV 92.1 (80.0-98.0) fL MCH 31.0 (27.0-33.0) pg MCHC 33.7 (31.0-35.0) g/dl RDW 13.4 (11.0-16.0) % Plt Count 276 (160-400) X10*3/uL MPV 8.4 L (9.4-12.3) fL Immature Gran % (Auto) 0.3 (0.0-0.4) % Neut % (Auto) 53.5 (45-73) % Lymph % (Auto) 35.5 (20-40) % [place] % (Auto) 5.8 (2-11) % Eos % (Auto) 4.0 (0-4) % Baso % (Auto) 0.9 (0-2) % Lymph # (Auto) 2.8 (1.2-4.9) X10*3/uL [place] # (Auto) 0.5 (0.1-1.2) X10*3/uL Eos # (Auto) 0.3 (0.0-0.4) X10*3/uL Baso # (Auto) 0.1 (0.0-0.2) X10*3/uL Abs Immat Gran (auto) 0.02 (0.00-0.03) X10*3/uL Absolute Neuts (auto) 4.2 (2.0-8.3) x10*3/uL Absolute Nucleated RBC 0.000 (0.0-0.012) X10*3/uL Nucleated RBC % (auto) 0.0 (0.0-0.2) /100WBC Sodium 142 143 (135-145) mmol/L Potassium 5.2 H D 5.2 H (3.3-5.1) mmol/L Chloride 106 108 (96-108) mmol/L Carbon Dioxide 29 31 H (22-29) mmol/L Anion Gap 12 9 L (12-20) BUN 14 14 (9-16) mg/dL Creatinine 0.93 0.86 (0.5-1.4) mg/dL Estim Creat Clear Calc 45.6 49.3 Estimated GFR 58 > 60 Random Glucose 140 H 111 (60-115) mg/dL Calcium 9.9 9.7 (8.4-10.2) mg/dL Troponin I High Sens 6.4 (<3.5-17.0) ng/L Urine Color Dark Yellow Urine Appearance Clear Urine pH 6.5 (5.0-9.0) Ur Specific [place] 1.025 (1.005-1.025) Urine Protein 300 (3+) H (Neg-Trace) mg/dL Urine Glucose (UA) Negative (Negative) mg/dL Urine Ketones Trace (Negative) mg/dL Urine Blood Negative (Negative) Urine Nitrite Negative (Negative) Ur Leukocyte Esterase Moderate (2+) H (Negative) Urine RBC 0-2 (0-2) /HPF Urine WBC 11-20 H (0-5) /HPF Ur Squamous Epith Cells 3-5 (0-2) /HPF Urine Bacteria None Seen (None Seen) Hyaline Casts 0-2 (0-2) /LPF Influenza Type A (PCR) NEGATIVE (Negative) Influenza Type B (PCR) NEGATIVE (Negative) RSV RNA Qual (PCR) NEGATIVE (Negative) SARS-CoV-2 RNA (RT-PCR) NEGATIVE (Negative) Independent Interpretation I performed an independent interpretation of an: EKG ( Sinus bradycardia at 47 beats per minutes, normal intervals, nonspecific T-wave abnormalities.) and CT Scan ( Head: No acute intracranial pathology.) Discharge Plan Discharge Clinical Impression: Essential hypertension, Acute UTI Patient Disposition: Still a Patient Instructions: Hypertension (ED) Prescriptions: New cefuroxime axetil 500 mg tablet 500 mg PO BID Qty: 14 0RF No Action (DME) hand held showerhead See Rx Instructions .Route .MEDSUPPLY Qty: 1 0RF Rx Instructions: As directed (DME) incontinence pad, liner, disp Pad See Rx Instructions .Route Qty: 120 6RF Rx Instructions: use 3 to 4 times a day as needed calcium carbonate-vitamin D3 600 mg-10 mcg (400 unit) tablet 1 tab PO BID 60 Days Qty: 120 6RF acetaminophen 500 mg tablet 500 mg PO Q6H PRN (Reason: Pain) 30 Days Qty: 120 3RF aspirin 81 mg tablet,delayed release (DR/EC) 81 mg PO DAILY 90 Days Qty: 90 3RF losartan 25 mg tablet 25 mg PO DAILY 90 Days Qty: 90 1RF pantoprazole 40 mg tablet,delayed release (DR/EC) 40 mg PO BEDTIME Qty: 30 0RF amlodipine 10 mg tablet 10 mg PO DAILY 90 Days Qty: 90 0RF exemestane 25 mg Tablet 25 mg PO DAILY Qty: 90 4RF Rx Instructions: must administer after a meal metoprolol tartrate 50 mg tablet 50 mg PO BID Qty: 180 3RF latanoprost 0.005 % drops 1 drp ophthalmic-Right BEDTIME hydrocortisone [Proctosol HC] 2.5 % cream with perineal applicator 1 appl MS BID Qty: 30 6RF Rx Instructions: BE SURE TO INCLUDE RECTAL APPICATOR!! simethicone 180 mg capsule 180 mg PO QID PRN (Reason: abdominal distention) 30 Days Qty: 120 6RF Rx Instructions: after meals Referrals: Magdalena Cleary MD [Primary Care Provider] - Print Language: Macedonian
[2023-12-09 08:30] VITALS: BP 144/64; PULSE 53; RESP 17; O2SAT 97
[2023-12-09 09:32] LABS: Anion Gap 9 (12-20); Blood Urea Nitrogen 14 mg/dL (9-16); Calcium 9.7 mg/dL (8.4-10.2); Carbon Dioxide 31 mmol/L (22-29); Chloride 108 mmol/L (96-108); Creatinine Clr Calc Pharmacy 49.3; Estimated Glomerular Filt Rate > 60; Glucose Random 111 mg/dL (60-115); Potassium 5.2 mmol/L (3.3-5.1); Sodium 143 mmol/L (135-145)
[2023-12-09] MEDS: cefuroxime axetiL 500 MG TABLET PO (09:32)
[2023-12-09 09:41] LABS: Troponin-I High Sensitivity 6.4 ng/L (<3.5-17.0)
[2023-12-09 11:35] VITALS: BP 151/67; PULSE 52; RESP 16; TEMP 37.4; O2SAT 97
[2023-12-09 11:45] VITALS: BP 151/67; PULSE 52; RESP 16; TEMP 37.4; O2SAT 97
== END 2023-12-09 12:00 | disposition home or self-care (01) ==
PROVIDERS: Emergency Provider Emergency Medicine; PCP Internal Medicine
DX: N39.0 Urinary tract infection, site not specified (principal); I10 Essential (primary) hypertension; Z79.899 Other long term (current) drug therapy; Z03.818 Encounter for observation for suspected exposure to other biological agents ruled out; J45.909 Unspecified asthma, uncomplicated
CPT/HCPCS: 0241U; 36415; 70450; 80048; 81001; 84484; 85025; 87086; 93005; 99284

== ENCOUNTER → 2023-12-09 06:08 | Outpatient (BNV) | payer OTHER, SELFPAY | PROVIDERS: Emergency Provider Emergency Medicine; PCP Internal Medicine; Visit Provider Internal Medicine | DX: R94.31 Abnormal electrocardiogram [ECG] [EKG] (principal) | CPT/HCPCS: 93010 ==

== ENCOUNTER 2023-12-11 14:49 | Outpatient (AMB) | payer OTHER, SELFPAY ==
[2023-12-11 14:52] VITALS: BP 160/72; BMI 32.6
--- NOTE | 2023-12-11 14:52 | MHC.PC.OV ---
Vital Signs 12/11/23 14:52 Height 5 ft Weight 167 lb BMI 32.6 BP 160/72 H Blood Pressure Location Lt brachial Position Sitting Intake Visit Reasons: [facility] [place]08 Chest pain Intake Note: Patient here for [facility] ED follow 12/08 chest pain, c/o frequent Headaches and Cardiology referral Manager New Product Required: No Accompanied by: Daughter Allergies No Known Allergies [No Known Allergies*] Allergy (Verified 12/11/23 15:07) Medication List - Last Reconciled 12/11/23 by Magdalena Braxton MD acetaminophen 500 mg PO Q6H PRN 30 days amlodipine 10 mg PO DAILY 90 days aspirin 81 mg PO DAILY 90 days calcium carbonate-vitamin D3 600 mg-10 mcg (400 unit) 1 tab PO BID 2 months cefuroxime axetil 500 mg PO BID exemestane 25 mg PO DAILY [hand held showerhead As directed] hydrocortisone 2.5% (Proctosol HC) 1 appl PA BID incontinence pad, liner, disp use 3 to 4 times a day as needed latanoprost 0.005% 1 drp ophthalmic-Right BEDTIME losartan 25 mg PO DAILY 90 days metoprolol tartrate 50 mg PO BID pantoprazole 40 mg PO BEDTIME simethicone 180 mg PO QID PRN 30 days Tobacco use date assessed: 04/05/23 Fall risk assessment: No Falls in past year Last assessed Fall Risk: 12/11/23 Dental Screening Dental Screen Date: 12/11/23 Did you have a dental visit in the last 12 months?: No Did you have a dental problem in the last 6 months where you did not have access to dental care?: No Was dental information given to patient?: Patient has dentist HPI HPI Comments History of Present Illness Details This is a 78-year-old female with hypertension that comes accompanied by daughter as hospital discharge follow-up with discharge date 12/09/2023 due to chest pain associated with headache. She also went to the hospital 12/07/2023. Head CT was negative. EKG showed nonspecific ST and T-wave abnormalities and will be referred to Cardiology. Blood pressure still elevated and she is compliant with amlodipine 10 mg which was recently increased and losartan 25 and this is why I will increase losartan to [address] was also done at ER showing thyromegaly and ultrasound of the thyroid will be ordered. Headaches has mildly improved. She was also noted to have proteinuria and will be referred to nephrology. Denies any chest pain or shortness on breath at the moment. Was having chest pain before. [facility] Medical History (Updated 12/11/23 @ 15:47 by Magdalena Braxton MD) Breast cancer metastasized to bone Breast cancer metastasized to bone Abnormal mammogram of right breast Abnormal mammogram COVID-19 Bone metastases Memory loss Mild recurrent major depression Hand pain Obesity (BMI 30-39.9) Impaired glucose tolerance Upper back pain on right side Asthma Glaucoma HTN (hypertension) Osteoarthritis Osteoporosis Nocturnal hypoxemia TATIANA (obstructive sleep apnea) Surgical History S/P ORIF (open reduction internal fixation) fracture History of esophagogastroduodenoscopy (EGD) Hx of colonoscopy History of tubal ligation H/O excision of dermoid cyst H/O excision of mass H/O lumpectomy Family History Father Hypertension Hyperlipidemia Diabetes mellitus Mother Hypertension Hyperlipidemia Cervical cancer Sister Breast cancer Hypertension Social History Household Members: Family Housing: House Are you a primary customer care professional to a significant other at home: No Do you presently have visiting nurse or other home services: No (daughter AIR VALVE REPAIRER) Alcohol intake: never Comment: pt's daughter at the bedside Patient Tobacco Use Status: Never used Tobacco e-Cigarette/Vaping Use: Never Used Second Hand Smoke Exposure: No Advance Directives Date on File: 09/21/21 service: No Current occupational status: disabled Cognitive needs: Yes Hearing needs: No Vision needs: Yes Questionnaire Thrive Questionnaire Date Thrive assessed: 04/05/23 SALUD-7 AMB Questionnaire SALUD-7 Date SALUD - 7 assessed: 04/05/23 Source: Developed by Drs. Raf Wolf, Jacquelyn Perez, Dominic Witt and colleagues, with an educational miguel angel from [employer]. Review of Systems Const All systems reviewed & are unremarkable except as noted in HPI and below Reports headache(s) ENT Reports headache(s) Card Denies chest pain at rest, Denies chest pain with activity, Denies edema, Denies irregular heart rhythm, Denies claudication, Denies dyspnea, Denies dyspnea on exertion, Denies orthopnea, Denies paroxysmal nocturnal dyspnea and Denies slow heart rate Resp Denies cough, Denies dyspnea and Denies dyspnea on exertion Neuro Reports headache(s) and Denies lack of coordination Physical exam (Primary Care) Vital Signs: Last Vital Signs BP 160/72 H 12/11/23 14:52 BMI result Body Mass Index 32.6 BMI Assessment/Plan discussion: High BMI High, discussed plan: lifestyle, weight reduction, dietary and physical activity Tobacco/Smoking Status: Tobacco use Status Tobacco use date assessed 04/05/23 12/11/23 15:00 Patient Tobacco Use Status Never used Tobacco 12/11/23 15:00 e-Cigarette/Vaping Use Never Used 12/11/23 15:00 Thrive Assessment: Date of Thrive Assessment Date Thrive assessed 04/05/23 12/11/23 15:00 Neck Neck: Yes normal visual inspection and Yes supple Thyroid: diffusely enlarged Resp Effort & Inspection: normal respiratory effort Auscultation: clear to auscultation bilaterally Cardio Jugular venous distension: no JVD Rate: regular rate Rhythm: regular rhythm Heart sounds: S1 normal heart sound present and S2 normal heart sound present Extrem General: Yes full ROM Office Procedures Flu Questionnaire Does the patient have a severe egg allergy?: No Immunizations Fluarix Triv [id number] (PF) 45 mcg (15 mcg x 3)/0.5 mL IM syringe Performing Provider: Magdalena Braxton MD [facility] [place] [facility] Documented (not given) by: SARAH Carson on 12/11/23 15:02 Reason Not Given: Patient Refused Coding Level of Care Code Est Pt Level 4 (56117) Complex EM visit Add On G2211 Diagnoses Abnormal EKG R94.31 Proteinuria, unspecified type R80.9 Proteinuria type: unspecified Goiter E04.9 Essential hypertension I10 Hypertension type: essential hypertension Time Spent (min) 23 Assessment & Plan Assessment & Plan (1) Abnormal EKG: Code(s): R94.31 - Abnormal electrocardiogram [ECG] [EKG] Category: Medical Plan: Referred to cardiology. (2) Proteinuria: Code(s): R80.9 - Proteinuria, unspecified Category: Medical Qualifiers: Proteinuria type: unspecified Qualified Code(s): R80.9 - Proteinuria, unspecified Plan: Referred to nephrology. (3) Goiter: Code(s): E04.9 - Nontoxic goiter, unspecified Category: Medical Plan: Ultrasound of the thyroid ordered. Thyroid function test ordered. (4) HTN (hypertension): Code(s): I10 - Essential (primary) hypertension Category: Medical Qualifiers: Hypertension type: essential hypertension Qualified Code(s): I10 - Essential (primary) hypertension Plan: Continue amlodipine 10 mg. Increase losartan to 50 mg. Blood pressure goal is equal or less than 130/80. Orders: Orders Thyroid Stimulating Hormone Today E04.9 - Nontoxic goiter, unspecified Thyroglobulin Antibodies Today E04.9 - Nontoxic goiter, unspecified Thyroid Peroxidase Antibodies Today E04.9 - Nontoxic goiter, unspecified Comprehensive Herreid. Panel Fast Today R94.31 - Abnormal electrocardiogram [ECG] [EKG] Lipid Panel Today E78.5 - Hyperlipidemia, unspecified, R94.31 - Abnormal electrocardiogram [ECG] [EKG] Influenza [id number] Immunization Today Z23 - Encounter for immunization US thyroid Today E04.9 - Nontoxic goiter, unspecified Free T4 (Free Thyroxine) Today E04.9 - Nontoxic goiter, unspecified Referrals Cardiology Referral R07.9 - Chest pain, unspecified, R94.31 - Abnormal electrocardiogram [ECG] [EKG] Nephrology Referral R80.9 - Proteinuria, unspecified Medications: New losartan 50 mg PO DAILY 90 days 90 tabs 1RF Discontinued losartan Discontinued Reason: Patient Completed Course 25 mg PO DAILY 90 days 90 tabs 1RF I10 - Essential (primary) hypertension
== END 2023-12-11 15:20 | disposition home or self-care (01) ==
PROVIDERS: PCP Internal Medicine; Visit Provider Internal Medicine
DX: R94.31 Abnormal electrocardiogram [ECG] [EKG] (principal); R80.9 Proteinuria, unspecified; E04.9 Nontoxic goiter, unspecified; I10 Essential (primary) hypertension; Z23 Encounter for immunization

== ENCOUNTER → 2023-12-11 14:49 | Outpatient (BNVA) | payer OTHER, SELFPAY | PROVIDERS: PCP Internal Medicine; Visit Provider Internal Medicine | DX: R94.31 Abnormal electrocardiogram [ECG] [EKG] (principal); R80.9 Proteinuria, unspecified; E04.9 Nontoxic goiter, unspecified; I10 Essential (primary) hypertension; Z79.899 Other long term (current) drug therapy; Z28.21 Immunization not carried out because of patient refusal | CPT/HCPCS: 90471; 99212 ==

== ENCOUNTER 2023-12-19 10:16 | Outpatient (REF) | payer OTHER, SELFPAY | END 2023-12-19 10:17 | disposition home or self-care (01) | LOC: HO.US 10:16 | PROVIDERS: PCP Internal Medicine; Visit Provider Internal Medicine | DX: E04.9 Nontoxic goiter, unspecified (principal) | CPT/HCPCS: 76536 ==

== ENCOUNTER 2023-12-26 09:42 | Outpatient (REF) | payer OTHER, SELFPAY ==
[2023-12-26 11:50] LABS: Alanine Aminotransferase 35 U/L (0-31); Albumin Level 4.1 g/dL (3.5-5.0); Alkaline Phosphatase 63 U/L (39-117); Anion Gap 11 (12-20); Aspartate Amino Transferase 28 U/L (5-31); Bilirubin Total 0.5 mg/dL (0.0-1.0); Blood Urea Nitrogen 17 mg/dL (9-16); Calcium 10.3 mg/dL (8.4-10.2); Carbon Dioxide 30 mmol/L (22-29); Chloride 105 mmol/L (96-108); Cholesterol 161 mg/dL (<200); Estimated Glomerular Filt Rate > 60; Glucose Fasting 100 mg/dL (60-99); HDL Cholesterol 45 mg/dL (>40); LDL Cholesterol Calculated 95 mg/dL (<100); Potassium 4.6 mmol/L (3.3-5.1); Sodium 141 mmol/L (135-145); Total Protein 7.5 g/dL (6.5-8.0); Triglycerides 106 mg/dL (<150)
[2023-12-26 11:54] LABS: Free T4 (Free Thyroxine) 1.14 ng/dL (0.71-1.85); Thyroid Stimulating Hormone 0.72 uIU/mL (0.32-4.0)
[2023-12-28 06:14] LABS: Thyroglobulin Antibodies <1 IU/mL (< or = 1)
[2023-12-28 11:29] LABS: Thyroid Peroxidase Antibodies 1 IU/mL (<9)
== END 2023-12-26 09:43 | disposition home or self-care (01) ==
LOC: HO.LAB 09:42
PROVIDERS: PCP Internal Medicine; Visit Provider Internal Medicine
DX: E78.5 Hyperlipidemia, unspecified (principal); R73.02 Impaired glucose tolerance (oral); E04.9 Nontoxic goiter, unspecified
CPT/HCPCS: 36415; 80053; 80061; 84439; 84443; 86376; 86800

== ENCOUNTER 2024-01-04 10:35 | Outpatient (AMB) | payer OTHER, SELFPAY ==
[2024-01-04 10:48] VITALS: BP 126/74; BMI 32.4
--- NOTE | 2024-01-04 10:48 | MHC.PC.OV ---
Vital Signs 01/04/24 10:48 Height 5 ft Weight 166 lb BMI 32.4 BP 126/74 Blood Pressure Location Lt brachial Position Sitting Intake Visit Reasons: 4mof\u Intake Note: Patient here for a 4 month follow up Anvil Worker Required: No Accompanied by: Daughter Allergies No Known Allergies [No Known Allergies*] Allergy (Verified 01/04/24 11:02) Medication List - Last Reconciled 01/04/24 by Magdalena Braxton MD acetaminophen 500 mg PO Q6H PRN 30 days amlodipine 10 mg PO DAILY 90 days aspirin 81 mg PO DAILY 90 days calcium carbonate-vitamin D3 600 mg-10 mcg (400 unit) 1 tab PO BID 2 months cefuroxime axetil 500 mg PO BID exemestane 25 mg PO DAILY [hand held showerhead As directed] hydrocortisone 2.5% (Proctosol HC) 1 appl [place] BID incontinence pad, liner, disp use 3 to 4 times a day as needed latanoprost 0.005% 1 drp ophthalmic-Right BEDTIME losartan 50 mg PO DAILY 90 days metoprolol tartrate 50 mg PO BID pantoprazole 40 mg PO BEDTIME simethicone 180 mg PO QID PRN 30 days Tobacco use date assessed: 04/05/23 Fall risk assessment: No Falls in past year Last assessed Fall Risk: 01/04/24 Dental Screening Dental Screen Date: 01/04/24 Did you have a dental visit in the last 12 months?: No Did you have a dental problem in the last 6 months where you did not have access to dental care?: No Was dental information given to patient?: Patient declined HPI HPI Comments History of Present Illness Details This is a 78-year-old female with hypertension, breast cancer Mets to bone, mild major depression, GERD and obstructive sleep apnea on CPAP that comes today for follow-up on recent labs. Labs show no significant abnormality and thyroid ultrasound results are still pending. Blood pressure stable. Breast cancer Mets to bone has been stable and this is follow by Hematology-Oncology. Depression is in remission. GERD stable with PPIs. She does use CPAP machine for her obstructive sleep apnea which feels more rested. Has minimal emphysema which is follow by pulmonology but is asymptomatic therefore no medications. No chest pain or shortness on breath. [facility] Medical History Breast cancer metastasized to bone Breast cancer metastasized to bone Abnormal mammogram of right breast Abnormal mammogram COVID-19 Bone metastases Memory loss Mild recurrent major depression Hand pain Obesity (BMI 30-39.9) Impaired glucose tolerance Upper back pain on right side Asthma Glaucoma HTN (hypertension) Osteoarthritis Osteoporosis Nocturnal hypoxemia TATIANA (obstructive sleep apnea) Surgical History S/P ORIF (open reduction internal fixation) fracture History of esophagogastroduodenoscopy (EGD) Hx of colonoscopy History of tubal ligation H/O excision of dermoid cyst H/O excision of mass H/O lumpectomy Family History Father Hypertension Hyperlipidemia Diabetes mellitus Mother Hypertension Hyperlipidemia Cervical cancer Sister Breast cancer Hypertension Social History Household Members: Family Housing: House Are you a primary intensive care medicine specialist to a significant other at home: No Do you presently have visiting nurse or other home services: No (daughter BUSINESS CENTER REPRESENTATIVE) Alcohol intake: never Comment: pt's daughter at the bedside Patient Tobacco Use Status: Never used Tobacco e-Cigarette/Vaping Use: Never Used Second Hand Smoke Exposure: No Advance Directives Date on File: 09/21/21 service: No Current occupational status: disabled Cognitive needs: Yes Hearing needs: No Vision needs: Yes Questionnaire Thrive Questionnaire Date Thrive assessed: 04/05/23 SALUD-7 AMB Questionnaire SALUD-7 Date SALUD - 7 assessed: 04/05/23 Source: Developed by Drs. aRf Wolf, Jacquelyn Perez, Dominic Witt and colleagues, with an educational miguel angel from [employer]. Review of Systems Const All systems reviewed & are unremarkable except as noted in HPI and below Card Denies chest pain at rest, Denies chest pain with activity, Denies edema, Denies irregular heart rhythm, Denies claudication, Denies dyspnea, Denies dyspnea on exertion, Denies orthopnea, Denies paroxysmal nocturnal dyspnea and Denies slow heart rate Resp Denies cough, Denies dyspnea and Denies dyspnea on exertion Physical exam (Primary Care) Vital Signs: Last Vital Signs BP 126/74 01/04/24 10:48 BMI result Body Mass Index 32.4 Tobacco/Smoking Status: Tobacco use Status Tobacco use date assessed 04/05/23 01/04/24 10:51 Patient Tobacco Use Status Never used Tobacco 01/04/24 10:51 e-Cigarette/Vaping Use Never Used 01/04/24 10:51 Thrive Assessment: Date of Thrive Assessment Date Thrive assessed 04/05/23 01/04/24 10:51 Resp Effort & Inspection: normal respiratory effort Auscultation: clear to auscultation bilaterally Cardio Jugular venous distension: no JVD Rate: regular rate Rhythm: regular rhythm Heart sounds: S1 normal heart sound present and S2 normal heart sound present Extrem General: Yes full ROM Office Procedures Flu Questionnaire Does the patient have a severe egg allergy?: No Immunizations Fluarix Triv [id number] (PF) 45 mcg (15 mcg x 3)/0.5 mL IM syringe Performing Provider: Magdalena Braxton MD [facility] Documented (not given) by: SARAH Carson on 01/04/24 10:52 Reason Not Given: Patient Refused Coding Level of Care Code Est Pt Level 4 (72528) Complex EM visit Add On G2211 Diagnoses Carcinoma of breast metastatic to bone, unspecified laterality C50.919; C79.51 Laterality: unspecified laterality Gastroesophageal reflux disease, unspecified whether esophagitis present K21.9 Esophagitis presence: esophagitis presence not specified Mild recurrent major depression F33.0 Essential hypertension I10 Hypertension type: essential hypertension TATIANA (obstructive sleep apnea) G47.33 Time Spent (min) 22 Assessment & Plan Assessment & Plan (1) Breast cancer metastasized to bone: Code(s): C50.919 - Malignant neoplasm of unspecified site of unspecified female breast; C79.51 - Secondary malignant neoplasm of bone Category: Medical Qualifiers: Laterality: unspecified laterality Qualified Code(s): C50.919 - Malignant neoplasm of unspecified site of unspecified female breast; C79.51 - Secondary malignant neoplasm of bone Plan: Follow-up with Hematology-Oncology. (2) GERD (gastroesophageal reflux disease): Code(s): K21.9 - Gastro-esophageal reflux disease without esophagitis Category: Medical Qualifiers: Esophagitis presence: esophagitis presence not specified Qualified Code(s): K21.9 - Gastro-esophageal reflux disease without esophagitis Plan: Continue PPIs. (3) Mild recurrent major depression: Code(s): F33.0 - Major depressive disorder, recurrent, mild Category: Medical Plan: In remission. (4) HTN (hypertension): Code(s): I10 - Essential (primary) hypertension Category: Medical Qualifiers: Hypertension type: essential hypertension Qualified Code(s): I10 - Essential (primary) hypertension Plan: Continue losartan and amlodipine. Blood pressure goal is equal or less than 130/80. (5) TATIANA (obstructive sleep apnea): Comment: MILD TO MODERTAE , WELL TREATED WITH USE OF CPAP. COMPLIANCE IS GOOD .THERE IS SOME AIR LEAK ISSUE. SHE USES NASAL MASK WHICH BECOMES UNCOMFORTABLE IF SHE TIGHTEN THE STRAPS. SO THE LEAK ISSUE IS EXPECTED TO PERSIST. BUT HER SLEEP APNEA IS WELL TREATED WITH THE CURRENT SETTING. Code(s): G47.33 - Obstructive sleep apnea (adult) (pediatric) Category: Medical Plan: Continue CPAP machine. Follow-up with pulmonology. Orders: Orders Influenza [id number] Immunization Today Z23 - Encounter for immunization
== END 2024-01-04 11:09 | disposition home or self-care (01) ==
PROVIDERS: PCP Internal Medicine; Visit Provider Internal Medicine
DX: C50.919 Malignant neoplasm of unspecified site of unspecified female breast (principal); C79.51 Secondary malignant neoplasm of bone; K21.9 Gastro-esophageal reflux disease without esophagitis; F33.0 Major depressive disorder, recurrent, mild; I10 Essential (primary) hypertension; G47.33 Obstructive sleep apnea (adult) (pediatric); Z23 Encounter for immunization

== ENCOUNTER → 2024-01-04 10:35 | Outpatient (BNVA) | payer OTHER, SELFPAY | PROVIDERS: PCP Internal Medicine; Visit Provider Internal Medicine | DX: C50.919 Malignant neoplasm of unspecified site of unspecified female breast (principal); C79.51 Secondary malignant neoplasm of bone; K21.9 Gastro-esophageal reflux disease without esophagitis; F33.0 Major depressive disorder, recurrent, mild; I10 Essential (primary) hypertension; G47.33 Obstructive sleep apnea (adult) (pediatric) | CPT/HCPCS: 90471; 99212 ==

== ENCOUNTER 2024-01-10 11:22 | Outpatient (AMB) | payer OTHER, SELFPAY ==
--- NOTE | 2024-01-10 11:38 | HO.NEPHOV ---
Vital Signs 01/10/24 11:39 Height 5 ft Weight 165 lb 4 oz BMI 32.3 BP 126/70 Blood Pressure Location Lt brachial Position Sitting Pulse 52 Pulse Source Pulse Oximeter Pulse Oximetry (%) 96 Oxygen Delivery Method Room Air Intake Visit Reasons: Proteinuria-Conf w/daughter Chargemaster Specialist Required: Yes Chargemaster Specialist Language: Internist Services: Chargemaster Specialist Present Chargemaster Specialist Name: Guanaco [phone] Accompanied by: Daughter Allergies No Known Allergies [No Known Allergies*] Allergy (Verified 01/10/24 11:39) HPI Comments Details: 78-year-old female with hypertension as well as breast cancer metastatic to bone was seen in the office in consultation for proteinuria. 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 She had gotten Arimidex which was completed in December 2010. Zometa was started in March 2013 & currently, getting it on every 3-month basis. She was in tamoxifen which was started mid July 2014.She got switched to Aromasin in mid March 2015 & had received Denosumab. She continues to have hypercalcemia. Her blood pressure is well controlled on current medications. She does use CPAP machine for her obstructive sleep apnea. She has no edema, hematuria or renal dysfunction. Her serum albumin has been normal. [facility] Medical History Breast cancer metastasized to bone Breast cancer metastasized to bone Abnormal mammogram of right breast Abnormal mammogram COVID-19 Bone metastases Memory loss Mild recurrent major depression Hand pain Obesity (BMI 30-39.9) Impaired glucose tolerance Upper back pain on right side Asthma Glaucoma HTN (hypertension) Osteoarthritis Osteoporosis Nocturnal hypoxemia TATIANA (obstructive sleep apnea) Surgical History S/P ORIF (open reduction internal fixation) fracture History of esophagogastroduodenoscopy (EGD) Hx of colonoscopy History of tubal ligation H/O excision of dermoid cyst H/O excision of mass H/O lumpectomy Family History Father Hypertension Hyperlipidemia Diabetes mellitus Mother Hypertension Hyperlipidemia Cervical cancer Sister Breast cancer Hypertension Social History Household Members: Family Housing: House Are you a primary manager of care to a significant other at home: No Do you presently have visiting nurse or other home services: No (daughter INSURANCE ADVISER) Alcohol intake: never Comment: pt's daughter at the bedside Patient Tobacco Use Status: Never used Tobacco e-Cigarette/Vaping Use: Never Used Second Hand Smoke Exposure: No Advance Directives Date on File: 09/21/21 service: No Current occupational status: disabled Cognitive needs: Yes Hearing needs: No Vision needs: Yes Review of Systems Const All systems reviewed & are unremarkable except as noted in HPI and below Physical Exam Vital Signs: Last Vital Signs Pulse 52 01/10/24 11:39 BP 126/70 01/10/24 11:39 Pulse Ox 96 01/10/24 11:39 Oxygen Delivery Method Room Air 01/10/24 11:39 BMI result Body Mass Index 32.3 Const General: comfortable and no acute distress Orientation/consciousness: patient oriented x3 HEENT Head: Yes normocephalic Mouth: Normal oral and palatal mucosa present Eyes EOM: EOMs intact bilaterally Neck Neck: Yes supple Resp Auscultation: clear to auscultation bilaterally Cardio Jugular venous distension: no JVD Rate: regular rate GI Palpation (GI): Soft to palpation Auscultation: normal bowel sounds General: Yes no CVA tenderness Back/Spine/Pelvis Back: no CVA tenderness Skin General skin exam: no rashes or lesions noted Neuro General: patient oriented x3 and moves all extremities Extrem General: Yes no pedal edema Results Reviewed Nephrology Results: Hgb 14.1 g/dl (12.0-16.0) 01/04/24 WBC 7.3 X10*3/uL (4.8-10.8) 01/04/24 Plt Count 259 X10*3/uL (160-400) 01/04/24 Sodium 142 mmol/L (135-145) 01/04/24 Potassium 4.3 mmol/L (3.3-5.1) 01/04/24 Chloride 104 mmol/L (96-108) 01/04/24 Carbon Dioxide 30 mmol/L (22-29) H 01/04/24 BUN 18 mg/dL (9-16) H 01/04/24 Creatinine 0.91 mg/dL (0.5-1.4) 01/04/24 Calcium 10.6 mg/dL (8.4-10.2) H 01/04/24 Urine Protein 300 (3+) mg/dL (Neg-Trace) H 12/09/23 Assessment & Plan Assessment & Plan (1) Proteinuria: Code(s): R80.9 - Proteinuria, unspecified Category: Medical Qualifiers: Proteinuria type: unspecified Qualified Code(s): R80.9 - Proteinuria, unspecified (2) Hypercalcemia: Code(s): E83.52 - Hypercalcemia Category: Medical (3) HTN (hypertension): Code(s): I10 - Essential (primary) hypertension Category: Medical Qualifiers: Hypertension type: essential hypertension Qualified Code(s): I10 - Essential (primary) hypertension Plan 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 Her renal functions are stable at baseline.Her BP is at goal. Oncology colleagues are managing her hypercalcemia. She should remain off calcium and vitamin D for now. I have ordered W/U. I would maximize ARB after cutting back on Amlodipine, if her renal functions and serum potassium permit. I shall consider biopsying her kidney if her proteinuria continues to worsen inspite of maximizing ARB. I shall do a renal USS if I am going to go ahead with renal biopsy. Time spent reviewing her extensive medical records, encounter and documentation 61 minutes. Further management is pending evolving data. Answered all questions. Orders: Orders Complement C3 3 Weeks R80.9 - Proteinuria, unspecified Immunofixation Pnl, Serum 3 Weeks R80.9 - Proteinuria, unspecified Phospholipase A2 Receptor Pnl 3 Weeks R80.9 - Proteinuria, unspecified Electrolytes 3 Weeks R80.9 - Proteinuria, unspecified Myeloperoxidase Antibody 3 Weeks R80.9 - Proteinuria, unspecified Proteinase 3 PR3 Antibodies 3 Weeks R80.9 - Proteinuria, unspecified Anti DNA DS Antibody 3 Weeks R80.9 - Proteinuria, unspecified Anti Glomerular Basement Memb 3 Weeks R80.9 - Proteinuria, unspecified Complement C4 3 Weeks R80.9 - Proteinuria, unspecified Creatinine 3 Weeks R80.9 - Proteinuria, unspecified Blood Urea Nitrogen 3 Weeks R80.9 - Proteinuria, unspecified Calcium 3 Weeks R80.9 - Proteinuria, unspecified Protein Creatinine Ratio, Ur 3 Weeks R80.9 - Proteinuria, unspecified Coding Level of Care Code New Pt Level 5 (45943) Diagnoses Proteinuria, unspecified type R80.9 Proteinuria type: unspecified Hypercalcemia E83.52 Essential hypertension I10 Hypertension type: essential hypertension
[2024-01-10 11:39] VITALS: BP 126/70; PULSE 52; O2SAT 96; BMI 32.3
== END 2024-01-10 11:57 | disposition home or self-care (01) ==
PROVIDERS: PCP Internal Medicine; Referring Provider Internal Medicine; Visit Provider Internal Medicine Nephrology
DX: R80.9 Proteinuria, unspecified (principal); E83.52 Hypercalcemia; I10 Essential (primary) hypertension
CPT/HCPCS: 99205

== ENCOUNTER → 2024-01-10 11:22 | Outpatient (BNVA) | payer OTHER, SELFPAY | PROVIDERS: PCP Internal Medicine; Referring Provider Internal Medicine; Visit Provider Internal Medicine Nephrology | DX: R80.9 Proteinuria, unspecified (principal); I10 Essential (primary) hypertension; E83.52 Hypercalcemia | CPT/HCPCS: 99202 ==

== ENCOUNTER 2024-01-29 09:22 | Outpatient (REF) | payer OTHER, SELFPAY ==
[2024-01-29 11:13] LABS: Alanine Aminotransferase 33 U/L (0-31); Albumin Level 4.2 g/dL (3.5-5.0); Alkaline Phosphatase 66 U/L (39-117); Anion Gap 12 (12-20); Aspartate Amino Transferase 28 U/L (5-31); Bilirubin Total 0.6 mg/dL (0.0-1.0); Blood Urea Nitrogen 14 mg/dL (9-16); Calcium 10.2 mg/dL (8.4-10.2); Carbon Dioxide 31 mmol/L (22-29); Chloride 103 mmol/L (96-108); Cholesterol 181 mg/dL (<200); Estimated Glomerular Filt Rate > 60; Glucose Fasting 122 mg/dL (60-99); HDL Cholesterol 45 mg/dL (>40); LDL Cholesterol Calculated 115 mg/dL (<100); Sodium 142 mmol/L (135-145); Total Protein 7.7 g/dL (6.5-8.0); Triglycerides 109 mg/dL (<150)
[2024-01-29 13:09] LABS: Creatinine Urine 398.89 mg/dL
[2024-01-29 13:28] LABS: Protein/Creatinine Ratio, Ur 0.99 (<0.2); Total Protein Urine Random 393 mg/dL (<12)
[2024-01-30 08:33] LABS: Complement C3 160 mg/dL (83-193)
[2024-01-30 20:39] LABS: Anti DNA DS Antibody <1 IU/mL; Anti Glomerular Basement Memb <1.0 AI; Myeloperoxidase Antibody <1.0 AI; Proteinase 3 PR3 Antibodies <1.0 AI
[2024-01-31 22:54] LABS: IgA 269 mg/dL (70-320); IgG 1449 mg/dL (600-1540); IgM 101 mg/dL (50-300)
[2024-02-03 21:18] LABS: Phospholipase A2 IgG ELISA <4 RU/mL; Phospholipase A2 IgG IFA NEGATIVE (NEGATIVE)
== END 2024-01-29 09:23 | disposition home or self-care (01) ==
LOC: HO.LAB 09:22
PROVIDERS: PCP Internal Medicine; Referring Provider Internal Medicine; Visit Provider Internal Medicine Nephrology
DX: R80.9 Proteinuria, unspecified (principal); E78.5 Hyperlipidemia, unspecified; R94.31 Abnormal electrocardiogram [ECG] [EKG]; R07.9 Chest pain, unspecified; I10 Essential (primary) hypertension; R00.1 Bradycardia, unspecified
CPT/HCPCS: 36415; 80053; 80061; 82570; 82784; 83520; 84156; 86021; 86160; 86225; 86255; 86334; 93005; 99202

== ENCOUNTER 2024-01-29 10:11 | Outpatient (AMB) | payer OTHER, SELFPAY ==
[2024-01-29 10:22] VITALS: BP 144/66; PULSE 46; BMI 32.8
--- NOTE | 2024-01-29 10:22 | MHC.OFFVIS ---
Vital Signs 01/29/24 10:22 Height 5 ft Weight 167 lb 15.876 oz BMI 32.8 BP 144/66 H Blood Pressure Location Lt brachial Position Sitting Pulse 46 L Pulse Source Monitor Intake Visit Reasons: WORKFORCE STAFFING ADVISOR/Christiano/CP/Abn EKG Mailing Clerk Required: Yes Allergies No Known Allergies [No Known Allergies*] Allergy (Verified 01/29/24 10:25) Medication List - Last Reviewed 01/29/24 by Christi Chauhan, RACHANA acetaminophen 500 mg PO Q6H PRN 30 days amlodipine 10 mg PO DAILY 90 days aspirin 81 mg PO DAILY 90 days calcium carbonate-vitamin D3 600 mg-10 mcg (400 unit) 1 tab PO BID 2 months cefuroxime axetil 500 mg PO BID exemestane 25 mg PO DAILY [hand held showerhead As directed] hydrocortisone 2.5% (Proctosol HC) 1 appl [place] BID incontinence pad, liner, disp use 3 to 4 times a day as needed latanoprost 0.005% 1 drp ophthalmic-Right BEDTIME losartan 25 mg PO DAILY metoprolol tartrate 50 mg PO BID pantoprazole 40 mg PO BEDTIME simethicone 180 mg PO QID PRN 30 days HPI Comments Details: Thank you for referring Alysia in cardiology consultation today for evaluation of chest pain. Patient was 78 year female presents here with her daughter, history obtained with help of a appraiser oil and water in the room. Patient with prior history of hypertension recently came to the emergency room because she was having headache and then she said headache radiated to the left side of her chest, in the setting of significantly elevated blood pressure. Her medications were readjusted and then she was sent home. She has not had any recurrent chest discomfort after that. A blood pressure is borderline controlled. Unsure about what medicines she takes as the medicines have been adjusted but comes in today and was noted to be in sinus bradycardia 46 beats per minute. Currently on metoprolol 50 mg b.i.d. which seems to have been increased recently. Her losartan was question reduced due to proteinuria. Blood pressure at home in the range of systolic 140s. She denies any heart failure symptoms. Denies any prolonged palpitations, lightheadedness, syncope. No orthopnea, PND, leg edema. Walks with help of a cane. [facility] Medical History Breast cancer metastasized to bone Breast cancer metastasized to bone Abnormal mammogram of right breast Abnormal mammogram COVID-19 Bone metastases Memory loss Mild recurrent major depression Hand pain Obesity (BMI 30-39.9) Impaired glucose tolerance Upper back pain on right side Asthma Glaucoma HTN (hypertension) Osteoarthritis Osteoporosis Nocturnal hypoxemia TATIANA (obstructive sleep apnea) Surgical History S/P ORIF (open reduction internal fixation) fracture History of esophagogastroduodenoscopy (EGD) Hx of colonoscopy History of tubal ligation H/O excision of dermoid cyst H/O excision of mass H/O lumpectomy Family History Father Hypertension Hyperlipidemia Diabetes mellitus Mother Hypertension Hyperlipidemia Cervical cancer Sister Breast cancer Hypertension Social History Household Members: Family Housing: House Are you a primary patient care technician instructor to a significant other at home: No Do you presently have visiting nurse or other home services: No (daughter WOOD PANEL INSPECTOR) Alcohol intake: never Comment: pt's daughter at the bedside Patient Tobacco Use Status: Never used Tobacco e-Cigarette/Vaping Use: Never Used Second Hand Smoke Exposure: No Advance Directives Date on File: 09/21/21 service: No Current occupational status: disabled Cognitive needs: Yes Hearing needs: No Vision needs: Yes Review of Systems ENT Reports dizziness Card Denies chest pain, Denies chest pain at rest, Denies chest pain with activity, Denies rapid heart rate, Denies pedal edema, Denies edema, Denies leg edema, Denies lightheadedness, Denies palpitations, Denies dyspnea, Denies dyspnea on exertion and Denies orthopnea Resp Denies cough, Denies dyspnea and Denies dyspnea on exertion GI Denies hematochezia and Denies change in stool character Musc Denies abnormal gait, Reports limited range of motion, Reports muscle cramps, Denies muscle weakness, Denies numbness, Denies radiating pain into limb, Denies stiffness and Denies tingling Neuro Denies abnormal gait, Reports dizziness, Denies numbness and Denies tingling Endo Denies palpitations Physical Exam Vital Signs: Last Vital Signs Pulse 46 L 01/29/24 10:22 BP 144/66 H 01/29/24 10:22 BMI result Body Mass Index 32.8 Const General: cooperative, comfortable, no acute distress, alert and awake Nutritional Appearance: obese Orientation/consciousness: patient oriented x3 Limitations: ambulation with cane HEENT Head: Yes normocephalic and Yes atraumatic Neck Neck: Yes trachea midline, Yes supple and Yes no JVD Resp Effort & Inspection: normal respiratory effort Auscultation: clear to auscultation bilaterally Cardio Jugular venous distension: no JVD Palpation: normal PMI Rate: regular rate Rhythm: regular rhythm Heart sounds: S1 normal heart sound present, S2 normal heart sound present, no click, no gallops, no murmurs and no rubs GI Auscultation: normal bowel sounds Skin General skin exam: no rashes or lesions noted Neuro General: patient oriented x3 and no focal motor deficits Extrem General: Yes no clubbing, cyanosis or edema Office Procedures EKG Details: EKG shows sinus bradycardia with nonspecific ST elevation suggestive of early repolarization [id number], Complete Assessment & Plan Assessment & Plan (1) Chest pain: Code(s): R07.9 - Chest pain, unspecified Category: Medical Qualifiers: Chest pain type: unspecified Qualified Code(s): R07.9 - Chest pain, unspecified Plan: Patient with episode of chest pain in the setting of elevated blood pressure. Possibility of obstructive coronary artery disease exist given her age and multiple risk factors. Would suggest a vasodilating myocardial perfusion imaging as she can not exercise on the treadmill. Further treatment based on the findings. Will also suggest echocardiogram to evaluate for hypertensive heart disease as well as LV systolic and diastolic function to evaluate for pulmonary hypertension. Further treatment based on the findings. (2) Sinus bradycardia: Code(s): R00.1 - Bradycardia, unspecified Category: Medical Plan: Sinus bradycardia related to medical therapy with metoprolol and may have underlying sinoatrial sylvester dysfunction. Although she has no symptoms related to it and no pacing therapy is indicated. Will gradually withdrawn metoprolol peaking attention to a blood pressure. Follow-up Holter monitor in near future to assess for withdrawal of beta-augustin therapy. (3) HTN (hypertension): Code(s): I10 - Essential (primary) hypertension Category: Medical Qualifiers: Hypertension type: essential hypertension Qualified Code(s): I10 - Essential (primary) hypertension Plan: Hypertension which is borderline optimized. At this point time will reduce metoprolol which will potentially increase her blood pressure. At this point time will increase losartan to 50 mg daily. Beneficial effect of losartan setting of proteinuria was discussed with her and her daughter. Follow-up basic metabolic profile in 1 week's time. Advised to monitor blood pressure at home maintain a log. Low-salt diet was discussed. Stress mitigation strategies were discussed. Follow up in the clinic in 2 months time, sooner p.r.n.. Thank you for allowing me to partake in his care Orders: Orders CA lexiscan stress w maxi Today R07.9 - Chest pain, unspecified ECG holter monitor 48 hour 2 Weeks R00.1 - Bradycardia, unspecified CA echo transthoracic complete Today R07.9 - Chest pain, unspecified Medications: New losartan 50 mg PO DAILY 90 tabs 2RF Changed From metoprolol tartrate 50 mg PO BID 180 tabs 3RF To metoprolol tartrate 25 mg (1/2 x 50 mg) PO BID 180 tabs 3RF Coding Level of Care Code New Pt Level 4 (27828) Complex EM visit Add On G2211 Diagnoses Chest pain, unspecified type R07.9 Chest pain type: unspecified Sinus bradycardia R00.1 Essential hypertension I10 Hypertension type: essential hypertension CPT Codes EKG - CPT: [id number], Complete ([id number])
== END 2024-01-29 11:08 | disposition home or self-care (01) ==
LOC: HO.HCS 10:11
PROVIDERS: PCP Internal Medicine; Visit Provider Internal Medicine Cardiovascular Disease
DX: R07.9 Chest pain, unspecified (principal); R00.1 Bradycardia, unspecified; I10 Essential (primary) hypertension
CPT/HCPCS: 93010; 99204; G2211

== ENCOUNTER 2024-02-09 10:20 | Outpatient (AMB) | payer OTHER, SELFPAY ==
--- NOTE | 2024-02-09 10:50 | HO.NEPHOV_ITS ---
Vital Signs 02/09/24 10:52 Height 5 ft 1 in Weight 166 lb 8 oz BMI 31.5 BP 130/60 Blood Pressure Location Lt brachial Position Sitting Pulse 54 Pulse Source Pulse Oximeter Pulse Oximetry (%) 95 Oxygen Delivery Method Room Air Intake Visit Reasons: Proteinuria-Conf w/daughter Supervisor Calibration Required: Yes Supervisor Calibration Language: Medical Operations Supervisor Services: Supervisor Calibration Offered & Declined Supervisor Calibration Name: [facility] Supervisor Calibration refused Accompanied by: Daughter Allergies No Known Allergies [No Known Allergies*] Allergy (Verified 02/09/24 10:52) HPI Comments Details: I had the privilege of seeing Alysia who is a 78-year-old female with hypertension as well as 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 She recently was found to have proteinuria. 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 She had gotten Arimidex which was completed in December 2010. Zometa was started in March 2013 & currently, getting it on every 3-month basis. She was in tamoxifen which was started mid July 2014.She got switched to Aromasin in mid March 2015 & had received Denosumab. She continues to have hypercalcemia. Her blood pressure is well controlled on current medications. She does use CPAP machine for her obstructive sleep apnea. She has no edema, hematuria or renal dysfunction. Her serum albumin has been normal. [facility] Medical History Breast cancer metastasized to bone Breast cancer metastasized to bone Abnormal mammogram of right breast Abnormal mammogram COVID-19 Bone metastases Memory loss Mild recurrent major depression Hand pain Obesity (BMI 30-39.9) Impaired glucose tolerance Upper back pain on right side Asthma Glaucoma HTN (hypertension) Osteoarthritis Osteoporosis Nocturnal hypoxemia TATIANA (obstructive sleep apnea) Surgical History S/P ORIF (open reduction internal fixation) fracture History of esophagogastroduodenoscopy (EGD) Hx of colonoscopy History of tubal ligation H/O excision of dermoid cyst H/O excision of mass H/O lumpectomy Family History Father Hypertension Hyperlipidemia Diabetes mellitus Mother Hypertension Hyperlipidemia Cervical cancer Sister Breast cancer Hypertension Social History Household Members: Family Housing: House Are you a primary behavioral health care manager to a significant other at home: No Do you presently have visiting nurse or other home services: No (daughter LITHOGRAPHIC PRINTING MACHINIST) Alcohol intake: never Comment: pt's daughter at the bedside Patient Tobacco Use Status: Never used Tobacco e-Cigarette/Vaping Use: Never Used Second Hand Smoke Exposure: No Advance Directives Date on File: 09/21/21 service: No Current occupational status: disabled Cognitive needs: Yes Hearing needs: No Vision needs: Yes Review of Systems Const All systems reviewed & are unremarkable except as noted in HPI and below Physical Exam Vital Signs: Last Vital Signs Pulse 54 02/09/24 10:52 BP 130/60 02/09/24 10:52 Pulse Ox 95 02/09/24 10:52 Oxygen Delivery Method Room Air 02/09/24 10:52 BMI result Body Mass Index 31.5 Const General: comfortable and no acute distress Orientation/consciousness: patient oriented x3 HEENT Head: Yes normocephalic Mouth: Normal oral and palatal mucosa present Eyes EOM: EOMs intact bilaterally Neck Neck: Yes supple Resp Auscultation: clear to auscultation bilaterally Cardio Jugular venous distension: no JVD Rate: regular rate GI Palpation (GI): Soft to palpation Auscultation: normal bowel sounds Skin General skin exam: no rashes or lesions noted Neuro General: patient oriented x3 and moves all extremities Extrem General: Yes no pedal edema Results Reviewed Nephrology Results: Hgb 13.4 g/dl (12.0-16.0) 02/08/24 WBC 6.6 X10*3/uL (4.8-10.8) 02/08/24 Plt Count 264 X10*3/uL (160-400) 02/08/24 Sodium 141 mmol/L (135-145) 02/08/24 Potassium 4.2 mmol/L (3.3-5.1) 02/08/24 Chloride 107 mmol/L (96-108) 02/08/24 Carbon Dioxide 28 mmol/L (22-29) 02/08/24 BUN 15 mg/dL (9-16) 02/08/24 Creatinine 1.01 mg/dL (0.5-1.4) 02/08/24 Calcium 9.8 mg/dL (8.4-10.2) 02/08/24 Urine Creatinine 398.89 mg/dL 01/29/24 Protein/Creatinin Ratio 0.99 (<0.2) H 01/29/24 Assessment & Plan Assessment & Plan (1) Proteinuria: Code(s): R80.9 - Proteinuria, unspecified Category: Medical Qualifiers: Proteinuria type: unspecified Qualified Code(s): R80.9 - Proteinuria, unspecified (2) HTN (hypertension): Code(s): I10 - Essential (primary) hypertension Category: Medical Qualifiers: Hypertension type: essential hypertension Qualified Code(s): I10 - Essential (primary) hypertension Plan 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 Her renal functions are stable at baseline.Her BP is at goal. Oncology colleagues are managing her hypercalcemia. She should remain off calcium and vitamin D for now. I would maximize ARB after cutting back on Am lodipine, if her renal functions and serum potassium permit. I shall consider biopsying her kidney if her proteinuria continues to worsen inspite of maximizing ARB. I shall do a renal USS if I am going to go ahead with renal biopsy. Further management is pending evolving data. Answered all questions. Orders: Orders Creatinine 3 Months R80.9 - Proteinuria, unspecified Blood Urea Nitrogen 3 Months R80.9 - Proteinuria, unspecified Electrolytes 3 Months R80.9 - Proteinuria, unspecified Protein Creatinine Ratio, Ur 3 Months R80.9 - Proteinuria, unspecified Calcium 3 Months R80.9 - Proteinuria, unspecified Coding Level of Care Code Est Pt Level 4 (64621) Diagnoses Proteinuria, unspecified type R80.9 Proteinuria type: unspecified Essential hypertension I10 Hypertension type: essential hypertension
[2024-02-09 10:52] VITALS: BP 130/60; PULSE 54; O2SAT 95; BMI 31.5
== END 2024-02-09 11:06 | disposition home or self-care (01) ==
PROVIDERS: PCP Internal Medicine; Visit Provider Internal Medicine Nephrology
DX: R80.9 Proteinuria, unspecified (principal); I10 Essential (primary) hypertension
CPT/HCPCS: 99214

== ENCOUNTER → 2024-02-09 10:20 | Outpatient (BNVA) | payer OTHER, SELFPAY | PROVIDERS: PCP Internal Medicine; Visit Provider Internal Medicine Nephrology | DX: R80.9 Proteinuria, unspecified (principal); I10 Essential (primary) hypertension; E83.52 Hypercalcemia; Z99.89 Dependence on other enabling machines and devices | CPT/HCPCS: 99212 ==

== ENCOUNTER → 2024-02-19 08:45 | Outpatient (REF) | payer OTHER, SELFPAY ==
--- NOTE | ~2024-02-19 | NM_ITS ---
Lexiscan Myocardial perfusion study Indication: Chest pain to evaluate for myocardial ischemia Technique: The patient was brought in for a Lexiscan perfusion study on 02/19/2024 and was injected 0.4 mg of Lexiscan intravenously. Within a minute of this injection 25 mCi of sestamibi was given intravenously. Images were obtained using the SPECT gamma camera interlaced with the gating device. Images were obtained in supine position. Resting perfusion study was performed on 02/20/2024. Patient was administered 25 mCi of sestamibi intravenously at rest. Images were then obtained in supine position. Images obtained with and without CT attenuation. Total DLP 129 mGy-cm. Images were processed with the software and compared side to side in short axis, horizontal long axis and vertical long axis views. Findings: The stress perfusion study showed nonattenuated images show mildly reduced uptake in the basal and mid inferolateral, lateral as well as mildly reduced uptake in the basal and mid inferior wall of the LV myocardium. Attenuated corrected images show minimally reduced uptake in the apex of the LV myocardium.. The gated study shows normal LV systolic function with calculated LVEF of 54%. LV cavity is normal in size. The gated study shows normal systolic wall thickening and contraction of segments. Resting study shows nonattenuation images show improved uptake in the inferolateral as well as lateral and inferior wall.. Gating at rest reveals normal systolic wall motion with ejection fraction at 66%. The findings are consistent with there is suggestion reversible defect on nonrotated images suggestive of ischemia in the circumflex/RCA territory of mild intensity, moderately large. NM/NM maxi perf SPECT rest & str Impression: 1. Myocardial perfusion imaging study shows [equivocal for moderately large mild intensity reversible ischemia in the circumflex/RCA territory 2. Gated LVEF is 54% at stress and 66% with rest 3. Transient ischemic dilatation present Nondiagnostic changes on EKG. Electronically signed by: Tim Mcmanus MD 02/21/2024 11:43 AM [facility] [place]
--- NOTE | 2024-02-19 08:49 | CA_ITS ---
Acquisition Time: 2024-02-19 09:09:58 Total Exercise Time: 00:02:00 Test Indications: Abnormal ECG CP Medications: SEE H Protocol: LEXISCAN Max HR: 086 BPM 60% of Pred: 143 BPM Max BP: 140/072 mmHG Max Work Load: 1.0 METS Pharmacologic Stress Test with Lexiscan while pt marches in her chair, with reports of moderate SOB, no chest discomfort, without any arrythmias, with normotensive response to injection. Nondiagnostic EKG for ischemia. In recovery, pt treated with IVP Aminophylline 75 mg to reverse Lexiscan. Pt's breathing returned to baseline. Nuclear images pending. Test reviewed with . Referred By: Tim Mcmanus Overread By: Sahil William
== END ==
LOC: HO.CARD 08:45
PROVIDERS: PCP Internal Medicine; Visit Provider Internal Medicine Cardiovascular Disease
DX: R07.9 Chest pain, unspecified (principal)
CPT/HCPCS: 78452; 93017; A9500; J0280; J2785

== ENCOUNTER → 2024-02-19 08:49 | Outpatient (BNV) | payer OTHER, SELFPAY | PROVIDERS: PCP Internal Medicine | DX: R06.02 Shortness of breath (principal) | CPT/HCPCS: 78452; 93016; 93018 ==

== ENCOUNTER → 2024-02-23 08:57 | Outpatient (REF) | payer OTHER, SELFPAY ==
--- NOTE | 2024-02-23 09:02 | CA_ITS ---
Transthoracic Echocardiogram Patient (Last, First, Middle): Alysia Morse V Gender: Female Date of : 1945 Age: 78 Procedure Date: 02/23/2024 Procedure Type: Transthoracic Echocardiogram Location: OP Height: 152.4 cm Weight: 75.75 kg BSA: 1.73 m2 Heart Rate: bpm BP: 146 / 68 mmHg Clubhouse Attendant: TO Referring MD: Tim Mcmanus MD Pig Machine Operator: Tim Mcmanus MD Symptoms: R07.9 - Chest pain, unspecified Study Quality: Fair/Contrast ECG Rhythm: Sinus Conclusions: - 1. Hyperdynamic LV ejection fraction of greater than 70% with grade 1 diastolic dysfunction 2. Normal cardiac valvular Dopplers next 3. Normal RV systolic pressure 4. No gross pericardial effusion Findings Procedure Information Contrast agent, definity, is being given per protocol without apparent complications. Left Ventricle Normal left ventricular cavity size. There is normal left ventricular wall thickness. The left ventricular systolic function is hyperdynamic. The visually estimated ejection fraction is >70%. Spectral Doppler is indicative of an impaired relaxation filling pattern. E/E prime ratio is <8, consistent with normal filling pressures. Evidence suggests grade I (mild) diastolic dysfunction. Right Ventricle Normal right ventricular cavity size and systolic function. Atria The left atrium is likely dilated. Interatrial shunt cannot be excluded. The right atrium was not well visualized. Aortic Valve The aortic valve structure and function is likely normal. There is no aortic valve stenosis. There is no aortic valve regurgitation. Mitral Valve Normal mitral valve structure and function. There is trace mitral valve regurgitation. There is no mitral valve stenosis. Pulmonic Valve The pulmonic valve was not well visualized. Tricuspid Valve Likely normal tricuspid valve structure and function. There is trace tricuspid valve regurgitation. The right ventricular systolic pressure is normal. The right ventricular systolic pressure is 21 mmHg. Normal right atrial pressure. There is no evidence of pulmonary hypertension. Great Vessels All visible segments of the aorta are normal in size. The pulmonary artery was not well visualized. There is no dilatation of the ascending aorta measuring 3.20 cm. Venous The inferior vena cava is normal in size and collapses greater than 50% with inspiration. Pericardium/Pleural There is no evidence of pericardial effusion. Prior Study Comparison No significant change compared to prior study dated: 07/31/2017. Measurements 2D Linear Measurements IVSd: 1.03 0.6-0.9/0.6-1.0 cm LVIDd: 4.41 3.9-5.3/4.2-5.9 cm LVIDd Index: 2.55 2.4-3.2/2.2-3.1 cm/m2 LVIDs: 2.60 2.0-3.6 cm LVPWd: 1.07 0.7-1.1 cm LA Diam: 3.80 2.7-3.8/3.0-4.0 cm LAIDs Index: 2.20 1.5-2.3 cm/m2 LV Mass: 236.37 67-162/88-224 g LV Mass Index: 136.63 43-95/49-115 g/m2 LVOT Diam: 2.00 3.0+(-)1.3 cm 2D Systolic Function EF 4C: 74.10 >55% EF 2C: 74.80 >55% EF BiP: 74.00 >55% Mitral Valve MV Pk E: 0.55 MV PK A: 0.94 MV Decel Time: 155.00 E/A: 0.60 E'Lateral: 5.98 E'Medial: 5.11 E/E' Med: 10.80 E/E' Lat: 9.20 PHT: 45.00 MVA PHT: 4.89 Decel [place]: 3.57 Aortic Valve AoV Pk Enrrique: 1.76 AoV Mn Enrrique: 1.08 AoV VTI: 0.37 AoV Pk Grad: 12.00 Aov Mn Grad: 5.00 LETICIA Cont.VTI: 2.43 LVOT LVOT Pk Enrrique: 1.08 LVOT Mn Enrrique: 0.66 LVOT VTI: 0.28 LVOT Pk Grad: 5.00 LVOT Mn Grad: 2.00 LVOT Diam: 2.00 LVOT Area: 3.14 Diastolic Function MV Pk E: 0.55 MV Pk A: 0.94 E/A: 0.60 E'Medial: 5.11 E/E' Med: 10.80 E' Laterial: 5.98 E/E' Lat: 9.20 Right Ventricle TAPSE (mm): 20.70 TVS' Enrrique: 10.80 Tricuspid Valve TR Pk Enrrique: 2.12 TR Pk Grad: 18.00 RA Press: 3.00 RVSP: 21.00 Great Vessels Aorta Sinus of Valsalva: 2.76 2.0-3.[address] [place]: 2.43 1.7-3.4 cm Ao Asc: 3.20 2.1-3.4 cm Updated in Other Vendor System with Status of Final Tim Mcmanus MD electronically signed on 02/24/2024 2:39:53 PM with status of Final
== END ==
LOC: HO.CARD 08:57
PROVIDERS: PCP Internal Medicine; Visit Provider Internal Medicine Cardiovascular Disease
DX: R07.9 Chest pain, unspecified (principal); R00.1 Bradycardia, unspecified
CPT/HCPCS: 93225; 93306; Q9957

== ENCOUNTER → 2024-02-23 09:02 | Outpatient (BNV) | payer OTHER, SELFPAY | PROVIDERS: PCP Internal Medicine; Visit Provider Internal Medicine Cardiovascular Disease | DX: I42.8 Other cardiomyopathies (principal) | CPT/HCPCS: 93306 ==

== ENCOUNTER 2024-04-01 09:15 | Outpatient (AMB) | payer OTHER, SELFPAY ==
--- NOTE | 2024-04-01 09:44 | MHC.OFFVIS ---
Vital Signs 04/01/24 09:45 Height 5 ft 1 in Weight 167 lb 8.821 oz BMI 31.7 BP 148/72 H Blood Pressure Location Lt brachial Position Sitting Pulse 54 Pulse Source Pulse Oximeter Intake Visit Reasons: 2 mth f/up testing/labs/ med chgs/ ns Date Night Caregiver Required: Yes Date Night Caregiver Language: Rn Imaging Name: voice morris [id number] Acid Wash Operator: Acid Wash Operator Present Allergies No Known Allergies [No Known Allergies*] Allergy (Verified 04/01/24 09:48) Medication List - Last Reconciled 04/01/24 by Lelia Bill NP-C acetaminophen 500 mg PO Q6H PRN 30 days amlodipine 10 mg PO DAILY 90 days aspirin 81 mg PO DAILY 90 days calcium carbonate-vitamin D3 600 mg-10 mcg (400 unit) 1 tab PO BID 2 months cefuroxime axetil 500 mg PO BID exemestane 25 mg PO DAILY [hand held showerhead As directed] hydrocortisone 2.5% (Proctosol HC) 1 appl MA BID incontinence pad, liner, disp use 3 to 4 times a day as needed latanoprost 0.005% 1 drp ophthalmic-Right BEDTIME losartan 50 mg PO DAILY metoprolol tartrate 25 mg (1/2 x 50 mg) PO BID pantoprazole 40 mg PO BEDTIME simethicone 180 mg PO QID PRN 30 days HPI HPI 2 mth f/up testing/labs/ med chgs/ ns: Details: Alysia is a 78-year-old female with metastatic breast cancer, GERD, obesity, hypertension, sleep apnea who was recently evaluated for chest discomfort. She underwent an echocardiogram, nuclear stress test and is awaiting a CTA of the coronary arteries. On last visit her EKG showed sinus bradycardia and her metoprolol dose was reduced, lisinopril dose was increased. She now presents for follow-up. Today she reports that she has not been getting chest discomfort since her last visit. She has some shortness of breath with walking. No PND, orthopnea or edema. She sleeps with her CPAP mask on. No heart palpitations, lightheadedness, presyncope, syncope, falls. She is mostly sedentary. Takes meds as directed. Daughter is present. Certified scanner operator used. [facility] Medical History Breast cancer metastasized to bone Breast cancer metastasized to bone Abnormal mammogram of right breast Abnormal mammogram COVID-19 Bone metastases Memory loss Mild recurrent major depression Hand pain Obesity (BMI 30-39.9) Impaired glucose tolerance Upper back pain on right side Asthma Glaucoma HTN (hypertension) Osteoarthritis Osteoporosis Nocturnal hypoxemia TATIANA (obstructive sleep apnea) Surgical History S/P ORIF (open reduction internal fixation) fracture History of esophagogastroduodenoscopy (EGD) Hx of colonoscopy History of tubal ligation H/O excision of dermoid cyst H/O excision of mass H/O lumpectomy Family History Father Hypertension Hyperlipidemia Diabetes mellitus Mother Hypertension Hyperlipidemia Cervical cancer Sister Breast cancer Hypertension Social History Household Members: Family Housing: House Are you a primary residential care officer to a significant other at home: No Do you presently have visiting nurse or other home services: No (daughter TECHNICAL SERVICES ANALYST) Alcohol intake: never Comment: pt's daughter at the bedside Patient Tobacco Use Status: Never used Tobacco e-Cigarette/Vaping Use: Never Used Second Hand Smoke Exposure: No Advance Directives Date on File: 09/21/21 service: No Current occupational status: disabled Cognitive needs: Yes Hearing needs: No Vision needs: Yes Review of Systems Const All systems reviewed & are unremarkable except as noted in HPI and below ENT Denies dizziness Card Denies chest pain, Denies chest pain at rest, Denies chest pain with activity, Denies rapid heart rate, Denies pedal edema, Denies edema, Denies leg edema, Denies lightheadedness, Denies palpitations, Denies dyspnea, Reports dyspnea on exertion and Denies orthopnea Resp Denies cough, Denies dyspnea and Reports dyspnea on exertion GI Denies hematochezia and Denies change in stool character Musc Denies abnormal gait, Denies limited range of motion, Denies muscle cramps, Denies muscle weakness, Denies numbness, Denies radiating pain into limb, Denies stiffness and Denies tingling Neuro Denies abnormal gait, Denies dizziness, Denies numbness and Denies tingling Endo Denies palpitations Physical Exam Vital Signs: Last Vital Signs Pulse 54 04/01/24 09:45 BP 148/72 H 04/01/24 09:45 BMI result Body Mass Index 31.7 Const General: cooperative, healthy appearing, comfortable and no acute distress Orientation/consciousness: patient oriented x3 Neck Neck: Yes normal visual inspection and Yes no JVD Resp Effort & Inspection: normal respiratory effort Auscultation: clear to auscultation bilaterally, no crackles, no rales, no rhonchi and no wheezes Cardio Jugular venous distension: no JVD Rate: regular rate Rhythm: regular rhythm Heart sounds: S1 normal heart sound present, S2 normal heart sound present, no murmurs and no rubs Neuro General: patient oriented x3 Extrem General: Yes normal to inspection, No no pedal edema and No calf tenderness Psych Appearance: grossly normal Mental Status: mental status grossly normal Speech and movement: Normal speech and movement present Assessment & Plan Assessment & Plan (1) Chest pain: Code(s): R07.9 - Chest pain, unspecified Category: Medical Qualifiers: Chest pain type: unspecified Qualified Code(s): R07.9 - Chest pain, unspecified Plan: Reported episode of headache that radiated to her left chest in the setting of significantly elevated blood pressure, last November at time of ER evaluation. She ruled out for ACS, EKG showed only nonspecific ST and T-wave abnormalities. She denies recurrent chest discomfort. An echocardiogram was done on 02/23/2024 showing EF greater than 70%, grade 1 diastolic dysfunction. A nuclear stress test was done 02/19/2024 which was equivocal for ischemia with a [id number] mildly reversible defect in the circumflex and RCA territory. A CTA of the coronary arteries was ordered and still pending. Patient tells me it is scheduled for 04/24/2024 at [facility] [place]. She currently denies anginal symptoms. Her blood pressure is mildly elevated today. Daughter reports home blood pressures have been elevated as well with systolic as high as 160. Will have her continue on amlodipine and metoprolol. Will increase losartan up to 100 mg daily. BMP in 1 week. Signs and symptoms of angina reviewed with her. Emergency care if ever needed for symptoms. Cardiology follow-up in 4-6 weeks. (2) Abnormal nuclear stress test: Code(s): R94.39 - Abnormal result of other cardiovascular function study Category: Medical Plan: As above (3) Sinus bradycardia: Code(s): R00.1 - Bradycardia, unspecified Category: Medical Plan: EKG done last visit showing sinus bradycardia, rate 46. Her metoprolol dose was reduced down to 25 mg b.i.d. from 50 mg b.i.d.. Holter monitor completed 02/22/2023 for 2 days shows sinus rhythm with average heart rate 59, rare SVE and rare VE. No reports of excess fatigue or lightheadedness. Heart rate today 54. Okay to continue on metoprolol current dose. (4) HTN (hypertension): Code(s): I10 - Essential (primary) hypertension Category: Medical Qualifiers: Hypertension type: essential hypertension Qualified Code(s): I10 - Essential (primary) hypertension Plan: Blood pressure initially 148/72, recheck done by me, 152/68. Will increase losartan to 100 mg daily, up from 50 mg daily. Will check BMP in 1 week. Reviewed low-salt diet, periodic home blood pressure checks. (5) TATIANA (obstructive sleep apnea): Code(s): G47.33 - Obstructive sleep apnea (adult) (pediatric) Category: Medical Plan: Compliant with CPAP mask Plan Time spent on chart review, documentation, interview and assessment Orders: Orders Basic Metabolic Panel 1 Week R94.39 - Abnormal result of other cardiovascular function study Medications: New losartan Dose increased 100 mg PO DAILY 30 tabs 5RF Discontinued losartan Discontinued Reason: Doctor's Order 50 mg PO DAILY 90 tabs 2RF Coding Level of Care Code Est Pt Level 4 (84767) Complex EM visit Add On G2211 Diagnoses Chest pain, unspecified type R07.9 Chest pain type: unspecified Abnormal nuclear stress test R94.39 Sinus bradycardia R00.1 Essential hypertension I10 Hypertension type: essential hypertension TATIANA (obstructive sleep apnea) G47.33 Time Spent (min) 32
[2024-04-01 09:45] VITALS: BP 148/72; PULSE 54; BMI 31.7
== END 2024-04-01 10:39 | disposition home or self-care (01) ==
PROVIDERS: PCP Internal Medicine; Visit Provider Nurse Practitioner Family
DX: R07.9 Chest pain, unspecified (principal); R94.39 Abnormal result of other cardiovascular function study; R00.1 Bradycardia, unspecified; I10 Essential (primary) hypertension; G47.33 Obstructive sleep apnea (adult) (pediatric)
CPT/HCPCS: 99214; G2211

== ENCOUNTER → 2024-04-01 09:15 | Outpatient (BNVA) | payer OTHER, SELFPAY | PROVIDERS: PCP Internal Medicine; Visit Provider Nurse Practitioner Family | DX: I10 Essential (primary) hypertension (principal); E66.9 Obesity, unspecified; R07.9 Chest pain, unspecified; R94.39 Abnormal result of other cardiovascular function study; R00.1 Bradycardia, unspecified; G47.33 Obstructive sleep apnea (adult) (pediatric); Z68.31 Body mass index [BMI] 31.0-31.9, adult | CPT/HCPCS: 99212 ==

== ENCOUNTER 2024-04-08 09:57 | Outpatient (REF) | payer OTHER, SELFPAY ==
[2024-04-08 11:02] LABS: Anion Gap 10 (12-20); Blood Urea Nitrogen 14 mg/dL (9-16); Calcium 10.2 mg/dL (8.4-10.2); Carbon Dioxide 30 mmol/L (22-29); Chloride 107 mmol/L (96-108); Estimated Glomerular Filt Rate 60; Glucose Random 103 mg/dL (60-115); Potassium 4.5 mmol/L (3.3-5.1); Sodium 142 mmol/L (135-145)
[2024-04-08 11:23] LABS: Creatinine Urine 257.49 mg/dL
[2024-04-08 11:37] LABS: Protein/Creatinine Ratio, Ur 0.86 (<0.2); Total Protein Urine Random 221 mg/dL (<12)
== END 2024-04-08 09:58 | disposition home or self-care (01) ==
LOC: HO.LAB 09:57
PROVIDERS: Absent Provider Internal Medicine Nephrology; PCP Internal Medicine; Visit Provider Nurse Practitioner Family
DX: R94.39 Abnormal result of other cardiovascular function study (principal); R80.9 Proteinuria, unspecified
CPT/HCPCS: 36415; 80048; 82570; 84156

== ENCOUNTER 2024-05-10 09:47 | Outpatient (AMB) | payer OTHER, SELFPAY ==
[2024-05-10 09:53] VITALS: BP 130/50; PULSE 68; BMI 31.6
--- NOTE | 2024-05-10 09:53 | A.OFFVIS_ITS ---
Vital Signs 05/10/24 09:53 Height 5 ft 1 in Weight 167 lb 1.766 oz BMI 31.6 BP 130/50 L Blood Pressure Location Lt brachial Position Sitting Pulse 68 Pulse Source Pulse Oximeter Intake Visit Reasons: 4-6 wk follow upCTA 04/24 Pest Control Service Representative Required: Yes Pest Control Service Representative Services: Pest Control Service Representative Present Pest Control Service Representative Name: Yared [id number] Accompanied by: Daughter Allergies No Known Allergies [No Known Allergies*] Allergy (Verified 04/04/24 10:19) Medication List - Last Reconciled 05/10/24 by Lelia Bill, CARRIER ASSOCIATE-C acetaminophen 500 mg PO Q6H PRN 30 days amlodipine 10 mg PO DAILY 90 days aspirin 81 mg PO DAILY 90 days calcium carbonate-vitamin D3 600 mg-10 mcg (400 unit) 1 tab PO BID 2 months exemestane 25 mg PO DAILY [hand held showerhead As directed] hydrocortisone 2.5% (Proctosol HC) 1 appl [place] BID incontinence pad, liner, disp use 3 to 4 times a day as needed latanoprost 0.005% 1 drp ophthalmic-Right BEDTIME losartan 100 mg PO DAILY metoprolol tartrate 50 mg PO BID 90 days pantoprazole 40 mg PO BEDTIME simethicone 180 mg PO QID PRN 30 days HPI HPI 4-6 wk follow upCTA 04/24: Details: Alysia is a 78-year-old female with metastatic breast cancer, GERD, obesity, hypertension, sleep apnea who recently reported chest discomfort and had a CTA of the coronary arteries, now presenting for follow-up. Today she reports that her prior chest discomfort has resolved. She has some mild shortness of breath with walking which is unchanged. No PND, orthopnea or edema. She sleeps with her CPAP mask on each night. No heart palpitations, lightheadedness, presyncope, syncope, falls. She is mostly sedentary. Takes meds as directed. Daughter is present. Certified automobile brake bonder used. [facility] Medical History Breast cancer metastasized to bone Breast cancer metastasized to bone Abnormal mammogram of right breast Abnormal mammogram COVID-19 Bone metastases Memory loss Mild recurrent major depression Hand pain Obesity (BMI 30-39.9) Impaired glucose tolerance Upper back pain on right side Asthma Glaucoma HTN (hypertension) Osteoarthritis Osteoporosis Nocturnal hypoxemia TATIANA (obstructive sleep apnea) Surgical History S/P ORIF (open reduction internal fixation) fracture History of esophagogastroduodenoscopy (EGD) Hx of colonoscopy History of tubal ligation H/O excision of dermoid cyst H/O excision of mass H/O lumpectomy Family History Father Hypertension Hyperlipidemia Diabetes mellitus Mother Hypertension Hyperlipidemia Cervical cancer Sister Breast cancer Hypertension Social History Household Members: Family Housing: House Are you a primary care transition coordinator to a significant other at home: No Do you presently have visiting nurse or other home services: No (daughter GARBAGE TRUCK HELPER) Alcohol intake: never Comment: pt's daughter at the bedside Patient Tobacco Use Status: Never used Tobacco e-Cigarette/Vaping Use: Never Used Second Hand Smoke Exposure: No Advance Directives Date on File: 09/21/21 service: No Current occupational status: disabled Cognitive needs: Yes Hearing needs: No Vision needs: Yes Review of Systems Const All systems reviewed & are unremarkable except as noted in HPI and below Denies chills, Denies fatigue, Denies fever(s), Denies weight gain and Denies weight loss ENT Denies dizziness Card Denies chest pain, Denies leg edema, Denies lightheadedness, Denies palpitations, Denies dyspnea on exertion, Denies orthopnea and Denies other Resp Denies cough and Denies dyspnea on exertion GI Denies hematochezia and Denies change in stool character Musc Denies abnormal gait, Denies muscle weakness, Denies numbness, Denies radiating pain into limb and Denies tingling Neuro Denies abnormal gait, Denies dizziness, Denies numbness and Denies tingling Endo Denies fatigue and Denies palpitations Physical Exam Vital Signs: Last Vital Signs Pulse 68 05/10/24 09:53 BP 130/50 L 05/10/24 09:53 BMI result Body Mass Index 31.6 Const Other: ambulates with cane, obese General: cooperative, healthy appearing, comfortable and no acute distress Orientation/consciousness: patient oriented x3 Neck Neck: Yes normal visual inspection and Yes no JVD Resp Effort & Inspection: normal respiratory effort Auscultation: clear to auscultation bilaterally, no rales, no rhonchi and no wheezes Cardio Rate: regular rate Rhythm: regular rhythm Heart sounds: S1 normal heart sound present, S2 normal heart sound present, no gallops, no murmurs and no rubs Neuro General: patient oriented x3 Extrem General: Yes normal to inspection and No no pedal edema Psych Appearance: grossly normal Mental Status: mental status grossly normal Speech and movement: Normal speech and movement present Assessment & Plan Assessment & Plan (1) Chest pain: Code(s): R07.9 - Chest pain, unspecified Category: Medical Qualifiers: Chest pain type: unspecified Qualified Code(s): R07.9 - Chest pain, unspecified Plan: Prior reports of atypical chest discomfort. ER evaluation 11/2023 without acute findings. An echocardiogram was done on 02/23/2024 showing EF greater than 70%, grade 1 diastolic dysfunction. A nuclear stress test was done 02/19/2024 which was equivocal for ischemia with a [id number] mildly reversible defect in the circumflex and RCA territory. A CTA of the coronary arteries 04/24/2024 shows no evidence of CAD, main pulmonary artery mildly dilated which could indicate pulmonary hypertension. Patient has known sleep apnea and wears CPAP. Test results reviewed with her in detail. Currently no concerning symptoms. Continue with risk factor modification. Cardiology follow-up as needed. (2) Abnormal nuclear stress test: Code(s): R94.39 - Abnormal result of other cardiovascular function study Category: Medical Plan: False-positive (3) Sinus bradycardia: Code(s): R00.1 - Bradycardia, unspecified Category: Medical Plan: EKG done 01/29/2024 showed sinus bradycardia, rate 46. Her metoprolol dose was reduced down to 25 mg b.i.d. from 50 mg b.i.d.. Holter monitor completed 02/22/2023 for 2 days shows sinus rhythm with average heart rate 59, rare SVE and rare VE. Current med list states she is back on 50 mg b.i.d.. In order to avoid symptomatic bradycardia going forward will reduce her back to 25 mg b.i.d. and send this note to her PCP for review. Can follow with PCP. (4) HTN (hypertension): Code(s): I10 - Essential (primary) hypertension Category: Medical Qualifiers: Hypertension type: essential hypertension Qualified Code(s): I10 - Essential (primary) hypertension Plan: Blood pressure normal at this time. Continue losartan, metoprolol, amlodipine. Revewed low-salt diet, periodic home blood pressure checks. (5) TATIANA (obstructive sleep apnea): Code(s): G47.33 - Obstructive sleep apnea (adult) (pediatric) Category: Medical Plan: Compliant with CPAP mask Plan Time spent on chart review, documentation, interview and assessment Medications: New metoprolol tartrate dose reduced Future refills by PCP 25 mg PO BID 90 days 180 tabs 3RF Discontinued metoprolol tartrate Discontinued Reason: Doctor's Order 50 mg PO BID 90 days 180 tabs 3RF Coding Level of Care Code Est Pt Level 4 (09131) Complex EM visit Add On G2211 Diagnoses Chest pain, unspecified type R07.9 Chest pain type: unspecified Abnormal nuclear stress test R94.39 Sinus bradycardia R00.1 Essential hypertension I10 Hypertension type: essential hypertension TATIANA (obstructive sleep apnea) G47.33 Time Spent (min) 32
== END 2024-05-10 10:16 | disposition home or self-care (01) ==
LOC: HO.HCS 09:47
PROVIDERS: PCP Internal Medicine; Visit Provider Nurse Practitioner Family
DX: R07.9 Chest pain, unspecified (principal); R94.39 Abnormal result of other cardiovascular function study; R00.1 Bradycardia, unspecified; I10 Essential (primary) hypertension; G47.33 Obstructive sleep apnea (adult) (pediatric)
CPT/HCPCS: 99214; G2211

== ENCOUNTER → 2024-05-10 09:47 | Outpatient (BNVA) | payer OTHER, SELFPAY | PROVIDERS: PCP Internal Medicine; Visit Provider Nurse Practitioner Family | DX: R07.9 Chest pain, unspecified (principal); R94.39 Abnormal result of other cardiovascular function study; R00.1 Bradycardia, unspecified; I10 Essential (primary) hypertension; G47.33 Obstructive sleep apnea (adult) (pediatric) | CPT/HCPCS: 99212 ==

== ENCOUNTER 2024-05-15 10:01 | Outpatient (AMB) | payer OTHER, SELFPAY ==
--- NOTE | 2024-05-15 10:06 | HO.NEPHOV ---
Vital Signs 05/15/24 10:12 Height 5 ft 1 in Weight 167 lb 2 oz BMI 31.6 BP 144/70 H Blood Pressure Location Lt brachial Position Sitting Pulse 72 Pulse Source Pulse Oximeter Pulse Oximetry (%) 97 Oxygen Delivery Method Room Air Intake Visit Reasons: Rscng missed 05/10 appt Bridal Gown Fitter Required: Yes Bridal Gown Fitter Language: Shell Sieve Operator Services: Bridal Gown Fitter Present Bridal Gown Fitter Name: Ashtyn Daigle [id number] Accompanied by: Daughter Allergies No Known Allergies [No Known Allergies*] Allergy (Verified 05/15/24 10:12) HPI Comments Details: I had the privilege of seeing Alysia who is a 78-year-old female with hypertension as well as 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 She recently was found to have proteinuria. 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 She had gotten Arimidex which was completed in December 2010. Zometa was started in March 2013 & currently, getting it on every 3-month basis. She was in tamoxifen which was started mid July 2014.She got switched to Aromasin in mid March 2015 & had received Denosumab. She continues to have hypercalcemia. Her blood pressure is well controlled on current medications. She does use CPAP machine for her obstructive sleep apnea. She has no edema, hematuria or renal dysfunction. Her serum albumin has been normal. [facility] Medical History Breast cancer metastasized to bone Breast cancer metastasized to bone Abnormal mammogram of right breast Abnormal mammogram COVID-19 Bone metastases Memory loss Mild recurrent major depression Hand pain Obesity (BMI 30-39.9) Impaired glucose tolerance Upper back pain on right side Asthma Glaucoma HTN (hypertension) Osteoarthritis Osteoporosis Nocturnal hypoxemia TATIANA (obstructive sleep apnea) Surgical History S/P ORIF (open reduction internal fixation) fracture History of esophagogastroduodenoscopy (EGD) Hx of colonoscopy History of tubal ligation H/O excision of dermoid cyst H/O excision of mass H/O lumpectomy Family History Father Hypertension Hyperlipidemia Diabetes mellitus Mother Hypertension Hyperlipidemia Cervical cancer Sister Breast cancer Hypertension Social History Household Members: Family Housing: House Are you a primary child care assistant to a significant other at home: No Do you presently have visiting nurse or other home services: No (daughter OPERATING ROOM SCHEDULER) Alcohol intake: never Comment: pt's daughter at the bedside Patient Tobacco Use Status: Never used Tobacco e-Cigarette/Vaping Use: Never Used Second Hand Smoke Exposure: No Advance Directives Date on File: 09/21/21 service: No Current occupational status: disabled Cognitive needs: Yes Hearing needs: No Vision needs: Yes Review of Systems Const All systems reviewed & are unremarkable except as noted in HPI and below Physical Exam Vital Signs: Last Vital Signs Pulse 72 05/15/24 10:12 BP 144/70 H 05/15/24 10:12 Pulse Ox 97 05/15/24 10:12 Oxygen Delivery Method Room Air 05/15/24 10:12 BMI result Body Mass Index 31.6 Const General: comfortable and no acute distress Orientation/consciousness: patient oriented x3 HEENT Head: Yes normocephalic Mouth: Normal oral and palatal mucosa present Eyes EOM: EOMs intact bilaterally Neck Neck: Yes supple Resp Auscultation: clear to auscultation bilaterally Cardio Jugular venous distension: no JVD Rate: regular rate GI Palpation (GI): Soft to palpation Auscultation: normal bowel sounds General: Yes no CVA tenderness Back/Spine/Pelvis Back: no CVA tenderness Skin General skin exam: no rashes or lesions noted Neuro General: patient oriented x3 and moves all extremities Extrem General: Yes no pedal edema Results Reviewed Nephrology Results: Hgb 13.3 g/dl (12.0-16.0) 05/02/24 WBC 6.4 X10*3/uL (4.8-10.8) 05/02/24 Plt Count 280 X10*3/uL (160-400) 05/02/24 Sodium 142 mmol/L (135-145) 05/02/24 Potassium 4.2 mmol/L (3.3-5.1) 05/02/24 Chloride 107 mmol/L (96-108) 05/02/24 Carbon Dioxide 29 mmol/L (22-29) 05/02/24 BUN 13 mg/dL (9-16) 05/02/24 Creatinine 0.91 mg/dL (0.5-1.4) 05/02/24 Calcium 9.6 mg/dL (8.4-10.2) 05/02/24 Urine Creatinine 257.49 mg/dL 04/08/24 Protein/Creatinin Ratio 0.86 (<0.2) H 04/08/24 Assessment & Plan Assessment & Plan (1) HTN (hypertension): Code(s): I10 - Essential (primary) hypertension Category: Medical Qualifiers: Hypertension type: essential hypertension Qualified Code(s): I10 - Essential (primary) hypertension (2) Proteinuria: Code(s): R80.9 - Proteinuria, unspecified Category: Medical Qualifiers: Proteinuria type: unspecified Qualified Code(s): R80.9 - Proteinuria, unspecified Plan 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 Her renal functions are stable at baseline.Her BP is close to goal. Oncology colleagues are managing her hypercalcemia. She should remain off calcium and vitamin D for now. I shall consider biopsying her kidney if her proteinuria continues to worsen inspite of maximizing ARB. I shall do a renal USS if I am going to go ahead with renal biopsy. Further management is pending evolving data. Answered all questions. Orders: Orders Protein Creatinine Ratio, Ur 6 Months I10 - Essential (primary) hypertension, R80.9 - Proteinuria, unspecified Blood Urea Nitrogen 6 Months I10 - Essential (primary) hypertension, R80.9 - Proteinuria, unspecified Calcium 6 Months I10 - Essential (primary) hypertension, R80.9 - Proteinuria, unspecified Creatinine 6 Months I10 - Essential (primary) hypertension, R80.9 - Proteinuria, unspecified Electrolytes 6 Months I10 - Essential (primary) hypertension, R80.9 - Proteinuria, unspecified Coding Level of Care Code Est Pt Level 4 (65237) Diagnoses Essential hypertension I10 Hypertension type: essential hypertension Proteinuria, unspecified type R80.9 Proteinuria type: unspecified
[2024-05-15 10:12] VITALS: BP 144/70; PULSE 72; O2SAT 97; BMI 31.6
== END 2024-05-15 10:25 | disposition home or self-care (01) ==
LOC: HO.HKA 10:01
PROVIDERS: PCP Internal Medicine; Visit Provider Internal Medicine Nephrology
DX: I10 Essential (primary) hypertension (principal); R80.9 Proteinuria, unspecified
CPT/HCPCS: 99214

== ENCOUNTER → 2024-05-15 10:01 | Outpatient (BNVA) | payer OTHER, SELFPAY | PROVIDERS: PCP Internal Medicine; Visit Provider Internal Medicine Nephrology | DX: I10 Essential (primary) hypertension (principal); R80.9 Proteinuria, unspecified | CPT/HCPCS: 99212 ==

== ENCOUNTER 2024-05-16 09:38 | Outpatient (AMB) | payer OTHER, SELFPAY ==
--- NOTE | 2024-05-16 09:48 | A.OFFPC_ITS ---
Vital Signs 05/16/24 09:52 Height 5 ft 1 in Weight 167 lb BMI 31.6 BP 138/66 Blood Pressure Location Lt brachial Position Sitting Intake Visit Reasons: bp Intake Note: Patient here for a follow up BP Farm Equipment Technician Required: Yes Farm Equipment Technician Language: Cigar Head Holer Name: Magdalena Braxton MD Information Interpreted: non-clinical & clinical Accompanied by: Daughter Allergies No Known Allergies [No Known Allergies*] Allergy (Verified 05/16/24 10:14) Medication List - Last Reconciled 05/16/24 by Magdalena Braxton MD acetaminophen 500 mg PO Q6H PRN 30 days amlodipine 10 mg PO DAILY 90 days aspirin 81 mg PO DAILY 90 days calcium carbonate-vitamin D3 600 mg-10 mcg (400 unit) 1 tab PO BID 2 months exemestane 25 mg PO DAILY [hand held showerhead As directed] hydrocortisone 2.5% (Proctosol HC) 1 appl AL BID incontinence pad, liner, disp use 3 to 4 times a day as needed latanoprost 0.005% 1 drp ophthalmic-Right BEDTIME losartan 100 mg PO DAILY metoprolol tartrate 25 mg PO BID 90 days pantoprazole 40 mg PO BEDTIME simethicone 180 mg PO QID PRN 30 days Tobacco use date assessed: 05/16/24 Fall risk assessment: No Falls in past year Last assessed Fall Risk: 05/16/24 Dental Screening Dental Screen Date: 05/16/24 Did you have a dental visit in the last 12 months?: No Did you have a dental problem in the last 6 months where you did not have access to dental care?: No Was dental information given to patient?: Patient has dentist HPI HPI Comments History of Present Illness Details The patient is a 78-year-old female presenting with multiple chronic conditions for a follow-up visit. She has pulmonary hypertension with confirmed arterial dilation. Her cardiac assessments remain within normal limits. Breast cancer with bone metastasis is stable under oncology care. Emphysema requires management, and she utilizes CPAP for sleep apnea. Renal evaluations indicate proteinuria; however, kidney function tests are satisfactory with elevated random blood glucose levels. [facility] Medical History (Updated 05/16/24 @ 16:30 by Magdalena Braxton MD) Breast cancer metastasized to bone Breast cancer metastasized to bone Abnormal mammogram of right breast Abnormal mammogram COVID-19 Bone metastases Memory loss Mild recurrent major depression Hand pain Obesity (BMI 30-39.9) Impaired glucose tolerance Upper back pain on right side Asthma Glaucoma HTN (hypertension) Osteoarthritis Osteoporosis Nocturnal hypoxemia TATIANA (obstructive sleep apnea) Surgical History S/P ORIF (open reduction internal fixation) fracture History of esophagogastroduodenoscopy (EGD) Hx of colonoscopy History of tubal ligation H/O excision of dermoid cyst H/O excision of mass H/O lumpectomy Family History Father Hypertension Hyperlipidemia Diabetes mellitus Mother Hypertension Hyperlipidemia Cervical cancer Sister Breast cancer Hypertension Social History Household Members: Family Housing: House Are you a primary disabilities caregiver to a significant other at home: No Do you presently have visiting nurse or other home services: No (daughter LEADERSHIP RECRUITER) Alcohol intake: never Comment: pt's daughter at the bedside Patient Tobacco Use Status: Never used Tobacco e-Cigarette/Vaping Use: Never Used Second Hand Smoke Exposure: No Advance Directives Date on File: 09/21/21 service: No Current occupational status: disabled Cognitive needs: Yes Hearing needs: No Vision needs: Yes Questionnaire PHQ-9 Over the last 2 weeks, how often have you been bothered by any of the following problems? 1. Little interest or pleasure in doing things: not at all 2. Feeling down, depressed, or hopeless: not at all 3. Trouble falling or staying asleep, or sleeping too much: not at all 4. Feeling tired or having little energy: not at all 5. Poor appetite or overeating: not at all 6. Feeling bad about yourself - or that you are a failure or have let yourself or your family down: not at all 7. Trouble concentrating on things, such as reading the newspaper or watching television: not at all 8. Moving or speaking so slowly that other people could have noticed. Or the opposite - being so fidgety or restless that you have been moving around a lot more than usual: not at all 9. Thoughts that you would be better off or of hurting yourself in some way: not at all Total score: 0 Depression Screening Interpretation: Negative Depression Screening Done: Yes 45729 - PHQ-9 Billing: Yes Source: Developed by Drs. Raf Wolf, Dominic Kong and colleagues, with an educational miguel angel from [employer]. Thrive Questionnaire Date Thrive assessed: 05/16/24 I am a: Patient What is your living situation today?: I have a steady place to live Within the past 12 months, did the food you bought not last and you didn't have the money to get more?: Never true Within the past 12 months, did you worry whether your food would run out before you got money to buy more?: Never true Do you have trouble paying for medicines?: No Do you have trouble getting transportation to medical appointments?: No Do you have trouble paying your heating and electricity bill?: No Do you have trouble taking care of your child, family member or friend?: No Do you have trouble with day-to-day activities such as bathing, preparing meals, shopping, managing finances, etc.?: No Are you currently unemployed and looking for a job?: No Are you interested in more education?: No Please select the resources that you would like help with: None Currently or been in a relationship where the following occur: No concerns reported THRIVE Score: 0 AUDIT C Alcohol Use Questionnaire (AUDIT-C) 1. How often do you have a drink containing alcohol?: Never Total Score: 0 Score Reviewed/Action Taken: No SALUD-7 AMB Questionnaire SALUD-7 Date SALUD - 7 assessed: 05/16/24 Feeling nervous, anxious, or on edge: 0 = Not at all Not being able to stop or control worryin = Not at all Worrying too much about different things: 0 = Not at all Trouble relaxin = Not at all Being so restless that it is hard to sit still: 0 = Not at all Becoming easily annoyed or irritable: 0 = Not at all Feeling afraid as if something awful might happen: 0 = Not at all Total SALUD-7 score (0-4 normal; 5-9 mild; 10-14 moderate; 15-21 severe): 0 Source: Developed by Jacquelyn Asif Kurt Kroenke and colleagues, with an educational miguel angel from [employer]. SALUD-7 Assessment Billing SALUD-7 Assessment Tool: SALUD-7 Assessment 93433 Review of Systems Const All systems reviewed & are unremarkable except as noted in HPI and below Card Denies chest pain at rest, Denies chest pain with activity, Denies edema, Denies irregular heart rhythm, Denies claudication, Denies dyspnea, Denies dyspnea on exertion, Denies orthopnea, Denies paroxysmal nocturnal dyspnea and Denies slow heart rate Resp Denies cough, Denies dyspnea and Denies dyspnea on exertion GI Denies abdominal pain, Denies change in bowel habits, Denies excessive flatus, Denies nausea and Denies vomiting Denies urinary incontinence, Denies urinary hesitancy and Denies urinary urgency Musc Denies atrophy, Denies deformity and Denies limited range of motion Skin/Breast Denies bleeding lesions, Denies changing lesions and Denies rash Physical exam (Primary Care) Vital Signs: Last Vital Signs BP 138/66 05/16/24 09:52 BMI result Body Mass Index 31.6 BMI Assessment/Plan discussion: High BMI High, discussed plan: lifestyle, weight reduction, dietary and physical activity Tobacco/Smoking Status: Tobacco use Status Tobacco use date assessed 05/16/24 05/16/24 09:58 Patient Tobacco Use Status Never used Tobacco 05/16/24 09:49 e-Cigarette/Vaping Use Never Used 05/16/24 09:49 PHQ-9: PHQ-9 Score PHQ-9: Total score 0 05/16/24 10:16 Depression Screening Interpretation: Negative Thrive Assessment: Date of Thrive Assessment Date Thrive assessed 05/16/24 05/16/24 09:58 Currently or been in a relationship where the following occur: No concerns reported Resp Effort & Inspection: normal respiratory effort Auscultation: clear to auscultation bilaterally Cardio Jugular venous distension: no JVD Rate: regular rate Rhythm: regular rhythm Heart sounds: S1 normal heart sound present and S2 normal heart sound present Extrem General: Yes full ROM Coding Level of Care Code Est Pt Level 4 (81008) Complex EM visit Add On G2211 Diagnoses Pulmonary hypertension I27.20 Carcinoma of breast metastatic to bone, unspecified laterality C50.919; C79.51 Laterality: unspecified laterality Gastroesophageal reflux disease, unspecified whether esophagitis present K21.9 Esophagitis presence: esophagitis presence not specified Mild recurrent major depression F33.0 TATIANA (obstructive sleep apnea) G47.33 Additional Codes SALUD-7 Assessment Billing - SALUD-7 Assessment Tool: SALUD-7 Assessment 56981 ([id number]) PHQ-9 - 97684 - PHQ-9 Billing: Yes ([id number]) Time Spent (min) 22 Assessment & Plan Assessment & Plan (1) Pulmonary hypertension: Code(s): I27.20 - Pulmonary hypertension, unspecified Category: Medical (2) Breast cancer metastasized to bone: Code(s): C50.919 - Malignant neoplasm of unspecified site of unspecified female breast; C79.51 - Secondary malignant neoplasm of bone Category: Medical Qualifiers: Laterality: unspecified laterality Qualified Code(s): C50.919 - Malig nant neoplasm of unspecified site of unspecified female breast; C79.51 - Secondary malignant neoplasm of bone (3) GERD (gastroesophageal reflux disease): Code(s): K21.9 - Gastro-esophageal reflux disease without esophagitis Category: Medical Qualifiers: Esophagitis presence: esophagitis presence not specified Qualified Code(s): K21.9 - Gastro-esophageal reflux disease without esophagitis (4) Mild recurrent major depression: Code(s): F33.0 - Major depressive disorder, recurrent, mild Category: Medical (5) TATIANA (obstructive sleep apnea): Code(s): G47.33 - Obstructive sleep apnea (adult) (pediatric) Category: Medical Plan The patient will continue her treatment regimen for managing her chronic conditions, including pulmonary hypertension, cancer, and hypertension. Monitoring includes oncology and cardiology follows up, glucose management via lifestyle measures, and nephrology management for proteinuria. Lipid and fasting glucose levels to be tested next week to evaluate metabolic status. Emphasis on medication adherence and use of CPAP for sleep apnea management. Patient was informed and verbally consented to the use of an ambient scribe for clinic note documentation during this visit. I discussed the current status of the patient's pulmonary hypertension, which remains under stable management. Emphasized the importance of continued oncologic treatment for her breast cancer with bone metastasis, as well as maintaining adequacy in managing her hypertension. We discussed checking lipid and glucose levels after fasting, advising dietary adjustments to manage the elevated glucose level before the next visit. Risks and benefits of current therapies were reviewed, and the patient expressed understanding of managing her conditions with the medications discussed. Future nephrology follow-up was suggested, and the importance of her CPAP regimen was reiterated for effective management of her sleep apnea. She was reassured about her condition's stability and has agreed to follow-up plans. Orders: Orders Comprehensive [place]. Panel Fast Today K21.9 - Gastro-esophageal reflux disease without esophagitis Lipid Panel Today E78.5 - Hyperlipidemia, unspecified Patient Instructions: - Continue current medication regimen as prescribed. - Maintain adherence to CPAP therapy for sleep apnea. - Complete fasting lipid and glucose tests next week. - Follow dietary adjustments to help manage elevated glucose levels. - Contact the clinic if new symptoms arise or existing symptoms worsen.
[2024-05-16 09:52] VITALS: BP 138/66; BMI 31.6
== END 2024-05-16 10:25 | disposition home or self-care (01) ==
LOC: HO.HMCH 09:39
PROVIDERS: PCP Internal Medicine; Visit Provider Internal Medicine
DX: I27.20 Pulmonary hypertension, unspecified (principal); C50.919 Malignant neoplasm of unspecified site of unspecified female breast; C79.51 Secondary malignant neoplasm of bone; F33.0 Major depressive disorder, recurrent, mild; K21.9 Gastro-esophageal reflux disease without esophagitis; G47.33 Obstructive sleep apnea (adult) (pediatric)

== ENCOUNTER → 2024-05-16 09:38 | Outpatient (BNVA) | payer OTHER, SELFPAY | PROVIDERS: PCP Internal Medicine; Visit Provider Internal Medicine | DX: I27.20 Pulmonary hypertension, unspecified (principal); J43.9 Emphysema, unspecified; G47.33 Obstructive sleep apnea (adult) (pediatric); C50.919 Malignant neoplasm of unspecified site of unspecified female breast; C79.51 Secondary malignant neoplasm of bone; K21.9 Gastro-esophageal reflux disease without esophagitis; F33.0 Major depressive disorder, recurrent, mild; E78.5 Hyperlipidemia, unspecified; Z99.89 Dependence on other enabling machines and devices | CPT/HCPCS: 96127; 99212 ==

== ENCOUNTER 2024-05-21 08:46 | Outpatient (REF) | payer OTHER, SELFPAY ==
--- NOTE | ~2024-05-21 | MM_ITS ---
EXAMINATION: DXA BONE DENSITY AXIAL HISTORY: Estrogen deficiency TECHNIQUE: [employer] Dual energy absorptiometry (DEXA) of the lumbar spine, total right hip, and femoral neck was performed. COMPARISON: [place]om is made with the prior examination dated 12/31/2013. FINDINGS: The bone mineral density of the lumbar spine is 1.249 with a T-score of 0.7, and a Z-score of 2.1. This is indicative of normal bone mineral density. This represents a BMD change of 38.5% compared to the prior exam. This is statistically significant. The bone mineral density of the right total hip is 0.899 with a T-score of -0.9, and a Z-score of 0.8. This is indicative of normal bone mineral density. This represents a BMD change of 7.0% compared to the prior exam. This is statistically significant. The bone mineral density of the right femoral neck is 0.730 with a T-score of -2.2, and a Z-score of -0.4. This is indicative of osteopenia. This represents a BMD change of 6.0% compared to the prior exam. FRACTURE RISK: The FRAX index suggests a ten year probability of major osteoporotic fracture of 24.5%, and of hip fracture 14.8%. MM/XR DEXA axial skeleton IMPRESSION: Based on bone mineral density, and according to World Health Organization (WHO) criteria, the diagnosis is consistent with osteopenia. All bone density values are in grams per centimeter squared (g/cm2). Statistically, 68% of repeat scans fall within 1 SD (+/- 0.010 g/cm2 for AP spine L1-L4) and 1 SD (+/- 0.012 g/cm2 for femur total) FRAX is a trademark of the [employer]'s [place] [facility] Metabolic [facility] Disease, a World Health Organization (WHO) Collaborating Center. Electronically signed by: Raf Esparza MD 05/21/2024 10:55 AM EDT
--- NOTE | ~2024-05-21 | MM_ITS ---
EXAMINATION: MM SCREENING DIGITAL BREAST TOMOSYNTHESIS, BILATERAL CLINICAL INFORMATION: Screening. Asymptomatic. COMPARISON: Mammography: Comparison is made with available priors TECHNIQUE: Digital breast mammography with tomosynthesis is performed in both the craniocaudal and mediolateral oblique views along with computer-aided detection (CAD). FINDINGS: The breasts are heterogeneously dense, which may obscure small masses (ACR BI-RADS breast composition Category c). Right lumpectomy changes are stable. There are no significant masses, abnormal calcifications, or other abnormalities. MM/MM tomosynthesis screening BI IMPRESSION: No mammographic evidence of malignancy. ASSESSMENT: BI-RADS BI-RADS 2 - Benign Findings RECOMMENDATION: Routine annual mammography screening. 1 year F/U This examination should not preclude the clinical evaluation of a suspicious palpable abnormality. This patient's information was entered into a reminder system with a target due date for their next mammogram. Electronically signed by: Zena Torres DO 05/26/2024 06:39 PM EDT
== END 2024-05-21 08:47 | disposition home or self-care (01) ==
LOC: HO.MAMMO 08:46
PROVIDERS: PCP Internal Medicine; Referring Provider Internal Medicine Medical Oncology; Visit Provider Internal Medicine
DX: Z12.31 Encounter for screening mammogram for malignant neoplasm of breast (principal); Z85.3 Personal history of malignant neoplasm of breast; Z13.820 Encounter for screening for osteoporosis; M85.80 Other specified disorders of bone density and structure, unspecified site; E28.39 Other primary ovarian failure
CPT/HCPCS: 77063; 77067; 77080

== ENCOUNTER → 2024-05-21 10:00 | Outpatient (BNV) | payer OTHER, SELFPAY | PROVIDERS: PCP Internal Medicine; Referring Provider Internal Medicine Medical Oncology; Visit Provider Radiology Diagnostic Radiology | DX: E28.39 Other primary ovarian failure (principal) | CPT/HCPCS: 77080 ==

== ENCOUNTER → 2024-05-24 10:32 | Outpatient (REF) | payer OTHER, SELFPAY ==
--- NOTE | ~2024-05-24 | NM_ITS ---
EXAMINATION: NM BONE SCAN WHOLE BODY HISTORY: Follow-up on bone metastases. TECHNIQUE: A total body bone scan was performed following the intravenous administration of 27 mCi technetium 99m-MDP. Whole body planar images were obtained. COMPARISON: Comparison is made with the prior examination dated 05/01/2023. FINDINGS: Again seen is activity in the left femur corresponding to posttraumatic deformity as seen on plain films on 10/06/2022. Again seen are foci of increased uptake involving the posterior aspects of the left 7th and 9th ribs. There is new activity involving the posterior aspect of the right 7th rib. This appears to correspond to a healing fracture on chest CT 12/07/2023. There is mild degenerative activity involving the spine as well as degenerative activity involving the ankles and shoulders. No definite abnormal osseous activity is seen to suggest metastatic disease. There is normal bilateral renal uptake. NM/NM bone scan whole body IMPRESSION: No scintigraphic evidence of metastatic disease. Electronically signed by: Raf Esparza MD 05/24/2024 03:48 PM EDT
== END ==
LOC: HO.NUCMED 10:32
PROVIDERS: PCP Internal Medicine; Visit Provider Internal Medicine Medical Oncology
DX: C50.919 Malignant neoplasm of unspecified site of unspecified female breast (principal); C79.51 Secondary malignant neoplasm of bone
CPT/HCPCS: 78306; A9503

== ENCOUNTER → 2024-05-24 10:36 | Outpatient (BNV) | payer OTHER, SELFPAY | PROVIDERS: PCP Internal Medicine; Visit Provider Radiology Diagnostic Radiology | DX: C79.51 Secondary malignant neoplasm of bone (principal) | CPT/HCPCS: 78306 ==

== ENCOUNTER 2024-05-30 11:46 | Outpatient (AMB) | payer OTHER, SELFPAY ==
[2024-05-30 11:47] VITALS: BP 158/70; BMI 31.2
--- NOTE | 2024-05-30 11:47 | A.OFFVIS_ITS ---
Vital Signs 05/30/24 11:47 Height 5 ft 1 in Weight 165 lb 5.547 oz BMI 31.2 BP 158/70 H Blood Pressure Location Lt brachial Position Sitting Intake Visit Reasons: GERD f/u r/s 03/28/24 Intake Note: Patient in office today for follow up of GERD. CC: Patient denies having any GI symptoms today. Screening Tech Required: Yes Screening Tech Language: [place] Accompanied by: Daughter Allergies No Known Allergies [No Known Allergies*] Allergy (Verified 05/30/24 12:02) HPI HPI GERD f/u r/s 03/28/24: Details: Assessment & Plan (1) GERD (gastroesophageal reflux disease): Code(s): K21.9 - Gastro-esophageal reflux disease without esophagitis Category: Medical Qualifiers: Esophagitis presence: esophagitis presence not specified Qualified Code(s): K21.9 - Gastro-esophageal reflux disease without esophagitis (2) External hemorrhoids: Code(s): K64.4 - Residual hemorrhoidal skin tags Category: Medical (3) Abdominal bloating: Code(s): R14.0 - Abdominal distension (gaseous) Category: Medical Plan [place] #Leon Live She continues to do well on her pantoprazole and simethicone. However, she is bothered by bumps around the anus and is worried that they are polyps. She just had a colonoscopy in 2022, so not polyps. Rectal exam reveals roid sacks mixon circular to the anus. Will rx proctosol cream. She has frequent soft daily BM's. Apparently she eats a lot of rice and pasta. She is probably having incomplete evacuation relative to her age and decreased motility of her colon. We discussed a possible trial of a mild laxative like senna to promote complete evacuation but she is fearful of this relates diarrhea. We also discussed adding a fiber supplement to bulk up the stools. She does not seem keen on either of these and for now would like to go forward just with the hemorrhoid cream. She has had no rectal bleeding and no severe pain. ROV 3 mos. Medications: New hydrocortisone 2.5% (Proctosol HC) BE SURE TO INCLUDE RECTAL APPICATOR!! 1 appl MN BID 30 grams 6RF hemorrhoids K64.9 - Unspecified hemorrhoids Refilled simethicone after meals 180 mg PO QID 30 days PRN 120 caps 6RF abdominal distention pantoprazole 40 mg PO BEDTIME 30 tabs 6RF pantoprazole 40 mg PO BEDTIME 30 tabs 6RF simethicone after meals 180 mg PO QID 30 days PRN 120 caps 6RF abdominal distention . TODAY'S VISIT [place] # Lexis Live She is here today with her daughter who is supportive. She found the hemorrhoid cream helpful, and she continues to do well on the pantoprazole and simethicone. ROV 6 mos. PFSH Medical History Hand pain Vaginal pruritus Sebaceous cyst of labia Pre-op examination Nocturnal hypoxemia Eczema Breast cancer metastasized to bone Breast cancer metastasized to bone Abnormal mammogram of right breast Abnormal mammogram COVID-19 Bone metastases Memory loss Mild recurrent major depression Obesity (BMI 30-39.9) Impaired glucose tolerance Upper back pain on right side Asthma Glaucoma HTN (hypertension) Osteoarthritis Osteoporosis TATIANA (obstructive sleep apnea) Surgical History S/P ORIF (open reduction internal fixation) fracture History of esophagogastroduodenoscopy (EGD) Hx of colonoscopy History of tubal ligation H/O excision of dermoid cyst H/O excision of mass H/O lumpectomy Family History Father Hypertension Hyperlipidemia Diabetes mellitus Mother Hypertension Hyperlipidemia Cervical cancer Sister Breast cancer Hypertension Social History Household Members: Family Housing: House Are you a primary child care aide to a significant other at home: No Do you presently have visiting nurse or other home services: No (daughter CAN COVERER) Alcohol intake: never Comment: pt's daughter at the bedside Patient Tobacco Use Status: Never used Tobacco e-Cigarette/Vaping Use: Never Used Second Hand Smoke Exposure: No Advance Directives Date on File: 09/21/21 service: No Current occupational status: disabled Cognitive needs: Yes Hearing needs: No Vision needs: Yes Review of Systems Const Denies fatigue, Denies fever(s), Denies night sweats, Denies poor appetite and Denies weight loss Eyes Details: glasses Reports requires corrective lenses ENT Reports Normal hearing present, Denies dental pain, Denies dysphagia, Denies hearing loss, Denies mouth pain, Denies odynophagia, Denies throat swelling, Denies tongue swelling and Reports other (Dentition adequate) Card Reports pedal edema Resp Reports no additional complaints GI Details: Denies abdominal pain, Denies melena, Reports bloating, Denies hematochezia, Denies constipation, Denies GI cramping, Denies dysphagia, Denies excessive flatus, Denies early satiety, Reports heartburn, Denies diarrhea, Denies nausea, Denies odynophagia, Denies vomiting and Denies hematemesis Reports urinary incontinence Musc Reports abnormal gait, Reports myalgias and Reports arthralgias Skin/Breast Denies pruritus, Denies lesions, Denies rash and Denies jaundice Neuro Reports Normal hearing present, Denies Abnormal speech present, Reports abnormal gait and Reports memory loss Psych Reports memory loss Endo Denies fatigue Aller/Immun Denies throat swelling and Denies tongue swelling Physical Exam Vital Signs: Last Vital Signs BP 158/70 H 05/30/24 11:47 BMI result Body Mass Index 31.2 Const General: cooperative, no acute distress, well developed and well groomed Nutritional Appearance: well nourished and obese Orientation/consciousness: oriented to person, oriented to place and oriented to time Limitations: language barrier, ambulation with cane and other limitations HEENT Head: Yes normocephalic and Yes atraumatic Eyes General: appearance normal, both eyes and all related structures Pupils: Equal, round and reactive pupils present Neck Neck: Yes normal visual inspection and Yes no lymphadenopathy Thyroid: Thyroid normal Resp Effort & Inspection: normal respiratory effort and able to speak in complete sentences Auscultation: clear to auscultation bilaterally Cardio Rate: regular rate Rhythm: regular rhythm Heart sounds: Normal, physiologic split S2 sound present Peripheral pulses: radial pulses present and posterior tibial pulses present GI Inspection: No distended, No Abdominal panniculus present and Yes obesity Palpation (GI): Soft to palpation, nontender, no guarding, not rigid and No hepatosplenomegaly present Percussion: Yes normal to percussion Auscultation: normal bowel sounds Rectal Exam - Female: deferred Skin General skin exam: no rashes or lesions noted, turgor normal, skin not dry, no jaundice, No spider nevi and no striae Rashes: no rashes Nails: normal Neuro General: oriented to person, oriented to place and oriented to time Cranial nerves: Yes Equal, round and reactive pupils present and Yes Normal hearing present Speech: No Abnormal speech present Extrem General: Yes normal to inspection, No clubbing, No cyanosis and No edema Psych Appearance: grossly normal and well kempt Mental Status: mental status grossly normal Speech and movement: Normal speech and movement present Affect: normal affect Attitude: cooperative Thought process: not confabulating and Impoverished thought process present Thought content: Normal thought content present Insight: Limited insight present (Psych) Judgement: Limited judgement present (Psych) Assessment & Plan Assessment & Plan (1) External hemorrhoids: Code(s): K64.4 - Residual hemorrhoidal skin tags Category: Medical (2) GERD (gastroesophageal reflux disease): Code(s): K21.9 - Gastro-esophageal reflux disease without esophagitis Category: Medical Qualifiers: Esophagitis presence: esophagitis presence not specified Qualified Code(s): K21.9 - Gastro-esophageal reflux disease without esophagitis (3) Abdominal bloating: Code(s): R14.0 - Abdominal distension (gaseous) Category: Medical (4) Memory loss: Code(s): R41.3 - Other amnesia Category: Medical Plan [place] # Lexis Live She is here today with her daughter who is supportive. She found the hemorrhoid cream helpful, and she continues to do well on the pantoprazole and simethicone. ROV 6 mos. Coding Level of Care Code Est Pt Level 3 (44033) Diagnoses External hemorrhoids K64.4 Gastroesophageal reflux disease, unspecified whether esophagitis present K21.9 Esophagitis presence: esophagitis presence not specified Abdominal bloating R14.0 Memory loss R41.3
== END 2024-05-30 12:12 | disposition home or self-care (01) ==
LOC: HO.HGI 11:46
PROVIDERS: PCP Internal Medicine; Visit Provider Nurse Practitioner
DX: K64.4 Residual hemorrhoidal skin tags (principal); K21.9 Gastro-esophageal reflux disease without esophagitis; R14.0 Abdominal distension (gaseous); R41.3 Other amnesia
CPT/HCPCS: 99213

== ENCOUNTER → 2024-05-30 11:46 | Outpatient (BNVA) | payer OTHER, SELFPAY | PROVIDERS: PCP Internal Medicine; Visit Provider Nurse Practitioner | DX: K21.9 Gastro-esophageal reflux disease without esophagitis (principal); K64.4 Residual hemorrhoidal skin tags; R14.0 Abdominal distension (gaseous); R41.3 Other amnesia | CPT/HCPCS: 99212 ==

== ENCOUNTER 2024-10-07 09:36 | Outpatient (REF) | payer OTHER, SELFPAY ==
[2024-10-07 11:06] LABS: Anion Gap 12 (12-20); Blood Urea Nitrogen 17 mg/dL (9-16); Calcium 10.0 mg/dL (8.4-10.2); Carbon Dioxide 30 mmol/L (22-29); Chloride 108 mmol/L (96-108); Estimated Glomerular Filt Rate 53; Potassium 4.6 mmol/L (3.3-5.1); Sodium 145 mmol/L (135-145)
== END 2024-10-07 09:37 | disposition home or self-care (01) ==
LOC: HO.LAB 09:36
PROVIDERS: Internal Medicine Nephrology; PCP Internal Medicine; Visit Provider Internal Medicine
DX: R94.39 Abnormal result of other cardiovascular function study (principal)
CPT/HCPCS: 36415; 80048

== ENCOUNTER 2024-10-09 10:49 | Outpatient (AMB) | payer OTHER, SELFPAY ==
[2024-10-09 10:54] VITALS: BP 140/60; PULSE 56; RESP 16; TEMP 36.3; O2SAT 95; BMI 30.7
--- NOTE | 2024-10-09 10:54 | MHC.PC.OV ---
Vital Signs 10/09/24 10:54 Height 5 ft 1 in Weight 162 lb 6 oz BMI 30.7 BP 140/60 H Blood Pressure Location Lt brachial Position Sitting Respiration 16 Pulse 56 Pulse Source Pulse Oximeter Temp 97.3 F Temp Source Temporal Artery Scan Pulse Oximetry (%) 95 Oxygen Delivery Method Room Air Intake Visit Reasons: bp Kiln Loader Required: No Accompanied by: Daughter Allergies No Known Allergies (No Known Allergies*) Allergy (Verified 10/09/24 11:22) Medication List - Last Reconciled 10/09/24 by Magdalena Braxton MD acetaminophen 500 mg PO Q6H PRN 30 days amlodipine 10 mg PO DAILY 90 days aspirin 81 mg PO DAILY 90 days calcium carbonate-vitamin D3 600 mg-10 mcg (400 unit) 1 tab PO BID 2 months exemestane 25 mg PO DAILY [hand held showerhead As directed] hydrocortisone 2.5% (Proctosol HC) 1 appl PA BID incontinence pad, liner, disp use 3 to 4 times a day as needed latanoprost 0.005% 1 drp ophthalmic-Right BEDTIME losartan 100 mg PO DAILY metoprolol tartrate 50 mg PO DAILY pantoprazole 40 mg PO BEDTIME simethicone 180 mg PO QID PRN 30 days Tobacco use date assessed: 10/09/24 Fall risk assessment: No Falls in past year Last assessed Fall Risk: 10/09/24 Dental Screening Dental Screen Date: 10/09/24 Did you have a dental visit in the last 12 months?: No Did you have a dental problem in the last 6 months where you did not have access to dental care?: No Was dental information given to patient?: Patient declined HPI HPI Comments History of Present Illness Details The patient is a 79-year-old female presenting with the management of chronic conditions. 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 Recent bone scans show no evidence of metastasis, indicating effective management with current medications. The patient is also diagnosed with chronic kidney disease, stage 3, with a glomerular filtration rate of 53 mL/min/1.73 m?. This condition is being monitored, and no immediate changes in management are required. Additionally, the patient has osteopenia and is currently taking calcium and vitamin D supplements as part of her treatment plan. A repeat bone density scan is scheduled for 2026 to monitor her bone health. The patient reports moderate depression with a PHQ-9 score of 18, experiencing sadness occasionally but not currently seeing a counselor. [facility] Medical History (Updated 10/09/24 @ 21:15 by Magdalena Braxton MD) Hand pain Vaginal pruritus Sebaceous cyst of labia Pre-op examination Nocturnal hypoxemia Eczema Breast cancer metastasized to bone Breast cancer metastasized to bone Abnormal mammogram of right breast Abnormal mammogram COVID-19 Bone metastases Memory loss Mild recurrent major depression Obesity (BMI 30-39.9) Impaired glucose tolerance Upper back pain on right side Asthma Glaucoma HTN (hypertension) Osteoarthritis Osteoporosis TATIANA (obstructive sleep apnea) Surgical History S/P ORIF (open reduction internal fixation) fracture History of esophagogastroduodenoscopy (EGD) Hx of colonoscopy History of tubal ligation H/O excision of dermoid cyst H/O excision of mass H/O lumpectomy Family History Father Hypertension Hyperlipidemia Diabetes mellitus Mother Hypertension Hyperlipidemia Cervical cancer Sister Breast cancer Hypertension Social History Household Members: Family Housing: House Are you a primary insurance healthcare consultant to a significant other at home: No Do you presently have visiting nurse or other home services: No (daughter AIRPORT ATTENDANT) Alcohol intake: never Comment: pt's daughter at the bedside Patient Tobacco Use Status: Never used Tobacco e-Cigarette/Vaping Use: Never Used Second Hand Smoke Exposure: No Advance Directives Date on File: 09/21/21 service: No Current occupational status: disabled Cognitive needs: Yes Hearing needs: No Vision needs: Yes Questionnaire PHQ-9 Over the last 2 weeks, how often have you been bothered by any of the following problems? 1. Little interest or pleasure in doing things: more than half the days 2. Feeling down, depressed, or hopeless: more than half the days 3. Trouble falling or staying asleep, or sleeping too much: more than half the days 4. Feeling tired or having little energy: more than half the days 5. Poor appetite or overeating: nearly every day 6. Feeling bad about yourself - or that you are a failure or have let yourself or your family down: nearly every day 7. Trouble concentrating on things, such as reading the newspaper or watching television: more than half the days 8. Moving or speaking so slowly that other people could have noticed. Or the opposite - being so fidgety or restless that you have been moving around a lot more than usual: more than half the days 9. Thoughts that you would be better off or of hurting yourself in some way: not at all Total score: 18 Depression Screening Interpretation: Positive Depression Screening Follow-up: Existing condition and Follow-up Visit Requested Depression Screening Done: Yes 87457 - PHQ-9 Billing: Yes Source: Developed by Drs. Raf Wolf, Jacquelyn Perez, Dominic Witt and colleagues, with an educational miguel angel from [employer]. Thrive Questionnaire Date Thrive assessed: 10/09/24 I am a: Patient What is your living situation today?: I have a steady place to live Within the past 12 months, did the food you bought not last and you didn't have the money to get more?: I choose not to answer this question Within the past 12 months, did you worry whether your food would run out before you got money to buy more?: Never true Do you have trouble paying for medicines?: No Do you have trouble getting transportation to medical appointments?: No Do you have trouble paying your heating and electricity bill?: No Do you have trouble taking care of your child, family member or friend?: No Do you have trouble with day-to-day activities such as bathing, preparing meals, shopping, managing finances, etc.?: No Are you currently unemployed and looking for a job?: No Are you interested in more education?: No Please select the resources that you would like help with: None Currently or been in a relationship where the following occur: I choose not to answer THRIVE Score: 0 AUDIT C Alcohol Use Questionnaire (AUDIT-C) 1. How often do you have a drink containing alcohol?: Never 3. How often do you have six or more drinks on one occasion?: Never Total Score: 0 Score Reviewed/Action Taken: No SALUD-7 AMB Questionnaire SALUD-7 Date SALUD - 7 assessed: 10/09/24 Feeling nervous, anxious, or on edge: 0 = Not at all Not being able to stop or control worryin = Not at all Worrying too much about different things: 0 = Not at all Trouble relaxin = Not at all Being so restless that it is hard to sit still: 0 = Not at all Becoming easily annoyed or irritable: 0 = Not at all Feeling afraid as if something awful might happen: 0 = Not at all Total SALUD-7 score (0-4 normal; 5-9 mild; 10-14 moderate; 15-21 severe): 0 Source: Developed by Drs. Raf Wolf, Jacquelyn Perez, Dominic Witt and colleagues, with an educational miguel angel from [employer]. SALUD-7 Assessment Billing ASLUD-7 Assessment Tool: SALUD-7 Assessment 63133 Review of Systems Const All systems reviewed & are unremarkable except as noted in HPI and below Card Denies chest pain at rest, Denies chest pain with activity, Denies edema, Denies irregular heart rhythm, Denies claudication, Denies dyspnea, Denies dyspnea on exertion, Denies orthopnea, Denies paroxysmal nocturnal dyspnea and Denies slow heart rate Resp Denies cough, Denies dyspnea and Denies dyspnea on exertion GI Denies abdominal pain, Denies change in bowel habits, Denies excessive flatus, Denies nausea and Denies vomiting Denies urinary incontinence, Denies urinary hesitancy and Denies urinary urgency Musc Denies abnormal gait, Denies atrophy, Denies deformity and Denies limited range of motion Skin/Breast Denies bleeding lesions, Denies changing lesions and Denies rash Neuro Denies abnormal gait, Denies behavioral changes and Denies lack of coordination Psych Denies behavioral changes Physical exam (Primary Care) Vital Signs: Last Vital Signs Temp 97.3 F 10/09/24 10:54 Pulse 56 10/09/24 10:54 Resp 16 10/09/24 10:54 BP 140/60 H 10/09/24 10:54 Pulse Ox 95 10/09/24 10:54 Oxygen Delivery Method Room Air 10/09/24 10:54 BMI result Body Mass Index 30.7 Tobacco/Smoking Status: Tobacco use Status Tobacco use date assessed 10/09/24 10/09/24 10:58 Patient Tobacco Use Status Never used Tobacco 10/09/24 10:58 e-Cigarette/Vaping Use Never Used 10/09/24 10:58 PHQ-9: PHQ-9 Score PHQ-9: Total score 18 10/09/24 11:27 Depression Screening Interpretation: Positive Depression Screening Follow-up: Existing condition and Follow-up Visit Requested Thrive Assessment: Date of Thrive Assessment Date Thrive assessed 10/09/24 10/09/24 10:59 Currently or been in a relationship where the following occur: I choose not to answer Resp Effort & Inspection: normal respiratory effort Auscultation: clear to auscultation bilaterally Cardio Jugular venous distension: no JVD Rate: regular rate Rhythm: regular rhythm Heart sounds: S1 normal heart sound present and S2 normal heart sound present Extrem General: Yes full ROM Coding Level of Care Code Est Pt Level 4 (99556) Complex EM visit Add On G2211 Diagnoses Moderate recurrent major depression F33.1 Pulmonary hypertension I27.20 Carcinoma of breast metastatic to bone, unspecified laterality C50.919; C79.51 Laterality: unspecified laterality Osteopenia M85.80 Gastroesophageal reflux disease, unspecified whether esophagitis present K21.9 Esophagitis presence: esophagitis presence not specified Additional Codes SALUD-7 Assessment Billing - SALUD-7 Assessment Tool: SALUD-7 Assessment 66062 ([id number]) PHQ-9 - 26006 - PHQ-9 Billing: Yes ([id number]) Time Spent (min) 23 Assessment & Plan Assessment & Plan (1) Moderate recurrent major depression: Code(s): F33.1 - Major depressive disorder, recurrent, moderate Category: Medical (2) Pulmonary hypertension: Code(s): I27.20 - Pulmonary hypertension, unspecified Category: Medical (3) Breast cancer metastasized to bone: Code(s): C50.919 - Malignant neoplasm of unspecified site of unspecified female breast; C79.51 - Secondary malignant neoplasm of bone Category: Medical Qualifiers: Laterality: unspecified laterality Qualified Code(s): C50.919 - Malignant neoplasm of unspecified site of unspecified female breast; C79.51 - Secondary malignant neoplasm of bone (4) Osteopenia: Code(s): M85.80 - Other specified disorders of bone density and structure, unspecified site Category: Medical (5) GERD (gastroesophageal reflux disease): Code(s): K21.9 - Gastro-esophageal reflux disease without esophagitis Category: Medical Qualifiers: Esophagitis presence: esophagitis presence not specified Qualified Code(s): K21.9 - Gastro-esophageal reflux disease without esophagitis Plan The patient will continue her current treatment regimen for metastatic breast cancer, with regular follow-ups in hematology and oncology to monitor her condition. Her chronic kidney disease will be monitored with routine lab tests, and no immediate changes in management are necessary at this time. For osteopenia, the patient is advised to continue taking calcium and vitamin D supplements, with a repeat bone density scan planned for 2026. Regarding her moderate depression, the patient is encouraged to consider counseling services to help manage her symptoms. Patient was informed and verbally consented to the use of an ambient scribe for clinic note documentation during this visit. Medications: Refilled calcium carbonate-vitamin D3 600 mg-10 mcg (400 unit) 1 tab PO BID 120 tabs 6RF 2 months
== END 2024-10-09 11:33 | disposition home or self-care (01) ==
LOC: HO.HMCH 10:50
PROVIDERS: PCP Internal Medicine; Visit Provider Internal Medicine
DX: F33.1 Major depressive disorder, recurrent, moderate (principal); I27.20 Pulmonary hypertension, unspecified; C50.919 Malignant neoplasm of unspecified site of unspecified female breast; C79.51 Secondary malignant neoplasm of bone; M85.80 Other specified disorders of bone density and structure, unspecified site; K21.9 Gastro-esophageal reflux disease without esophagitis

== ENCOUNTER → 2024-10-09 10:49 | Outpatient (BNVA) | payer OTHER, SELFPAY | PROVIDERS: PCP Internal Medicine; Visit Provider Internal Medicine | DX: F33.1 Major depressive disorder, recurrent, moderate (principal); I27.20 Pulmonary hypertension, unspecified; N18.30 Chronic kidney disease, stage 3 unspecified; M85.80 Other specified disorders of bone density and structure, unspecified site; C50.919 Malignant neoplasm of unspecified site of unspecified female breast; C79.51 Secondary malignant neoplasm of bone; K21.9 Gastro-esophageal reflux disease without esophagitis | CPT/HCPCS: 96127; 99212 ==

== ENCOUNTER 2024-10-28 10:34 | Outpatient (AMB) | payer OTHER, SELFPAY ==
[2024-10-28 10:50] VITALS: BP 142/64; PULSE 50; TEMP 36.9; O2SAT 96; BMI 30.8
--- NOTE | 2024-10-28 10:50 | AM.OFFWIN_ITS ---
Intake Vital Signs 10/28/24 10:50 Height 5 ft 1 in Weight 163 lb BMI 30.8 BP 142/64 H Blood Pressure Location Lt brachial Position Sitting Pulse 50 Pulse Source Pulse Oximeter Temp 98.5 F Temp Source Oral Pulse Oximetry (%) 96 Oxygen Delivery Method Room Air Intake Visit Reasons: EP-body bee's bite Intake Note: pt presents with itchy bee stings to left forearm, left shoulder and right underarm Patient Tobacco Use Status: Never used Tobacco Allergies No Known Allergies (No Known Allergies*) Allergy (Verified 10/28/24 10:56) Do you need a note to return to daycare/school/sports/work: No HPI HPI Comments History of Present Illness Details History of Present Illness - The patient is a 79-year-old [place] s peaking female 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 - The sting occurred yesterday, leading to itching and a suspected infection at the site. - The patient has not taken any medicati on for the itching or infection prior to the visit. - She is not allergic to bees or wasps. - She denies fever, chills, CP, SOB, whe ezing, sore throat, lip swelling, or joint pain. Physical Exam General: Cooperative, healthy appearing, comfortable, no acute distress and well developed Orientation: Patient oriented x3 Respiratory: Normal respiratory effort and able to speak in complete sentences. Clear to auscultation bilaterally Cardiovascular: Regular rate and rhythm. Normal S1 and S2 Skin: Erythema and warmth noted on the left forearm, shoulder, right axilla and right upper arm. No induration noted. No discharge noted. No streaking noted. Neuro: Sensation is intact. Extremities: Normal to inspection. FROM of the UE bilaterally. Hand mechanical intern is intact. Patient was informed and verbally consented to the use of an ambient scribe for clinic note documentation during this visit. [facility] Medical History (Updated 10/09/24 @ 21:15 by Magdalena Braxton MD) Hand pain Vaginal pruritus Sebaceous cyst of labia Pre-op examination Nocturnal hypoxemia Eczema Breast cancer metastasized to bone Breast cancer metastasized to bone Abnormal mammogram of right breast Abnormal mammogram COVID-19 Bone metastases Memory loss Mild recurrent major depression Obesity (BMI 30-39.9) Impaired glucose tolerance Upper back pain on right side Asthma Glaucoma HTN (hypertension) Osteoarthritis Osteoporosis TATIANA (obstructive sleep apnea) Surgical History S/P ORIF (open reduction internal fixation) fracture History of esophagogastroduodenoscopy (EGD) Hx of colonoscopy History of tubal ligation H/O excision of dermoid cyst H/O excision of mass H/O lumpectomy Family History Father Hypertension Hyperlipidemia Diabetes mellitus Mother Hypertension Hyperlipidemia Cervical cancer Sister Breast cancer Hypertension Social History Household Members: Family Housing: House Are you a primary health care marketing manager to a significant other at home: No Do you presently have visiting nurse or other home services: No (daughter APPOINTMENT COORDINATOR) Alcohol intake: never Comment: pt's daughter at the bedside Patient Tobacco Use Status: Never used Tobacco e-Cigarette/Vaping Use: Never Used Second Hand Smoke Exposure: No Advance Directives Date on File: 09/21/21 service: No Current occupational status: disabled Cognitive needs: Yes Hearing needs: No Vision needs: Yes Review of Systems Const All systems reviewed & are unremarkable except as noted in HPI and below Physical Exam Vital Signs: Last Vital Signs Temp 98.5 F 10/28/24 10:50 Pulse 50 10/28/24 10:50 BP 142/64 H 10/28/24 10:50 Pulse Ox 96 10/28/24 10:50 Oxygen Delivery Method Room Air 10/28/24 10:50 BMI result Body Mass Index 30.8 Assessment & Plan Assessment & Plan (1) Bee sting reaction: Code(s): T63.441A - Toxic effect of venom of bees, accidental (unintentional), initial encounter Qualifiers: Encounter type: initial encounter Injury intent: accidental or unintentional Qualified Code(s): T63.441A - Toxic effect of venom of bees, accidental (unintentional), initial encounter Plan Most likely bee sting with a reaction and cellulitis plan - Prescribed hydrocortisone cream for topical application to alleviate itching. - Recommended oral Benadryl at night if itching persists. - Prescribed oral antibiotics for seven days to treat the infection. - follow up with PCP Medications: New cephalexin 500 mg PO Q6H 28 caps 0RF hydrocortisone 2.5% 1 appl topical BID PRN 30 grams 0RF Skin Irritation Coding Level of Care Code Est Pt Level 3 (02358) Diagnoses Bee sting reaction, accidental or unintentional, initial encounter T63.441A Encounter type: initial encounter Injury intent: accidental or unintentional
== END 2024-10-28 12:35 | disposition home or self-care (01) ==
PROVIDERS: PCP Internal Medicine; Visit Provider Physician Assistant Medical
DX: T63.441A Toxic effect of venom of bees, accidental (unintentional), initial encounter (principal)

== ENCOUNTER → 2024-10-28 10:34 | Outpatient (BNVA) | payer OTHER, SELFPAY | PROVIDERS: PCP Internal Medicine; Visit Provider Physician Assistant Medical | DX: T63.461A Toxic effect of venom of wasps, accidental (unintentional), initial encounter (principal); Y92.9 Unspecified place or not applicable | CPT/HCPCS: 99212 ==

== ENCOUNTER 2024-11-11 09:42 | Outpatient (REF) | payer OTHER, SELFPAY ==
[2024-11-11 11:11] LABS: Alanine Aminotransferase 29 U/L (0-31); Albumin Level 4.4 g/dL (3.5-5.0); Alkaline Phosphatase 79 U/L (39-117); Anion Gap 7 (12-20); Aspartate Amino Transferase 28 U/L (5-31); Blood Urea Nitrogen 18 mg/dL (9-16); Calcium 10.0 mg/dL (8.4-10.2); Carbon Dioxide 31 mmol/L (22-29); Chloride 107 mmol/L (96-108); Cholesterol 161 mg/dL (<200); Estimated Glomerular Filt Rate > 60; HDL Cholesterol 43 mg/dL (>40); Potassium 4.2 mmol/L (3.3-5.1); Sodium 141 mmol/L (135-145); Total Protein 7.6 g/dL (6.5-8.0); Triglycerides 101 mg/dL (<150)
[2024-11-11 12:18] LABS: Protein/Creatinine Ratio, Ur 0.93 (<0.2); Total Protein Urine Random 204 mg/dL (<12)
== END 2024-11-11 09:43 | disposition home or self-care (01) ==
LOC: HO.LAB 09:42
PROVIDERS: PCP Internal Medicine; Visit Provider Internal Medicine Nephrology
DX: I10 Essential (primary) hypertension (principal); K21.9 Gastro-esophageal reflux disease without esophagitis; E78.5 Hyperlipidemia, unspecified; R80.9 Proteinuria, unspecified
CPT/HCPCS: 36415; 80053; 80061; 82570; 84156

== ENCOUNTER 2024-11-15 09:24 | Outpatient (AMB) | payer OTHER, SELFPAY ==
--- NOTE | 2024-11-15 09:29 | HO.NEPHOV ---
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 [place] Accompanied by: Grand Child Allergies No Known Allergies (No Known Allergies*) Allergy (Verified 11/15/24 09:30) HPI Comments Details: I had the privilege of seeing Alysia who is a 79-year-old female with hypertension as well as 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 She recently was found to have proteinuria. 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 She had gotten Arimidex which was completed in December 2010. Zometa was started in March 2013 & currently, getting it on every 3-month basis. She was in tamoxifen which was started mid July 2014.She got switched to Aromasin in mid March 2015 & had received Denosumab. She continues to have hypercalcemia. Her blood pressure is well controlled on current medications. She does use CPAP machine for her obstructive sleep apnea. She has no edema, hematuria or renal dysfunction. Her serum albumin has been normal. [facility] Medical History (Updated 10/09/24 @ 21:15 by Magdalena Braxton MD) Hand pain Vaginal pruritus Sebaceous cyst of labia Pre-op examination Nocturnal hypoxemia Eczema Breast cancer metastasized to bone Breast cancer metastasized to bone Abnormal mammogram of right breast Abnormal mammogram COVID-19 Bone metastases Memory loss Mild recurrent major depression Obesity (BMI 30-39.9) Impaired glucose tolerance Upper back pain on right side Asthma Glaucoma HTN (hypertension) Osteoarthritis Osteoporosis TATIANA (obstructive sleep apnea) Surgical History S/P ORIF (open reduction internal fixation) fracture History of esophagogastroduodenoscopy (EGD) Hx of colonoscopy History of tubal ligation H/O excision of dermoid cyst H/O excision of mass H/O lumpectomy Family History Father Hypertension Hyperlipidemia Diabetes mellitus Mother Hypertension Hyperlipidemia Cervical cancer Sister Breast cancer Hypertension Social History Household Members: Family Housing: House Are you a primary home care provider to a significant other at home: No Do you presently have visiting nurse or other home services: No (daughter DRIVER LICENSE EXAMINER) Alcohol intake: never Comment: pt's daughter at the bedside Patient Tobacco Use Status: Never used Tobacco e-Cigarette/Vaping Use: Never Used Second Hand Smoke Exposure: No Advance Directives Date on File: 09/21/21 service: No Current occupational status: disabled Cognitive needs: Yes Hearing needs: No Vision needs: Yes Review of Systems Const All systems reviewed & are unremarkable except as noted in HPI and below Physical Exam Vital Signs: Last Vital Signs Pulse 58 11/15/24 09:31 BP 140/60 H 11/15/24 09:31 Pulse Ox 95 11/15/24 09:31 Oxygen Delivery Method Room Air 11/15/24 09:31 BMI result Body Mass Index 31.1 Const General: comfortable and no acute distress Orientation/consciousness: patient oriented x3 HEENT Head: Yes normocephalic Mouth: Normal oral and palatal mucosa present Eyes EOM: EOMs intact bilaterally Neck Neck: Yes supple Resp Auscultation: clear to auscultation bilaterally Cardio Jugular venous distension: no JVD Rate: regular rate GI Palpation (GI): Soft to palpation Auscultation: normal bowel sounds General: Yes no CVA tenderness Back/Spine/Pelvis Back: no CVA tenderness Skin General skin exam: no rashes or lesions noted Neuro General: patient oriented x3 and moves all extremities Extrem General: Yes no pedal edema Results Reviewed Nephrology Results: Hgb, (12.0-16.0) 12.7 g/dl 09/26/24 WBC, (4.8-10.8) 6.8 X10*3/uL 09/26/24 Plt Count, (160-400) 224 X10*3/uL 09/26/24 Sodium, (135-145) 141 mmol/L 11/11/24 Potassium, (3.3-5.1) 4.2 mmol/L 11/11/24 Chloride, (96-108) 107 mmol/L 11/11/24 Carbon Dioxide, (22-29) 31 mmol/L H 11/11/24 BUN, (9-16) 18 mg/dL H 11/11/24 Creatinine, (0.5-1.4) 0.87 mg/dL 11/11/24 Calcium, (8.4-10.2) 10.0 mg/dL 11/11/24 Urine Creatinine 218.55 mg/dL 11/11/24 Protein/Creatinin Ratio, (<0.2) 0.93 H 11/11/24 Assessment & Plan Assessment & Plan (1) Proteinuria: Code(s): R80.9 - Proteinuria, unspecified Category: Medical Qualifiers: Proteinuria type: unspecified Qualified Code(s): R80.9 - Proteinuria, unspecified (2) HTN (hypertension): Code(s): I10 - Essential (primary) hypertension Category: Medical Qualifiers: Hypertension type: essential hypertension Qualified Code(s): I10 - Essential (primary) hypertension Plan 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 Her renal functions are stable at baseline.Her BP is close to goal. Oncology colleagues are managing her hypercalcemia. She should remain off calcium and vitamin D for now. I shall consider biopsying her kidney if her proteinuria continues to worsen inspite of maximizing ARB. I shall do a renal USS if I am going to go ahead with renal biopsy. Further management is pending evolving data. Answered all questions. Orders: Orders Protein Creatinine Ratio, Ur 6 Months I10 - Essential (primary) hypertension, R80.9 - Proteinuria, unspecified Creatinine 6 Months I10 - Essential (primary) hypertension, R80.9 - Proteinuria, unspecified Electrolytes 6 Months I10 - Essential (primary) hypertension, R80.9 - Proteinuria, unspecified Blood Urea Nitrogen 6 Months I10 - Essential (primary) hypertension, R80.9 - Proteinuria, unspecified Coding Level of Care Code Est Pt Level 4 (69928) Diagnoses Proteinuria, unspecified type R80.9 Proteinuria type: unspecified Essential hypertension I10 Hypertension type: essential hypertension
[2024-11-15 09:31] VITALS: BP 140/60; PULSE 58; O2SAT 95; BMI 31.1
== END 2024-11-15 09:49 | disposition home or self-care (01) ==
LOC: HO.HKA 09:25
PROVIDERS: PCP Internal Medicine; Visit Provider Internal Medicine Nephrology
DX: R80.9 Proteinuria, unspecified (principal); I10 Essential (primary) hypertension
CPT/HCPCS: 99214

== ENCOUNTER → 2024-11-15 09:24 | Outpatient (BNVA) | payer OTHER, SELFPAY | PROVIDERS: PCP Internal Medicine; Visit Provider Internal Medicine Nephrology | DX: I10 Essential (primary) hypertension (principal); R80.9 Proteinuria, unspecified | CPT/HCPCS: 99212 ==

== ENCOUNTER → 2024-12-30 09:40 | Outpatient (REF) | payer OTHER, SELFPAY ==
--- NOTE | ~2024-12-30 | NM_ITS ---
EXAMINATION: NM BONE SCAN OF THE WHOLE BODY CLINICAL INFORMATION: Follow-up bone metastatic spaces. History of breast cancer. Follow-up bone metastases. COMPARISON: Bone scan 05/24/2024 TECHNIQUE: Multiple gamma scintillation camera images of the whole body were performed 3 hours following the intravenous administration of 25 mCi Tc-99m MDP. FINDINGS: In the head, focal uptake seen in the left parietal bone similar previous study. Increased activity seen in the nasal region corresponding heart no sign from inflammatory process or sinusitis. In the thoracic cage and upper extremities, there are focal areas of abnormal activity in the left ninth, seventh and right seventh ribs similar previous study in densities are seen. No new areas of activity seen. Mild focal activity seen in the right glenohumeral joint likely degenerative arthritic changes. In the spine, there is levoscoliosis with mild increased activity in the mid left and right lower thoracic spine similar to previous study In the pelvis, no abnormal activity seen in the pelvic bones In the lower extremities, moderate increased activity seen in the left proximal and mid femur, bilateral knee joints and ankle joints. The proximal and mid left femur activities likely related to previous injury. Activity in the ankle joints and knee joints are widely degenerative changes similar to previous study. No other definite bony abnormalities are noted. The urinary bladder and faint visualization of both kidneys are noted. Focal increased activity seen in the right renal pelvis likely extrarenal pelvis, new. NM/NM bone scan whole body IMPRESSION: No abnormal bone activity seen to suspect any metastatic disease. Healing left and right rib fractures. Mild focal activity left parietal bone, stable to previous study. Scoliosis with mild activity seen in this mid and lower dorsal spine is stable as well. Mild activity in the left proximal mid femur is stable as well. Electronically signed by: Rangel Medina MD 12/30/2024 02:37 PM EST
== END ==
LOC: HO.NUCMED 09:40
PROVIDERS: PCP Internal Medicine; Visit Provider Internal Medicine Medical Oncology
DX: C50.919 Malignant neoplasm of unspecified site of unspecified female breast (principal); C79.51 Secondary malignant neoplasm of bone
CPT/HCPCS: 78306; A9503

== ENCOUNTER → 2024-12-30 09:42 | Outpatient (BNV) | payer OTHER, SELFPAY | PROVIDERS: PCP Internal Medicine; Visit Provider Radiology Diagnostic Radiology | DX: C50.919 Malignant neoplasm of unspecified site of unspecified female breast (principal); C79.51 Secondary malignant neoplasm of bone | CPT/HCPCS: 78306 ==